=== PATIENT | female | born 1980 | race African-American/Black ===

== ENCOUNTER 2023-07-23 08:35 | Emergency (ER) | payer OTHER, SELFPAY ==
[2023-07-23] VITALS (7 sets, daily range): BP systolic 104–127; BP diastolic 72–100; PULSE 94–109; RESP 14–28; TEMP 37; O2SAT 94–97
--- NOTE | 2023-07-23 08:47 | ED.ABDPAIN ---
HPI - Abdominal Pain General Chief Complaint: Abdominal Pain Stated Complaint: N/V Time Seen by Provider: 07/23/23 08:40 History of Present Illness HPI narrative: 43-year-old female presenting to the emergency department for evaluation nausea vomiting diarrhea and body aches. Patient reports her symptoms started last night. Patient reports that multiple people at her place of employment are out with illness but she is unsure what the diagnosis was. Patient denies any chest pain or shortness of breath. Patient does have associated cough. Related Data Allergies Allergy/AdvReac Type Severity Reaction Status Date / Time No Known Allergies Allergy Verified 07/23/23 08:56 Review of Systems Review of Systems: All systems reviewed & are unremarkable except as noted in HPI and below Exam Narrative: APPEARANCE: Well appearing, no pain, no distress, well-nourished. HEAD: normocephalic, atraumatic. EYES: PERRLA/EOMI, conjunctivae clear. NOSE: Normal no drainage EARS:TMS clear with good light reflex. THROAT: Pharynx clear, no exudate. NECK: Supple. No adenopathy, no masses. RESPIRATORY: Airway patent, respirations nonlabored. Clear to auscultation bilaterally, no rales, rhonchi, wheezing. CARDIOVASCULAR: Regular rate and rhythm without murmurs rubs or gallops. ABDOMINAL: Soft, nontender, nondistended, normal bowel sounds MUSCULOSKELETAL: Moves all extremities. Strength/ROM intact, No edema, No calf tenderness. NEURO: Alert. Cranial nerves II through XII intact. Grossly intact SKIN: Warm, dry. Normal Color Course Course Emergency Course: 43-year-old female presents to the emergency department for evaluation of nausea vomiting and body aches. Patient was afebrile with no leukocytosis and a stable hemoglobin. No acute abnormalities on her CMP and UA shows no evidence of infection. Patient did test positive for influenza A. Patient was updated on results of the workup and plan for treatment for home and on reasons to return to the emergency department. All questions concerns were addressed. Vital Signs Vital signs: Vital Signs Temperature 98.6 F 07/23/23 08:27 Pulse Rate 96 07/23/23 08:27 Respiratory Rate 14 07/23/23 08:27 Blood Pressure 114/100 H 07/23/23 08:27 Pulse Oximetry 96 07/23/23 08:27 Oxygen Delivery Room Air 07/23/23 08:27 Temperature 98.6 F 07/23/23 08:27 Pulse Rate 95 07/23/23 11:04 Respiratory Rate 21 H 07/23/23 11:04 Blood Pressure 122/97 H 07/23/23 11:04 Pulse Oximetry 96 07/23/23 11:04 Oxygen Delivery Room Air 07/23/23 08:40 MDM - Abdominal Pain Lab Data 07/23/23 08:50 07/23/23 08:50 Labs: Lab Results 07/23/23 07/23/23 07/23/23 Range/Units 08:50 08:51 09:00 WBC 7.2 (4.5-10.0) K/mm3 RBC 4.12 L (4.2-5.4) M/mm3 Hgb 11.7 L (12.0-15.0) g/dL Hct 36.6 L (37.0-47.0) % MCV 88.8 (80-100) fl MCH 28.4 (26-34) pg MCHC 32.0 (32-36) g/dl RDW 13.6 (11.5-14.5) % Plt Count 180 (150-375) k/mm3 MPV 10.2 (7.4-10.4) fl Immature Gran % (Auto) 0.4 (0-0.5) % Neut % (Auto) 85.2 H (45.5-73.1) % Lymph % (Auto) 5.4 L (18.3-44.2) % Bracken % (Auto) 8.7 H (2.6-8.5) % Eos % (Auto) 0.0 (0-4.4) % Baso % (Auto) 0.3 (0.2-1.2) % Lymph # (Auto) 0.39 L (0.9-3.2) K/mm3 Bracken # (Auto) 0.6 (0.1-0.6) K/mm3 Eos # (Auto) 0.0 (0-0.3) K/mm3 Baso # (Auto) 0.0 (0.0-0.1) K/mm3 Abs Immat Gran (auto) 0.03 (0.00-0.031) K/mm3 Absolute Neuts (auto) 6.2 (1.3-6.7) K/mm3 Absolute Nucleated RBC 0.0 (0.0-0.012) K/mm3 Nucleated RBC % 0.0 (0.0-0.2) % Sodium 133 L (137-145) mmol/L Potassium 3.4 (3.4-5.0) mmol/L Chloride 100 (98-107) mmol/L Carbon Dioxide 26 (22-30) mmol/L Anion Gap 7 L (8-16) mmol/L BUN 6 L (7-17) mg/dL Creatinine 0.70 (0.7-1.0) mg/dL Estim Creat Clear Calc 81 ml/min Estimated GFR > 60 (59 - ) Glucose
[2023-07-23 08:57] LABS: Basophils Percent Auto 0.3 % (0.2-1.2); Hematocrit 36.6 % (37.0-47.0); Hemoglobin 11.7 g/dL (12.0-15.0); Immature Granulocyte Absolute 0.03 K/mm3 (0.00-0.031); Immature Granulocyte Percent A 0.4 % (0-0.5); Lymphocytes Absolute Auto 0.39 K/mm3 (0.9-3.2); Lymphocytes Percent Auto 5.4 % (18.3-44.2); Mean Corpuscular Hemoglobin 28.4 pg (26-34); Mean Corpuscular Volume 88.8 fl (80-100); Mean Platelet Volume 10.2 fl (7.4-10.4); Monocytes Absolute Auto 0.6 K/mm3 (0.1-0.6); Monocytes Percent Auto 8.7 % (2.6-8.5); Neutrophils Absolute Auto 6.2 K/mm3 (1.3-6.7); Neutrophils Percent Auto 85.2 % (45.5-73.1); Platelet Count Result 180 k/mm3 (150-375); Red Blood Count 4.12 M/mm3 (4.2-5.4); Red Cell Distribution Width 13.6 % (11.5-14.5); White Blood Count 7.2 K/mm3 (4.5-10.0)
[2023-07-23] MEDS: ONDANSETRON INJ 4 MG/2 ML VIAL IV PUSH (08:57)
[2023-07-23] MEDS: SODIUM CHLORIDE 0.9% IV 1,000 ML 999 ML IV CONT (08:57)
[2023-07-23 09:08] LABS: Alanine Aminotransferase 20 U/L (6-35); Albumin Level 4.2 g/dL (3.5-5.1); Alkaline Phosphatase 67 U/L (38-126); Anion Gap 7 mmol/L (8-16); Aspartate Amino Transferase 27 U/L (14-36); Bilirubin,Total 0.3 mg/dL (0.2-1.3); Blood Urea Nitrogen 6 mg/dL (7-17); Calcium 8.8 mg/dL (8.4-10.2); Carbon Dioxide 26 mmol/L (22-30); Chloride 100 mmol/L (98-107); Estimated CRCL calculation 81 ml/min; Estimated Glomerular Filt Rate > 60; Glucose 103 mg/dL (65-110); Lipase 153 U/L (23-300); Potassium 3.4 mmol/L (3.4-5.0); Sodium 133 mmol/L (137-145)
[2023-07-23 09:12] LABS: Appearance Urine Cloudy (Clear); Bacteria Urine 2+ /hpf; Bilirubin Urine Negative (Negative); Blood Urine 3+ (Negative); Color Urine Yellow (Yellow); Glucose Urine UA Negative (Negative); Ketones Urine 1+ mg/dL (Negative); Leukocyte Esterase Ur Negative LEU/UL (Negative); Nitrate Urine Negative (Negative); Non Pathogenic Casts 0-2; Protein Urine 1+ mg/dL (Negative); Specific Grav Ur 1.028 (1.001-1.035); Squamous Epithelial Cell Urine Moderate /hpf (Few); pH Urine 5.5 (5.0-9.0)
[2023-07-23 09:16] LABS: Add Urine Microscopic? YES
[2023-07-23 09:34] LABS: Influenza A QL RT-PCR Positive (Negative); Influenza B QL RT-PCR Negative (Negative); RSV RNA, RT-PCR Negative (Negative); SARS-CoV-2 RNA PCR Negative (Negative)
[2023-07-23] MEDS: KETOROLAC 15 MG/ML VIAL (*BKC) IV PUSH (09:36)
== END 2023-07-23 11:17 | disposition home or self-care (01) ==
PROVIDERS: Emergency Provider Emergency Medicine
DX: J10.1 Influenza due to other identified influenza virus with other respiratory manifestations (principal); R11.2 Nausea with vomiting, unspecified; Z20.822 Contact with and (suspected) exposure to COVID-19
CPT/HCPCS: 36415; 80053; 81001; 81025; 83690; 85025; 87086; 87088; 87637; 96361; 96374; 96375; 99284; J1885; J2405; J7030

== ENCOUNTER 2023-12-16 08:07 | Outpatient (CLI) | payer OTHER, SELFPAY ==
[2023-12-16 08:45] LABS: Hemoglobin 12.9 g/dL (12.0-15.0); Mean Corpuscular HGB Conc 32.3 g/dl (32-36); Mean Platelet Volume 9.8 fl (7.4-10.4); Platelet Count Result 399 k/mm3 (150-375); Red Cell Distribution Width 13.1 % (11.5-14.5)
[2023-12-16 08:48] LABS: Appearance Urine Clear (Clear); Bilirubin Urine Negative (Negative); Blood Urine Negative (Negative); Color Urine Yellow (Yellow); Glucose Urine UA Negative (Negative); Ketones Urine Negative (Negative); Leukocyte Esterase Ur Negative LEU/UL (Negative); Nitrate Urine Negative (Negative); Protein Urine Negative (Negative); Specific Grav Ur 1.015 (1.001-1.035); Urobilinogen Urine 0.2 mg/dL (<2.0)
[2023-12-16 08:52] LABS: Add Urine Microscopic? NO
[2023-12-16 10:15] LABS: Erythrocyte Sedimentation Rate 19 mm/hr (0-20)
[2023-12-16 10:57] LABS: HIV 1/2 Ab P24 Ag Result Negative (Negative)
[2023-12-16 10:59] LABS: Thyroid Stimulating Hormone 0.479 uIU/mL (0.465-4.680)
[2023-12-16 11:19] LABS: Iron 59 ug/dL (37-170)
[2023-12-16 11:38] LABS: Percent Iron Saturation 14 % (20-50)
[2023-12-16 11:47] LABS: Alanine Aminotransferase 16 U/L (6-35); Albumin Level 4.3 g/dL (3.5-5.1); Alkaline Phosphatase 56 U/L (38-126); Anion Gap 4 mmol/L (4-12); Aspartate Amino Transferase 24 U/L (14-36); Bilirubin,Total 0.5 mg/dL (0.2-1.3); Blood Urea Nitrogen 10 mg/dL (7-17); Calcium 9.1 mg/dL (8.4-10.2); Carbon Dioxide 30 mmol/L (22-30); Chloride 105 mmol/L (98-107); Cholesterol 111 mg/dL (0-200); Estimated Glomerular Filt Rate > 60; Glucose 88 mg/dL (65-110); HDL Direct 51 mg/dL; LDL Cholesterol Direct 50 mg/dL; Rheumatoid Factor < 12.0 IU/ML (<12); Sodium 139 mmol/L (137-145); Triglycerides 52 mg/dL (<150)
[2023-12-16 12:04] LABS: Vitamin D 25 Hydroxy 39.2 ng/mL
[2023-12-16 12:13] LABS: Hepatitis B Surface Antigen Negative (Negative)
[2023-12-16 12:18] LABS: HAV RESULT Negative (Negative); Hepatitis B Core IgM Result Negative (Negative)
[2023-12-16 12:30] LABS: Hepatitis C Virus Antibody Negative (Negative)
[2023-12-19 14:03] LABS: Thyroid Peroxidase Antibodies 1 IU/mL (<9)
[2023-12-20 12:24] LABS: Anti Nuclear Antibody Pattern Nuclear, Speckled; Anti Nuclear Antibody Titer 1:40 titer
== END 2023-12-16 08:08 | disposition home or self-care (01) ==
LOC: ANHLAB 08:10
PROVIDERS: Visit Provider Emergency Medicine
DX: Z00.00 Encounter for general adult medical examination without abnormal findings (principal); D64.9 Anemia, unspecified; F41.9 Anxiety disorder, unspecified; F32.9 Major depressive disorder, single episode, unspecified
CPT/HCPCS: 36415; 80053; 80061; 80074; 81003; 82306; 83540; 83550; 84439; 84443; 85027; 85652; 86038; 86039; 86376; 86430; 86703; G0432

== ENCOUNTER 2023-12-30 10:44 | Outpatient (CLI) | payer OTHER, SELFPAY ==
--- NOTE | ~2023-12-30 | XR_ITS ---
2 VIEWS SOFT TISSUES NECK Ordering provider: Kwan Macias MD History: . NECK PUFFINESS, ABNORMAL THYROID PANELS . Comparison: None. FINDINGS: SOFT TISSUES: No prevertebral soft tissue swelling. The epiglottis is normal. The pharynx and trach ea appear patent. VERTEBRAL BODIES: Normal height and alignment. No acute osseous findings. DISK SPACES: Multilevel degenerative disc disease. Multilevel facet joint disease and uncovertebral j oint osteoarthritic changes. IMPRESSION: No definite soft tissue abnormalities. Multilevel degenerative disc disease. Reviewed, dictated and finalized at location A.
--- NOTE | ~2023-12-30 | US_ITS ---
EXAMINATION: US thyroid DATE: 12/30/2023 11:21 INDICATION: Neck puffiness. TECHNIQUE: Multiple ultrasound images of the thyroid were obtained. COMPARISON: None. FINDINGS: The right thyroid lobe measures 5.8 x 2.0 x 2.1 cm. The left thyroid lobe measures 5.6 x 1.6 x 1.2 c m. In the right thyroid lobe, there is a 2.3 cm solid, isoechoic, wider than tall nodule with lobula toby margin without echogenic foci (TI-RADS TR4). In the left thyroid lobe, there is an 8 mm mixed cys tic and solid, isoechoic, wider than tall nodule with smooth margin without echogenic foci (TR2). In the left thyroid lobe, there is a 7 mm, isoechoic, wider than tall nodule with smooth margin without echogenic foci (TR3). IMPRESSION: 1. Multinodular goiter. Ultrasound-guided fine-needle aspiration of the 2.3 cm right thyroid nodule i s recommended. Reviewed, dictated and finalized at location E. IMPRESSION: 1. Multinodular goiter. Ultrasound-guided fine-needle aspiration of the 2.3 cm right thyroid nodule is recommended.
== END 2023-12-30 10:45 | disposition home or self-care (01) ==
LOC: ANHIMG 10:49
PROVIDERS: PCP Emergency Medicine; Visit Provider Emergency Medicine
DX: E04.2 Nontoxic multinodular goiter (principal); M50.30 Other cervical disc degeneration, unspecified cervical region
CPT/HCPCS: 70360; 76536

== ENCOUNTER 2024-01-23 11:11 | Outpatient (CLI) | payer OTHER, SELFPAY ==
[2024-01-23 11:46] LABS: Basophils Percent Auto 0.7 % (0.2-1.2); Eosinophils Absolute Auto 0.2 K/mm3 (0-0.3); Eosinophils Percent Auto 4.5 % (0-4.4); Hematocrit 41.6 % (37.0-47.0); Hemoglobin 13.3 g/dL (12.0-15.0); Immature Granulocyte Absolute 0.01 K/mm3 (0.00-0.031); Immature Granulocyte Percent A 0.2 % (0-0.5); Lymphocytes Percent Auto 40.3 % (18.3-44.2); Mean Corpuscular Hemoglobin 28.7 pg (26-34); Mean Corpuscular Volume 89.7 fl (80-100); Monocytes Absolute Auto 0.3 K/mm3 (0.1-0.6); Monocytes Percent Auto 7.1 % (2.6-8.5); Neutrophils Percent Auto 47.2 % (45.5-73.1); Platelet Count Result 241 k/mm3 (150-375); Red Blood Count 4.64 M/mm3 (4.2-5.4); Red Cell Distribution Width 14.4 % (11.5-14.5); White Blood Count 4.2 K/mm3 (4.5-10.0)
[2024-01-23 14:07] LABS: Hepatitis B Surface Antigen Negative (Negative)
[2024-01-23 14:13] LABS: HAV RESULT Negative (Negative); Hepatitis B Core IgM Result Negative (Negative)
[2024-01-23 14:24] LABS: Hepatitis C Virus Antibody Negative (Negative)
[2024-01-23 16:52] LABS: Iron 52 ug/dL (37-170)
[2024-01-23 17:01] LABS: Percent Iron Saturation 13 % (20-50)
[2024-01-23 17:04] LABS: Alanine Aminotransferase 43 U/L (6-35); Albumin Level 4.7 g/dL (3.5-5.1); Alkaline Phosphatase 62 U/L (38-126); Anion Gap 10 mmol/L (4-12); Aspartate Amino Transferase 29 U/L (14-36); Bilirubin,Total 0.2 mg/dL (0.2-1.3); Blood Urea Nitrogen 15 mg/dL (7-17); Calcium 9.1 mg/dL (8.4-10.2); Carbon Dioxide 25 mmol/L (22-30); Chloride 101 mmol/L (98-107); Estimated Glomerular Filt Rate > 60; Glucose 82 mg/dL (65-110); Lactate Dehydrogenase 156 U/L (120-246); Potassium 4.2 mmol/L (3.4-5.0); Sodium 136 mmol/L (137-145)
[2024-01-24 01:16] LABS: Folic Acid > 20.0 ng/mL (2.76->20)
[2024-01-24 01:30] LABS: Carcinoembryonic Antigen 2.4 ng/mL (0.0-3.0)
[2024-01-24 11:43] LABS: EBV Virus Capsid Ag IgM Ab <36.00 U/mL
[2024-01-25 14:58] LABS: CA 19-9 28 U/mL (<34)
[2024-01-27 11:49] LABS: Methylmalonic Acid 112 nmol/L (55-335)
[2024-01-30 12:44] LABS: Soluble Transferrin Receptor 1.24 mg/L (0.76-1.76)
== END 2024-01-23 11:12 | disposition home or self-care (01) ==
LOC: ANHLAB 11:12
PROVIDERS: Internal Medicine Gastroenterology; PCP Emergency Medicine; Visit Provider Nurse Practitioner Family
DX: R63.0 Anorexia (principal); Z80.0 Family history of malignant neoplasm of digestive organs
CPT/HCPCS: 36415; 80053; 80074; 82378; 82607; 82728; 82746; 83540; 83550; 83615; 83921; 84238; 85025; 86301; 86664; 86665

== ENCOUNTER 2024-03-08 12:25 | Outpatient (CLI) | payer OTHER, SELFPAY ==
--- NOTE | ~2024-03-08 | US_ITS ---
EXAMINATION: US FNA w image guidance DATE: 03/08/2024 13:24 INDICATION: Right thyroid nodule TECHNIQUE: A time-out was performed to verify the patient's name, date of , and procedure to be performed . The procedure and its benefits and risks were discussed with the patient. Risks specifically discus sed included bleeding and infection. The patient understood the risks and agreed to proceed. The neck was prepped and draped in the usual sterile manner. 3 mL 1% lidocaine was used for local anesthesia . 6 passes were made with a 25G needle into the lesion. Appropriate needle location was documented with continuous sonographic guidance. A sterile bandage was applied. There were no immediate compli cations. FINDINGS: Grayscale ultrasound images demonstrate biopsy needles advanced into a 2.4 cm TI-RADS 4 nodule at the mid to inferior right thyroid lobe. IMPRESSION: 1. Successful ultrasound-guided fine needle aspiration of a 2.4 cm TI RADS 4 right thyroid nodule. Reviewed, dictated and finalized at location A. IMPRESSION: 1. Successful ultrasound-guided fine needle aspiration of a 2.4 cm TI RADS 4 r ight thyroid nodule.
== END 2024-03-08 12:26 | disposition home or self-care (01) ==
LOC: ANHIMG 12:27
PROVIDERS: PCP Emergency Medicine; Referring Provider Internal Medicine Hematology & Oncology; Visit Provider Internal Medicine Hematology & Oncology
DX: E04.1 Nontoxic single thyroid nodule (principal)
CPT/HCPCS: 10005; 88172; 88173; 88305

== ENCOUNTER 2024-03-11 11:12 | Emergency (ER) | payer OTHER, SELFPAY ==
[2024-03-11] VITALS (10 sets, daily range): BP systolic 116–131; BP diastolic 63–96; PULSE 64–80; RESP 14–20; TEMP 36.2–36.8; O2SAT 99–100
--- NOTE | ~2024-03-11 | US_ITS ---
US breast RT limited 03/11/2024 14:52 Indication: Palpable lump. Breast pain. Procedure: High-resolution Limited ultrasound of the right breast Comparison: No prior studies for comparison. Findings: At 9:00 in the subareolar location there is an oval bilobed parallel oriented heterogeneous mass measuring 3.9 x 2.8 x 1.4 cm. There is adjacent fluid, nonspecific. Impression: 1: Oval bilobed circumscribed heterogeneous 3.9 cm right breast mass at 9:00 in the subareolar locati on corresponding to the palpable abnormality. RECOMMENDATION: Correlation with diagnostic bilateral mammogram recommended. BI-RADS CATEGORY 0 - INCOMPLETE STUDY, NEED ADDITIONAL IMAGING EVALUATION. Reviewed, dictated and finalized at location B. Impression: 1: Oval bilobed circumscribed heterogeneous 3.9 cm right breast mass at 9:00 in the subareolar location corresponding to the palpable abnormality. RECOMMENDATION: Correlation with diagnostic bilateral mammogram recommended. BI-RADS CATEGORY 0 - INCOMPLETE STUDY, NEED ADDITIONAL IMAGING EVALUATION.
--- NOTE | 2024-03-11 14:40 | ED.GENADULT ---
HPI - General Adult General Chief complaint: Unspecified Stated complaint: node on the right breast and is getting bigger Time Seen by Provider: 03/11/24 13:58 Source: patient Mode of arrival: ambulatory Limitations: no limitations History of Present Illness HPI narrative: Patient is a 43-year-old female who presents the ED with report of right breast pain. Patient reports she noticed an area of swelling in her right breast beneath her nipple 3 days ago. States it has increased in size and become increasingly tender. She has been taking ibuprofen for the pain with some improvement. Denies nipple discharge, nipple inversion, overlying skin redness/warmth. Denies fevers. She has not had similar symptoms before. Reports history of mammogram earlier this year which was normal. Related Data Allergies Allergy/AdvReac Type Severity Reaction Status Date / Time No Known Allergies Allergy Verified 03/11/24 11:13 Review of Systems Review of Systems: All systems reviewed & are unremarkable except as noted in HPI. All systems reviewed & are unremarkable except as noted in HPI and below Exam Narrative: GENERAL: Well appearing, well-nourished, non-toxic, in no acute distress. HEAD: Normocephalic, atraumatic. RESPIRATORY: Airway patent, respirations nonlabored. CARDIOVASCULAR: Regular rate and rhythm MUSCULOSKELETAL: Moves all extremities. No gross deformities. BREAST: Some fibrocystic breast changes bilaterally. Area of induration noted beneath right-sided nipple region (9oclock region) in R breast. No overlying skin changes. No erythema, fluctuance, warmth. Nipple appears normal, no drainage. No inversion of the nipple. SKIN: Warm, dry, normal color. NEURO: A&O X3. Speech clear. PSYCHIATRIC: Appropriate mood and affect. Normal interaction. Course Vital Signs Vital signs: Vital Signs Temperature 98.3 F 03/11/24 11:38 Pulse Rate 64 03/11/24 11:38 Respiratory Rate 20 03/11/24 11:38 Blood Pressure 124/89 03/11/24 11:38 Pulse Oximetry 100 03/11/24 11:38 Oxygen Delivery Room Air 03/11/24 11:38 Temperature 97.1 F L 03/11/24 17:16 Pulse Rate 80 03/11/24 17:16 Respiratory Rate 14 03/11/24 17:16 Blood Pressure 124/63 03/11/24 17:16 Pulse Oximetry 100 03/11/24 17:16 Oxygen Delivery Room Air 03/11/24 11:38 Medical Decision Making MDM Narrative Medical decision making narrative: Patient presented to ED with several day history of right breast pain. Will obtain imaging to further evaluate. Vital signs are stable. Afebrile. No overlying skin changes, evidence of cellulitis or superficial skin infection on exam. Discussed case with radiologist, Dr. Lucio, regarding breast US. Advised complex cystic structure, likely galactocele, cannot r/o superimposed infection. Does not appear as maria c abscess. No vascularity within to suggest neoplasm. Patient was updated on imaging results. Will plan to treat for potential infectious process with doxycycline, will refer to breast surgery/general surgery for further evaluation/biopsy. Advised patient have very close follow-up. Recommended frequent warm compresses, anti-inflammatories. Patient was given return precautions. She is in agreement with plan. Discharged in stable condition. Medical Records Medical records reviewed: Yes I reviewed the external patient's medical records. Vital Signs Vital Signs: Vital Signs Temperature 98.3 F 03/11/24 11:38 Pulse Rate 64 03/11/24 11:38 Respiratory Rate 20 03/11/24 11:38 Blood Pressure 124/89 03/11/24 11:38 Pulse Oximetry 100 03/11/24 11:38 Oxygen Delivery Room Air 03/11/24 11:38 Temperature 97.1 F L 03/11/24 17:16 Pulse Rate 80 03/11/24 17:16 Respiratory Rate 14 03/11/24 17:16 Blood Pressure 124/63 03/11/24 17:16 Pulse Oximetry 100 03/11/24 17:16 Oxygen Delivery Room Air 03/11/24 11:38 Imaging Data Attestation: I personally reviewed an
== END 2024-03-11 17:17 | disposition home or self-care (01) ==
PROVIDERS: Emergency Provider Physician Assistant; PCP Emergency Medicine
DX: N60.01 Solitary cyst of right breast (principal)
CPT/HCPCS: 76642; 99284

== ENCOUNTER 2024-04-16 11:05 | Outpatient (CLI) | payer OTHER, SELFPAY ==
[2024-04-16 11:30] LABS: Hemoglobin 14.2 g/dL (12.0-15.0)
== END 2024-04-16 11:06 | disposition home or self-care (01) ==
LOC: ANHLAB 11:06
PROVIDERS: PCP Emergency Medicine; Visit Provider Anesthesiology
DX: D64.9 Anemia, unspecified (principal)
CPT/HCPCS: 36415; 85014; 85018

== ENCOUNTER 2024-04-25 01:38 | Day surgery (SDC) | payer OTHER, SELFPAY ==
[2024-04-13 15:39] VITALS: BMI 29.8
--- NOTE | 2024-04-13 15:40 | PC.NURSE ---
Report to the Outpatient Waiting Room, entrance under the green pavilion located off [facility], at time _0600_ on date _[id number]_. Planned Procedure Time: _0730_.? Time changes happen often and if your time is changed the preop area will call you the afternoon before. - You and your visitor will be asked to self-screen and do not enter if you have any COVID symptoms. Please call surgeon if you need to reschedule. - A mask is optional within the hospital at this time. Patients may have clear liquids (water, carbonated beverages, clear teas, apple juice) until 3 hours prior to surgery with a maximum of 20 ounces. - No food from midnight until time of surgery and no smoking Take only the following medications with a SIP of water on the morning of surgery: ___Gabapentin DO NOT STOP ANY OF YOUR OTHER PRESCRIPTION MEDICATIONS PRIOR TO SURGERY EXCEPT THE FOLLOWING Medications to discontinue per physician Iron and Probiotic Date to take last heto____[id number] Henderson's office if ok to continue taking Ibuprofen. Please no make-up, nail french, hairspray, perfume, deodorant, or body powder the day of surgery.? No jewelry (including any body piercings) or valuables the day of surgery, leave them at home.? Please take a shower or bath the night before, or the morning of, surgery with an antibacterial soap.? Wear comfortable, loose fitting clothing.? - Jewelry must be removed prior to entering the operating room.? Rings and piercings that are not removed may be cut off. - The hospital will not accept responsibility for valuables.? - Please leave all valuables, including medications, at home the day of surgery. If you are going home after surgery, a licensed driver lifter of sanitation truck must drive you home.? - NO public transportation without another adult if you receive anesthesia. - We recommend that an adult stay with you for 24 hours following discharge. - We also recommend that you do not drive, make important decision, drink alcoholic beverages, or take any drugs that were not prescribed by your health care provider for at least 24 hours after your discharge time. Follow any additional instructions given to you from your surgeon. Telephone instructions given to __Lillian___and asked if any additional questions and then verbalized understanding. Patient advised to call surgeon office or pre surgery nurse liaison [phone] if any additional questions.
--- NOTE | 2024-04-24 17:47 | WPDANESEPPF ---
Anes - Initial Pre Proc Eval Procedure: Operation Date: 04/25/24 07:30 Proposed Procedures p Excisional Biopsy of Right Subareolar Mass, Excisional Biopsy of Left Subareolar Abscess, Possible Bilateral Total Duct Excision, Possible Bilateral Adjacent Tissue Transfer - Yumiko Henderson MD Date/Time: 04/24/24 17:47 Surgeon: Yumiko Henderson MD Pre Op Diagnosis: right subareolar mass, left subareolar abscess Patient Data Age: 43 Gender: F Height: 1.57 m Weight: 74 kg Allergies Allergy/AdvReac Type Severity Reaction Status Date / Time No Known Allergies Allergy Verified 04/13/24 15:30 Home Medications Medication Instructions Recorded Confirmed Type ferrous sulfate 325 mg (65 mg 325 mg PO DAILY 03/21/24 04/13/24 History iron) tablet,delayed release gabapentin 100 mg capsule 100 mg PO TID 03/21/24 04/13/24 History ibuprofen 800 mg tablet 800 mg PO TID 03/21/24 04/13/24 History Lactobacillus 40-Bifidobact 1 cap PO DAILY 04/13/24 04/13/24 History 3-S.thermophilus 100 billion cell capsule (Probiotic) Patient hx anesthesia problems: none Family hx anesthesia problems: none Results Review: All pre-operative results and documents have been reviewed as part of the pre-operative evaluation. [facility] Past Medical History Medical History (Updated 04/24/24 @ 17:48 by Azar Stevens Jr., CRNA) Anemia Anxiety and depression Asthma Eczema Fibromyalgia Overweight (BMI 25.0-29.9) Subareolar lump of left breast Subareolar lump of right breast Social History Social History Smoking status: Never smoker Alcohol intake: current Substance use: never Substance use type: does not use Do You Feel Safe in your Home?: Yes Lack of Transportation: No Lack of Food: Never True Current Housing: I Have Housing Concerned About Future Housing: No Difficulty Paying Gas/Electric Bills: No Difficulty Paying for Meds: No Currently Unemployed: No Education: High School Diploma/GED Difficulty w/ Childcare or Family Care: No Living arrangements: with family Spiritual care concerns: No Anes - Eval Final PreProcedure Day of Procedure 04/24/24 17:47 Patient weight: overweight Results Review: All pre-operative results and documents have been reviewed as part of the pre-operative evaluation. Informed Consent: The patient's anesthetic plan and its attendant risks and benefits were discussed with the patient/family/POA. Questions were solicited and answers provided to the satisfaction of the patient/family/POA.
[2024-04-25] VITALS (9 sets, daily range): BP systolic 114–144; BP diastolic 69–95; PULSE 55–66; RESP 12–16; TEMP 36.3–36.4; O2SAT 100
[2024-04-25] MEDS: LACTATED RINGERS 1,000 ML 30 ML IV CONT (06:30)
[2024-04-25] MEDS: ACETAMINOPHEN 500 MG TABLET 1000 MG PO (07:00)
--- NOTE | 2024-04-25 07:01 | WPDHPUPDATE1 ---
History and Physical Update Update Date/Time: 04/25/24 07:01 - Excisional biopsy of bilateral subareolar lesions, possible bilateral total duct excision, possible bilateral adjacent tissue transfer hopefully in the near future. History and Physical has been reviewed, including an updated exam of the patient. There are NO changes in the patient's condition. Risks, benefits, and alternatives have been discussed and questions answered. Patient agrees to proceed with procedure.
--- NOTE | 2024-04-25 07:18 | P.PNAN_ITS ---
Anes - Initial Pre Proc Eval Procedure: Operation Date: 04/25/24 07:30 Proposed Procedures p Excisional Biopsy of Right Subareolar Mass, Excisional Biopsy of Left Subareolar Abscess, Possible Bilateral Total Duct Excision, Possible Bilateral Adjacent Tissue Transfer - Yumiko Henderson MD Date/Time: 04/25/24 07:18 Surgeon: Yumiko Henderson MD Pre Op Diagnosis: right subareolar mass, left subareolar abscess Patient Data Age: 43 Gender: F Height: 1.57 m Weight: 74 kg Allergies Allergy/AdvReac Type Severity Reaction Status Date / Time No Known Allergies Allergy Verified 04/13/24 15:30 Home Medications Medication Instructions Recorded Confirmed Type ferrous sulfate 325 mg (65 mg 325 mg PO DAILY 03/21/24 04/13/24 History iron) tablet,delayed release gabapentin 100 mg capsule 100 mg PO TID 03/21/24 04/13/24 History ibuprofen 800 mg tablet 800 mg PO TID 03/21/24 04/13/24 History Lactobacillus 40-Bifidobact 1 cap PO DAILY 04/13/24 04/13/24 History 3-S.thermophilus 100 billion cell capsule (Probiotic) Patient hx anesthesia problems: none Family hx anesthesia problems: none Results Review: All pre-operative results and documents have been reviewed as part of the pre- operative evaluation. [facility] Past Medical History Medical History (Updated 04/24/24 @ 17:48 by Azar Stevens Jr., CRNA) Anemia Anxiety and depression Asthma Eczema Fibromyalgia Overweight (BMI 25.0-29.9) Subareolar lump of left breast Subareolar lump of right breast Social History Social History Smoking status: Never smoker Alcohol intake: current Substance use: never Substance use type: does not use Do You Feel Safe in your Home?: Yes Lack of Transportation: No Lack of Food: Never True Current Housing: I Have Housing Concerned About Future Housing: No Difficulty Paying Gas/Electric Bills: No Difficulty Paying for Meds: No Currently Unemployed: No Education: High School Diploma/GED Difficulty w/ Childcare or Family Care: No Living arrangements: with family Spiritual care concerns: No Anes - Eval Final PreProcedure Day of Procedure 04/25/24 07:18 Patient weight: normal Heart: regular rate and rhythm Lungs: clear to auscultation Airway: Mallampati scale class II Neurological: alert and oriented Last oral intake: >/= 8 hours ASA classification: II Emergent: no Anesthetic plan: proceed Anesthesia type and monitoring: general LMA and standard monitoring Results Review: All pre-operative results and documents have been reviewed as part of the pre- operative evaluation. Informed Consent: The patient's anesthetic plan and its attendant risks and benefits were discussed with the patient/family/POA. Questions were solicited and answers provided to the satisfaction of the patient/family/POA.
[2024-04-25] MEDS: ceFAZolin 2 GM/D5W 50 ML 2 GM/50 ML BAG IVPB (07:24)
--- NOTE | 2024-04-25 08:15 | SUR.OPER ---
EXCISED RIGHT BREAST SPECIMEN AT 0811. HANDED OFF TO PCT NOY @ 0816 TO TAKE DOWN TO PATHOLOGY FRESH FOR PERMANENT. NOY DELIVERED TO RIYA IN PATHOLOGY @0853
--- NOTE | 2024-04-25 08:37 | SUR.OPER ---
LEFT BREAST MASS EXCISED @0845. HANDED TO PCT NOY @7104 TO TAKE DOWN TO PATHOLOGY FRESH FOR PERMANENT. SPECIMEN HANDED TO RIYA IN PATHOLOGY @0316
[2024-04-25 08:47] LABS: BEDSIDEPREGUCG Negative (Negative)
--- NOTE | 2024-04-25 09:02 | P.OP_ITS ---
Procedure Note - Detailed Date of Procedure 04/25/24 Pre-op Diagnosis right subareolar mass, left subareolar mass Post-op Diagnosis Same Procedure Performed 1. Excisional biopsy of right subareolar mass 2. Excisional biopsy of left subareolar mass 3. Right total duct excision 4. Left total duct excision 5. Right adjacent tissue transfer 1 cm x 5 cm 6. Left adjacent tissue transfer 1 cm x 5 cm Surgeon Yumiko Henderson MD Arts Administrator Rosalba Ram PA-C Anesthesia General Description of Procedure Patient was identified in the preoperative holding area brought to the OR operating room suite. She was laid supine in the OR table sequential compression devices were applied. Anesthesia was induced without difficulty. The bilateral chest areas were prepped and draped in a sterile fashion. An ultrasound was used to confirm the position of both subareolar cystic lesions and decision was made to start with bilateral superior periareolar incisions for access to these lesions. We started on the right by making a small superior periareolar incision dissecting towards central subareolar area. We immediately encounter a very dilated mammary duct that was filled with what appeared to be old milk and this was completely excised and tracked it down to the cystic lesion in the inferior subareolar area. There were both excised and bloc and sent to pathology as a permanent specimen. The cavity was irrigated hemostasis was assured. Several 2-0 Vicryl intradermal sutures were placed to close the central cavity to prevent the nipple from retracting. Attention was then turned to the left side. A superior periareolar incision was again made and dissected down towards the central subareolar region we again encountered several dilated mammary ducts that were excised and blocked and we were able to track 1 of the ducts to the cystic lesion in the inferior subareolar area. A dilated ducts and the cystic lesion were excised EN bloc and again sent to pathology as a permanent specimen. The cavity was irrigated with saline hemostasis was assured. This cavity again was closed with several to 2-0 intraparenchymal sutures to prevent the nipple from retracting. To achieve a better aesthetic look for the nipple areola complex decision was made to excise a superior crescenteric edge of skin to move and pulled the nipple upwards and prevent downward retraction with healing. This area of skin measured approximately 5 cm x 1cm and was excised to the dermis. We then advanced the nipple upwards over the dermis and secured the nipple-areolar complex to the skin with interrupted 3-0 Vicryl followed by 4-0 Monocryl in a subcuticular fashion. Dermabond was applied followed by sterile dressing and a surgical bra. Patient was awoken from anesthesia and taken to the recovery area in a stable condition. All needles, instruments, sponge counts were correct as reported by the operating room staff. Patient tolerated the procedure well with no immediate complications. Rosalba Ram PA-C was present and assisted with retraction and patient positioning throughout the case. Estimated Blood Loss 10 Pathology Yes Complications No immediate complications Condition Stable Disposition PACU [facility] Billing Surgery - Charge Forward: Surgery Billing ( CPT 33917 - R, 68068 - 59 L, [id number] - 59 R, 62467 - 59 L)
[2024-04-25] MEDS: fentaNYL CITRATE INJ (*CRX) 100 MCG/2 ML VIAL 25 MCG IV PUSH (09:51)
[2024-04-25] MEDS: oxyCODONE HCL (*CRX) 5 MG TAB IR PO (10:29)
== END 2024-04-25 11:24 | disposition home or self-care (01) ==
PROVIDERS: Physician Assistant Surgical; PCP Emergency Medicine; Visit Provider Surgery
PROC: (CPT 19120; principal; 2024-04-25 07:30)
DX: N64.89 Other specified disorders of breast (principal); D64.9 Anemia, unspecified; F41.8 Other specified anxiety disorders; Z79.1 Long term (current) use of non-steroidal anti-inflammatories (NSAID)
CPT/HCPCS: 19120; 14301; 88307; A9270; J0690; J1100; J2003; J2250; J2704; J3010; J7120; Q9968

== ENCOUNTER 2024-05-28 09:56 | Emergency (ER) | payer OTHER, SELFPAY ==
[2024-05-28 10:14] VITALS: BP 136/90; PULSE 78; RESP 16; TEMP 36.4; O2SAT 98
--- NOTE | 2024-05-28 11:22 | PC.NURSE ---
Pt called at 1100 no response Pt called at 1122 no response
== END 2024-05-28 11:53 | disposition left against medical advice (07) ==
LOC: ANHED 11:41
PROVIDERS: PCP Emergency Medicine
DX: H92.02 Otalgia, left ear (principal)
CPT/HCPCS: 99199

== ENCOUNTER 2024-06-14 15:41 | Emergency (ER) | payer OTHER, SELFPAY ==
--- NOTE | ~2024-06-14 | US_ITS ---
Limited ABDOMINAL ULTRASOUND Ordering provider: Juliano Main MD History: . cyst on liver radiologist recommended ultrasound . Comparison: None. FINDINGS: LIVER: Lesions seen in the CT are not demonstrated. Follow-up is advised. Normal size and echotexture . No perihepatic fluid collections are identified. Portal vein flow is normal. GALLBLADDER: Unremarkable. No evidence for stones, sludge, gallbladder wall thickening or pericholecy stic fluid collections. Wall thickness is 2.5 mm. A negative sonographic Stanton's sign was noted. BILIARY DUCTS: No evidence for intra or extrahepatic biliary dilation. Common bile duct measures 2.2 mm in diameter which is within normal limits. PANCREAS: Normal echotexture and size. UPPER ABDOMINAL AORTA: Normal in caliber. IVC: Patent. FREE FLUID: None. IMPRESSION: The lesion seen in the liver by CT are not demonstrated. Otherwise, Unremarkable limited ultrasound o f the abdomen. Reviewed, dictated and finalized at location A. ET COATER IMPRESSION: The lesion seen in the liver by CT are not demonstrated. Otherwise, Unremarkabl e limited ultrasound of the abdomen.
--- NOTE | ~2024-06-14 | CT_ITS ---
CT abdomen pelvis wo con Ordering provider: Shirin Ramachandran PA-C History: 43 years Female with . pain/lump in upper abdomen . Comparison: None. Technique: CT abdomen and pelvis without IV and without oral contrast. Automated exposure control and iterative reconstruction technique were employed. The dose-length product was 646.27 mGy-cm. Findings: VISUALIZED LOWER CHEST: tree-in-bud appearance seen in the left lower lobe posteriorly which may be d ue to infection. Trace of pericardial effusion seen anteriorly UPPER ABDOMINAL ORGANS: Liver: Multiple hypodensities in both lobes of the liver with the largest in the left lobe measuring 2.4 x 1.9 cm. This may represent metastatic lesions or cysts. Ultrasound evaluation advised. Gallbladder: Slightly contracted. Spleen: Normal. Stomach/duodenum: Normal. Pancreas: Normal. Adrenals: Normal. Kidneys: Hyperdense area seen in the right kidney midpole which is most likely hemorrhagic cyst. Ultr asound evaluation advised. PELVIC ORGANS: The bladder shows slightly thickened wall. Evaluation for cystitis is advised. BOWEL AND MESENTERY: Colon: No evidence of diverticulitis. fecal material in the right side of the colon. Normal appendix. Small Bowel: Normal. No obstruction. Peritoneum/mesentery: No free air or free fluid. No mesenteric lymphadenopathy. RETROPERITONEUM: Normal aorta. No retroperitoneal lymphadenopathy. MUSCULOSKELETAL: Superficial soft tissues: Anterior abdominal wall hernia is seen with bowel content with widening of the distance between the rectus muscles. Otherwise, The superficial soft tissues are normal. Bones: Age appropriate degenerative changes of the spine. Bilateral sacroiliitis. IMPRESSION: 1. No evidence of appendicitis, diverticulitis or intestinal obstruction. 2. Multiple hypodensities in the liver which may be cysts or metastatic lesions. Ultrasound evaluati on advised. 3. Hyperdense area most likely Hemorrhagic cyst in the right kidney. 4. Abdominal wall hernia with widening of the distance between the rectus muscles. 5. Constipation. Reviewed, dictated and finalized at location A. FOLLOWER IMPRESSION: 1. No evidence of appendicitis, diverticulitis or intestinal obstruction. 2. Multiple hypodensities in the liver which may be cysts or metastatic lesion s. Ultrasound evaluation advised. 3. Hyperdense area most likely Hemorrhagic cyst in the right kidney. 4. Abdominal wall hernia with widening of the distance between the rectus musc les. 5. Constipation.
[2024-06-14 16:33] VITALS: BP 131/96; PULSE 70; RESP 18; TEMP 36.6; O2SAT 100
--- NOTE | 2024-06-14 16:59 | ED_ITS ---
HPI - Abdominal Pain General Chief Complaint: Abdominal Pain <HOWARD Block Last Filed: 06/14/24 17:09> Stated Complaint: abdominal pain <HOWARD Block Last Filed: 06/14/24 17:09> Time Seen by Provider: 06/14/24 16:59 <HOWARD Block Last Filed: 06/14/24 17:09> Focused HPI: Patient is a 43 y/o female who presents to the ED with c/o Pain and abnormal tissue in upper abdomen. Patient reports having lumpy tissue in her upper abdomen over the last 3 days. States it feels like a enlarged vein in her upper abdomen. It is painful. Pain has been constant. Worse with laying on her side or stretching outward. Denies alleviating factors. Has not taken anything for pain. Denies CP/SOB. Denies N/V/D, constipation, fevers. Patient mentions she had cysts drained in jin breasts in April, but was told by her surgeon this would not be related to the surgery. GENERAL: Well-appearing, obese with BMI of 32.3, and in no acute distress. HEAD: Normocephalic, atraumatic. CHEST: Clear to auscultation. ?No respiratory distress. HEART: Regular rate and rhythm.? ABD: TTP in supraumbilical region up to epigastric region. Some palpable ridges in subcutaneous tissue felt, possible hernia defect?, still soft. NEURO: ?Alert and oriented x3. Patient screened in triage and initial orders placed.? ?Additional care and disposition to be based upon?diagnostic testing and treatment. <HOWARD Block Last Filed: 06/14/24 17:09> Source: patient <HOWARD Block Last Filed: 06/14/24 17:09> Mode of arrival: ambulatory <HOWARD Block Last Filed: 06/14/24 17:09> Limitations: no limitations <HOWARD Block Last Filed: 06/14/24 17:09> History of Present Illness HPI narrative: patient is a 44-year-old female who presents emergency department with chief complaint of abdominal pain and a lumpy area in her upper abdomen patient states it has been on going for the last 3 days the patient reports that she feels as though there is a vein enlarged her upper abdomen. Patient reports worse with laying on her side or stretching hour patient reports that she had cyst drained in her breast in April <Juliano Main MD - Last Filed: 06/15/24 01:05> Related Data Home Medications: Home Medications Medication Instructions Recorded Confirmed ferrous sulfate 325 mg (65 mg 325 mg PO DAILY 03/21/24 04/25/24 iron) tablet,delayed release gabapentin 100 mg capsule 100 mg PO TID 03/21/24 04/25/24 ibuprofen 800 mg tablet 800 mg PO TID 03/21/24 04/25/24 Lactobacillus 40-Bifidobact 1 cap PO DAILY 04/13/24 04/25/24 3-S.thermophilus 100 billion cell capsule (Probiotic) <Shirin Ramachandran PA-C - Last Filed: 06/14/24 17:09> Allergies/Adverse Reactions: Allergies Allergy/AdvReac Type Severity Reaction Status Date / Time No Known Allergies Allergy Verified 06/11/24 15:36 <Shirin Ramachandran PA-C - Last Filed: 06/14/24 17:09> Review of Systems Review of Systems: A 10 system review of systems was completed on the patient and is negative except for what is stated in the HPI. Nursing and ancillary documentation was reviewed. <Juliano Main MD - Last Filed: 06/15/24 01:05> [facility] Past Medical History Medical History: Medical History Anemia Anxiety and depression Asthma Eczema Fibromyalgia Overweight (BMI 25.0-29.9) Subareolar lump of left breast Subareolar lump of right breast <Shirin Ramachandran PA-C - Last Filed: 06/14/24 17:09> Social History Social History: Social History Smoking status: Never smoker Alcohol intake: current Substance use: never Substance use type: does not use Do You Feel Safe in your Home?: Yes Lack of Transportation: No Lack of Food: Never True Current Housing: I Have Housing Concerned About Future Housing: No Difficulty Paying Gas/Electric Bills: No Difficulty Paying for Meds: No Currently Unemployed: No Education: High School Diploma/GED Difficulty w/ Childcare or Family Care: No Living arrangements: with family Spiritual care concerns: No <Shirin Ramachandran PA-C - Last Filed: 06/14/24 17:09> Exam Narrative: GENERAL: Well-appearing, well-nourished, and in no acute distress. HEAD: Normocephalic, atraumatic. EYES: PERRLA and EOMI. ENT: Nares clear, no rhinorrhea or epistaxis. Mucous membranes moist. NECK: Supple. CHEST: Clear to auscultation. No respiratory distress. HEART: Regular rate and rhythm. No murmur heard. Normal peripheral pulses. ABDOMEN: Soft, mild tenderness to palpation in the epigastric region nondistended, normal active bowel sounds. EXTREMITIES: Normal range of motion. No edema. SKIN: Warm, dry, no rash. NEURO: No focal deficits. Alert and oriented x3. PSYCH: Normal mood and affect. <Juliano Main MD - Last Filed: 06/15/24 01:05> Course Vital Signs Vital signs: Vital Signs Temperature 36.6 C 06/14/24 16:33 Pulse Rate 70 06/14/24 16:33 Respiratory Rate 18 06/14/24 16:33 Blood Pressure 131/96 H 06/14/24 16:33 Pulse Oximetry 100 06/14/24 16:33 Oxygen Delivery Room Air 06/14/24 16:33 Temperature 36.4 C 06/14/24 22:14 Pulse Rate 66 06/15/24 00:57 Respiratory Rate 15 06/15/24 00:57 Blood Pressure 115/68 06/15/24 00:57 Pulse Oximetry 100 06/15/24 00:57 Oxygen Delivery Room Air 06/14/24 22:14 <Shirin Ramachandran PA-C - Last Filed: 06/14/24 17:09> Vital Signs Temperature 36.6 C 06/14/24 16:33 Pulse Rate 70 06/14/24 16:33 Respiratory Rate 18 06/14/24 16:33 Blood Pressure 131/96 H 06/14/24 16:33 Pulse Oximetry 100 06/14/24 16:33 Oxygen Delivery Room Air 06/14/24 16:33 Temperature 36.4 C 06/14/24 22:14 Pulse Rate 66 06/15/24 00:57 Respiratory Rate 15 06/15/24 00:57 Blood Pressure 115/68 06/15/24 00:57 Pulse Oximetry 100 06/15/24 00:57 Oxygen Delivery Room Air 06/14/24 22:14 <Juliano Main MD - Last Filed: 06/15/24 01:05> MDM - Abdominal Pain MDM Narrative Medical decision making narrative: MSE by KEREN in triage. <Shirin Ramachandran PA-C - Last Filed: 06/14/24 17:09> MSE by KEREN in triage. differential diagnosis includes hernia, intra-abdominal infection, pancreatitis, diverticulitis, cholecystitis choledocholithiasis laboratory studies were obtained on the patient showed normal CBC CMP was within normal limits liver enzymes were normal lipase was normal CT scan of the abdomen pelvis showed 1. No evidence of appendicitis, diverticulitis or intestinal obstruction. 2. Multiple hypodensities in the liver which may be cysts or metastatic lesions. Ultrasound evaluation advised. 3. Hyperdense area most likely Hemorrhagic cyst in the right kidney. 4. Abdominal wall hernia with widening of the distance between the rectus muscles. 5. Constipation. ultrasound was obtained at request of the radiologist The lesion seen in the liver by CT are not demonstrated. Otherwise, Unremarkable limited ultrasound of the abdomen. patient be discharged home to follow-up with surgery <Juliano Main MD - Last Filed: 06/15/24 01:05> Lab Data Result diagrams: 06/14/24 18:30 06/14/24 18:30 <Shirin Ramachandran PA-C - Last Filed: 06/14/24 17:09> Labs: Lab Results 06/14/24 06/14/24 Range/Units 18:30 22:14 WBC 8.3 (4.5-10.0) K/mm3 RBC 4.41 (4.2-5.4) M/mm3 Hgb 13.3 (12.0-15.0) g/dL Hct 40.0 (37.0-47.0) % MCV 90.7 (80-100) fl MCH 30.2 (26-34) pg MCHC 33.3 (32-36) g/dl RDW 12.6 (11.5-14.5) % Plt Count 315 (150-375) k/mm3 MPV 9.7 (7.4-10.4) fl Immature Gran % (Auto) 0.5 (0-0.5) % Neut % (Auto) 64.4 (45.5-73.1) % Lymph % (Auto) 24.2 (18.3-44.2) % [place] % (Auto) 6.4 (2.6-8.5) % Eos % (Auto) 4.0 (0-4.4) % Baso % (Auto) 0.5 (0.2-1.2) % Lymph # (Auto) 2.00 (0.9-3.2) K/mm3 [place] # (Auto) 0.5 (0.1-0.6) K/mm3 Eos # (Auto) 0.3 (0-0.3) K/mm3 Baso # (Auto) 0.0 (0.0-0.1) K/mm3 Abs Immat Gran (auto) 0.04 H (0.00-0.031) K/mm3 Absolute Neuts (auto) 5.3 (1.3-6.7) K/mm3 Absolute Nucleated RBC 0.000 (0.0-0.012) K/mm3 Nucleated RBC % 0.0 (0.0-0.2) % Sodium 136 L (137-145) mmol/L Potassium 4.4 (3.4-5.0) mmol/L Chloride 104 (98-107) mmol/L Carbon Dioxide 29 (22-30) mmol/L Anion Gap 3 L (4-12) mmol/L BUN 18 H (7-17) mg/dL Creatinine 1.10 H (0.7-1.0) mg/dL Estim Creat Clear Calc 56 ml/min Estimated GFR > 60 (59 - ) Glucose 87 (65-110) mg/dL Calcium 8.9 (8.4-10.2) mg/dL Total Bilirubin 0.4 (0.2-1.3) mg/dL AST 25 (14-36) U/L ALT 16 (6-35) U/L Alkaline Phosphatase 80 (38-126) U/L Troponin I < 0.012 (0.000-0.034) ng/mL Total Protein 7.0 (6.3-8.2) g/dL Albumin 4.1 (3.5-5.1) g/dL Lipase 271 (23-300) U/L POC Urine HCG, Qual Negative (Negative) <Shirin Ramachandran PA-C - Last Filed: 06/14/24 17:09> Lab Results 06/14/24 06/14/24 Range/Units 18:30 22:14 WBC 8.3 (4.5-10.0) K/mm3 RBC 4.41 (4.2-5.4) M/mm3 Hgb 13.3 (12.0-15.0) g/dL Hct 40.0 (37.0-47.0) % MCV 90.7 (80-100) fl MCH 30.2 (26-34) pg MCHC 33.3 (32-36) g/dl RDW 12.6 (11.5-14.5) % Plt Count 315 (150-375) k/mm3 MPV 9.7 (7.4-10.4) fl Immature Gran % (Auto) 0.5 (0-0.5) % Neut % (Auto) 64.4 (45.5-73.1) % Lymph % (Auto) 24.2 (18.3-44.2) % [place] % (Auto) 6.4 (2.6-8.5) % Eos % (Auto) 4.0 (0-4.4) % Baso % (Auto) 0.5 (0.2-1.2) % Lymph # (Auto) 2.00 (0.9-3.2) K/mm3 [place] # (Auto) 0.5 (0.1-0.6) K/mm3 Eos # (Auto) 0.3 (0-0.3) K/mm3 Baso # (Auto) 0.0 (0.0-0.1) K/mm3 Abs Immat Gran (auto) 0.04 H (0.00-0.031) K/mm3 Absolute Neuts (auto) 5.3 (1.3-6.7) K/mm3 Absolute Nucleated RBC 0.000 (0.0-0.012) K/mm3 Nucleated RBC % 0.0 (0.0-0.2) % Sodium 136 L (137-145) mmol/L Potassium 4.4 (3.4-5.0) mmol/L Chloride 104 (98-107) mmol/L Carbon Dioxide 29 (22-30) mmol/L Anion Gap 3 L (4-12) mmol/L BUN 18 H (7-17) mg/dL Creatinine 1.10 H (0.7-1.0) mg/dL Estim Creat Clear Calc 56 ml/min Estimated GFR > 60 (59 - ) Glucose 87 (65-110) mg/dL Calcium 8.9 (8.4-10.2) mg/dL Total Bilirubin 0.4 (0.2-1.3) mg/dL AST 25 (14-36) U/L ALT 16 (6-35) U/L Alkaline Phosphatase 80 (38-126) U/L Troponin I < 0.012 (0.000-0.034) ng/mL Total Protein 7.0 (6.3-8.2) g/dL Albumin 4.1 (3.5-5.1) g/dL Lipase 271 (23-300) U/L POC Urine HCG, Qual Negative (Negative) <Juliano Main MD - Last Filed: 06/15/24 01:05> Imaging Data Radiologist's impression: ITS Impressions Abdomen/Pelvis CT 06/14/24 22:45 IMPRESSION: 1. No evidence of appendicitis, diverticulitis or intestinal obstruction. 2. Multiple hypodensities in the liver which may be cysts or metastatic lesions. Ultrasound evaluation advised. 3. Hyperdense area most likely Hemorrhagic cyst in the right kidney. 4. Abdominal wall hernia with widening of the distance between the rectus muscles. 5. Constipation. Abdomen Ultrasound 06/15/24 00:19 IMPRESSION: The lesion seen in the liver by CT are not demonstrated. Otherwise, Unremarkable limited ultrasound of the abdomen. <Shirin Ramachandran PA-C - Last Filed: 06/14/24 17:09> ITS Impressions Abdomen/Pelvis CT 06/14/24 22:45 IMPRESSION: 1. No evidence of appendicitis, diverticulitis or intestinal obstruction. 2. Multiple hypodensities in the liver which may be cysts or metastatic lesions. Ultrasound evaluation advised. 3. Hyperdense area most likely Hemorrhagic cyst in the right kidney. 4. Abdominal wall hernia with widening of the distance between the rectus muscles. 5. Constipation. Abdomen Ultrasound 06/15/24 00:19 IMPRESSION: The lesion seen in the liver by CT are not demonstrated. Otherwise, Unremarkable limited ultrasound of the abdomen. <Juliano Main MD - Last Filed: 06/15/24 01:05> Discharge Plan Discharge Clinical Impression: Abdominal pain, Ventral hernia <Shirin Ramachandran PA-C - Last Filed: 06/14/24 17:09> Patient Disposition: Home, Self-Care <Shirin Ramachandran PA-C - Last Filed: 06/14/24 17:09> Condition: Stable <HOWARD Block Last Filed: 06/14/24 17:09> Instructions: Antibiotic Form, Abdominal Pain (ED), Ventral Hernia (ED) <Shirin Ramachandran PA-C - Last Filed: 06/14/24 17:09> Prescriptions: No Action gabapentin 100 mg capsule 100 mg PO TID ibuprofen 800 mg tablet 800 mg PO TID Rx Instructions: Says takes one every day then as needed for pain. ferrous sulfate 325 mg (65 mg iron) tablet,delayed release (DR/EC) 325 mg PO DAILY Probiotic 100 billion cell Capsule 1 cap PO DAILY <Shirin Ramachandran PA-C - Last Filed: 06/14/24 17:09> Follow-up/Referrals: Kwan Macias MD [Primary Care Provider] - <Shirin Ramachandran PA-C - Last Filed: 06/14/24 17:09> Time of Disposition: 01:04 <Shirin Ramachandran PA-C - Last Filed: 06/14/24 17:09> 01:04 <Juliano Main MD - Last Filed: 06/15/24 01:05>
--- NOTE | 2024-06-14 17:06 | ECG_ITS ---
Test Date: 2024-06-14 18:36:23 Measurements Intervals [place] Rate: 77 P: 61 [place]: 152 QRS: 2 QRSD: 78 T: 40 QT: 351 QTc: 397 Interpretive Statements SINUS RHYTHM No previous ECG available for comparison Electronically Signed On 06-15-2024 12:28:33 S[employer]IOR STAFF CONSULTANT by Carin Bañuelos M.D.
[2024-06-14 18:32] VITALS: BP 137/90; PULSE 82; RESP 16; O2SAT 97
[2024-06-14 18:47] LABS: Basophils Percent Auto 0.5 % (0.2-1.2); Eosinophils Absolute Auto 0.3 K/mm3 (0-0.3); Hemoglobin 13.3 g/dL (12.0-15.0); Immature Granulocyte Absolute 0.04 K/mm3 (0.00-0.031); Immature Granulocyte Percent A 0.5 % (0-0.5); Lymphocytes Percent Auto 24.2 % (18.3-44.2); Mean Corpuscular HGB Conc 33.3 g/dl (32-36); Mean Corpuscular Hemoglobin 30.2 pg (26-34); Mean Corpuscular Volume 90.7 fl (80-100); Mean Platelet Volume 9.7 fl (7.4-10.4); Monocytes Absolute Auto 0.5 K/mm3 (0.1-0.6); Monocytes Percent Auto 6.4 % (2.6-8.5); Neutrophils Absolute Auto 5.3 K/mm3 (1.3-6.7); Neutrophils Percent Auto 64.4 % (45.5-73.1); Platelet Count Result 315 k/mm3 (150-375); Red Blood Count 4.41 M/mm3 (4.2-5.4); Red Cell Distribution Width 12.6 % (11.5-14.5); White Blood Count 8.3 K/mm3 (4.5-10.0)
[2024-06-14 19:08] LABS: Troponin I < 0.012 ng/mL (0.000-0.034)
[2024-06-14 19:09] LABS: Alanine Aminotransferase 16 U/L (6-35); Albumin Level 4.1 g/dL (3.5-5.1); Alkaline Phosphatase 80 U/L (38-126); Anion Gap 3 mmol/L (4-12); Aspartate Amino Transferase 25 U/L (14-36); Bilirubin,Total 0.4 mg/dL (0.2-1.3); Blood Urea Nitrogen 18 mg/dL (7-17); Calcium 8.9 mg/dL (8.4-10.2); Carbon Dioxide 29 mmol/L (22-30); Chloride 104 mmol/L (98-107); Estimated CRCL calculation 56 ml/min; Estimated Glomerular Filt Rate > 60; Glucose 87 mg/dL (65-110); Lipase 271 U/L (23-300); Potassium 4.4 mmol/L (3.4-5.0); Sodium 136 mmol/L (137-145)
[2024-06-14 20:30] VITALS: BP 134/82; PULSE 71; RESP 14; TEMP 36.5; O2SAT 100
[2024-06-14 22:14] VITALS: BP 123/74; PULSE 66; RESP 16; TEMP 36.4; O2SAT 100
[2024-06-14 22:16] LABS: BEDSIDEPREGUCG Negative (Negative)
[2024-06-15 00:57] VITALS: BP 115/68; PULSE 66; RESP 15; O2SAT 100
[2024-06-15 01:22] VITALS: BP 115/68; PULSE 66; RESP 15; O2SAT 100
== END 2024-06-15 01:24 | disposition home or self-care (01) ==
PROVIDERS: Physician Assistant; Emergency Provider Emergency Medicine; PCP Emergency Medicine
DX: K43.9 Ventral hernia without obstruction or gangrene (principal); M79.7 Fibromyalgia; E66.3 Overweight; Z68.32 Body mass index [BMI] 32.0-32.9, adult; Z86.2 Personal history of diseases of the blood and blood-forming organs and certain disorders involving the immune mechanism; R93.421 Abnormal radiologic findings on diagnostic imaging of right kidney
CPT/HCPCS: 36415; 74176; 76705; 80053; 81025; 83690; 84484; 85025; 93005; 99284

== ENCOUNTER 2024-06-17 10:18 | Emergency (ER) | payer OTHER, SELFPAY ==
--- NOTE | ~2024-06-17 | CT_ITS ---
EXAMINATION: CTA chest PE protocol DATE: 06/17/2024 16:09 INDICATION: Chest pain. Recent surgery. TECHNIQUE: Computed tomography angiography (CTA) of the chest was performed with 100 mL Omnipaque-350 intravenous contrast timed to evaluate the pulmonary arteries. Coronal maximum intensity projection 3D-reconstructions were created by the technologist. Automated exposure control and iterative reconst ruction technique were employed. Exam dose: 236.93 mGy-cm total exam DLP. COMPARISON: None. FINDINGS: There is moderate opacification of pulmonary arteries and no evidence of occasional bilater al lower lobe pulmonary emboli. No thoracic aortic aneurysm or dissection. Normal heart size. No pericardial or pleural effusion. No hilar or mediastinal mass lesion or lymphadenopathy. Normal morphology of the adrenal glands. Millimeter probable anterior medial segment left hepatic cysts, probable 17 mm left lateral segment h epatic cyst probable 7 mm posterolateral right hepatic dome. Severe degenerative disc disease at included C6-7. Degenerative spurring of the thoracic spine. No suspicious osteolytic or osteoblastic lesions. IMPRESSION: Occasional bilateral lower lobe pulmonary emboli Reviewed, dictated and finalized at [facility]. Reviewed, dictated and finalized at location [facility]. PATIONAL HEALTH PROFESSIONAL
--- NOTE | ~2024-06-17 | XR_ITS ---
EXAMINATION: XR chest 2V DATE: 06/17/2024 10:39 INDICATION: Chest pain. Cough. TECHNIQUE: Frontal and lateral views of the chest were obtained. COMPARISON: CT abdomen and pelvis 06/14/2024 FINDINGS: There is no pneumonia, pleural effusion, or pneumothorax. The heart size is normal. IMPRESSION: 1. No acute cardiopulmonary disease. Reviewed, dictated and finalized at location [facility]. STAPLER WELT
--- NOTE | ~2024-06-17 | US_ITS ---
US abdomen limited DATE: 06/17/2024 16:53 INDICATION: Multiple hepatic hypodensities identified on 06/14/2024 CT abdomen pelvis examination TECHNIQUE: Real-time imaging of, pancreas, gallbladder COMPARISON: None FINDINGS: 2.1 x 1.6 x 1.9 cm lateral segment left hepatic cyst. The liver otherwise appears unremarkable sonographically. Hepatopedal portal venous flow direction. The pancreas appears unremarkable. The common bile duct measures 3.7 mm, normal. No gallstones or gallbladder wall thickening are noted. IMPRESSION: 2.1 cm lateral segment left hepatic cyst Reviewed, dictated and finalized at [facility]. Reviewed, dictated and finalized at location [facility]. ING MANAGER
--- NOTE | 2024-06-17 10:19 | ECG_ITS ---
Test Date: 2024-06-17 10:44:11 Measurements Intervals [place] Rate: 73 P: 56 [place]: 155 QRS: 0 QRSD: 78 T: 30 QT: 364 QTc: 402 Interpretive Statements SINUS RHYTHM Compared to ECG 06/14/2024 18:36:23 No significant changes Electronically Signed On 06-17-2024 15:04:37 [employer]ENER by Pavel Ibanez M.D.
[2024-06-17 10:43] VITALS: BP 121/94; PULSE 74; RESP 18; TEMP 36.7; O2SAT 100
[2024-06-17 10:55] LABS: Basophils Percent Auto 0.4 % (0.2-1.2); Eosinophils Absolute Auto 0.3 K/mm3 (0-0.3); Eosinophils Percent Auto 6.8 % (0-4.4); Hematocrit 42.5 % (37.0-47.0); Immature Granulocyte Absolute 0.01 K/mm3 (0.00-0.031); Immature Granulocyte Percent A 0.2 % (0-0.5); Lymphocytes Absolute Auto 1.79 K/mm3 (0.9-3.2); Lymphocytes Percent Auto 36.8 % (18.3-44.2); Mean Corpuscular HGB Conc 32.9 g/dl (32-36); Mean Corpuscular Hemoglobin 29.9 pg (26-34); Mean Corpuscular Volume 90.6 fl (80-100); Mean Platelet Volume 9.6 fl (7.4-10.4); Monocytes Absolute Auto 0.4 K/mm3 (0.1-0.6); Monocytes Percent Auto 9.1 % (2.6-8.5); Neutrophils Absolute Auto 2.3 K/mm3 (1.3-6.7); Neutrophils Percent Auto 46.7 % (45.5-73.1); Platelet Count Result 343 k/mm3 (150-375); Red Blood Count 4.69 M/mm3 (4.2-5.4); Red Cell Distribution Width 12.8 % (11.5-14.5); White Blood Count 4.9 K/mm3 (4.5-10.0)
[2024-06-17 11:02] LABS: Alanine Aminotransferase 13 U/L (6-35); Albumin Level 4.4 g/dL (3.5-5.1); Alkaline Phosphatase 72 U/L (38-126); Anion Gap 5 mmol/L (4-12); Aspartate Amino Transferase 20 U/L (14-36); Bilirubin,Total 0.6 mg/dL (0.2-1.3); Blood Urea Nitrogen 11 mg/dL (7-17); Calcium 9.3 mg/dL (8.4-10.2); Carbon Dioxide 31 mmol/L (22-30); Chloride 102 mmol/L (98-107); Estimated CRCL calculation 83 ml/min; Estimated Glomerular Filt Rate > 60; Glucose 81 mg/dL (65-110); Lipase 325 U/L (23-300); Potassium 4.4 mmol/L (3.4-5.0); Sodium 138 mmol/L (137-145)
[2024-06-17 11:06] LABS: Prothrombin Time 13.8 Seconds (11.1-14.7)
[2024-06-17 11:07] LABS: Partial Thromboplastin Time 29.4 Seconds (22.3-36.8)
[2024-06-17 11:14] LABS: Troponin I < 0.012 ng/mL (0.000-0.034)
[2024-06-17 12:57] VITALS: BP 117/86; PULSE 82; PULSE 92; RESP 14; O2SAT 100; O2SAT 98
[2024-06-17 15:30] VITALS: BP 126/85; PULSE 82; PULSE 97; RESP 14; O2SAT 97
--- NOTE | 2024-06-17 16:15 | ED_ITS ---
HPI - Chest Pain General Chief Complaint: Chest Pain Stated Complaint: Chest pain Time Seen by Provider: 06/17/24 13:13 History of Present Illness HPI narrative: 44-year-old female presenting to the emergency department at the request of her primary care provider for repeat CT scans and ultrasound. patient was recently seen here several days prior for concerns of epigastric pain and chest pain. She had a very large workup that was done including CT scans of the abdomen pelvis which do show some ventral hernia as well as potential nodularity of the liver. She was discharged home given her symptoms per minute and lack of serious concerning findings on her workup at that time. She returns today after she had a follow-up visit with her PCP and was sent to the ER to obtain a CT scan of her thorax and to repeat her right upper quadrant ultrasound due to discrepancy results. I did review the EMR note that the CT result claim that there are potential masses or lesions in the liver but the ultrasound did not find them. Patient states she still having some chest discomfort and mild epigastric pain. Denies any nauseousness, vomiting, back pain, fever, chills, urinary complaints. She states she recently had breast surgery in April of this month but has no history of DVT or PE. Not any blood thinner medications. Denies any leg swelling or calf cramping. Related Data Home Medications Medication Instructions Recorded Confirmed ferrous sulfate 325 mg (65 mg 325 mg PO DAILY 03/21/24 04/25/24 iron) tablet,delayed release gabapentin 100 mg capsule 100 mg PO TID 03/21/24 04/25/24 ibuprofen 800 mg tablet 800 mg PO TID 03/21/24 04/25/24 Lactobacillus 40-Bifidobact 1 cap PO DAILY 04/13/24 04/25/24 3-S.thermophilus 100 billion cell capsule (Probiotic) Allergies Allergy/AdvReac Type Severity Reaction Status Date / Time No Known Allergies Allergy Verified 06/17/24 12:50 Review of Systems Review of Systems: as reviewed above in HPI [facility] Past Medical History Medical History Anemia Anxiety and depression Asthma Eczema Fibromyalgia Overweight (BMI 25.0-29.9) Subareolar lump of left breast Subareolar lump of right breast Social History Social History Smoking status: Never smoker Alcohol intake: current Substance use: never Substance use type: does not use Do You Feel Safe in your Home?: Yes Lack of Transportation: No Lack of Food: Never True Current Housing: I Have Housing Concerned About Future Housing: No Difficulty Paying Gas/Electric Bills: No Difficulty Paying for Meds: No Currently Unemployed: No Education: High School Diploma/GED Difficulty w/ Childcare or Family Care: No Living arrangements: with family Spiritual care concerns: No Exam Narrative: GENERAL: [Well-appearing, well-nourished, and in no acute distress.] HEAD: [Normocephalic, atraumatic.] EYES: [PERRLA and EOMI.] ENT: Nares clear, no rhinorrhea or epistaxis. Mucous membranes moist. NECK: Supple. CHEST: [Clear to auscultation. No respiratory distress.] HEART: [Regular rate and rhythm]. No murmur heard. [Normal peripheral pulses.] ABDOMEN: [Soft, nondistended], [nontender], [No rigidity or guarding] EXTREMITIES: Normal range of motion. [No edema.] SKIN: Warm, dry, no rash. NEURO: [No focal deficits]. Alert and oriented [x3.] PSYCH: [Normal mood and affect.] Course Vital Signs Vital signs: Vital Signs Temperature 36.7 C 06/17/24 10:43 Pulse Rate 74 06/17/24 10:43 Respiratory Rate 18 06/17/24 10:43 Blood Pressure 121/94 H 06/17/24 10:43 Pulse Oximetry 100 06/17/24 10:43 Oxygen Delivery Room Air 06/17/24 10:43 Temperature 36.7 C 06/17/24 10:43 Pulse Rate 97 06/17/24 15:30 Respiratory Rate 14 06/17/24 15:30 Blood Pressure 126/85 06/17/24 15:30 Pulse Oximetry 97 06/17/24 15:30 Oxygen Delivery Room Air 06/17/24 12:57 MDM - Chest Pain MDM Narrative Medical decision making narrative: 44-year-old female presenting at the request of her primary care provider for repeat evaluation, CT scan and repeat ultrasound. She was seen here several days ago for epigastric pain abdominal discomfort. Was discharged home with PCP follow-up. Imaging results from that visit show a ventral hernia, a kidney cyst, multiple hypodensities in the liver which were not seen on the same day ultrasound. According to the patient her PCP was concerned about the findings and wanted them repeated here in the ED in addition to a CT of the thorax. Patient does have risk factors for a pulmonary embolism given her recent procedure does make her high risk with a elevated Wells criteria. Denies any significant chest discomfort but states that is 5/10 and tolerable. Denies any analgesia at this time. Denies any fever, chills, back pain, abdominal pain in the lower areas of the pelvis, dysuria, constipation or diarrhea. Overall she appears well has normal reassuring vital signs with any significant blood pressure concerns, tachycardia, respiratory elevations, fever or hypoxia. At this time given her risk factors a repeat workup was ordered including CBC, CMP, troponin, CT angiography of the chest and a repeat right upper quadrant ultrasound. Workup revealed no leukocytosis, anemia or platelet concerns. Negative troponin. Normal electrolytes, no renal or hepatic dysfunction. Mildly elevated lipase. Normal coagulation studies. chest x-ray shows no acute cardiopulmonary process. Right upper quadrant ultrasound showed a 2.1 cm lateral segment left hepatic cyst but overall unremarkable sonography findings. Normal common bile duct size, no gallstones or gallbladder wall thickening. CT angiography was independently reviewed by myself and also interpreted by Radiology which do show bilateral lower lobe pulmonary embolism in the periphery. initially did order Lovenox for empiric treatment of this and with evaluate the patient once again. Her symptoms had improved and her vitals remained stable here in the emergency department. No tachycardia, hypoxia. No right heart strain seen on the CT and she has negative troponin with otherwise unremarkable findings. I discussed options going forward at this time including anticoagulation and admission to the hospital for monitoring verses anticoagulation and close outpatient follow-up with her PCP given that her PEs are peripheral, not causing any cardiac dysfunction and she has normal vital signs with resolution of symptoms otherwise. Patient felt more comfortable with discharge at this time. I did relay the case to the hospitalist currently being covered by the midlevel provider and they were agreeable that patient can safely be discharged and does not need a hospital admission at this time. Patient's anticoagulation was switched to a 10 mg dose of Eliquis and she was started on Eliquis dose blister pack which was sent to her local preferred pharmacy. Patient was given strict return precautions and verbalized understanding. She will follow-up with her PCP and call 1st thing tomorrow morning for an appointment. Patient is stable for discharge home and agreeable to the close outpatient follow-up and the return precautions I described. Medical Records Data Attestation: I reviewed the patient's medical records. Lab Data Attestation: I reviewed the patient's lab results. 06/17/24 10:43 06/17/24 10:43 Labs: Lab Results 06/17/24 Range/Units 10:43 WBC 4.9 (4.5-10.0) K/mm3 RBC 4.69 (4.2-5.4) M/mm3 Hgb 14.0 (12.0-15.0) g/dL Hct 42.5 (37.0-47.0) % MCV 90.6 (80-100) fl MCH 29.9 (26-34) pg MCHC 32.9 (32-36) g/dl RDW 12.8 (11.5-14.5) % Plt Count 343 (150-375) k/mm3 MPV 9.6 (7.4-10.4) fl Immature Gran % (Auto) 0.2 (0-0.5) % Neut % (Auto) 46.7 (45.5-73.1) % Lymph % (Auto) 36.8 (18.3-44.2) % [place] % (Auto) 9.1 H (2.6-8.5) % Eos % (Auto) 6.8 H (0-4.4) % Baso % (Auto) 0.4 (0.2-1.2) % Lymph # (Auto) 1.79 (0.9-3.2) K/mm3 [place] # (Auto) 0.4 (0.1-0.6) K/mm3 Eos # (Auto) 0.3 (0-0.3) K/mm3 Baso # (Auto) 0.0 (0.0-0.1) K/mm3 Abs Immat Gran (auto) 0.01 (0.00-0.031) K/mm3 Absolute Neuts (auto) 2.3 (1.3-6.7) K/mm3 Absolute Nucleated RBC 0.000 (0.0-0.012) K/mm3 Nucleated RBC % 0.0 (0.0-0.2) % PT 13.8 (11.1-14.7) Seconds INR 1.0 APTT 29.4 (22.3-36.8) Seconds Sodium 138 (137-145) mmol/L Potassium 4.4 (3.4-5.0) mmol/L Chloride 102 (98-107) mmol/L Carbon Dioxide 31 H (22-30) mmol/L Anion Gap 5 (4-12) mmol/L BUN 11 D (7-17) mg/dL Creatinine 0.70 (0.7-1.0) mg/dL Estim Creat Clear Calc 83 ml/min Estimated GFR > 60 (59 - ) Glucose 81 (65-110) mg/dL Calcium 9.3 (8.4-10.2) mg/dL Total Bilirubin 0.6 (0.2-1.3) mg/dL AST 20 (14-36) U/L ALT 13 (6-35) U/L Alkaline Phosphatase 72 (38-126) U/L Troponin I < 0.012 (0.000-0.034) ng/mL Total Protein 8.0 (6.3-8.2) g/dL Albumin 4.4 (3.5-5.1) g/dL Lipase 325 H (23-300) U/L Imaging Data Attestation: I personally reviewed and interpreted this imaging study as fol lows: My impression: Impressions Chest X-Ray 06/17/24 10:49 IMPRESSION: 1. No acute cardiopulmonary disease. Chest CTA 06/17/24 16:13 IMPRESSION: Occasional bilateral lower lobe pulmonary emboli ADDENDUM: 06/17/24 1721 Correction: FINDINGS: There is moderate opacification of the pulmonary arteries and evidence of occasional bilateral lower lobe pulmonary emboli. Abdomen Ultrasound 06/17/24 16:56 IMPRESSION: 2.1 cm lateral segment left hepatic cyst ECG Data EKG #1: Attestation: I personally reviewed and interpreted this ECG as follows: ECG completion date: 06/17/24 ECG completion time: 10:44 Prior ECG tracings: available for review Interpretation: Regular rate rhythm an axis, no ST segment elevations, depressions or inversions. No ectopy, no signs of heart strain. Normal R-wave progression. Overall normal sinus rhythm. Similar to prior EKG without any acute changes. Discharge Plan Discharge Clinical Impression: Pulmonary emboli Patient Disposition: Home, Self-Care Condition: Stable Instructions: Antibiotic Form, Apixaban (By mouth), Pulmonary Embolism (ED) Additional Instructions: Identified very small blood clots in both sides of the lungs likely secondary to recent surgery. We have started you on a blood thinner medication you need to take twice daily. we have sent your prescription to your preferred pharmacy. Please follow-up on a short-term basis with your primary care provider. If you experience any bleeding complications, worsening chest pain, worsening difficulty breathing or any other concerns please return to the ED. Prescriptions: New Eliquis DVT-PE Treat 30D Start 5 mg (74 tabs) tablets,dose pack See Rx Instructions .ROUTE .COMPLEX Qty: 74 0RF Rx Instructions: orally per package directions No Action gabapentin 100 mg capsule 100 mg PO TID ibuprofen 800 mg tablet 800 mg PO TID Rx Instructions: Says takes one every day then as needed for pain. ferrous sulfate 325 mg (65 mg iron) tablet,delayed release (DR/EC) 325 mg PO DAILY Probiotic 100 billion cell Capsule 1 cap PO DAILY Follow-up/Referrals: Kwan Macias MD [Primary Care Provider] - 3 Days (re-eval, recent PE) Time of Disposition: 18:28
== END 2024-06-17 19:46 | disposition home or self-care (01) ==
PROVIDERS: Emergency Provider Student in an Organized Health Care Education/Training Program; PCP Emergency Medicine
DX: I26.99 Other pulmonary embolism without acute cor pulmonale (principal); K76.89 Other specified diseases of liver; D64.9 Anemia, unspecified; F41.9 Anxiety disorder, unspecified; F32.A Depression, unspecified; J45.909 Unspecified asthma, uncomplicated; M79.7 Fibromyalgia
CPT/HCPCS: 36415; 71046; 71275; 76705; 80053; 83690; 84484; 85025; 85610; 85730; 93005; 99284; Q9967

== ENCOUNTER 2024-06-18 20:20 | Emergency (ER) | payer OTHER, SELFPAY ==
--- NOTE | 2024-06-18 20:34 | ECG_ITS ---
Test Date: 2024-06-18 20:40:06 Measurements Intervals [place] Rate: 73 P: 54 GA: 157 QRS: 20 QRSD: 78 T: 46 QT: 358 QTc: 396 Interpretive Statements SINUS RHYTHM Compared to ECG 06/17/2024 10:44:11 No significant changes Electronically Signed On 06-19-2024 14:52:06 [employer]TER by Carin Bañuelos M.D.
--- NOTE | 2024-06-18 20:40 | PC.NURSE ---
pt does not want blood work at this time as she was here the past 3 days.
[2024-06-18 21:11] VITALS: BP 127/79; PULSE 64; RESP 16; TEMP 36.5; O2SAT 99
[2024-06-19] VITALS (28 sets, daily range): BP systolic 102–132; BP diastolic 72–93; PULSE 62–88; RESP 12–20; O2SAT 92–100
[2024-06-19] MEDS: APIXABAN 5 MG TABLET 10 MG PO (05:45)
--- NOTE | 2024-06-19 06:58 | ED_ITS ---
HPI - Chest Pain General Chief Complaint: Chest Pain Stated Complaint: dx bilateral PEs, PCP sent in Time Seen by Provider: 06/19/24 06:55 Source: patient and other (fiance) Mode of arrival: ambulatory Limitations: no limitations History of Present Illness HPI narrative: Patient presents with chest pain and shortness of breath. This is the 3rd time she has been her in the past 3 days. She is declining blood work as a result. She was recently diagnosed with bilateral pulmonary emboli and discharged with Rx for Elliquis. She received a text from [email or web address] yesterday that this Rx was pending insurance approval. She called her pcp Dr Macias and she states she was told to come to the ED and be admitted to receive the treatment. Related Data Home Medications ?Medication ?Instructions ?Recorded ?Confirmed ?Last Taken ?Type ferrous sulfate 325 mg (65 mg 325 mg PO DAILY 03/21/24 04/25/24 04/22/24 History iron) tablet,delayed release gabapentin 100 mg capsule 100 mg PO TID 03/21/24 04/25/24 04/24/24 21:00 History ibuprofen 800 mg tablet 800 mg PO TID 03/21/24 04/25/24 04/18/24 History Lactobacillus 40-Bifidobact 1 cap PO DAILY 04/13/24 04/25/24 04/22/24 History 3-S.thermophilus 100 billion cell capsule (Probiotic) Allergies Allergy/AdvReac Type Severity Reaction Status Date / Time No Known Allergies Allergy Verified 06/17/24 12:50 COUNT INCLUDES THE [facility] Past Medical History Medical History (Updated 06/20/24 @ 21:13 by Deborah Luke MD) Hepatic cyst Anxiety and depression Anemia Asthma Overweight (BMI 25.0-29.9) Eczema Fibromyalgia Subareolar lump of right breast Subareolar lump of left breast Social History Social History Smoking status: Never smoker Alcohol intake: current Substance use: never Substance use type: does not use Do You Feel Safe in your Home?: Yes Lack of Transportation: No Lack of Food: Never True Current Housing: I Have Housing Concerned About Future Housing: No Difficulty Paying Gas/Electric Bills: No Difficulty Paying for Meds: No Currently Unemployed: No Education: High School Diploma/GED Difficulty w/ Childcare or Family Care: No Living arrangements: with family Spiritual care concerns: No Exam Narrative: GENERAL: Well-appearing, well-nourished, and in no acute distress. HEAD: Normocephalic, atraumatic. EYES: Non injected, non icteric ENT: Nares clear, no rhinorrhea or epistaxis. NECK: Supple. CHEST: Speaking in full sentences. No respiratory distress. HEART: Regular rate and rhythm. . ABDOMEN: Soft, nondistended. EXTREMITIES: Normal range of motion. No lower extremity edema. SKIN: Warm, dry, no rash. NEURO: No focal deficits. Alert and oriented x3. PSYCH: Normal mood and affect. Course Vital Signs Vital signs: Vital Signs Temperature 97.7 F 06/18/24 21:11 Pulse Rate 64 06/18/24 21:11 Respiratory Rate 16 06/18/24 21:11 Blood Pressure 127/79 06/18/24 21:11 Pulse Oximetry 99 06/18/24 21:11 Temperature 97.7 F 06/18/24 21:11 Pulse Rate 70 06/19/24 09:51 Respiratory Rate 16 06/19/24 09:51 Blood Pressure 102/73 06/19/24 09:51 Pulse Oximetry 98 06/19/24 09:51 MDM - Chest Pain MDM Narrative Medical decision making narrative: Patient presents with persistent chest pain and shortness of breath. She was recently diagnosed with bilateral peripheral pulmonary emboli but received a text from her pharmacy [facility] that it was pending insurance approval. States her PC P Dr Macias instructed her to present to the ED to be admitted for the treatment. In the emergency department they are afebrile with vital signs within normal limits. Patient given a dose of Elliquis in the ED and, once Care Coordination arrives, they worked to complete the pre-authorization process. Insurance confirmed that this would be approved effective tomorrow. Patient remains with vital signs WNL. She will be prescribed tonight's dose (two 5mg tablets) and was provided a GoodRx coupon to slightly reduce the cost of this dose for tonight if she prefers to bypass her insurance. Stable for discharged and advised to follow up with her PCP. ECG Data EKG #1: Attestation: I personally reviewed and interpreted this ECG as follows: ECG completion date: 06/18/24 ECG completion time: 20:40 Interpretation: Normal sinus rhythm at a rate of 73 beats per minute. OH interval 157. QRS 78. QT/QTC 358/384. Good R-wave progression across the precordial leads. No T- wave inversions. Normal ECG. Discharge Plan Discharge Clinical Impression: Insurance coverage problems Patient Disposition: Home, Self-Care Condition: Stable Additional Instructions: Your prior authorization has been completed and the prescription will take affect and be able to be filled tomorrow morning. In the interim, you will only be missing tonight's dose (10mg). Two 5mg tablets have been electronically sent to your preferred pharmacy. If desired, you can bypass insurance for this dose and use the [employer] coupon provided for a discount in savings. Follow up with your primary care physician. Return to the ED with new/worsening symptoms. Patient Language: Lebanese Prescriptions: New Eliquis 5 mg tablet 10 mg PO ONCE 1 Days Qty: 2 0RF Rx Instructions: take 06/19/24 PM (already received AM dose and full Rx to take effect 06/20/24) No Action gabapentin 100 mg capsule 100 mg PO TID ibuprofen 800 mg tablet 800 mg PO TID Rx Instructions: Says takes one every day then as needed for pain. ferrous sulfate 325 mg (65 mg iron) tablet,delayed release (DR/EC) 325 mg PO DAILY Probiotic 100 billion cell Capsule 1 cap PO DAILY Eliquis DVT-PE Treat 30D Start 5 mg (74 tabs) tablets,dose pack See Rx Instructions .ROUTE .COMPLEX Qty: 74 0RF Rx Instructions: orally per package directions Follow-up/Referrals: Kwan Macias MD [Primary Care Provider] - Stand Alone Forms: Work/School Release IP Time of Disposition: 09:38
--- NOTE | 2024-06-19 07:46 | PCCCNOTE ---
0700-Care coordination consulted while down in the ED the PCP has not completed the Pt's PA for the Eliquis rx on 06/17/24 for the treatement of the PE diagnosed in the ED on 06/17/24. 0708 Called [facility] at [phone] and spoke to Celeste. A PA form was faxed, completed and returned to the plan for the medication rx. Pt stated she uses [facility] pharmacy in [place] for medication refills at [phone].-edwardk. Charge Nurse updated with the status.-edwardk.
--- NOTE | 2024-06-19 09:03 | PC.NURSE ---
per boat driver RN, pt is not wanting a workup and just wants a blood thinner that is covered by her insurance. care coordination to meet with pt. pt resting in stretcher comfortably. no request at this time.
--- NOTE | 2024-06-19 09:51 | PCCCNOTE ---
905-Called [facility] at [phone] and found the Eliquis 5mg is not quite approved. Called [facility] at [phone] and spoke with Renita. Stated the Eliquis 5mg is approved however it will take 24hrs before the pharmacy will get a paid claim so the script will not run through as paid today. Updated the ED provider. 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
== END 2024-06-19 09:56 | disposition home or self-care (01) ==
PROVIDERS: Emergency Provider Student in an Organized Health Care Education/Training Program; PCP Emergency Medicine
DX: I26.99 Other pulmonary embolism without acute cor pulmonale (principal); J45.909 Unspecified asthma, uncomplicated; M79.7 Fibromyalgia; Z79.01 Long term (current) use of anticoagulants
CPT/HCPCS: 93005; 99284; A9270

== ENCOUNTER 2024-08-14 12:20 | Emergency (ER) | payer OTHER, SELFPAY ==
[2024-08-14] VITALS (20 sets, daily range): BP systolic 105–128; BP diastolic 65–87; PULSE 77–88; RESP 14–20; TEMP 36.4; O2SAT 98–100
--- NOTE | ~2024-08-14 | XR_ITS ---
EXAMINATION: XR chest 2V DATE: 08/14/2024 13:44 INDICATION: Chest pain. Shortness of breath. TECHNIQUE: Frontal and lateral views of the chest were obtained. COMPARISON: Chest 2 views 06/17/2024, chest CT 06/17/2024 FINDINGS: There is no pneumonia, pleural effusion, or pneumothorax. The heart size is normal. IMPRESSION: 1. No acute cardiopulmonary disease. Reviewed, dictated and finalized at location A. REDUCTION ROLLER
--- NOTE | ~2024-08-14 | CT_ITS ---
CLINICAL INDICATION: Abdominal pain and headache COMPARISON: 06/14/2024. TECHNIQUE: Multiple contiguous axial images of the abdomen and pelvis were performed following the ad ministration of with 100 mL Omnipaque-350 intravenous contrast The dose-length product (DLP) was 654.48 mGy-cm. Automated exposure control and iterative reconstruction technique were employed. FINDINGS/OBSERVATIONS: Visualized lower thorax: The bilateral lung bases are clear. The heart is of normal size, without pericardial effusion. Liver: Multiple well-circumscribed foci of decreased attenuation are identified within the liver, unchanged from prior, statistically cysts. 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 Gallbladder and biliary system: The gallbladder is only minimally distended, and otherwise unremarkable. Pancreas: The pancreas enhances homogeneously. Ductal dilatation is present without a discrete mass identified. Spleen: The spleen enhances homogeneously and is not enlarged measuring 8 cm in longitudinal dimension. Kidneys: Stable 11 mm focus of decreased attenuation within the anterior margin of the interpolar reg ion of the right kidney, unchanged from prior. The remainder of the bilateral kidneys otherwise enhance symmetrically without hydronephrosis or syeda l calculi. Adrenal glands: Unremarkable. Gastrointestinal tract: Colonic diverticulosis without surrounding inflammatory change. Appendix: The air-filled appendix is of normal caliber (axial series, images 116 - 138). Vasculature: Unremarkable. Lymph nodes: No pathologically enlarged or morphologically suspicious lymph nodes within the retroperitoneum or at the root of the mesentery. Pelvic structures: The bladder is decompressed with thickened hancock and otherwise unremarkable. The uterus is anteverted and anteflexed, and markedly enlarged. Body wall and musculoskeletal: No significant degenerative disease within the lower thoracic or lumbosacral spine. IMPRESSION: No acute intra-abdominal pathology. Dilatation of the main pancreatic duct without a discrete mass identified for which nonemergent follo w-up with contrast-enhanced CT or MRI is recommended, with pancreatic mass protocol Reviewed, dictated and finalized at location A. SHEAR OPERATOR IMPRESSION: No acute intra-abdominal pathology. Dilatation of the main pancreatic duct without a discrete mass identified for w hich nonemergent follow-up with contrast-enhanced CT or MRI is recommended, wit h pancreatic mass protocol
--- NOTE | ~2024-08-14 | CT_ITS ---
History: Abdominal pain and headache PROCEDURE: CT head without contrast. COMPARISON: None TECHNIQUE: Axial imaging of the head performed from the skull base to the vertex without IV contrast. Sagittal a nd coronal reformations obtained. DLP: 605 mGy-cm FINDINGS: The ventricles are normal in size, shape and position. There is no mass, mass effect or midline shift. There is no abnormal extra-axial fluid collection or intracranial hemorrhage. Visualized paranasal sinuses are clear. The mastoid air cells are well aerated. No acute displaced fractures within the overlying cranium. Impression: No acute intracranial hemorrhage or suspicious mass effect. Reviewed, dictated and finalized at location A. WINDER Impression: No acute intracranial hemorrhage or suspicious mass effect.
--- NOTE | 2024-08-14 11:39 | ECG_ITS ---
Test Date: 2024-08-14 12:13:53 Measurements Intervals [place] Rate: 89 P: 57 CT: 143 QRS: -6 QRSD: 79 T: 26 QT: 341 QTc: 416 Interpretive Statements SINUS RHYTHM BORDERLINE T WAVE ABNORMALITY- INFERIOR LEADS BORDERLINE ECG Compared to ECG 06/18/2024 20:40:06 No significant changes Electronically Signed On 08-14-2024 12:41:02 MIXER WHIPPED TOPPING by Joel Aponte D.O.
--- OUTSIDE RECORDS SUMMARY | 2024-08-14 12:09 | XMS_ITS | CONTINUITY OF CARE DOCUMENT ---
Author Name haley de leon Address Unknown Organization [facility] Address [address] [place] [address] Phone [phone] Care Team Providers Care Member Of Technical Staff Name Role Phone Angel Newby MD Unavailable [phone] CARLY TAMEZ MD Unavailable [phone] CARLY TAMEZ MD Unavailable [phone] PROBLEMS Condition Status Date Provider Notes Cardiology examination active Nolan Ahmedzai Chest pain active Nolan Ahmedzai Shortness of breath active Nolan Ahmedzai Palpitations active Nolan Ahmedzai Elevated blood pressure active Nolan Ahmedza i Lupus active Nolan Ahmedzai ENCOUNTERS Date Type Provider Location Encounter Diag nosis - In-person encounter Office Visit Angel Newby MD [facility] Cardiology examinationChest painShortness of breathLupusElevated blood pressurePalpitations VITAL SIGNS Date Observation Value Provider Body Mass Index (Ratio) 26.52 kg/m2 Noel Newby MD blood pressure, cuff size regular Ke rri Gilmar blood pressure, diastolic 90 mm[Hg] Ke rri Gilmar blood pressure, systolic 146 mm[Hg] Ker ri Gilmar oxygen saturation, oximetry 99 % Shandra Gilmar respiratory rate E&M 12 /min Shandra stanton pulse rate 70 /min Shandra Tracycarmen lder weight E&M 145 [lb_av] Shandra Tracymarkyobany lder height E&M 62 [in_i] Shandra Tracycarmen lder HISTORY OF MEDICATION USE Medication Status Instructions Dates Provider Indications Com ments ferrous sulfate 325 mg (65 mg iron) tablet active Shandra Schafer albuterol sulfate 90 mcg/actuation HFA aerosol inhaler active Shandra Schafer ibuprofen 800 mg tablet active Shandra Schafer ondansetron 4 mg tablet,disintegratin g active Shandra Schafer ergocalciferol (vitamin D2) 1,250 mcg (50,000 unit) capsule active Shandra Schafer INSURANCE PROVIDERS Payer name Policy type / Coverage type [place] [employer] democr[employer] [place] MEDICAID (2) Medicaid [id number] ADVANCE DIRECTIVES Name Date DISCUSSED - NO DECISION MADE TREATMENT PLAN Date Name Performer Electrophysiology: O rders: 9 9204 MOD 45-59 min ([id number]) Nolan Faustinzaquirino Electrophysiology:Mo nitor your BP at home, goal BP is <135/85 O rders: 9 9204 MOD 45-59 min ([id number]) Nolan Ahmedzai Electrophysiology: O rders: C omplete Echo ([id number]) 9 9204 MOD 45-59 min ([id number]) Nolan Ahmedzai Electrophysiology: O rders: C omplete Echo ([id number]) 9 9204 MOD 45-59 min ([id number]) Nolan Faustinzai Date Name Monitor - Telemetry (Mobile Cardiac) Complete Echo HISTORY OF PROCEDURES Procedure Date Procedure Name Provider Procedure Notes S tatus EKG Angel Newby MD comp leted
--- OUTSIDE RECORDS SUMMARY | 2024-08-14 12:09 | XMS_ITS | Patient Health Summary ---
Author Organization [facility] Address [address] [place] [address] Care Team Providers Care Go Go Dancer Name Role Phone Kwan Macias MD Primary Care Provider [phone] Jg Hummel DO Unavailable Note from [facility],non-owned Affiliates and Associated Physician Practices is amultiple site organization consisting of ambulatory clinics and hospital sitesin [place], [place], [place] and [place]. This disclosure is being madepursuant to the Care Everywhere program and may not contain all information available regarding this patient. Last updated 18.[facility] Allergies * Duloxetine(Other) Medications * Be aware that medications may not be up to date on this document. Alwaysverify current medications with the patient. * albuterol HFA (Proventil; Ventolin; Proair) 108 (90 Base) MCG/ACT inhaler (Started 12/30/2023) albuterol sulfate 90 mcg/actuation HFA aerosol inhaler * vitamin D, ergocalciferol, (Drisdol) 1.25 MG (18463 UT) capsule(Started 12/23/2023) TAKE 1 CAPSULE BY MOUTH ONE TIME PER WEEK * ferrous sulfate 325 (65 FE) MG tablet(Started 12/26/2023) Take 1 (one) tablet by mouth once daily * gabapentin (Neurontin) 100 MG capsule(Started 04/05/2024) Take 2 (two) capsules by mouth every morning AND 2 (two) capsules every afternoon AND 3 (three) capsules at bedtime. Reasons: Fibromyalgia Syndrome, Restless Leg Syndrome. 11 refills by 04/05/2025 * ibuprofen (Motrin) 800 MG tablet(Started 07/02/2024) Take 1 (one) tablet by mouth 3 times daily as needed with food for Pain 1 refill by 07/02/2025 Active Problems Problem Noted Date Diagnosed Date Restless legs syndrome 02/13/2024 Positive HORACE (antinuclear antibody) 1-40 speckle d 01/09/2024 Unexplained weight loss 01/09/2024 Primary fibromyalgia syndrome 01/09/2024 Social History Tobacco Use Types Packs/Day Years Used Date Smoking Tobacco: Never Assessed Sex and Gender Information Value Date Recorded Sex Assigned at Not on file Gender Identity Not on file Sexual Orientation Not on file Last Filed Vital Signs Vital Sign Reading Time Taken Comments Blood Pressure 110/70 04/05/2024 10:18 AM CDT Pulse 63 04/05/2024 10:18 AM CDT Temperature 36.7 ??C (98 ??F) 04/05/2024 10:18 AM CDT Respiratory Rate 16 04/05/2024 10:18 AM CDT Oxygen Saturation 98% 04/05/2024 10:18 AM CDT Inhaled Oxygen Concentration - - Weight 73.9 kg (163 lb) 04/05/2024 10:18 AM CDT Height 157.5 cm (5' 2 ) 04/05/2024 10:18 AM CDT Body Mass Index 29.81 04/05/2024 10:18 AM CDT Procedures * US BREAST LEFT COMPLETE(Performed 03/28/2024) Performed for Mass of right breast, unspecified quadrant, Unspecified lump in the right breast, overlapping quadrants * US BREAST RIGHT COMPLETE(Performed 03/28/2024) Performed for Mass of right breast, unspecified quadrant, Unspecified lump in the right breast, overlapping quadrants * MAMMO BILAT DIAGNOSTIC W BAUTISTA(Performed 03/28/2024) Performed for Mass of right breast, unspecified quadrant, Unspecified lump in the left breast, overlapping quadrants * LAB RESULTS ORDER(Performed 01/13/2024) * COMPLEMENT C4(Performed 01/13/2024) Performed for Positive HORACE (antinuclear antibody) 1-40 speckled * COMPLEMENT C3(Performed 01/13/2024) Performed for Positive HORACE (antinuclear antibody) 1-40 speckled * XR CHEST 2VW(Performed 01/13/2024) Performed for Unexplained weight loss Results * US BREAST LEFT COMPLETE (SCREENING ONLY) (03/28/2024 9:16 AM CDT) Anatomical Region Laterality Modality Breast Left Mammography 03/28/2024 7:18 AM CDT Addenda Addendum by Monet Connors MD on 05/25/2024 3:01 PM REFRIGERATOR REPAIRMAN Addendum by Monet Connors M.D. This addendum is to correct the size of the right subareolar cystic mass versus dilated duct. In the right subareolar breast in the area of palpable concern there is a 3.4 x 2.4 x 1.0 cm cystic mass versus dilated duct with peripheral vascularity and internal debris. The corrected report is below. This was discussed with Dr. Jeffrey via Buxfer message. EXAMINATIONS: 1. ??RIGHT DIGITAL DIAGNOSTIC MAMMOGRAM AND TOMOSYNTHESIS AND 2. ??COMPLETE BILATERAL BREAST ULTRASOUND (COMBINED REPORT) LOCATION: [facility] EXAM DATE: ??03/28/2024 HISTORY: This is a 43-year-old female patient with painful right breast mass/lump for which she went to the ER at [facility] at the beginning of March. An ultrasound was done. A mammogram was recommended at that time. Today, the patient also reports multiple palpable abnormalities in the left breast of which there are too many patricia. Family history of breast cancer in her mother at age 52. RISK ASSESSMENT CALCULATION: Patient completed a breast cancer risk assessment during her appointment ??03/28/2024 ??. ??Based upon the information she provided and her mammographic breast density, her lifetime risk of developing breast cancer is 20.3 % ??(Average Risk <15%; Intermediate / Moderate Risk 15-19%; High Risk > 20%). Given the elevated lifetime risk of breast cancer greater than 20%, consultation in the [facility] is recommended. Should she wish to schedule an appointment, the phone number [phone]. The [place] recommends annual screening breast MRI in addition to mammograms for women who have a 20% or greater lifetime risk of developing breast cancer. This can be managed through the high risk breast clinic. Risk assessment based upon the Tyrer-Cuzick v8 model. By the NCCN guidelines and family history of breast cancer, consideration of genetic testing is recommended. COMPARISON: Limited right breast ultrasound 03/11/2024 [facility]. Screening mammography 08/16/2023 from [facility] MAMMOGRAM: TECHNIQUE: Diagnostic bilateral mammography was performed. Tomosynthesis (3-D) and reconstructed synthetic 2-D images acquired. A total of 10 images were obtained. ??Transpara AI was utilized in the interpretation of this exam. BREAST COMPOSITION: Category C: The breasts are heterogeneously dense which may obscure small masses. FINDINGS: ??In the right subareolar breast immediately posterior to the nipple there is a lobulated equal density mass measuring 2.5 x 2.7 cm x 2.3 cm previously measuring 2.8 x 2.9 x 3.2 cm. There is no other suspicious finding in the right breast. Ultrasound will be performed for further evaluation. In the left subareolar breast there is a 1.9 cm equal density mass containing fat, previously measuring 2.6 cm. There is no other suspicious finding on mammography. Ultrasound be performed for further evaluation LIMITED BILATERAL BREAST ULTRASOUND: ? Scanning of the complete bilateral breast. The axillae were also scanned. Dr. Connors also scanned the patient. FINDINGS: . In the right subareolar breast in the area of palpable concern there is a 3.4 x 2.4 x 1.0 cm cystic mass versus dilated duct with peripheral vascularity and internal debris. The debris is visualized to move on real-time scanning. Sonographically this is similar in size compared to prior exam from [facility]. No suspicious finding was found in the right breast. Morphologically normal lymph nodes are visualized in the right breast. In the left subareolar breast there is a 2.4 x 0.9 x 2.3 cm similar appearing mass most consistent with a dilated duct containing debris. No suspicious finding is identified in the left breast. Morphologically normal lymph nodes are visualized. IMPRESSION: 1. Right subareolar mass corresponding with the palpable abnormality likely with internal moving debris favored to represent a dilated duct with debris and less likely chronic abscess. The patient denies any nipple discharge, redness, or heat in this area at this time. Given the bilaterality of the findings, this is most consistent with dilated duct with internal debris. 2. Left dilated duct with internal debris. Management will be dictated by the ordering physician. RECOMMENDATION: ?? 1. Right subareolar mass corresponding with the palpable abnormality favored to represent dilated duct with debris and less likely chronic abscess. For symptomatic relief, percutaneous aspiration in the breast department could be obtained versus excision by the breast surgeon. The patient reports she related to excise it cannot come back. Further management will be dictated by the patient's surgical team. Further imaging will be dictated by the patient's clinical course. If resolution is not established with percutaneous draining or excision, follow-up is recommended with right breast ultrasound and mammogram. The patient will be due for her annual screening mammogram in August 2024, pending no concerns 2. Given the elevated lifetime risk of developing breast cancer of greater than 20%, consultation in the [facility] is recommended. 3. Annual screening breast MRI is recommended, given the elevated lifetime risk of developing breast cancer greater than 20%, according to the [place] guidelines. This can ??be alternated at 6 month intervals with mammography performed at the time of screening mammography and can be managed by the high risk breast clinic. 4. By the NCCN guidelines and family history of breast cancer, consideration of genetic testing is recommended. Dr. Connors discussed the examination findings and recommendations with the patient at the time of the examination. Patient will also receive the exam results by lay letter. OVERALL ASSESSMENT: ??BI-RADS CATEGORY 2: BENIGN. > Interpreting Provider: Monet Connors MD on 05/25/2024 2:59 PM Impressions 03/28/2024 10:21 AM CDT : 1. Right subareolar mass corresponding with the palpable abnormality likely with internal moving debris favored to represent a dilated duct with debris and less likely chronic abscess. The patient denies any nipple discharge, redness, or heat in this area at this time. Given the bilaterality of the findings, this is most consistent with dilated duct with internal debris. 2. Left dilated duct with internal debris. Management will be dictated by the ordering physician. RECOMMENDATION: ?? 1. Right subareolar mass corresponding with the palpable abnormality favored to represent dilated duct with debris and less likely chronic abscess. For symptomatic relief, percutaneous aspiration in the breast department could be obtained versus excision by the breast surgeon. The patient reports she related to excise it cannot come back. Further management will be dictated by the patient's surgical team. Further imaging will be dictated by the patient's clinical course. If resolution is not established with percutaneous draining or excision, follow-up is recommended with right breast ultrasound and mammogram. The patient will be due for her annual screening mammogram in August 2024, pending no concerns 2. Given the elevated lifetime risk of developing breast cancer of greater than 20%, consultation in the [facility] is recommended. 3. Annual screening breast MRI is recommended, given the elevated lifetime risk of developing breast cancer greater than 20%, according to the [employer] guidelines. This can ??be alternated at 6 month intervals with mammography performed at the time of screening mammography and can be managed by the high risk breast clinic. 4. By the NCCN guidelines and family history of breast cancer, consideration of genetic testing is recommended. Dr. Connors discussed the examination findings and recommendations with the patient at the time of the examination. Patient will also receive the exam results by lay letter. OVERALL ASSESSMENT: ??BI-RADS CATEGORY 2: BENIGN. Report dictated by Roxie Brumfield [facility] (breast imaging fellow). I, Monet Connors MD have personally reviewed and interpreted this examination/study. > Interpreting Provider: Monet Connors MD on 03/28/2024 10:21 AM Narrative 03/28/2024 10:21 AM CDT EXAMINATIONS: 1. ??RIGHT DIGITAL DIAGNOSTIC MAMMOGRAM AND TOMOSYNTHESIS AND 2. ??COMPLETE BILATERAL BREAST ULTRASOUND (COMBINED REPORT) LOCATION: [facility] EXAM DATE: ??03/28/2024 HISTORY: This is a 43-year-old female patient with painful right breast mass/lump for which she went to the ER at [facility] at the beginning of March. An ultrasound was done. A mammogram was recommended at that time. Today, the patient also reports multiple palpable abnormalities in the left breast of which there are too many patricia. Family history of breast cancer in her mother at age 52. RISK ASSESSMENT CALCULATION: Patient completed a breast cancer risk assessment during her appointment ??03/28/2024 ??. ??Based upon the information she provided and her mammographic breast density, her lifetime risk of developing breast cancer is 20.3 % ??(Average Risk <15%; Intermediate / Moderate Risk 15-19%; High Risk > 20%). Given the elevated lifetime risk of breast cancer greater than 20%, consultation in the [facility] Risk [facility] is recommended. Should she wish to schedule an appointment, the phone number [phone]. The [place] [employer] recommends annual screening breast MRI in addition to mammograms for women who have a 20% or greater lifetime risk of developing breast cancer. This can be managed through the high risk breast clinic. Risk assessment based upon the Tyrer-Cuzick v8 model. By the NCCN guidelines and family history of breast cancer, consideration of genetic testing is recommended. COMPARISON: Limited right breast ultrasound 03/11/2024 [facility]. Screening mammography 08/16/2023 from [facility] MAMMOGRAM: TECHNIQUE: Diagnostic bilateral mammography was performed. Tomosynthesis (3-D) and reconstructed synthetic 2-D images acquired. A total of 10 images were obtained. ??Transpara AI was utilized in the interpretation of this exam. BREAST COMPOSITION: Category C: The breasts are heterogeneously dense which may obscure small masses. FINDINGS: ??In the right subareolar breast immediately posterior to the nipple there is a lobulated equal density mass measuring 2.5 x 2.7 cm x 2.3 cm previously measuring 2.8 x 2.9 x 3.2 cm. There is no other suspicious finding in the right breast. Ultrasound will be performed for further evaluation. In the left subareolar breast there is a 1.9 cm equal density mass containing fat, previously measuring 2.6 cm. There is no other suspicious finding on mammography. Ultrasound be performed for further evaluation LIMITED BILATERAL BREAST ULTRASOUND: ? Scanning of the complete bilateral breast. The axillae were also scanned. Dr. Connors also scanned the patient. FINDINGS: . In the right subareolar breast in the area of palpable concern there is a 3.4 x 2.3 x 9.9 cm cystic mass versus dilated duct with peripheral vascularity and internal debris. The debris is visualized to move on real-time scanning. Sonographically this is similar in size compared to prior exam from [facility]. No suspicious finding was found in the right breast. Morphologically normal lymph nodes are visualized in the right breast. In the left subareolar breast there is a 2.4 x 0.9 x 2.3 cm similar appearing mass most consistent with a dilated duct containing debris. No suspicious finding is identified in the left breast. Morphologically normal lymph nodes are visualized. Procedure Note Monet Connors MD - 09/18/2024 EXAMINATIONS: 1. RIGHT DIGITAL DIAGNOSTIC MAMMOGRAM AND TOMOSYNTHESIS AND 2. COMPLETE BILATERAL BREAST ULTRASOUND (COMBINED REPORT) LOCATION: [facility] EXAM DATE: 03/28/2024 HISTORY: This is a 43-year-old female patient with painful right breast mass/lump for which she went to the ER at [facility] at the beginning of March. An ultrasound was done. A mammogram wasrecommended at that time. Today, the patient also reports multiple palpable abnormalities in the left breast of which there are too many patricia.Family history of breast cancer in her mother at age 52. RISK ASSESSMENT CALCULATION: Patient completed a breast cancer risk assessment during her appointment 03/28/2024 . Based upon theinformation she provided and her mammographic breast density, her lifetime risk of developing breast cancer is 20.3 % (Average Risk <15%; Intermediate / Moderate Risk 15-19%; High Risk > 20%). Given the elevated lifetime risk of breast cancer greater than 20%, consultation in the [facility] Risk [facility] is recommended. Should she wish to schedule an appointment, the phone [phone]. The [place] [employer] recommends annual screening breast MRI in addition to mammograms for women who have a 20% or greater lifetime riskof developing breast cancer. This can be managed through the high riskbreast clinic. Risk assessment based upon the Tyrer-Cuzick v8 model. By the NCCN guidelines and family history of breast cancer, consideration of genetic testing is recommended. COMPARISON: Limited right breast ultrasound 03/11/2024 [facility]. Screening mammography 08/16/2023 from [facility] MAMMOGRAM: TECHNIQUE: Diagnostic bilateral mammography was performed. Tomosynthesis (3-D) and reconstructed synthetic 2-D images acquired. A total of 10 images were obtained. Transpara AI was utilized in the interpretation of this exam. BREAST COMPOSITION: Category C: The breasts are heterogeneously densewhich may obscure small masses. FINDINGS: In the right subareolar breast immediately posterior to the nipple there is a lobulated equal density mass measuring 2.5 x 2.7 cm x2.3 cm previously measuring 2.8 x 2.9 x 3.2 cm. There is no other suspicious finding in the right breast. Ultrasound will be performed for further evaluation. In the left subareolar breast there is a 1.9 cm equal density mass containing fat, previously measuring 2.6 cm. There is no othersuspicious finding on mammography. Ultrasound be performed for further evaluation LIMITED BILATERAL BREAST ULTRASOUND: Scanning of the complete bilateral breast. The axillae were also scanned. Dr. Connors also scanned the patient. FINDINGS: . In the right subareolar breast in the area of palpable concern there arline 3.4 x 2.3 x 9.9 cm cystic mass versus dilated duct with peripheral vascularity and internal debris. The debris is visualized to move on real-time scanning. Sonographically this is similar in size compared to prior exam from [facility]. No suspicious finding was found inthe right breast. Morphologically normal lymph nodes are visualized in the right breast. In the left subareolar breast there is a 2.4 x 0.9 x 2.3 cm similar appearing mass most consistent with a dilated duct containing debris. No suspicious finding is identified in the left breast. Morphologicallynormal lymph nodes are visualized. IMPRESSION: 1. Right subareolar mass corresponding with the palpable abnormalitylikely with internal moving debris favored to represent a dilated duct withdebris and less likely chronic abscess. The patient denies any nippledischarge, redness, or heat in this area at this time. Given the bilaterality ofthe findings, this is most consistent with dilated duct with internaldebris. 2. Left dilated duct with internal debris. Management will be dictatedby the ordering physician. RECOMMENDATION: 1. Right subareolar mass corresponding with the palpable abnormality favored to represent dilated duct with debris and less likely chronic abscess. For symptomatic relief, percutaneous aspiration in the breast department could be obtained versus excision by the breast surgeon. The patient reports she related to excise it cannot come back. Further management will be dictated by the patient's surgical team. Furtherimaging will be dictated by the patient's clinical course. If resolution is not established with percutaneous draining or excision, follow-up is recommended with right breast ultrasound and mammogram. The patient willbe due for her annual screening mammogram in August 2024, pending no concerns 2. Given the elevated lifetime risk of developing breast cancer ofgreater than 20%, consultation in the [facility] is recommended. 3. Annual screening breast MRI is recommended, given the elevatedlifetime risk of developing breast cancer greater than 20%, according to the [employer] [employer] guidelines. This can be alternated at 6 month intervals with mammography performed at the time of screeningmammography and can be managed by the high risk breast clinic. 4. By the NCCN guidelines and family history of breast cancer, consideration of genetic testing is recommended. Dr. Connors discussed the examination findings and recommendationswith the patient at the time of the examination. Patient will also receive the exam results by lay letter. OVERALL ASSESSMENT: BI-RADS CATEGORY 2: BENIGN. Report dictated by Roxie WASHBURN, [facility] (breast imaging fellow). I, Monet Connors MD have personally reviewed and interpreted this examination/study. > Interpreting Provider: Monet Connors MD on 03/28/2024 10:21 AM Yumiko Henderson MD US ORDERABLES * US BREAST RIGHT COMPLETE (SCREENING ONLY) (03/28/2024 8:18 AM CDT) Anatomical Region Laterality Modality Breast Right Mammography 03/28/2024 7:18 AM CDT Addenda Addendum by Monet Connors MD on 05/25/2024 3:01 PM REFRIGERATOR REPAIRMAN Addendum by Monet Connors M.D. This addendum is to correct the size of the right subareolar cystic mass versus dilated duct. In the right subareolar breast in the area of palpable concern there is a 3.4 x 2.4 x 1.0 cm cystic mass versus dilated duct with peripheral vascularity and internal debris. The corrected report is below. This was discussed with Dr. Jeffrey via Buxfer message. EXAMINATIONS: 1. ??RIGHT DIGITAL DIAGNOSTIC MAMMOGRAM AND TOMOSYNTHESIS AND 2. ??COMPLETE BILATERAL BREAST ULTRASOUND (COMBINED REPORT) LOCATION: [facility] EXAM DATE: ??03/28/2024 HISTORY: This is a 43-year-old female patient with painful right breast mass/lump for which she went to the ER at [facility] at the beginning of March. An ultrasound was done. A mammogram was recommended at that time. Today, the patient also reports multiple palpable abnormalities in the left breast of which there are too many patricia. Family history of breast cancer in her mother at age 52. RISK ASSESSMENT CALCULATION: Patient completed a breast cancer risk assessment during her appointment ??03/28/2024 ??. ??Based upon the information she provided and her mammographic breast density, her lifetime risk of developing breast cancer is 20.3 % ??(Average Risk <15%; Intermediate / Moderate Risk 15-19%; High Risk > 20%). Given the elevated lifetime risk of breast cancer greater than 20%, consultation in the [facility] Risk [facility] is recommended. Should she wish to schedule an appointment, the phone number [phone]. The [place] [employer] recommends annual screening breast MRI in addition to mammograms for women who have a 20% or greater lifetime risk of developing breast cancer. This can be managed through the high risk breast clinic. Risk assessment based upon the Tyrer-Cuzick v8 model. By the NCCN guidelines and family history of breast cancer, consideration of genetic testing is recommended. COMPARISON: Limited right breast ultrasound 03/11/2024 [facility]. Screening mammography 08/16/2023 from [facility] MAMMOGRAM: TECHNIQUE: Diagnostic bilateral mammography was performed. Tomosynthesis (3-D) and reconstructed synthetic 2-D images acquired. A total of 10 images were obtained. ??Transpara AI was utilized in the interpretation of this exam. BREAST COMPOSITION: Category C: The breasts are heterogeneously dense which may obscure small masses. FINDINGS: ??In the right subareolar breast immediately posterior to the nipple there is a lobulated equal density mass measuring 2.5 x 2.7 cm x 2.3 cm previously measuring 2.8 x 2.9 x 3.2 cm. There is no other suspicious finding in the right breast. Ultrasound will be performed for further evaluation. In the left subareolar breast there is a 1.9 cm equal density mass containing fat, previously measuring 2.6 cm. There is no other suspicious finding on mammography. Ultrasound be performed for further evaluation LIMITED BILATERAL BREAST ULTRASOUND: ? Scanning of the complete bilateral breast. The axillae were also scanned. Dr. Connors also scanned the patient. FINDINGS: . In the right subareolar breast in the area of palpable concern there is a 3.4 x 2.4 x 1.0 cm cystic mass versus dilated duct with peripheral vascularity and internal debris. The debris is visualized to move on real-time scanning. Sonographically this is similar in size compared to prior exam from [facility]. No suspicious finding was found in the right breast. Morphologically normal lymph nodes are visualized in the right breast. In the left subareolar breast there is a 2.4 x 0.9 x 2.3 cm similar appearing mass most consistent with a dilated duct containing debris. No suspicious finding is identified in the left breast. Morphologically normal lymph nodes are visualized. IMPRESSION: 1. Right subareolar mass corresponding with the palpable abnormality likely with internal moving debris favored to represent a dilated duct with debris and less likely chronic abscess. The patient denies any nipple discharge, redness, or heat in this area at this time. Given the bilaterality of the findings, this is most consistent with dilated duct with internal debris. 2. Left dilated duct with internal debris. Management will be dictated by the ordering physician. RECOMMENDATION: ?? 1. Right subareolar mass corresponding with the palpable abnormality favored to represent dilated duct with debris and less likely chronic abscess. For symptomatic relief, percutaneous aspiration in the breast department could be obtained versus excision by the breast surgeon. The patient reports she related to excise it cannot come back. Further management will be dictated by the patient's surgical team. Further imaging will be dictated by the patient's clinical course. If resolution is not established with percutaneous draining or excision, follow-up is recommended with right breast ultrasound and mammogram. The patient will be due for her annual screening mammogram in August 2024, pending no concerns 2. Given the elevated lifetime risk of developing breast cancer of greater than 20%, consultation in the [facility] is recommended. 3. Annual screening breast MRI is recommended, given the elevated lifetime risk of developing breast cancer greater than 20%, according to the [place] [employer] guidelines. This can ??be alternated at 6 month intervals with mammography performed at the time of screening mammography and can be managed by the high risk breast clinic. 4. By the NCCN guidelines and family history of breast cancer, consideration of genetic testing is recommended. Dr. Connors discussed the examination findings and recommendations with the patient at the time of the examination. Patient will also receive the exam results by lay letter. OVERALL ASSESSMENT: ??BI-RADS CATEGORY 2: BENIGN. > Interpreting Provider: Monet Connors MD on 05/25/2024 2:59 PM Impressions 03/28/2024 10:21 AM CDT : 1. Right subareolar mass corresponding with the palpable abnormality likely with internal moving debris favored to represent a dilated duct with debris and less likely chronic abscess. The patient denies any nipple discharge, redness, or heat in this area at this time. Given the bilaterality of the findings, this is most consistent with dilated duct with internal debris. 2. Left dilated duct with internal debris. Management will be dictated by the ordering physician. RECOMMENDATION: ?? 1. Right subareolar mass corresponding with the palpable abnormality favored to represent dilated duct with debris and less likely chronic abscess. For symptomatic relief, percutaneous aspiration in the breast department could be obtained versus excision by the breast surgeon. The patient reports she related to excise it cannot come back. Further management will be dictated by the patient's surgical team. Further imaging will be dictated by the patient's clinical course. If resolution is not established with percutaneous draining or excision, follow-up is recommended with right breast ultrasound and mammogram. The patient will be due for her annual screening mammogram in August 2024, pending no concerns 2. Given the elevated lifetime risk of developing breast cancer of greater than 20%, consultation in the [facility] is recommended. 3. Annual screening breast MRI is recommended, given the elevated lifetime risk of developing breast cancer greater than 20%, according to the [place] [employer] guidelines. This can ??be alternated at 6 month intervals with mammography performed at the time of screening mammography and can be managed by the high risk breast clinic. 4. By the NCCN guidelines and family history of breast cancer, consideration of genetic testing is recommended. Dr. Connors discussed the examination findings and recommendations with the patient at the time of the examination. Patient will also receive the exam results by lay letter. OVERALL ASSESSMENT: ??BI-RADS CATEGORY 2: BENIGN. Report dictated by Roxie WASHBURN, [facility] (breast imaging fellow). I, Monet Connors MD have personally reviewed and interpreted this examination/study. > Interpreting Provider: Monet Connors MD on 03/28/2024 10:21 AM Narrative 03/28/2024 10:21 AM CDT EXAMINATIONS: 1. ??RIGHT DIGITAL DIAGNOSTIC MAMMOGRAM AND TOMOSYNTHESIS AND 2. ??COMPLETE BILATERAL BREAST ULTRASOUND (COMBINED REPORT) LOCATION: [facility] EXAM DATE: ??03/28/2024 HISTORY: This is a 43-year-old female patient with painful right breast mass/lump for which she went to the ER at [facility] at the beginning of March. An ultrasound was done. A mammogram was recommended at that time. Today, the patient also reports multiple palpable abnormalities in the left breast of which there are too many patricia. Family history of breast cancer in her mother at age 52. RISK ASSESSMENT CALCULATION: Patient completed a breast cancer risk assessment during her appointment ??03/28/2024 ??. ??Based upon the information she provided and her mammographic breast density, her lifetime risk of developing breast cancer is 20.3 % ??(Average Risk <15%; Intermediate / Moderate Risk 15-19%; High Risk > 20%). Given the elevated lifetime risk of breast cancer greater than 20%, consultation in the [facility] is recommended. Should she wish to schedule an appointment, the phone number [phone]. The [place] [employer] recommends annual screening breast MRI in addition to mammograms for women who have a 20% or greater lifetime risk of developing breast cancer. This can be managed through the high risk breast clinic. Risk assessment based upon the Tyrer-Cuzick v8 model. By the NCCN guidelines and family history of breast cancer, consideration of genetic testing is recommended. COMPARISON: Limited right breast ultrasound 03/11/2024 [facility]. Screening mammography 08/16/2023 from [facility] MAMMOGRAM: TECHNIQUE: Diagnostic bilateral mammography was performed. Tomosynthesis (3-D) and reconstructed synthetic 2-D images acquired. A total of 10 images were obtained. ??Transpara AI was utilized in the interpretation of this exam. BREAST COMPOSITION: Category C: The breasts are heterogeneously dense which may obscure small masses. FINDINGS: ??In the right subareolar breast immediately posterior to the nipple there is a lobulated equal density mass measuring 2.5 x 2.7 cm x 2.3 cm previously measuring 2.8 x 2.9 x 3.2 cm. There is no other suspicious finding in the right breast. Ultrasound will be performed for further evaluation. In the left subareolar breast there is a 1.9 cm equal density mass containing fat, previously measuring 2.6 cm. There is no other suspicious finding on mammography. Ultrasound be performed for further evaluation LIMITED BILATERAL BREAST ULTRASOUND: ? Scanning of the complete bilateral breast. The axillae were also scanned. Dr. Connors also scanned the patient. FINDINGS: . In the right subareolar breast in the area of palpable concern there is a 3.4 x 2.3 x 9.9 cm cystic mass versus dilated duct with peripheral vascularity and internal debris. The debris is visualized to move on real-time scanning. Sonographically this is similar in size compared to prior exam from [facility]. No suspicious finding was found in the right breast. Morphologically normal lymph nodes are visualized in the right breast. In the left subareolar breast there is a 2.4 x 0.9 x 2.3 cm similar appearing mass most consistent with a dilated duct containing debris. No suspicious finding is identified in the left breast. Morphologically normal lymph nodes are visualized. Procedure Note Monet Connors MD - 03/28/2024 EXAMINATIONS: 1. RIGHT DIGITAL DIAGNOSTIC MAMMOGRAM AND TOMOSYNTHESIS AND 2. COMPLETE BILATERAL BREAST ULTRASOUND (COMBINED REPORT) LOCATION: [facility] EXAM DATE: 03/28/2024 HISTORY: This is a 43-year-old female patient with painful right breast mass/lump for which she went to the ER at [facility] at the beginning of March. An ultrasound was done. A mammogram wasrecommended at that time. Today, the patient also reports multiple palpable abnormalities in the left breast of which there are too many patricia.Family history of breast cancer in her mother at age 52. RISK ASSESSMENT CALCULATION: Patient completed a breast cancer risk assessment during her appointment 03/28/2024 . Based upon theinformation she provided and her mammographic breast density, her lifetime risk of developing breast cancer is 20.3 % (Average Risk <15%; Intermediate / Moderate Risk 15-19%; High Risk > 20%). Given the elevated lifetime risk of breast cancer greater than 20%, consultation in the [facility] is recommended. Should she wish to schedule an appointment, the phone -[phone]. The [place] [employer] recommends annual screening breast MRI in addition to mammograms for women who have a 20% or greater lifetime riskof developing breast cancer. This can be managed through the high riskbreast clinic. Risk assessment based upon the Tyrer-Cuzick v8 model. By the NCCN guidelines and family history of breast cancer, consideration of genetic testing is recommended. COMPARISON: Limited right breast ultrasound 03/11/2024 [facility]. Screening mammography 08/16/2023 from [facility] MAMMOGRAM: TECHNIQUE: Diagnostic bilateral mammography was performed. Tomosynthesis (3-D) and reconstructed synthetic 2-D images acquired. A total of 10 images were obtained. Transpara AI was utilized in the interpretation of this exam. BREAST COMPOSITION: Category C: The breasts are heterogeneously densewhich may obscure small masses. FINDINGS: In the right subareolar breast immediately posterior to the nipple there is a lobulated equal density mass measuring 2.5 x 2.7 cm x2.3 cm previously measuring 2.8 x 2.9 x 3.2 cm. There is no other suspicious finding in the right breast. Ultrasound will be performed for further evaluation. In the left subareolar breast there is a 1.9 cm equal density mass containing fat, previously measuring 2.6 cm. There is no othersuspicious finding on mammography. Ultrasound be performed for further evaluation LIMITED BILATERAL BREAST ULTRASOUND: Scanning of the complete bilateral breast. The axillae were also scanned. Dr. Connors also scanned the patient. FINDINGS: . In the right subareolar breast in the area of palpable concern there arline 3.4 x 2.3 x 9.9 cm cystic mass versus dilated duct with peripheral vascularity and internal debris. The debris is visualized to move on real-time scanning. Sonographically this is similar in size compared to prior exam from [facility]. No suspicious finding was found inthe right breast. Morphologically normal lymph nodes are visualized in the right breast. In the left subareolar breast there is a 2.4 x 0.9 x 2.3 cm similar appearing mass most consistent with a dilated duct containing debris. No suspicious finding is identified in the left breast. Morphologicallynormal lymph nodes are visualized. IMPRESSION: 1. Right subareolar mass corresponding with the palpable abnormalitylikely with internal moving debris favored to represent a dilated duct withdebris and less likely chronic abscess. The patient denies any nippledischarge, redness, or heat in this area at this time. Given the bilaterality ofthe findings, this is most consistent with dilated duct with internaldebris. 2. Left dilated duct with internal debris. Management will be dictatedby the ordering physician. RECOMMENDATION: 1. Right subareolar mass corresponding with the palpable abnormality favored to represent dilated duct with debris and less likely chronic abscess. For symptomatic relief, percutaneous aspiration in the breast department could be obtained versus excision by the breast surgeon. The patient reports she related to excise it cannot come back. Further management will be dictated by the patient's surgical team. Furtherimaging will be dictated by the patient's clinical course. If resolution is not established with percutaneous draining or excision, follow-up is recommended with right breast ultrasound and mammogram. The patient willbe due for her annual screening mammogram in August 2024, pending no concerns 2. Given the elevated lifetime risk of developing breast cancer ofgreater than 20%, consultation in the [facility] is recommended. 3. Annual screening breast MRI is recommended, given the elevatedlifetime risk of developing breast cancer greater than 20%, according to the [place] [employer] guidelines. This can be alternated at 6 month intervals with mammography performed at the time of screeningmammography and can be managed by the high risk breast clinic. 4. By the NCCN guidelines and family history of breast cancer, consideration of genetic testing is recommended. Dr. Connors discussed the examination findings and recommendationswith the patient at the time of the examination. Patient will also receive the exam results by lay letter. OVERALL ASSESSMENT: BI-RADS CATEGORY 2: BENIGN. Report dictated by Roxie WASHBURN, [facility] (breast imaging fellow). IMonet MD have personally reviewed and interpreted this examination/study. > Interpreting Provider: Monet Connors MD on 03/28/2024 10:21 AM Yumiko Henderson MD US ORDERABLES * Mammo Bilat Diagnostic W Bautista (03/28/2024 7:23 AM CDT) Anatomical Region Laterality Modality Breast Bilateral Mammography 03/28/2024 7:18 AM CDT Addenda Addendum by Monet Connors MD on 05/25/2024 3:01 PM [employer]PA[employer] Addendum by Monet Connors M.D. This addendum is to correct the size of the right subareolar cystic mass versus dilated duct. In the right subareolar breast in the area of palpable concern there is a 3.4 x 2.4 x 1.0 cm cystic mass versus dilated duct with peripheral vascularity and internal debris. The corrected report is below. This was discussed with Dr. Jeffrey via [employer] message. EXAMINATIONS: 1. ??RIGHT DIGITAL DIAGNOSTIC MAMMOGRAM AND TOMOSYNTHESIS AND 2. ??COMPLETE BILATERAL BREAST ULTRASOUND (COMBINED REPORT) LOCATION: [facility] EXAM DATE: ??03/28/2024 HISTORY: This is a 43-year-old female patient with painful right breast mass/lump for which she went to the ER at [facility] at the beginning of March. An ultrasound was done. A mammogram was recommended at that time. Today, the patient also reports multiple palpable abnormalities in the left breast of which there are too many patricia. Family history of breast cancer in her mother at age 52. RISK ASSESSMENT CALCULATION: Patient completed a breast cancer risk assessment during her appointment ??03/28/2024 ??. ??Based upon the information she provided and her mammographic breast density, her lifetime risk of developing breast cancer is 20.3 % ??(Average Risk <15%; Intermediate / Moderate Risk 15-19%; High Risk > 20%). Given the elevated lifetime risk of breast cancer greater than 20%, consultation in the [facility] is recommended. Should she wish to schedule an appointment, the phone number [phone]. The [place] [employer] recommends annual screening breast MRI in addition to mammograms for women who have a 20% or greater lifetime risk of developing breast cancer. This can be managed through the high risk breast clinic. Risk assessment based upon the Tyrer-Cuzick v8 model. By the NCCN guidelines and family history of breast cancer, consideration of genetic testing is recommended. COMPARISON: Limited right breast ultrasound 03/11/2024 [facility]. Screening mammography 08/16/2023 from [facility] MAMMOGRAM: TECHNIQUE: Diagnostic bilateral mammography was performed. Tomosynthesis (3-D) and reconstructed synthetic 2-D images acquired. A total of 10 images were obtained. ??Transpara AI was utilized in the interpretation of this exam. BREAST COMPOSITION: Category C: The breasts are heterogeneously dense which may obscure small masses. FINDINGS: ??In the right subareolar breast immediately posterior to the nipple there is a lobulated equal density mass measuring 2.5 x 2.7 cm x 2.3 cm previously measuring 2.8 x 2.9 x 3.2 cm. There is no other suspicious finding in the right breast. Ultrasound will be performed for further evaluation. In the left subareolar breast there is a 1.9 cm equal density mass containing fat, previously measuring 2.6 cm. There is no other suspicious finding on mammography. Ultrasound be performed for further evaluation LIMITED BILATERAL BREAST ULTRASOUND: ? Scanning of the complete bilateral breast. The axillae were also scanned. Dr. Connors also scanned the patient. FINDINGS: . In the right subareolar breast in the area of palpable concern there is a 3.4 x 2.4 x 1.0 cm cystic mass versus dilated duct with peripheral vascularity and internal debris. The debris is visualized to move on real-time scanning. Sonographically this is similar in size compared to prior exam from [facility]. No suspicious finding was found in the right breast. Morphologically normal lymph nodes are visualized in the right breast. In the left subareolar breast there is a 2.4 x 0.9 x 2.3 cm similar appearing mass most consistent with a dilated duct containing debris. No suspicious finding is identified in the left breast. Morphologically normal lymph nodes are visualized. IMPRESSION: 1. Right subareolar mass corresponding with the palpable abnormality likely with internal moving debris favored to represent a dilated duct with debris and less likely chronic abscess. The patient denies any nipple discharge, redness, or heat in this area at this time. Given the bilaterality of the findings, this is most consistent with dilated duct with internal debris. 2. Left dilated duct with internal debris. Management will be dictated by the ordering physician. RECOMMENDATION: ?? 1. Right subareolar mass corresponding with the palpable abnormality favored to represent dilated duct with debris and less likely chronic abscess. For symptomatic relief, percutaneous aspiration in the breast department could be obtained versus excision by the breast surgeon. The patient reports she related to excise it cannot come back. Further management will be dictated by the patient's surgical team. Further imaging will be dictated by the patient's clinical course. If resolution is not established with percutaneous draining or excision, follow-up is recommended with right breast ultrasound and mammogram. The patient will be due for her annual screening mammogram in August 2024, pending no concerns 2. Given the elevated lifetime risk of developing breast cancer of greater than 20%, consultation in the [facility] is recommended. 3. Annual screening breast MRI is recommended, given the elevated lifetime risk of developing breast cancer greater than 20%, according to the [place] [employer] guidelines. This can ??be alternated at 6 month intervals with mammography performed at the time of screening mammography and can be managed by the [facility] breast clinic. 4. By the NCCN guidelines and family history of breast cancer, consideration of genetic testing is recommended. Dr. Connors discussed the examination findings and recommendations with the patient at the time of the examination. Patient will also receive the exam results by lay letter. OVERALL ASSESSMENT: ??BI-RADS CATEGORY 2: BENIGN. > Interpreting Provider: Monet Connors MD on 05/25/2024 2:59 PM Impressions 03/28/2024 10:21 AM CDT : 1. Right subareolar mass corresponding with the palpable abnormality likely with internal moving debris favored to represent a dilated duct with debris and less likely chronic abscess. The patient denies any nipple discharge, redness, or heat in this area at this time. Given the bilaterality of the findings, this is most consistent with dilated duct with internal debris. 2. Left dilated duct with internal debris. Management will be dictated by the ordering physician. RECOMMENDATION: ?? 1. Right subareolar mass corresponding with the palpable abnormality favored to represent dilated duct with debris and less likely chronic abscess. For symptomatic relief, percutaneous aspiration in the breast department could be obtained versus excision by the breast surgeon. The patient reports she related to excise it cannot come back. Further management will be dictated by the patient's surgical team. Further imaging will be dictated by the patient's clinical course. If resolution is not established with percutaneous draining or excision, follow-up is recommended with right breast ultrasound and mammogram. The patient will be due for her annual screening mammogram in August 2024, pending no concerns 2. Given the elevated lifetime risk of developing breast cancer of greater than 20%, consultation in the [facility] is recommended. 3. Annual screening breast MRI is recommended, given the elevated lifetime risk of developing breast cancer greater than 20%, according to the [place] [employer] guidelines. This can ??be alternated at 6 month intervals with mammography performed at the time of screening mammography and can be managed by the high risk breast clinic. 4. By the NCCN guidelines and family history of breast cancer, consideration of genetic testing is recommended. Dr. Connors discussed the examination findings and recommendations with the patient at the time of the examination. Patient will also receive the exam results by lay letter. OVERALL ASSESSMENT: ??BI-RADS CATEGORY 2: BENIGN. Report dictated by Roxie WASHBURN, [facility] (breast imaging fellow). I, Monet Connors MD have personally reviewed and interpreted this examination/study. > Interpreting Provider: Monet Connors MD on 03/28/2024 10:21 AM Narrative 03/28/2024 10:21 AM CDT EXAMINATIONS: 1. ??RIGHT DIGITAL DIAGNOSTIC MAMMOGRAM AND TOMOSYNTHESIS AND 2. ??COMPLETE BILATERAL BREAST ULTRASOUND (COMBINED REPORT) LOCATION: [facility] EXAM DATE: ??03/28/2024 HISTORY: This is a 43-year-old female patient with painful right breast mass/lump for which she went to the ER at [facility] at the beginning of March. An ultrasound was done. A mammogram was recommended at that time. Today, the patient also reports multiple palpable abnormalities in the left breast of which there are too many patricia. Family history of breast cancer in her mother at age 52. RISK ASSESSMENT CALCULATION: Patient completed a breast cancer risk assessment during her appointment ??03/28/2024 ??. ??Based upon the information she provided and her mammographic breast density, her lifetime risk of developing breast cancer is 20.3 % ??(Average Risk <15%; Intermediate / Moderate Risk 15-19%; High Risk > 20%). Given the elevated lifetime risk of breast cancer greater than 20%, consultation in the [facility] Breast [facility] High Risk [facility] is recommended. Should she wish to schedule an appointment, the phone number [phone]. The [place] [employer] recommends annual screening breast MRI in addition to mammograms for women who have a 20% or greater lifetime risk of developing breast cancer. This can be managed through the high risk breast clinic. Risk assessment based upon the Tyrer-Cuzick v8 model. By the NCCN guidelines and family history of breast cancer, consideration of genetic testing is recommended. COMPARISON: Limited right breast ultrasound 03/11/2024 [facility]. Screening mammography 08/16/2023 from [facility] MAMMOGRAM: TECHNIQUE: Diagnostic bilateral mammography was performed. Tomosynthesis (3-D) and reconstructed synthetic 2-D images acquired. A total of 10 images were obtained. ??Transpara AI was utilized in the interpretation of this exam. BREAST COMPOSITION: Category C: The breasts are heterogeneously dense which may obscure small masses. FINDINGS: ??In the right subareolar breast immediately posterior to the nipple there is a lobulated equal density mass measuring 2.5 x 2.7 cm x 2.3 cm previously measuring 2.8 x 2.9 x 3.2 cm. There is no other suspicious finding in the right breast. Ultrasound will be performed for further evaluation. In the left subareolar breast there is a 1.9 cm equal density mass containing fat, previously measuring 2.6 cm. There is no other suspicious finding on mammography. Ultrasound be performed for further evaluation LIMITED BILATERAL BREAST ULTRASOUND: ? Scanning of the complete bilateral breast. The axillae were also scanned. Dr. Connors also scanned the patient. FINDINGS: . In the right subareolar breast in the area of palpable concern there is a 3.4 x 2.3 x 9.9 cm cystic mass versus dilated duct with peripheral vascularity and internal debris. The debris is visualized to move on real-time scanning. Sonographically this is similar in size compared to prior exam from [facility]. No suspicious finding was found in the right breast. Morphologically normal lymph nodes are visualized in the right breast. In the left subareolar breast there is a 2.4 x 0.9 x 2.3 cm similar appearing mass most consistent with a dilated duct containing debris. No suspicious finding is identified in the left breast. Morphologically normal lymph nodes are visualized. Procedure Note Monet Connors MD - 03/28/2024 EXAMINATIONS: 1. RIGHT DIGITAL DIAGNOSTIC MAMMOGRAM AND TOMOSYNTHESIS AND 2. COMPLETE BILATERAL BREAST ULTRASOUND (COMBINED REPORT) LOCATION: [facility] EXAM DATE: 03/28/2024 HISTORY: This is a 43-year-old female patient with painful right breast mass/lump for which she went to the ER at [facility] at the beginning of March. An ultrasound was done. A mammogram wasrecommended at that time. Today, the patient also reports multiple palpable abnormalities in the left breast of which there are too many patricia.Family history of breast cancer in her mother at age 52. RISK ASSESSMENT CALCULATION: Patient completed a breast cancer risk assessment during her appointment 03/28/2024 . Based upon theinformation she provided and her mammographic breast density, her lifetime risk of developing breast cancer is 20.3 % (Average Risk <15%; Intermediate / Moderate Risk 15-19%; High Risk > 20%). Given the elevated lifetime risk of breast cancer greater than 20%, consultation in the [facility] Breast [facility] High Risk [facility] is recommended. Should she wish to schedule an appointment, the phone [phone]. The [place] [employer] recommends annual screening breast MRI in addition to mammograms for women who have a 20% or greater lifetime riskof developing breast cancer. This can be managed through the high riskbreast clinic. Risk assessment based upon the Tyrer-Cuzick v8 model. By the NCCN guidelines and family history of breast cancer, consideration of genetic testing is recommended. COMPARISON: Limited right breast ultrasound 03/11/2024 [facility]. Screening mammography 08/16/2023 from [facility] MAMMOGRAM: TECHNIQUE: Diagnostic bilateral mammography was performed. Tomosynthesis (3-D) and reconstructed synthetic 2-D images acquired. A total of 10 images were obtained. Transpara AI was utilized in the interpretation of this exam. BREAST COMPOSITION: Category C: The breasts are heterogeneously densewhich may obscure small masses. FINDINGS: In the right subareolar breast immediately posterior to the nipple there is a lobulated equal density mass measuring 2.5 x 2.7 cm x2.3 cm previously measuring 2.8 x 2.9 x 3.2 cm. There is no other suspicious finding in the right breast. Ultrasound will be performed for further evaluation. In the left subareolar breast there is a 1.9 cm equal density mass containing fat, previously measuring 2.6 cm. There is no othersuspicious finding on mammography. Ultrasound be performed for further evaluation LIMITED BILATERAL BREAST ULTRASOUND: Scanning of the complete bilateral breast. The axillae were also scanned. Dr. Connors also scanned the patient. FINDINGS: . In the right subareolar breast in the area of palpable concern there arline 3.4 x 2.3 x 9.9 cm cystic mass versus dilated duct with peripheral vascularity and internal debris. The debris is visualized to move on real-time scanning. Sonographically this is similar in size compared to prior exam from [facility]. No suspicious finding was found inthe right breast. Morphologically normal lymph nodes are visualized in the right breast. In the left subareolar breast there is a 2.4 x 0.9 x 2.3 cm similar appearing mass most consistent with a dilated duct containing debris. No suspicious finding is identified in the left breast. Morphologicallynormal lymph nodes are visualized. IMPRESSION: 1. Right subareolar mass corresponding with the palpable abnormalitylikely with internal moving debris favored to represent a dilated duct withdebris and less likely chronic abscess. The patient denies any nippledischarge, redness, or heat in this area at this time. Given the bilaterality ofthe findings, this is most consistent with dilated duct with internaldebris. 2. Left dilated duct with internal debris. Management will be dictatedby the ordering physician. RECOMMENDATION: 1. Right subareolar mass corresponding with the palpable abnormality favored to represent dilated duct with debris and less likely chronic abscess. For symptomatic relief, percutaneous aspiration in the breast department could be obtained versus excision by the breast surgeon. The patient reports she related to excise it cannot come back. Further management will be dictated by the patient's surgical team. Furtherimaging will be dictated by the patient's clinical course. If resolution is not established with percutaneous draining or excision, follow-up is recommended with right breast ultrasound and mammogram. The patient willbe due for her annual screening mammogram in August 2024, pending no concerns 2. Given the elevated lifetime risk of developing breast cancer ofgreater than 20%, consultation in the [facility] is recommended. 3. Annual screening breast MRI is recommended, given the elevatedlifetime risk of developing breast cancer greater than 20%, according to the [place] [employer] guidelines. This can be alternated at 6 month intervals with mammography performed at the time of screeningmammography and can be managed by the high risk breast clinic. 4. By the NCCN guidelines and family history of breast cancer, consideration of genetic testing is recommended. Dr. Connors discussed the examination findings and recommendationswith the patient at the time of the examination. Patient will also receive the exam results by lay letter. OVERALL ASSESSMENT: BI-RADS CATEGORY 2: BENIGN. Report dictated by Roxie WASHBURN, [facility] (breast imaging fellow). I, Monet Connors MD have personally reviewed and interpreted this examination/study. > Interpreting Provider: Monet Connors MD on 03/28/2024 10:21 AM Yumiko Henderson MD MAMMO ORDERABLES * LAB RESULTS ORDER (01/13/2024 1:09 PM CDT) Jg Hummel DO LAB - THERAPEUTIC DR UG MONITORING ORDERABLES * COMPLEMENT C4 (01/13/2024) Blood BLOOD SPECIMEN / Unknown Jg Hummel DO LAB - SEROLOGY ORDER ADARSH OTHER LAB * COMPLEMENT C3 (01/13/2024) Blood BLOOD SPECIMEN / Unknown Jg Hummel DO LAB - CHEMISTRY ORDE RABLES OTHER LAB * XR CHEST 2VW (01/13/2024) Anatomical Region Laterality Modality Chest Other Jg Hummel DO DIAGNOSTIC IMAGING O RDERABLES Care Teams Go Go Dancer Relationship Specialty Start Date End Date Kwan Macias MD [address] [facility] [address] [place] [address] PCP - General Family Medicine 01/09/24 Jg Hummel DO [address] [facility] [address] [place] [id number] Welding Foreman Rheumatology 02/27/24
--- OUTSIDE RECORDS SUMMARY | 2024-08-14 12:09 | XMS_ITS | Clinical Summary ---
Author Organization [facility] Address [address] [place] [address]. [place] [address] [place] [address] Care Team Providers Care Refrigerator Repairman Name Role Phone Sunny Garza MD Primary Care Provider [phone] Allergies No known active allergies Medications vitamin, low iron, 27-0.8 MG tablet Take 1 tablet by mouth daily. Active Social History Tobacco Use Types Packs/Day Years Used Date Smoking Tobacco: Never Smokeless Tobacco: Never Alcohol Use Standard Drinks/Week Comments Not Currently 0 (1 standard drink = 0.6 oz pur e alcohol) Comments Yes Sex and Gender Information Value Date Recorded Sex Assigned at Not on file Legal Sex Female 7:31 PM CDT Gender Identity Not on file Sexual Orientation Not on file Last Filed Vital Signs Vital Sign Reading Time Taken Comments Blood Pressure 113/68 09/25/2020 3:54 PM CDT Pulse 82 09/25/2020 3:54 PM CDT Temperature 36.1 ??C (97 ??F) 09/25/2020 11:15 AM CDT Respiratory Rate 16 09/25/2020 3:54 PM CDT Oxygen Saturation 100% 09/25/2020 3:54 PM CDT Inhaled Oxygen Concentration - - Weight 83.9 kg (185 lb) 09/25/2020 11:15 AM CDT Height 157.5 cm (5' 2 ) 09/25/2020 11:15 AM CDT Body Mass Index 33.84 09/25/2020 11:15 AM CDT Plan of Treatment Health Maintenance Due Date Last Done Comments Cervical Cancer Screening Pa p Smear (Age 30 to 64) Every 3 Years 1978 Colorectal Cancer Screening Colonoscopy (10 Years) 1978 Annual Physical 1981 DTaP, Tdap and Td Vaccines ( 2 - Tdap) 05/08/1994 05/07/1994 Hepatitis C 1996 Hepatitis B Vaccines (1 of 3 - 19+ 3-dose series) 1997 Cervical Cancer Screening Pa p with HPV Testing (Age 30 to 64) Every 5 Years 2008 Cervical Cancer Screening with HPV 2008 Mammogram Screening 2018 COVID-19 Vaccine ( - 2023-2 5 season) 2024 Influenza Adult (#1) 2024 RSV Immunization or 60+ Years (1 - 1-dose 75+ series) 2053 Meningococcal B Vaccine Aged Out No l onger eligible based on patient's age to complete this topic Meningococcal Vaccine Aged Out No quincy ange eligible based on patient's age to complete this topic Pneumococcal Vaccine: Pediat rics (0 to 5 Years) and At-Risk Patients (6 to 64 Years) Aged Out No longer eligi ble based on patient's age to complete this topic RSV Immunizations Under 20 Months Aged Out No longer eligible based on patient's age to complete this topic Insurance [employer] Care Teams Refrigerator Repairman Relationship Specialty Start Date End Date Sunny Garza MD [address] [place] [id number] PCP - General 03/27/16
--- OUTSIDE RECORDS SUMMARY | 2024-08-14 12:09 | XMS_ITS | Clinical Summary ---
Author Organization [facility] Address [address] [place] [address] Care Team Providers Care Assistant Director Of Financial Aid Name Role Phone Kwan Macias MD Primary Care Provider [phone] Jg Hummel DO Unavailable Source Comments [facility],non-owned Affiliates and Associated Physician Practices is amultiple site organization consisting of ambulatory clinics and hospital sitesin [place], [place], [place] and [place]. This disclosure is being madepursuant to the Care Everywhere program and may not contain all information available regarding this patient. Last updated 18.[facility] Allergies Active Allergy Reactions Criticality Noted Date Comments Duloxetine Other 02/13/2024 Excessive sedation on 30 mg bedtime dose Medications * Be aware that medications may not be up to date on this document. Alwaysverify current medications with the patient. Medication Sig Dispensed Refills Start Date End Date Status albuterol HFA (Proventil; Ventolin; Proair) 108 (90 Base) MCG/ACT inhaler albuterol sulfate 90 mcg/actuation HFA aerosol inhaler 12/30/2023 Active vitamin D, ergocalciferol, (Drisdol) 1.25 MG (25579 UT) capsule TAKE 1 CAPSULE BY MOUTH ONE TIME PER WEEK 12/23/2023 Active ferrous sulfate 325 (65 FE) MG tablet Take 1 (one) tablet by mouth once daily 12/26/2023 Active gabapentin (Neurontin) 100 MG capsuleIndications :Fibromyalgia Syndrome,Restless Leg Syndrome Take 2 (two) capsules by mouth every morning AND 2 (two) capsules every afternoon AND 3 (three) capsules at bedtime. Reasons: Fibromyalgia Syndrome, Restless Leg Syndrome. 210 capsule 11 04/05/2024 Active ibuprofen (Motrin) 800 MG tabletIndications: Primary fibromyalgia syndrome Take 1 (one) tablet by mouth 3 times daily as needed with food for Pain 90 tablet 1 07/02/2024 Active Active Problems Problem Noted Date Diagnosed Date Restless legs syndrome 02/13/2024 Overview (02/13/2024): Describes RLS symptoms with previous findings of iron deficiency that hopefully will improve with iron repletion. Try gabapentin for both RLS and fibromyalgia. Positive HORACE (antinuclear antibody) 1-40 speckle d 01/09/2024 Assessment & Plan (01/09/2024 4:54 PM CDT): Uncertain clinical significance of borderline low positive antinuclear antibody. She reports a ? goiter? although on examination I can not identify significant thyromegaly. Available chart records indicated a negative anti thyroid peroxidase antibody and will follow-up with anti thyroglobulin antibody due to consideration for autoimmune thyroiditis although with recent normal TSH findings. Nature of her symptoms seem more suggestive of a fibromyalgia type pain syndrome rather than systemic lupus erythematosus although does have mild leukopenia with a white blood cell count of 3000 identified of uncertain clinical significance (can be seen in SLE). Have recommended further serologic evaluation to exclude a systemic connective tissue disease. Unexplained weight loss 01/09/2024 Assessment & Plan (01/09/2024 4:53 PM CDT): Uncertain nature of approximate 90 lb weight loss with reported reduced appetite. Low suspicion for underlying systemic connective tissue disease including SLE which can cause weight loss but generally not as profound and I certainly would have concerns regarding other considerations including occult malignancy such as lymphoma (also can be HORACE positive). Does require additional evaluation and will refer for PA and lateral chest x-ray both for consideration of lymphoma but also to exclude intrathoracic sarcoidosis. Pending GI consultation as well which certainly would be appropriate given the significant weight loss described. Primary fibromyalgia syndrome 01/09/2024 Assessment & Plan (01/09/2024 4:57 PM CDT): Diffuse musculoskeletal pain symptoms consistent with both myalgia and arthralgia but without findings to confirm an active joint synovitis and with examination findings identifying exquisite allodynia certainly would raise consideration of an underlying primary fibromyalgia syndrome/amplified pain syndrome as a cause for symptomatology which also might be the underlying reason to explain some of her fatigue as well as non restorative sleep quality. However, I did explain to her that diagnosis of fibromyalgia would not be the cause for her profound weight loss or reported fevers or chills/feeling cold in further evaluation with her primary care physician would be strongly encouraged. I have suggested to begin symptomatic treatment with low- dose duloxetine starting 30 mg bedtime dose to hopefully improve sleep quality and also reduce fibromyalgia related musculoskeletal pain symptoms with further dose titration based upon tolerability and requirement. Encounters Date Type Department Care Team Description 07/02/2024 Refill [facility] - Rheumatology [address] [place] [address], [address] [place] [address] Jg Hummel, DO MEDICATION REFILL 05/28/2024 Refill [facility] - Rheumatology [address] [place] [address], [address] [place] [address] Jg Hummel, DO MEDICATION REFILL from Last 3 Months Family History Medical History Relation Name Comments Cancer - Breast Maternal Grandmother Cancer - Breast Mother Relation Name Status Comments Maternal Grandmother Mother Social History Tobacco Use Types Packs/Day Years [...] Mass Index 29.81 04/05/2024 10:18 AM CDT Plan of Treatment Upcoming Encounters Date Type Department Care Team (Late st Contact Info) Description 10/03/2024 10:00 AM CDT Office Visit [facility] - Rheumatology [address] [place] [address], [address] [place] [address] Jg Hummel DO [address] [place] [address] Health Maintenance Due Date Last Done Comments COLOGUARD (AGES 45-75) - COL ON CA SCREENING 1978 COLON MONITORING 1978 COLONOSCOPY - COLON CA SCREENING 1978 CT COLONOGRAPHY - COLON CA SCREENING 1978 Colorectal Cancer Screening 1978 FIT - COLON CA SCREENING 1978 FLEX SIG - COLON CA SCREENING 1978 LIPID TESTING 1978 HIV SCREENING 1993 HEPATITIS C SCREENING 06/10/1996 DTAP/TDAP/TD VACCINES (1 - Tdap) 1997 HEPATITIS B VACCINE (1 of 3 - 19+ 3-dose series) 1997 PAP SMEAR 09/26/2023 09/25/2020 SCREENING FOR DIABETES 01/09/2024 COVID-19 VACCINE (1 - 2023-2 5 season) 2024 INFLUENZA VACCINE (#1) 2024 DEPRESSION SCREENING 07/11/2024 MAMMOGRAM 03/28/2026 03/28/2024 ZOSTER VACCINE (1 of 2) 2028 HIB VACCINE Aged Out No longer eligi ble based on patient's age to complete this topic HPV VACCINE Aged Out No longer eligi ble based on patient's age to complete this topic MENINGOCOCCAL (Group B) VACCINE Aged Out No longer eligible based on patient's age to complete this topic MENINGOCOCCAL VACCINE Aged Out No quincy ange eligible based on patient's age to complete this topic PNEUMOCOCCAL VACCINE Aged Out No long er eligible based on patient's age to complete this topic Procedures Procedure Name Priority Date/Time Associated Diagnosis Comments MAMMO BILAT DIAGNOSTIC W BAUTISTA STAT 03/28/2024 7:23 AM CDT Mass of right breast, unspecified quadrant Unspecified lump in the left breast, overlapping quadrants from Last 3 Months or Most Recently Relevant to Health Maintenance Results * Mammo Bilat Diagnostic W Bautista (03/28/2024 7:23 AM CDT) Anatomical Region Laterality Modality Breast Bilateral Mammography 03/28/2024 7:18 AM CDT Addenda Addendum by Monet Connors MD on 05/25/2024 3:01 PM COMPANION Addendum by Monet Connors M.D. This addendum [...] This was discussed with Dr. Jeffrey via [employer] message. EXAMINATIONS: 1. ??RIGHT DIGITAL DIAGNOSTIC MAMMOGRAM AND TOMOSYNTHESIS AND 2. ??COMPLETE BILATERAL BREAST ULTRASOUND (COMBINED REPORT) LOCATION: [facility] EXAM DATE: ??03/28/2024 HISTORY: This is a 43-year-old female patient with painful right breast mass/lump for which she went to the ER at [facility] at the beginning of March. An ultrasound [...] cancer greater than 20%, consultation in the [facility] Breast Surgery High Risk Clinic is recommended. Should she wish to schedule an appointment, the phone number [phone]. The [place] [employer] recommends annual screening breast MRI [...] recommended. COMPARISON: Limited right breast ultrasound 03/11/2024 [facility]. Screening mammography 08/16/2023 from [facility] MAMMOGRAM: TECHNIQUE: Diagnostic bilateral mammography was performed. [...] in size compared to prior exam from [facility]. No suspicious finding was found in the [...] of greater than 20%, consultation in the [facility] High Risk Clinic is recommended. 3. Annual screening breast MRI is recommended, given the elevated lifetime risk of developing breast cancer greater than 20%, according to the [place] [employer] guidelines. This can ??be alternated [...] of greater than 20%, consultation in the [facility] High Risk Clinic is recommended. 3. Annual screening breast MRI is recommended, given the elevated lifetime risk of developing breast cancer greater than 20%, according to the [place] [employer] guidelines. This can ??be alternated [...] 2: BENIGN. Report dictated by Roxie Brumfield TANG (breast imaging fellow). I, Monet Connors MD have personally reviewed and interpreted this examination/study. > Interpreting Provider: Monet Connors MD on 03/28/2024 10:21 AM Narrative 03/28/2024 10:21 AM CDT EXAMINATIONS: 1. ??RIGHT DIGITAL DIAGNOSTIC MAMMOGRAM AND TOMOSYNTHESIS AND 2. ??COMPLETE BILATERAL BREAST ULTRASOUND (COMBINED REPORT) LOCATION: [facility] EXAM DATE: ??03/28/2024 HISTORY: This is a 43-year-old female patient with painful right breast mass/lump for which she went to the ER at [facility] at the beginning of March. An ultrasound [...] cancer greater than 20%, consultation in the [facility] Breast Surgery High Risk Clinic is recommended. Should she wish to schedule an appointment, the phone number [phone]. The [place] [employer] recommends annual screening breast MRI [...] recommended. COMPARISON: Limited right breast ultrasound 03/11/2024 [facility]. Screening mammography 08/16/2023 from [facility] MAMMOGRAM: TECHNIQUE: Diagnostic bilateral mammography was performed. [...] in size compared to prior exam from [facility]. No suspicious finding was found in the [...] COMPLETE BILATERAL BREAST ULTRASOUND (COMBINED REPORT) LOCATION: [facility] EXAM DATE: 03/28/2024 HISTORY: This is a 43-year-old female patient with painful right breast mass/lump for which she went to the ER at [facility] at the beginning of March. An ultrasound [...] cancer greater than 20%, consultation in the [facility] Breast Surgery High Risk Clinic is recommended. Should she wish to schedule an appointment, the phone [phone]. The [place] [employer] recommends annual screening breast MRI in addition to mammograms for women who have a 20% or greater lifetime riskof developing breast cancer. This can be managed through the high riskbreast clinic. Risk assessment based upon the Tyrer-Cuzick v8 model. By the NCCN guidelines and family history of breast cancer, consideration of genetic testing is recommended. COMPARISON: Limited right breast ultrasound 03/11/2024 [facility]. Screening mammography 08/16/2023 from [facility] MAMMOGRAM: TECHNIQUE: Diagnostic bilateral mammography was performed. [...] in size compared to prior exam from [facility]. No suspicious finding was found inthe right [...] cancer ofgreater than 20%, consultation in the [facility] High Risk Clinic is recommended. 3. Annual screening breast MRI is recommended, given the elevatedlifetime risk of developing breast cancer greater than 20%, according to the [place] [employer] guidelines. This can be alternated [...] CATEGORY 2: BENIGN. Report dictated by [facility] (breast imaging fellow). I, Monet Connors MD have personally reviewed and interpreted this examination/study. > Interpreting Provider: Monet Connors MD on 03/28/2024 10:21 AM Yumiko Henderson MD MAMMO ORDERABLES from Last 3 Months or Most Recently Relevant to Health Maintenance Care Teams Assistant Director Of Financial Aid Relationship Specialty Start Date End Date Kwan Macias MD [address] [place] [address] PCP - General Family Medicine 01/09/24 Jg Hummel DO [address] [address] [place] [address] Sound Tester Rheumatology 02/27/24
--- OUTSIDE RECORDS SUMMARY | 2024-08-14 12:09 | XMS_ITS | Referral Summary ---
Author Organization [facility] Address [address] [place] [address] Care Team Providers Care Tile Sorter Name Role Phone Shannon Cruz MD Unavailable [phone] Kwan Macias MD Primary Care Provider [phone] Encounters Date Type Department Care Team Description 07/25/2024 1:00 PM CARDIOPULMONARY SUPERVISOR Procedure visit [facility] Neurology [address] [place] [id number] EmaBrian Si, MD Paresthesia 07/02/2024 9:25 AM CARDIOPULMONARY SUPERVISOR - 07/02/2024 11:59 PM CARDIOPULMONARY SUPERVISOR Hospital Encounter [facility] [address] [place] [address] Asthma, unspecified asthma severity, unspecified whether complicated, unspecified whether persistent Discharge Disposition: Discharge to home or self care 06/26/2024 1:00 PM CARDIOPULMONARY SUPERVISOR Office Visit [facility] Pulmonary at [place] [address] [place] [address] Guillaume Kiran MD Acute pulmonary embolism, unspecified pulmonary embolism type, unspecified whether acute cor pulmonale present (HCC) (Primary Dx); Asthma, unspecified asthma severity, unspecified whether complicated, unspecified whether persistent 06/17/2024 Ancillary Procedure [facility] 06/17/2024 Ancillary Procedure [facility] 06/14/2024 Ancillary Procedure [facility] 06/14/2024 Ancillary Procedure [facility] from Last 3 Months Allergies Active Allergy Reactions Criticality Noted Date Comments Duloxetine Other (See comments) Low 02/13/2024 Excessive sedation on 30 mg bedtime dose Medications vits96/iron fum/folic ( vit-iron fum-folic) 27 mg iron- 800 mcg tablet Active ibuprofen (ADVIL,MOTRIN) 600 mg tabletIndications: Cramps Take 1 tablet (600 mg total) by mouth every 6 (six) hours as needed for pain 60 tablet 04/01/20 Active Additional Information Patient not taking.Reported on 06/26/2024 oxyCODONE (ROXICODONE) 10 mg tabletIndications: Pain Take 1 tablet (10 mg total) by mouth every 4 (four) hours as needed for pain 20 tablet 04/01/20 Active Additional Information Patient not taking.Reported on 06/26/2024 albuterol HFA (PROVENTIL HFA,VENTOLIN HFA,PROAIR HFA) 90 mcg/actuation inhaler 12/30/[address] (CYMBALTA) 30 mg capsule Take 1 capsule (30 mg total) by mouth nightly 01/09/20 24 Active ergocalciferol (VITAMIN D) 50,000 unit capsule Take 1 capsule (50,000 Units total) by mouth once a week 12/23/19 24 Active ferrous sulfate 325 mg (65 mg of elemental iron) tablet Take 1 tablet (325 mg total) by mouth daily Active promethazine (PHENERGAN) 25 mg tablet TAKE 1/2 TABLET BY MOUTH EVERY 6 HOURS NEEDED FOR NAUSEA 01/09/20 24 Active polyethylene glycol-electrolyte s 420 gram solution TAKE DIRECTED BY OFFICE 01/09/20 24 Active ibuprofen (ADVIL,MOTRIN) 800 mg tablet 11/29/19 24 Active apixaban (ELIQUIS) 5 mg tablet Take 1 tablet (5 mg total) by mouth 2 (two) times a day 06/26/20 24 Active gabapentin (NEURONTIN) 100 mg capsule Take 7 capsules (700 mg total) by mouth daily Active budesonide-formote roL (SYMBICORT) 80-4.5 mcg/actuation inhaler Inhale 2 puffs 2 (two) times a day Rinse mouth with water after use. Do not swallow. 1 each 11 06/26/20 24 Active PNV with [id number] ( Plus, calcium carb,) 27 mg iron- 1 mg tablet Active ondansetron ODT (ZOFRAN-ODT) 4 mg disintegrating tablet Active PARoxetine (PaxiL) 10 mg tablet Active risperiDONE (RisperDAL) 1 mg tablet Take 1 tablet twice a day by oral route for 30 days. Active traMADoL (ULTRAM) 50 mg tablet Active traZODone (DESYREL) 50 mg tablet Take 1 tablet every day by oral route for 30 days. Active venlafaxine (EFFEXOR) 75 mg tablet Take 1 tablet every day by oral route for 30 days. 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 Try gabapentin for both RLS and fibromyalgia. Positive HORACE (antinuclear antibody) 01/09/2024 Primary fibromyalgia syndrome 01/09/2024 Unexplained weight loss 01/09/2024 Chest pain 12/30/2023 Finding of above normal blood pressure Palpitations 12/30/2023 Lupus erythematosus 12/30/2023 Shortness of breath 12/30/2023 Previous section 03/30/2021 Previous section co mplicating , antepartum condition or complication 03/29/2021 Advanced maternal age in multigravida, third tri mester 03/29/2021 39 weeks gestation of 03/29/2021 Admission for sterilization 03/29/2021 Immunizations Name Administration Dates Next Due Tdap 03/31/2021 Social History Tobacco Use Types Packs/Day Years Used Date Smoking Tobacco: Never Passive Smoke Exposure: Past Smokeless Tobacco: Never Tobacco Cessation:Counseling Given: Not Answered AUDIT-C Answer Date Recorded Q1: How often do you have a drink containing alc ohol? Never 06/26/2024 Average Number of Drinks Not on file 024 Frequency of Binge Drinking Not on file 06/10 [place] Depression Scale Answer Date Recorded [place] Depression Scale Total 7 03/31/2021 The thought of harming myself has occurred to me . Never 03/31/2021 Comments Unknown Sex and Gender Information Value Date Recorded Sex Assigned at Not on file Legal Sex Female 6:23 PM CARDIOPULMONARY SUPERVISOR Gender Identity Not on file Sexual Orientation Not on file Last Filed Vital Signs Vital Sign Reading Time Taken Comments Blood Pressure 102/60 06/26/2024 1:08 PM CARDIOPULMONARY SUPERVISOR Pulse 70 06/26/2024 1:08 PM CARDIOPULMONARY SUPERVISOR Temperature 36.4 ??C (97.6 ??F) 06/26/2024 1:08 PM CS T Respiratory Rate 12 06/26/2024 1:08 PM CARDIOPULMONARY SUPERVISOR Oxygen Saturation 99% 06/26/2024 1:08 PM CARDIOPULMONARY SUPERVISOR Inhaled Oxygen Concentration - - Weight 79.8 kg (176 lb) 07/25/2024 1:11 PM CARDIOPULMONARY SUPERVISOR Height 157.5 cm (5' 2 ) 07/25/2024 1:11 PM CARDIOPULMONARY SUPERVISOR Body Mass Index 32.19 07/25/2024 1:11 PM CARDIOPULMONARY SUPERVISOR Plan of Treatment Not on file Procedures Procedure Name Priority Date/Time Associated Diagnosis Comments EMG/NCV Routine 07/25/2024 1:28 PM CARDIOPULMONARY SUPERVISOR Paresthesia PULMONARY FUNCTION TEST (PFT) Routine 07/02/2024 10:13 AM CARDIOPULMONARY SUPERVISOR Asthma, unspecified asthma severity, unspecified whether complicated, unspecified whether persistent XR TRANSFER OF OUTSIDE FILMS Routine 06/17/2024 12:[address] BODY OUTSIDE REFERENCE Routine 06/17/2024 12:[address] BODY OUTSIDE REFERENCE Routine 06/14/2024 12:00 AM CARDIOPULMONARY SUPERVISOR US TRANSFER OF OUTSIDE FILMS Routine 06/14/2024 12:00 AM CARDIOPULMONARY SUPERVISOR from Last 3 Months Results * EMG/NCV (07/25/2024 1:28 PM CARDIOPULMONARY SUPERVISOR) Anatomical Region Laterality Modality Other Narrative 07/25/2024 1:28 PM CARDIOPULMONARY SUPERVISOR Brian Boo Si, MD ? 07/27/2024 ??8:14 AM EMG/NCV - Date/Time: 07/25/2024 1:28 PM Performed by: Brian Boo Si, MD Authorized by: Brian Boo Si, MD ??Local anesthesia used: no Anesthesia: Local anesthesia used: no Sedation: Patient sedated: no Comments: See attached procedure documentation. us Brian Boo MD NEUROLOGY ORDERABLES Final Resul t * Pulmonary Function Test - (07/02/2024 10:13 AM CARDIOPULMONARY SUPERVISOR) Anatomical Region Laterality Modality PFT 07/02/2024 9:32 AM CARDIOPULMONARY SUPERVISOR Impressions 07/06/2024 12:31 PM CARDIOPULMONARY SUPERVISOR 1. ??Spirometry is normal. 2. ??There is no significant bronchodilator response. 3. ??Lung volumes are normal. 4. ??Diffusion capacity is normal. Electronically signed by Kevin Borja DO Pulmonary & Critical Care Narrative 07/06/2024 12:31 PM CARDIOPULMONARY SUPERVISOR PULMONARY FUNCTION TESTS Lillian Man 44 y.o. 07/06/2024 INTERPRETATION Please see technologist's comments mentioned in attached results report. SPIROMETRY: ??Pre bronchodilator FEV1 is 101 % predicted, FVC is 89 % predicted, FEV1/FVC is 84 Bronchodilator response: ??There was no significant bronchodilator response. Inspection of the patient's flow-volume loops shows: ??Normal configuration of the inspiratory and expiratory limbs. LUNG VOLUMES: Lung volumes by body plethysmography: ??TLC is 87 % predicted, RV is 76 % predicted DLCO: ??Unadjusted for hemoglobin and carboxyhemoglobin DLCO is 102% predicted Guillaume Kiran MD PFT ORDERABLES Final Result * CT Body Outside Reference (06/17/2024 12:00 AM CARDIOPULMONARY SUPERVISOR) Narrative [facility] - 06/28/2024 9:03 AM CARDIOPULMONARY SUPERVISOR This order has been auto-finalized and does not contain a result. us Not In File Miscellaneous IMG CT PROCEDURES Jeni l Result Performing Organization Address [facility] de Phone Number [facility] * XR Outside Reference (06/17/2024 12:00 AM CARDIOPULMONARY SUPERVISOR) Narrative [facility] - 06/28/2024 9:03 AM CARDIOPULMONARY SUPERVISOR This order has been auto-finalized and does not contain a result. us Not In File Miscellaneous IMG XR PROCEDURES Jeni l Result Performing Organization Address [facility] de Phone Number [facility] * CT Body Outside Reference (06/14/2024 12:00 AM CARDIOPULMONARY SUPERVISOR) Narrative [facility] - 06/28/2024 9:03 AM CARDIOPULMONARY SUPERVISOR This order has been auto-finalized and does not contain a result. us Not In File Miscellaneous IMG CT PROCEDURES Jeni l Result Performing Organization Address [facility] de Phone Number [facility] * US Outside Reference (06/14/2024 12:00 AM CARDIOPULMONARY SUPERVISOR) Narrative [facility] - 06/28/2024 9:03 AM CARDIOPULMONARY SUPERVISOR This order has been auto-finalized and does not contain a result. us Not In File Miscellaneous IMG US PROCEDURES Jeni l Result Performing Organization Address [facility] de Phone Number [facility] from Last 3 Months Insurance [facility] Advance Directives For more information, please contact: [phone] * Full Code (Latest Code Status on File) Date Activated Date Inactivated Comments 03/30/2021 6:35 PM 04/01/2021 5:12 PM Care Teams Tile Sorter Relationship Specialty Start Date End Date Kwan Macias MD [address] [place] [id number] PCP - General Emergency Medicine 01/23/24 Shannon Cruz MD [address] [place] [address] Consulting Physician Obstetrics and Gynecology 04/01/21
--- OUTSIDE RECORDS SUMMARY | 2024-08-14 12:09 | XMS_ITS | Clinical Summary ---
Author Organization [facility] Address [address] [place] [address] Care Team Providers Care Preconstruction Manager Name Role Phone Shannon Cruz MD Unavailable [phone] Kwan Macias MD Primary Care Provider [phone] Allergies Active Allergy Reactions Criticality Noted Date [...] as needed for pain 20 tablet 04/01/20 21 Active Additional Information Patient not taking.Reported on [...] each 11 06/26/20 24 Active PNV with [id number] ( Plus, calcium carb,) 27 mg iron- [...] gestation of 03/29/2021 Admission for sterilization 03/29/2021 Encounters Date Type Department Care Team Description 07/25/2024 1:00 PM CHILDREN'S BOOK AUTHOR Procedure visit [facility] Neurology [address] [place] [id number] Ema, Brian Gottlieb MD Paresthesia 07/02/2024 9:25 AM CHILDREN'S BOOK AUTHOR - 07/02/2024 11:59 PM CHILDREN'S BOOK AUTHOR Hospital Encounter [facility] Respiratory [address] [place] [address] Asthma, unspecified asthma severity, unspecified whether complicated, unspecified whether persistent Discharge Disposition: Discharge to home or self care 06/26/2024 1:00 PM CHILDREN'S BOOK AUTHOR Office Visit [facility] Pulmonary at [place] [address] [place] [address] Guillaume Kiran MD Acute pulmonary embolism, unspecified pulmonary embolism type, unspecified whether acute cor pulmonale present (HCC) (Primary Dx); Asthma, unspecified asthma severity, unspecified whether complicated, unspecified whether persistent 06/17/2024 Ancillary Procedure [facility] 06/17/2024 Ancillary Procedure [facility] 06/14/2024 Ancillary Procedure [facility] 06/14/2024 Ancillary Procedure [facility] from Last 3 Months Immunizations Name Administration Dates Next Due Tdap 03/31/2021 Surgical History Surgery Date Site/Laterality Comments SECTION x6 HERNIA REPAIR N/A BREAST SURGERY 04/10/2024 - 05/10/2024 Bilateral Bilateral cyst and clogged ducts Medical History Medical History Date Comments Mental disorder bipolar and anxi ety-no meds Asthma Pulmonary embolism (HCC) 06/2024 Fibromyalgia Family History Medical History Relation Name Comments COPD Mother Depression Mother Drug abuse Mother Hypertension Mother Relation Name Status Comments Brother Alive Maternal Grandfather Maternal Grandmother Mother Alive Sister Alive Social History Tobacco Use Types Packs/Day Years Used Date Smoking Tobacco: Never Passive Smoke Exposure: Past Smokeless Tobacco: Never Tobacco Cessation:Counseling Given: Not Answered AUDIT-C Answer Date Recorded Q1: How often do you have a drink containing alc ohol? Never 06/26/2024 Average Number of Drinks Not on file 024 Frequency of Binge Drinking Not on file 06/10 Valentine Depression Scale Answer Date Recorded Valentine Depression Scale Total 7 03/31/2021 The thought of harming myself has occurred to me . Never 03/31/2021 Comments Unknown Sex and Gender Information Value Date Recorded Sex Assigned at Not on file Legal Sex Female 6:23 PM CHILDREN'S BOOK AUTHOR Gender Identity Not on file Sexual Orientation Not on file Obstetrics History Para Term AB IAB SAB Ectopic Multiple Livin g Live Births 8 6 4 2 2 2 0 6 6 Date Outcome GA Total Labor Labor/2nd/3rd Weight Sex Type Anes PTL Mari A1 A5 Name Clin Term Term Term SAB SAB 2020 Term 39w 2d 0h 02m 0h 02m 3.89 kg (8 lb 9.2 oz) F CS-LT ranv Spinal N Livin g 8 9 BROWN ,GIRL MAHNAZ Cruz , Jami Qiu MD Complications:None Delivery Location:[facility] ampus ([facility] L AND D PROCEDURE) Last Filed Vital Signs Vital Sign Reading Time Taken Comments Blood Pressure 102/60 06/26/2024 1:08 PM CHILDREN'S BOOK AUTHOR Pulse 70 06/26/2024 1:08 PM CHILDREN'S BOOK AUTHOR Temperature 36.4 ??C (97.6 ??F) 06/26/2024 1:08 PM CS T Respiratory Rate 12 06/26/2024 1:08 PM CHILDREN'S BOOK AUTHOR Oxygen Saturation 99% 06/26/2024 1:08 PM CHILDREN'S BOOK AUTHOR Inhaled Oxygen Concentration - - Weight 79.8 kg (176 lb) 07/25/2024 1:11 PM CHILDREN'S BOOK AUTHOR Height 157.5 cm (5' 2 ) 07/25/2024 1:11 PM CHILDREN'S BOOK AUTHOR Body Mass Index 32.19 07/25/2024 1:11 PM CHILDREN'S BOOK AUTHOR Plan of Treatment Health Maintenance Due Date Last Done Comments Cervical Cancer Screening 1978 Colon Cancer Screening-Colonoscopy 1978 Hepatitis C Screening 1978 Pneumococcal vaccine <65 (1 of 2 - PCV) 1984 Hepatitis B Screening 1996 Regular Well Visit/Exam 18-64 1996 Depression Screening 03/31/2022 03/31/2021 Influenza Vaccine (#1) 2024 Breast Cancer Screening-Mammogram 03/28/2025 03/28/2024, 03/28/2024 DTaP/Tdap/Td Vaccine (3 - Td or Tdap) 03/31/2031 03/31/2021, 07/24/2014 HPV Vaccines Aged Out No longer eligi ble based on patient's age to complete this topic Procedures Procedure Name Priority Date/Time Associated Diagnosis Comments EMG/NCV Routine 07/25/2024 1:28 PM CHILDREN'S BOOK AUTHOR Paresthesia PULMONARY FUNCTION TEST (PFT) Routine 07/02/2024 10:13 AM CHILDREN'S BOOK AUTHOR Asthma, unspecified asthma severity, unspecified whether complicated, unspecified whether persistent XR TRANSFER OF OUTSIDE FILMS Routine 06/17/2024 12:[address] BODY OUTSIDE REFERENCE Routine 06/17/2024 12:[address] BODY OUTSIDE REFERENCE Routine 06/14/2024 12:00 AM CHILDREN'S BOOK AUTHOR US TRANSFER OF OUTSIDE FILMS Routine 06/14/2024 12:00 AM CHILDREN'S BOOK AUTHOR from Last 3 Months Results * EMG/NCV (07/25/2024 1:28 PM CHILDREN'S BOOK AUTHOR) Anatomical Region Laterality Modality Other Narrative 07/25/2024 1:28 PM CHILDREN'S BOOK AUTHOR Brian Boo Si, MD ? 07/27/2024 ??8:14 AM EMG/NCV - Date/Time: 07/25/2024 1:28 PM Performed by: Brian Boo Si, MD Authorized by: Brian Boo Si, MD ??Local anesthesia used: no Anesthesia: Local anesthesia used: no Sedation: Patient sedated: no Comments: See attached procedure documentation. Brian Boo MD NEUROLOGY ORDERABLES Final Resul t * Pulmonary Function Test - (07/02/2024 10:13 AM CHILDREN'S BOOK AUTHOR) Anatomical Region Laterality Modality PFT 07/02/2024 9:32 AM CHILDREN'S BOOK AUTHOR Impressions 07/06/2024 12:31 PM CHILDREN'S BOOK AUTHOR 1. ??Spirometry is normal. 2. ??There is no significant bronchodilator response. 3. ??Lung volumes are normal. 4. ??Diffusion capacity is normal. Electronically signed by Kevin Borja DO Pulmonary & Critical Care Narrative 07/06/2024 12:31 PM CHILDREN'S BOOK AUTHOR PULMONARY FUNCTION TESTS Lillian S Donovan 44 y.o. 07/06/2024 INTERPRETATION Please see technologist's [...] CT Body Outside Reference (06/17/2024 12:00 AM CHILDREN'S BOOK AUTHOR) Narrative [facility] - 06/28/2024 9:03 AM CHILDREN'S BOOK AUTHOR This order has been auto-finalized and does not contain a result. Not In File Miscellaneous IMG CT PROCEDURES Jeni l Result [facility] * XR Outside Reference (06/17/2024 12:00 AM CHILDREN'S BOOK AUTHOR) Narrative [facility] - 06/28/2024 9:03 AM CHILDREN'S BOOK AUTHOR This order has been auto-finalized and does not contain a result. us Not In File Miscellaneous IMG XR PROCEDURES Jeni l Result Performing Organization Address [facility] de Phone Number [facility] * CT Body Outside Reference (06/14/2024 12:00 AM CHILDREN'S BOOK AUTHOR) Narrative [facility] - 06/28/2024 9:03 AM CHILDREN'S BOOK AUTHOR This order has been auto-finalized and does not contain a result. us Not In File Miscellaneous IMG CT PROCEDURES Jeni l Result Performing Organization Address [facility] de Phone Number [facility] * US Outside Reference (06/14/2024 12:00 AM CHILDREN'S BOOK AUTHOR) Narrative [facility] - 06/28/2024 9:03 AM CHILDREN'S BOOK AUTHOR This order has been auto-finalized and does not contain a result. us Not In File Miscellaneous IMG US PROCEDURES Jeni l Result Performing Organization Address [facility] Phone Number [facility] from Last [address] [place], [place] [id number] [place] [address] [facility] Advance Directives For more information, please contact: [phone] * Full Code (Latest Code Status on File) Date Activated Date Inactivated Comments 03/30/2021 6:35 PM 04/01/2021 5:12 PM Care Teams Preconstruction Manager Relationship Specialty Start Date End Date Kwan Macias MD [address] [place] [id number] PCP - General Emergency Medicine 01/23/24 Shannon Cruz MD [address] [place] [address] Consulting Physician Obstetrics and Gynecology 04/01/21
--- OUTSIDE RECORDS SUMMARY | 2024-08-14 12:09 | XMS_ITS | Referral Summary ---
Author Organization [facility] Address [address] [place] [address] Care Team Providers Care Breaker Up Machine Operator Name Role Phone Kwan Macias MD Primary Care Provider [phone] Jg Hummel DO Unavailable Source Comments [facility],non-owned Affiliates and Associated Physician Practices is amultiple site organization consisting of ambulatory clinics and hospital sitesin [place] and [place]. This disclosure is being madepursuant to the Care Everywhere program and may not contain all information available regarding this patient. Last updated 18.[facility] Encounters Date Type Department Care Team Description 07/02/2024 Refill [facility] [address], [address] [place] [address] Jg Hummel DO MEDICATION REFILL 05/28/2024 Refill [facility] [address], [address] [place] [phone] Jg Hummel DO MEDICATION REFILL from Last 3 Months Allergies Active Allergy [...] Active vitamin D, ergocalciferol, (Drisdol) 1.25 MG (04835 UT) capsule TAKE 1 CAPSULE BY MOUTH [...] dose titration based upon tolerability and requirement. Social History Tobacco Use Types Packs/Day Years [...] Description 10/03/2024 10:00 AM CDT Office Visit [facility] [address], [address] [place] [address] Jg Hummel DO [address] [place] [address] Procedures Procedure Name Priority Date/Time Associated Diagnosis [...] Monet Connors MD on 05/25/2024 3:01 PM NURSE PRACTITIONER PER DIEM Addendum by Monet Connors M.D. This addendum [...] This was discussed with Dr. Jeffrey via [employer] message. EXAMINATIONS: 1. ??RIGHT DIGITAL DIAGNOSTIC MAMMOGRAM AND TOMOSYNTHESIS AND 2. ??COMPLETE BILATERAL BREAST ULTRASOUND (COMBINED REPORT) LOCATION: [facility] EXAM DATE: ??03/28/2024 HISTORY: This is a 43-year-old female patient with painful right breast mass/lump for which she went to the ER at [facility] at the beginning of March. An ultrasound [...] cancer greater than 20%, consultation in the [facility] Breast Surgery High Risk Clinic is recommended. Should she wish to schedule an appointment, the phone number [phone]. The [place] [employer] recommends annual screening breast MRI [...] recommended. COMPARISON: Limited right breast ultrasound 03/11/2024 [facility]. Screening mammography 08/16/2023 from [facility] MAMMOGRAM: TECHNIQUE: Diagnostic bilateral mammography was [...] in size compared to prior exam from [facility]. No suspicious finding was found in the [...] cancer greater than 20%, according to the [place] [employer] guidelines. This can ??be alternated [...] cancer greater than 20%, according to the [place] [employer] guidelines. This can ??be alternated [...] ??COMPLETE BILATERAL BREAST ULTRASOUND (COMBINED REPORT) LOCATION: [facility] EXAM DATE: ??03/28/2024 HISTORY: This is a 43-year-old female patient with painful right breast mass/lump for which she went to the ER at [facility] at the beginning of March. An ultrasound [...] cancer greater than 20%, consultation in the [facility] Breast Surgery High Risk Clinic is recommended. Should she wish to schedule an appointment, the phone number [phone]. The [place] [employer] recommends annual screening breast MRI [...] recommended. COMPARISON: Limited right breast ultrasound 03/11/2024 [facility]. Screening mammography 08/16/2023 from [facility] MAMMOGRAM: TECHNIQUE: Diagnostic bilateral mammography was [...] in size compared to prior exam from [facility]. No suspicious finding was found in the [...] COMPLETE BILATERAL BREAST ULTRASOUND (COMBINED REPORT) LOCATION: [facility] EXAM DATE: 03/28/2024 HISTORY: This is a 43-year-old female patient with painful right breast mass/lump for which she went to the ER at [facility] at the beginning of March. An ultrasound [...] cancer greater than 20%, consultation in the [facility] Breast Surgery High Risk Clinic is recommended. Should she wish to schedule an appointment, the phone [phone]. The [place] [employer] recommends annual screening breast MRI in addition to mammograms for women who have a 20% or greater lifetime riskof developing breast cancer. This can be managed through the high riskbreast clinic. Risk assessment based upon the Tyrer-Cuzick v8 model. By the NCCN guidelines and family history of breast cancer, consideration of genetic testing is recommended. COMPARISON: Limited right breast ultrasound 03/11/2024 [facility]. Screening mammography 08/16/2023 from [facility] MAMMOGRAM: TECHNIQUE: Diagnostic bilateral mammography was [...] in size compared to prior exam from [facility]. No suspicious finding was found inthe right [...] cancer greater than 20%, according to the [place] [employer] guidelines. This can be alternated [...] CATEGORY 2: BENIGN. Report dictated by [facility] (breast imaging fellow). IMonet MD have personally reviewed and interpreted this examination/study. > Interpreting Provider: Monet Connors MD on 03/28/2024 10:21 AM Yumiko Henderson MD MAMMO ORDERABLES from Last 3 Months or Most Recently Relevant to Health Maintenance Care Teams Breaker Up Machine Operator Relationship Specialty Start Date End Date Kwan Macias MD [address] [place] [address] PCP - General Family Medicine 01/09/24 Jg Hummel DO [address] [place] [address] [facility] 02/27/24
--- OUTSIDE RECORDS SUMMARY | 2024-08-14 12:09 | XMS_ITS | Clinical Summary ---
Author Organization [facility] Address [address] [place] [address] Care Team Providers Care Family And Consumer Sciences Teacher Name Role Phone Kwan Macias MD Primary Care Provider Allergies No known active allergies Medications ferrous sulfate 325 mg (65 mg iron) tablet Take 325 mg by mouth daily. 4 Active ergocalciferol (VITAMIN D2) 50,000 unit capsule Take 1 Capsule by mouth every 7 days. 4 Active apixaban (Eliquis) 5 mg tablet TAKE 1 TABLET BY MOUTH TWICE A DAY 60 Tablet 2 5 Active apixaban (ELIQUIS) 5 mg tablet Take 1 Tablet (5 mg) by mouth 2 times daily. 60 Tablet 1 4 08/09/19 25 Discontinued Active Problems No known active problems Encounters Date Type Department Care Team Description 08/09/2024 Refill [facility] Oncology and Hematology [facility] [address] [place] [address] Ryan Cheney MD 08/02/2024 External Device Data STL ABSTRACTION Provider, Abstract 08/01/2024 External Device Data STL ABSTRACTION Provider, Abstract 07/31/2024 1:00 PM LUGGAGE REPAIRER Office Visit [facility] Oncology [facility] [address] [place] [address] Ryan Cheney MD Iron deficiency anemia, unspecified iron deficiency anemia type (Primary Dx) 07/31/2024 External Device Data STL ABSTRACTION Provider, Abstract 07/24/2024 External Device Data STL ABSTRACTION Provider, Abstract 07/20/2024 Telephone [facility] Oncology and Hematology [facility] [address] [place] [address] Ryan Cheney MD Surgical Clearance Request 07/20/2024 Abstract [facility] Oncology and Hematology [facility] [address] [place] [address] Ryan Cheney MD 06/26/2024 Refill [facility] Oncology and Hematology [facility] [address] [place] [address] Ryan Cheney MD 06/05/2024 External Device Data STL ABSTRACTION Provider, Abstract 05/14/2024 External Device Data STL ABSTRACTION Provider, Abstract from Last 3 Months Family History Medical History Relation Name Comments No Known Problems Brother No Known Problems Child 1 No Known Problems Child 2 No Known Problems Child 3 No Known Problems Child 4 No Known Problems Child 5 No Known Problems Child 6 Diabetes Father Breast Cancer Mother Diabetes Mother Pancreatic Cancer Mother Diabetes Sister Relation Name Status Comments Brother Alive Child 1 Alive Child 2 Alive Child 3 Alive Child 4 Alive Child 5 Alive Child 6 Alive Father Alive Mother Alive Sister Alive Social History Tobacco Use Types Packs/Day Years Used Date Smoking Tobacco: Never Smokeless Tobacco: Never Tobacco Cessation:Counseling Given: Not Answered Alcohol Use Standard Drinks/Week Comments Yes 0 (1 standard drink = 0.6 oz pur e alcohol) Socially Comments Unknown Sex and Gender Information Value Date Recorded Sex Assigned at Not on file Legal Sex Female 11:19 AM CDT Gender Identity Not on file Sexual Orientation Not on file Last Filed Vital Signs Vital Sign Reading Time Taken Comments Blood Pressure 127/86 07/31/2024 1:00 PM LUGGAGE REPAIRER Pulse 81 07/31/2024 1:00 PM LUGGAGE REPAIRER Temperature 36.8 ??C (98.3 ??F) 07/31/2024 1:00 PM CS T Respiratory Rate 14 07/31/2024 1:00 PM LUGGAGE REPAIRER Oxygen Saturation 98% 07/31/2024 1:00 PM LUGGAGE REPAIRER Inhaled Oxygen Concentration - - Weight 83.9 kg (185 lb) 07/31/2024 1:00 PM LUGGAGE REPAIRER Height 157.5 cm (5' 2 ) 01/23/2024 10:23 AM CDT Body Mass Index 33.84 01/23/2024 10:23 AM CDT Plan of Treatment Upcoming Encounters Date Type Department Care Team (Late st Contact Info) Description 10/03/2024 11:15 AM CDT Office Visit [facility] Oncology and Hematology - [place] [address] [place] [address] Ryan Cheney MD [address] [place] [address] Health Maintenance Due Date Last Done Comments Pre-Diabetes and Diabetes Screening 1978 HEPATITIS B VACCINES (1 of 3 - 19+ 3-dose series) 1997 Preventative Visit-Managed Medicaid 1997 CERVICAL CANCER SCREENING 2008 COLORECTAL SCREENING 2023 Colorectal Cancer Screening 2023 FIT-DNA Q 3 years 2023 FIT/FOBT Q 1 year 2023 Flex Sig/CT Colonography Q 5 years 2023 INFLUENZA VACCINE (#1) 2024 BREAST CANCER SCREENING 03/28/2025 03/28/2024 DTAP/TDAP/TD VACCINES (2 - T d or Tdap) 03/31/2031 03/31/2021 HPV VACCINES Aged Out No longer eligi ble based on patient's age to complete this topic Insurance [facility] MEDICAID Care Teams Family And Consumer Sciences Teacher Relationship Specialty Start Date End Date Kwan Macias MD [address] [place] [phone] PCP - General Family Practice 05/11/24
--- OUTSIDE RECORDS SUMMARY | 2024-08-14 12:09 | XMS_ITS | Clinical Summary ---
Author Organization [facility] Address [address] [place] [address] Phone Care Team Providers Care Nuclear Power Reactor Operator Name Role Phone Kwan Macias MD Primary Care Provider [phone] Allergies No known active allergies Medications Medication Sig Dispensed Refills Start Date End Date Status ferrous sulfate 325 (65 Fe) MG EC tablet Take 325 mg by mouth 1 (one) time each day with breakfast Active apixaban (Eliquis) 5 MG tablet Take 5 mg by mouth 1 (one) time each day Active gabapentin (NEURONTIN) 100 MG capsule Take 100 mg by mouth in the morning and 100 mg in the evening and 100 mg before bedtime. 2 caps morning, 2 caps afternoon, 3 night. Active ergocalciferol (VITAMIN D-2) 1.25 MG (14833 UT) capsule Take 50,000 Units by mouth 1 (one) time per week 07/24/2024 Discontinued albuterol HFA (PROVENTIL HFA) 108 (90 Base) MCG/ACT inhaler Inhale 1 puff every 4 (four) hours if needed for wheezing 07/24/2024 Discontinued cephalexin (KEFLEX) 500 MG capsule Take 500 mg by mouth every 8 (eight) hours 07/24/2024 Discontinued Active Problems Problem Noted Date Diagnosed Date Gross hematuria 07/24/2024 Acquired cyst of kidney 07/24/2024 Iron deficiency 07/19/2024 Bipolar disorder 07/19/2024 Resolved Problems Problem Noted Date Diagnosed Date Resolved Date Vitamin D deficiency 07/19/2024 025 Family History Medical History Relation Comments Diabetes Maternal Grandmother Cancer Mother Relation Status Comments Maternal Grandmother Alive Mother Social History Tobacco Use Types Packs/Day Years Used Date Smoking Tobacco: Never Smokeless Tobacco: Never Tobacco Cessation:Counseling Given: Not Answered Alcohol Use Standard Drinks/Week Comments Yes 0 (1 standard drink = 0.6 oz pur e alcohol) Occasionally Sex and Gender Information Value Date Recorded Sex Assigned at Not on file Gender Identity Not on file Sexual Orientation Not on file Last Filed Vital Signs Vital Sign Reading Time Taken Comments Blood Pressure 131/92 07/24/2024 12:09 PM FISH ICER Pulse 70 07/24/2024 12:09 PM FISH ICER Temperature - - Respiratory Rate - - Oxygen Saturation - - Inhaled Oxygen Concentration - - Weight 81.6 kg (180 lb) 07/24/2024 12:09 PM FISH ICER Height 160 cm (5' 3 ) 07/24/2024 12:09 PM FISH ICER Body Mass Index 31.89 07/24/2024 12:09 PM FISH ICER Plan of Treatment Upcoming Encounters Date Type Department Care Team (Late st Contact Info) Description 08/21/2024 1:20 PM FISH ICER Office Visit [facility] [address] [place] [address] Omid Rowe MD [address] [place] [address] Health Maintenance Due Date Last Done Comments Pneumococcal PPSV23 Highest Risk Adult (1 of 3 - PCV13 ) 1997 Influenza Vaccine (#1) 2024 Care Teams Nuclear Power Reactor Operator Relationship Specialty Start Date End Date Kwan Macias MD PCP - General 06/19/24
--- NOTE | 2024-08-14 12:24 | ED_ITS ---
HPI - SOB/Dyspnea General Chief Complaint: Shortness of Breath/Dyspnea Stated Complaint: Shortness of breath, Headache, CP Time Seen by Provider: 08/14/24 16:29 Source: patient Mode of arrival: ambulatory Limitations: no limitations History of Present Illness HPI Narrative: 44-year-old with a history of high anxiety, depression, fibromyalgia, PE on eliquis here with the complaints of having headache not feeling well, abdominal pain which started this morning. She denies any fever or chills. No history of nausea vomiting MD elicited complaint: shortness of breath Timing: constant Severity: mild Exacerbating factors: nothing Relieving factors: nothing Related Data Home Medications ?Medication ?Instructions ?Recorded ?Confirmed ?Last Taken ?Type ferrous sulfate 325 mg (65 mg 325 mg PO DAILY 03/21/24 06/26/24 04/22/24 History iron) tablet,delayed release gabapentin 100 mg capsule 100 mg PO TID 03/21/24 06/26/24 04/24/24 21:00 History ibuprofen 800 mg tablet 800 mg PO TID 03/21/24 06/26/24 04/18/24 History Allergies Allergy/AdvReac Type Severity Reaction Status Date / Time No Known Allergies Allergy Verified 07/23/24 10:18 Review of Systems 2 Review of Systems: All systems reviewed & are unremarkable except as noted in HPI and below Constitutional: Constitutional: Reports no additional constitutional complaints Eyes: Eyes: Reports no additional eye complaints ENT: Reports system reviewed and no additional complaints, except as documented Cardiovascular: Cardiovascular: Reports no additional cardiovascular complaints Respiratory: Respiratory: Reports no additional respiratory complaints Gastrointestinal: Gastrointestinal: Reports as per HPI Musculoskeletal: Musculoskeletal: Reports no additional musculoskeletal complaints Integumentary/Breasts: Skin/Breast: Reports system reviewed and no additional complaints, except as docu Neurologic: Reports system reviewed and no additional complaints, except as documented PMFSH Past Medical History Medical History Hepatic cyst Anxiety and depression Anemia Asthma Overweight (BMI 25.0-29.9) Eczema Fibromyalgia Subareolar lump of right breast Subareolar lump of left breast Social History Social History Smoking status: Never smoker Alcohol intake: current Substance use: never Substance use type: does not use Do You Feel Safe in your Home?: Yes Lack of Transportation: No Lack of Food: Never True Current Housing: I Have Housing Concerned About Future Housing: No Difficulty Paying Gas/Electric Bills: No Difficulty Paying for Meds: No Currently Unemployed: No Education: High School Diploma/GED Difficulty w/ Childcare or Family Care: No Living arrangements: with family Spiritual care concerns: No Exam 2 Narrative: GENERAL: Well-appearing, well-nourished, and in no acute distress. HEAD: Normocephalic, atraumatic. EYES: PERRLA and EOMI. ENT: Nares clear, no rhinorrhea or epistaxis. Mucous membranes moist. NECK: Supple. CHEST: Clear to auscultation. No respiratory distress. HEART: Regular rate and rhythm. No murmur heard. Normal peripheral pulses. ABDOMEN: Soft, nontender, nondistended, normal active bowel sounds. EXTREMITIES: Normal range of motion. No edema. SKIN: Warm, dry, no rash. NEURO: No focal deficits. Alert and oriented x3. PSYCH: Normal mood and affect. Course Course Emergency Course: Patient feeling much better IV morphine inform her about the lab work, CT findings Vital Signs Vital signs: Vital Signs Temperature 36.4 C 08/14/24 12:36 Pulse Rate 84 08/14/24 12:36 Respiratory Rate 16 08/14/24 12:36 Blood Pressure 128/70 08/14/24 12:36 Pulse Oximetry 99 08/14/24 12:36 Temperature 36.4 C 08/14/24 12:36 Pulse Rate 81 08/14/24 18:26 Respiratory Rate 20 08/14/24 18:15 Blood Pressure 111/69 08/14/24 16:47 Pulse Oximetry 100 08/14/24 18:15 Oxygen Delivery Room Air 08/14/24 17:18 MDM - SOB/Dyspnea Differential Diagnosis Differential diagnosis: Likely congestive heart failure and community acquired pneumonia Medical Records Attestation: I reviewed the patient's medical records. Lab Data Attestation: I reviewed the patient's lab results. 08/14/24 12:44 08/14/24 12:44 Labs: Lab Results 08/14/24 08/14/24 Range/Units 12:44 14:41 WBC 5.6 (4.5-10.0) K/mm3 RBC 4.09 L (4.2-5.4) M/mm3 Hgb 12.4 (12.0-15.0) g/dL Hct 38.2 (37.0-47.0) % MCV 93.4 (80-100) fl MCH 30.3 (26-34) pg MCHC 32.5 (32-36) g/dl RDW 12.7 (11.5-14.5) % Plt Count 189 (150-375) k/mm3 MPV 10.1 (7.4-10.4) fl Immature Gran % (Auto) 0.2 (0-0.5) % Neut % (Auto) 82.6 H (45.5-73.1) % Lymph % (Auto) 6.8 L (18.3-44.2) % Nolan % (Auto) 9.1 H (2.6-8.5) % Eos % (Auto) 1.1 (0-4.4) % Baso % (Auto) 0.2 (0.2-1.2) % Lymph # (Auto) 0.38 L (0.9-3.2) K/mm3 Nolan # (Auto) 0.5 (0.1-0.6) K/mm3 Eos # (Auto) 0.1 (0-0.3) K/mm3 Baso # (Auto) 0.0 (0.0-0.1) K/mm3 Abs Immat Gran (auto) 0.01 (0.00-0.031) K/mm3 Absolute Neuts (auto) 4.6 (1.3-6.7) K/mm3 Absolute Nucleated RBC 0.000 (0.0-0.012) K/mm3 Nucleated RBC % 0.0 (0.0-0.2) % PT 15.2 H (11.1-14.7) Seconds INR 1.2 APTT 31.7 (22.3-36.8) Seconds D-Dimer < 0.27 (<0.48) ug/mL Sodium 135 L (137-145) mmol/L Potassium 3.9 (3.4-5.0) mmol/L Chloride 101 (98-107) mmol/L Carbon Dioxide 25 (22-30) mmol/L Anion Gap 9 (4-12) mmol/L BUN 9 (7-17) mg/dL Creatinine 0.71 (0.7-1.0) mg/dL Estim Creat Clear Calc Not Reportable Estimated GFR > 60 (59 - ) Glucose 91 (65-110) mg/dL Lactic Acid 0.8 (0.7-2.0) mmol/L Calcium 8.7 (8.4-10.2) mg/dL Magnesium 1.7 (1.6-2.3) mg/dL Total Bilirubin 0.3 (0.2-1.3) mg/dL AST 18 (14-36) U/L ALT 15 (6-35) U/L Alkaline Phosphatase 80 (38-126) U/L Troponin I < 0.012 (0.000-0.034) ng/mL Total Protein 7.0 (6.3-8.2) g/dL Albumin 4.2 (3.5-5.1) g/dL Urine Color Yellow (Yellow) Urine Appearance Clear (Clear) Urine pH 5.5 (5.0-9.0) Ur Specific [place] 1.010 (1.001-1.035) Urine Protein Negative (Negative) mg/dL Urine Glucose (UA) Negative (Negative) mg/dL Urine Ketones Negative (Negative) mg/dL Ur Blood (Man) 2+ H (Negative) Urine Nitrate Negative (Negative) Urine Bilirubin Negative (Negative) Urine Urobilinogen 0.2 (<2.0) mg/dL Leukocyte Esterase Rfl Negative (Negative) JAMARI/UL Urine RBC 0-2 (0-2) /hpf Urine WBC 0-5 (0-3) /hpf Ur Squamous Epith Cells None seen (Few) /hpf Urine Bacteria None seen /hpf Urine Casts 0-2 Imaging Data Radiologist's impression: ITS Impressions Chest X-Ray 08/14/24 13:59 IMPRESSION: 1. No acute cardiopulmonary disease. Head CT 08/14/24 18:19 Impression: No acute intracranial hemorrhage or suspicious mass effect. Abdomen/Pelvis CT 08/14/24 18:20 IMPRESSION: No acute intra-abdominal pathology. Dilatation of the main pancreatic duct without a discrete mass identified for which nonemergent follow-up with contrast-enhanced CT or MRI is recommended, with pancreatic mass protocol Discharge Plan Discharge Clinical Impression: Viral syndrome Headache Qualifiers: Headache type: unspecified Headache chronicity pattern: acute headache I ntractability: intractable Qualified Code(s): R51.9 - Headache, unspecified Patient Disposition: Home, Self-Care Condition: Stable Instructions: Antibiotic Form, Acute Headache (DC) Additional Instructions: continue home medications , follow with your doctor. Patient Language: St Helenian Prescriptions: No Action gabapentin 100 mg capsule 100 mg PO TID ibuprofen 800 mg tablet 800 mg PO TID Rx Instructions: Says takes one every day then as needed for pain. ferrous sulfate 325 mg (65 mg iron) tablet,delayed release (DR/EC) 325 mg PO DAILY Eliquis 5 mg tablet 10 mg PO ONCE 1 Days Qty: 2 0RF Rx Instructions: take 06/19/24 PM (already received AM dose and full Rx to take effect 06/20/24) Follow-up/Referrals: Kwan Macias MD [Primary Care Provider] - Time of Disposition: 18:41
[2024-08-14 12:51] LABS: Basophils Percent Auto 0.2 % (0.2-1.2); Eosinophils Absolute Auto 0.1 K/mm3 (0-0.3); Eosinophils Percent Auto 1.1 % (0-4.4); Hematocrit 38.2 % (37.0-47.0); Hemoglobin 12.4 g/dL (12.0-15.0); Immature Granulocyte Absolute 0.01 K/mm3 (0.00-0.031); Immature Granulocyte Percent A 0.2 % (0-0.5); Lymphocytes Absolute Auto 0.38 K/mm3 (0.9-3.2); Lymphocytes Percent Auto 6.8 % (18.3-44.2); Mean Corpuscular HGB Conc 32.5 g/dl (32-36); Mean Corpuscular Hemoglobin 30.3 pg (26-34); Mean Corpuscular Volume 93.4 fl (80-100); Mean Platelet Volume 10.1 fl (7.4-10.4); Monocytes Absolute Auto 0.5 K/mm3 (0.1-0.6); Monocytes Percent Auto 9.1 % (2.6-8.5); Neutrophils Absolute Auto 4.6 K/mm3 (1.3-6.7); Neutrophils Percent Auto 82.6 % (45.5-73.1); Platelet Count Result 189 k/mm3 (150-375); Red Blood Count 4.09 M/mm3 (4.2-5.4); Red Cell Distribution Width 12.7 % (11.5-14.5); White Blood Count 5.6 K/mm3 (4.5-10.0)
[2024-08-14 13:02] LABS: INR 1.2; Prothrombin Time 15.2 Seconds (11.1-14.7)
[2024-08-14 13:03] LABS: Partial Thromboplastin Time 31.7 Seconds (22.3-36.8)
[2024-08-14 13:10] LABS: Alanine Aminotransferase 15 U/L (6-35); Albumin Level 4.2 g/dL (3.5-5.1); Alkaline Phosphatase 80 U/L (38-126); Anion Gap 9 mmol/L (4-12); Aspartate Amino Transferase 18 U/L (14-36); Bilirubin,Total 0.3 mg/dL (0.2-1.3); Blood Urea Nitrogen 9 mg/dL (7-17); Calcium 8.7 mg/dL (8.4-10.2); Carbon Dioxide 25 mmol/L (22-30); Chloride 101 mmol/L (98-107); Estimated Glomerular Filt Rate > 60; Glucose 91 mg/dL (65-110); Lactic Acid Reflex 0.8 mmol/L (0.7-2.0); Magnesium 1.7 mg/dL (1.6-2.3); Potassium 3.9 mmol/L (3.4-5.0); Sodium 135 mmol/L (137-145)
[2024-08-14 13:13] LABS: D Dimer < 0.27 ug/mL (<0.48)
[2024-08-14 13:20] LABS: Troponin I < 0.012 ng/mL (0.000-0.034)
[2024-08-14 15:06] LABS: Add Urine Microscopic? YES; Appearance Urine Clear (Clear); Bacteria Urine None Seen /hpf; Bilirubin Urine Negative (Negative); Blood Urine 2+ (Negative); Color Urine Yellow (Yellow); Glucose Urine UA Negative (Negative); Ketones Urine Negative (Negative); Leukocyte Esterase Ur Negative LEU/UL (Negative); Nitrate Urine Negative (Negative); Non Pathogenic Casts 0-2; Protein Urine Negative (Negative); RBC Urine 0-2 /hpf (0-2); Squamous Epithelial Cell Urine None Seen /hpf (Few); Urobilinogen Urine 0.2 mg/dL (<2.0); WBC Urine 0-5 /hpf (0-3); pH Urine 5.5 (5.0-9.0)
--- OUTSIDE RECORDS SUMMARY | 2024-08-14 16:38 | XMS_ITS | Clinical Summary ---
Author Organization [facility] Address [address] [place] [address] Care Team Providers Care Manual Lathe Operator Name Role Phone Sunny Garza MD Primary Care Provider [phone] Allergies No known active allergies Medications vitamin, [...] patient's age to complete this topic Insurance [place] Care Teams Manual Lathe Operator Relationship Specialty Start Date End Date Sunny Garza MD [address] [place] [id number] PCP - General 03/27/16
--- OUTSIDE RECORDS SUMMARY | 2024-08-14 16:38 | XMS_ITS | Clinical Summary ---
Author Organization [facility] Address [address] [place] [place] [address] Care Team Providers Care Compliance Lead Name Role Phone Kwan Macias MD Primary Care Provider [phone] Jg Hummel DO Unavailable Source Comments [facility],non-owned Affiliates and Associated Physician Practices is amultiple site organization consisting of ambulatory clinics and hospital sitesin [place], [place], [place] and [place]. This disclosure is being madepursuant to the Care Everywhere program and may not contain all information available regarding this patient. Last updated 18.[facility] Allergies Active Allergy Reactions Criticality Noted [...] Active vitamin D, ergocalciferol, (Drisdol) 1.25 MG (51025 UT) capsule TAKE 1 CAPSULE BY MOUTH [...] Type Department Care Team Description 07/02/2024 Refill [facility] - Rheumatology [address] [place] [address], [address] [place] [address] Jg Hummel, DO MEDICATION REFILL 05/28/2024 Refill [facility] - Rheumatology [address] [place] [address], [address] [place] [address] Jg Hummel, DO MEDICATION REFILL from Last [...] Description 10/03/2024 10:00 AM CDT Office Visit [facility] - Rheumatology [address] [place] [address], [address] [place] [address] Jg Hummel DO [address] [place] [address] Health Maintenance Due Date Last [...] Monet Connors MD on 05/25/2024 3:01 PM ELECTRICIAN AIRCRAFT Addendum by Monet Connors M.D. This addendum [...] This was discussed with Dr. Jeffrey via Hively message. EXAMINATIONS: 1. ??RIGHT DIGITAL DIAGNOSTIC MAMMOGRAM AND TOMOSYNTHESIS AND 2. ??COMPLETE BILATERAL BREAST ULTRASOUND (COMBINED REPORT) LOCATION: [facility] EXAM DATE: ??03/28/2024 HISTORY: This is a 43-year-old female patient with painful right breast mass/lump for which she went to the ER at [facility] at the beginning of March. An ultrasound [...] cancer greater than 20%, consultation in the [facility] Breast Surgery High Risk Clinic is recommended. Should she wish to schedule an appointment, the phone number [phone]. The [place] [employer] recommends annual screening breast MRI [...] recommended. COMPARISON: Limited right breast ultrasound 03/11/2024 [facility]. Screening mammography 08/16/2023 from [facility] MAMMOGRAM: TECHNIQUE: Diagnostic bilateral mammography was [...] in size compared to prior exam from [facility]. No suspicious finding was found in the [...] of greater than 20%, consultation in the [facility] High Risk Clinic is recommended. 3. Annual screening breast MRI is recommended, given the elevated lifetime risk of developing breast cancer greater than 20%, according to the [place] [employer] guidelines. This can ??be alternated [...] of greater than 20%, consultation in the [facility] High Risk Clinic is recommended. 3. Annual screening breast MRI is recommended, given the elevated lifetime risk of developing breast cancer greater than 20%, according to the [place] [employer] guidelines. This can ??be alternated [...] ??COMPLETE BILATERAL BREAST ULTRASOUND (COMBINED REPORT) LOCATION: [facility] EXAM DATE: ??03/28/2024 HISTORY: This is a 43-year-old female patient with painful right breast mass/lump for which she went to the ER at [facility] at the beginning of March. An ultrasound [...] cancer greater than 20%, consultation in the [facility] Breast Surgery High Risk Clinic is recommended. Should she wish to schedule an appointment, the phone number [phone]. The [place] [employer] recommends annual screening breast MRI [...] recommended. COMPARISON: Limited right breast ultrasound 03/11/2024 [facility]. Screening mammography 08/16/2023 from [facility] MAMMOGRAM: TECHNIQUE: Diagnostic bilateral mammography was [...] in size compared to prior exam from [facility]. No suspicious finding was found in the [...] COMPLETE BILATERAL BREAST ULTRASOUND (COMBINED REPORT) LOCATION: [facility] EXAM DATE: 03/28/2024 HISTORY: This is a 43-year-old female patient with painful right breast mass/lump for which she went to the ER at [facility] at the beginning of March. An ultrasound [...] cancer greater than 20%, consultation in the [facility] Breast Surgery High Risk Clinic is recommended. Should she wish to schedule an appointment, the phone [phone]. The [place] [employer] recommends annual screening breast MRI in addition to mammograms for women who have a 20% or greater lifetime riskof developing breast cancer. This can be managed through the high riskbreast clinic. Risk assessment based upon the Tyrer-Cuzick v8 model. By the NCCN guidelines and family history of breast cancer, consideration of genetic testing is recommended. COMPARISON: Limited right breast ultrasound 03/11/2024 [facility]. Screening mammography 08/16/2023 from [facility] MAMMOGRAM: TECHNIQUE: Diagnostic bilateral mammography was [...] in size compared to prior exam from [facility]. No suspicious finding was found inthe right [...] cancer ofgreater than 20%, consultation in the [facility] High Risk Clinic is recommended. 3. Annual screening breast MRI is recommended, given the elevatedlifetime risk of developing breast cancer greater than 20%, according to the [place] [employer] guidelines. This can be alternated [...] CATEGORY 2: BENIGN. Report dictated by [facility] (breast imaging fellow). I, Monet Connors MD have personally reviewed and interpreted this examination/study. > Interpreting Provider: Monet Connors MD on 03/28/2024 10:21 AM Yumiko Henderson MD MAMMO ORDERABLES from Last 3 Months or Most Recently Relevant to Health Maintenance Care Teams Compliance Lead Relationship Specialty Start Date End Date Kwan Macias MD [address] [address] [place] [address] PCP - General Family Medicine 01/09/24 Jg Hummel DO [address] [address] [place] [address] [employer] Deputy Sheriff Rheumatology 02/27/24
--- OUTSIDE RECORDS SUMMARY | 2024-08-14 16:38 | XMS_ITS | Clinical Summary ---
Author Organization [facility] Address [address] [place] [address] Care Team Providers Care Printing Press Machinist Name Role Phone Shannon Cruz MD Unavailable [phone] Kwan Macias MD Primary Care Provider [phone] Allergies Active Allergy Reactions Criticality Noted Date [...] each 11 06/26/20 24 Active PNV with [id number] ( Plus, calcium carb,) 27 mg iron- [...] Department Care Team Description 07/25/2024 1:00 PM AIR TANK ASSEMBLER Procedure visit [facility] Neurology [address] [place] [id number] Ema, Brian Gottlieb MD Paresthesia 07/02/2024 9:25 AM AIR TANK ASSEMBLER - 07/02/2024 11:59 PM AIR TANK ASSEMBLER Hospital Encounter [facility] Respiratory [address] [place] [address] Asthma, unspecified asthma severity, unspecified whether complicated, unspecified whether persistent Discharge Disposition: Discharge to home or self care 06/26/2024 1:00 PM AIR TANK ASSEMBLER Office Visit [facility] Pulmonary at [place] [address] [place] [address] Guillaume Kiran MD Acute pulmonary embolism, unspecified [...] of Binge Drinking Not on file 06/10 [place] Depression Scale Answer Date Recorded [place] Depression Scale Total 7 03/31/2021 The thought of harming myself has occurred to me . Never 03/31/2021 Comments Unknown Sex and Gender Information Value Date Recorded Sex Assigned at Not on file Legal Sex Female 6:23 PM AIR TANK ASSEMBLER Gender Identity Not on file Sexual Orientation [...] Cruz , Jami Qiu MD Complications:None Delivery Location:[facility] ampus ([facility] L AND D PROCEDURE) Last Filed Vital Signs Vital Sign Reading Time Taken Comments Blood Pressure 102/60 06/26/2024 1:08 PM AIR TANK ASSEMBLER Pulse 70 06/26/2024 1:08 PM AIR TANK ASSEMBLER Temperature 36.4 ??C (97.6 ??F) 06/26/2024 1:08 PM CS T Respiratory Rate 12 06/26/2024 1:08 PM AIR TANK ASSEMBLER Oxygen Saturation 99% 06/26/2024 1:08 PM AIR TANK ASSEMBLER Inhaled Oxygen Concentration - - Weight 79.8 kg (176 lb) 07/25/2024 1:11 PM AIR TANK ASSEMBLER Height 157.5 cm (5' 2 ) 07/25/2024 1:11 PM AIR TANK ASSEMBLER Body Mass Index 32.19 07/25/2024 1:11 PM AIR TANK ASSEMBLER Plan of Treatment Health Maintenance Due Date [...] Diagnosis Comments EMG/NCV Routine 07/25/2024 1:28 PM AIR TANK ASSEMBLER Paresthesia PULMONARY FUNCTION TEST (PFT) Routine 07/02/2024 10:13 AM AIR TANK ASSEMBLER Asthma, unspecified asthma severity, unspecified whether complicated, unspecified whether persistent XR TRANSFER OF OUTSIDE FILMS Routine 06/17/2024 12:[address] BODY OUTSIDE REFERENCE Routine 06/17/2024 12:[address] BODY OUTSIDE REFERENCE Routine 06/14/2024 12:00 AM AIR TANK ASSEMBLER US TRANSFER OF OUTSIDE FILMS Routine 06/14/2024 12:00 AM AIR TANK ASSEMBLER from Last 3 Months Results * EMG/NCV (07/25/2024 1:28 PM AIR TANK ASSEMBLER) Anatomical Region Laterality Modality Other Narrative 07/25/2024 1:28 PM AIR TANK ASSEMBLER Brian Boo Si, MD ? 07/27/2024 ??8:14 AM EMG/NCV - Date/Time: 07/25/2024 1:28 PM Performed by: Biran Boo Si, MD Authorized by: Brian Boo Si, MD ??Local anesthesia used: no Anesthesia: Local anesthesia used: no Sedation: Patient sedated: no Comments: See attached procedure documentation. Brian Boo MD NEUROLOGY ORDERABLES Final Resul t * Pulmonary Function Test - (07/02/2024 10:13 AM AIR TANK ASSEMBLER) Anatomical Region Laterality Modality PFT 07/02/2024 9:32 AM AIR TANK ASSEMBLER Impressions 07/06/2024 12:31 PM AIR TANK ASSEMBLER 1. ??Spirometry is normal. 2. ??There is no significant bronchodilator response. 3. ??Lung volumes are normal. 4. ??Diffusion capacity is normal. Electronically signed by Kevin Borja DO Pulmonary & Critical Care Narrative 07/06/2024 12:31 PM AIR TANK ASSEMBLER PULMONARY FUNCTION TESTS Lillian S Donovan 44 [...] CT Body Outside Reference (06/17/2024 12:00 AM AIR TANK ASSEMBLER) Narrative [facility] - 06/28/2024 9:03 AM AIR TANK ASSEMBLER This order has been auto-finalized and does not contain a result. Not In File Miscellaneous IMG CT PROCEDURES Jeni l Result [facility] * XR Outside Reference (06/17/2024 12:00 AM AIR TANK ASSEMBLER) Narrative [facility] - 06/28/2024 9:03 AM AIR TANK ASSEMBLER This order has been auto-finalized and does not contain a result. us Not In File Miscellaneous IMG XR PROCEDURES Ejni l Result Performing Organization Address [facility] [address] [facility] de Phone Number [facility] * CT Body Outside Reference (06/14/2024 12:00 AM AIR TANK ASSEMBLER) Narrative [facility] - 06/28/2024 9:03 AM AIR TANK ASSEMBLER This order has been auto-finalized and does not contain a result. us Not In File Miscellaneous IMG CT PROCEDURES Jeni l Result Performing Organization Address [facility] [address]/[facility] de Phone Number [facility] * US Outside Reference (06/14/2024 12:00 AM AIR TANK ASSEMBLER) Narrative [facility] - 06/28/2024 9:03 AM AIR TANK ASSEMBLER This order has been auto-finalized and does not contain a result. us Not In File Miscellaneous IMG US PROCEDURES Jeni l Result Performing Organization Address [facility] [address]/[facility] Phone Number [facility] from Last [address] [place], [place] [id number] [place] [address] [facility] Advance Directives For more information, please contact: [phone] * Full Code (Latest Code Status on File) Date Activated Date Inactivated Comments 03/30/2021 6:35 PM 04/01/2021 5:12 PM Care Teams Printing Press Machinist Relationship Specialty Start Date End Date Kwan Macias MD [address] [place] [address] PCP - General Emergency Medicine 01/23/24 Shannon Cruz MD [address] [place] [address] Consulting Physician Obstetrics and Gynecology 04/01/21
--- OUTSIDE RECORDS SUMMARY | 2024-08-14 16:38 | XMS_ITS | Referral Summary ---
Author Organization [facility] Address [address] [place] [address] Care Team Providers Care Unloader Operator Name Role Phone Shannon Cruz MD Unavailable [phone] Kwan Macias MD Primary Care Provider [phone] Encounters Date Type Department Care Team Description 07/25/2024 1:00 PM 3D TECHNOLOGIST Procedure visit [facility] Neurology [address] [place] [id number] EmaBrian Si, MD Paresthesia 07/02/2024 9:25 AM 3D TECHNOLOGIST - 07/02/2024 11:59 PM 3D TECHNOLOGIST Hospital Encounter [facility] Respiratory [address] [place] [address] Asthma, unspecified asthma severity, unspecified whether complicated, unspecified whether persistent Discharge Disposition: Discharge to home or self care 06/26/2024 1:00 PM 3D TECHNOLOGIST Office Visit [facility] Pulmonary at [place] [address] [place] [address] Guillaume Kiran MD Acute pulmonary embolism, unspecified [...] each 11 06/26/20 24 Active PNV with [id number] ( Plus, calcium carb,) 27 mg iron- [...] of Binge Drinking Not on file 06/10 Nucla Depression Scale Answer Date Recorded Nucla Depression Scale Total 7 03/31/2021 The thought of harming myself has occurred to me . Never 03/31/2021 Comments Unknown Sex and Gender Information Value Date Recorded Sex Assigned at Not on file Legal Sex Female 6:23 PM 3D TECHNOLOGIST Gender Identity Not on file Sexual Orientation Not on file Last Filed Vital Signs Vital Sign Reading Time Taken Comments Blood Pressure 102/60 06/26/2024 1:08 PM 3D TECHNOLOGIST Pulse 70 06/26/2024 1:08 PM 3D TECHNOLOGIST Temperature 36.4 ??C (97.6 ??F) 06/26/2024 1:08 PM CS T Respiratory Rate 12 06/26/2024 1:08 PM 3D TECHNOLOGIST Oxygen Saturation 99% 06/26/2024 1:08 PM 3D TECHNOLOGIST Inhaled Oxygen Concentration - - Weight 79.8 kg (176 lb) 07/25/2024 1:11 PM 3D TECHNOLOGIST Height 157.5 cm (5' 2 ) 07/25/2024 1:11 PM 3D TECHNOLOGIST Body Mass Index 32.19 07/25/2024 1:11 PM 3D TECHNOLOGIST Plan of Treatment Not on file Procedures Procedure Name Priority Date/Time Associated Diagnosis Comments EMG/NCV Routine 07/25/2024 1:28 PM 3D TECHNOLOGIST Paresthesia PULMONARY FUNCTION TEST (PFT) Routine 07/02/2024 10:13 AM 3D TECHNOLOGIST Asthma, unspecified asthma severity, unspecified whether complicated, unspecified whether persistent XR TRANSFER OF OUTSIDE FILMS Routine 06/17/2024 12:[address] BODY OUTSIDE REFERENCE Routine 06/17/2024 12:[address] BODY OUTSIDE REFERENCE Routine 06/14/2024 12:00 AM 3D TECHNOLOGIST US TRANSFER OF OUTSIDE FILMS Routine 06/14/2024 12:00 AM 3D TECHNOLOGIST from Last 3 Months Results * EMG/NCV (07/25/2024 1:28 PM 3D TECHNOLOGIST) Anatomical Region Laterality Modality Other Narrative 07/25/2024 1:28 PM 3D TECHNOLOGIST Brian Boo Si, MD ? 07/27/2024 ??8:14 AM EMG/NCV - Date/Time: 07/25/2024 1:28 PM Performed by: Brian Boo Si, MD Authorized by: Brian Boo Si, MD ??Local anesthesia used: no Anesthesia: Local anesthesia used: no Sedation: Patient sedated: no Comments: See attached procedure documentation. us Brian Boo MD NEUROLOGY ORDERABLES Final Resul t * Pulmonary Function Test - (07/02/2024 10:13 AM 3D TECHNOLOGIST) Anatomical Region Laterality Modality PFT 07/02/2024 9:32 AM 3D TECHNOLOGIST Impressions 07/06/2024 12:31 PM 3D TECHNOLOGIST 1. ??Spirometry is normal. 2. ??There is no significant bronchodilator response. 3. ??Lung volumes are normal. 4. ??Diffusion capacity is normal. Electronically signed by Kevin Borja DO Pulmonary & Critical Care Narrative 07/06/2024 12:31 PM 3D TECHNOLOGIST PULMONARY FUNCTION TESTS Lillian Man 44 y.[address]. [...] CT Body Outside Reference (06/17/2024 12:00 AM 3D TECHNOLOGIST) Narrative [facility] - 06/28/2024 9:03 AM 3D TECHNOLOGIST This order has been auto-finalized and does not contain a result. us Not In File Miscellaneous IMG CT PROCEDURES Jeni l Result Performing Organization Address [facility] de Phone Number [facility] * XR Outside Reference (06/17/2024 12:00 AM 3D TECHNOLOGIST) Narrative [facility] - 06/28/2024 9:03 AM 3D TECHNOLOGIST This order has been auto-finalized and does not contain a result. us Not In File Miscellaneous IMG XR PROCEDURES Jeni l Result Performing Organization Address [facility] de Phone Number [facility] * CT Body Outside Reference (06/14/2024 12:00 AM 3D TECHNOLOGIST) Narrative [facility] - 06/28/2024 9:03 AM 3D TECHNOLOGIST This order has been auto-finalized and does not contain a result. us Not In File Miscellaneous IMG CT PROCEDURES Jeni l Result Performing Organization Address [facility] de Phone Number [facility] * US Outside Reference (06/14/2024 12:00 AM 3D TECHNOLOGIST) Narrative [facility] - 06/28/2024 9:03 AM 3D TECHNOLOGIST This order has been auto-finalized and does not contain a result. us Not In File Miscellaneous IMG US PROCEDURES Jeni l Result Performing Organization Address [facility] de Phone Number [facility] from Last 3 Months Insurance [facility] Advance Directives For more information, please contact: [phone] * Full Code (Latest Code Status on File) Date Activated Date Inactivated Comments 03/30/2021 6:35 PM 04/01/2021 5:12 PM Care Teams Unloader Operator Relationship Specialty Start Date End Date Kwan Macias MD [address] [place] [id number] PCP - General Emergency Medicine 01/23/24 Shanonn Cruz MD [address] [place] [address] Consulting Physician Obstetrics and Gynecology 04/01/21
--- OUTSIDE RECORDS SUMMARY | 2024-08-14 16:38 | XMS_ITS | Referral Summary ---
Author Organization [facility] Address [address] [place] [address] Care Team Providers Care Vertical Mill Operator Name Role Phone Kwan Macias MD Primary Care Provider [phone] Jg Hummel DO Unavailable Source Comments [facility],non-owned Affiliates and Associated Physician Practices is amultiple site organization consisting of ambulatory clinics and hospital sitesin [place], [place], [place] and [place]. This disclosure is being madepursuant to the Care Everywhere program and may not contain all information available regarding this patient. Last updated 18.[facility] Encounters Date Type Department Care Team Description 07/02/2024 Refill [facility] - Rheumatology [address], [address] [place] [address] Jg Hummel DO MEDICATION REFILL 05/28/2024 Refill [facility] - Rheumatology [address], [address] [place] [phone] Jg Hummel DO MEDICATION REFILL from Last [...] Active vitamin D, ergocalciferol, (Drisdol) 1.25 MG (14656 UT) capsule TAKE 1 CAPSULE BY MOUTH [...] Description 10/03/2024 10:00 AM CDT Office Visit [facility] - Rheumatology [address], [address] [place] [address] Jg Hummel DO [address] [place] [address] Procedures Procedure Name Priority Date/Time Associated Diagnosis [...] Monet Connors MD on 05/25/2024 3:01 PM MEDICAL CLAIMS REPRESENTATIVE Addendum by Monet Connors M.D. This addendum [...] This was discussed with Dr. Jeffrey via [employer] message. EXAMINATIONS: 1. ??RIGHT DIGITAL DIAGNOSTIC MAMMOGRAM AND TOMOSYNTHESIS AND 2. ??COMPLETE BILATERAL BREAST ULTRASOUND (COMBINED REPORT) LOCATION: [facility] EXAM DATE: ??03/28/2024 HISTORY: [...] cancer greater than 20%, consultation in the [facility] Breast Surgery High Risk [facility] is recommended. Should she wish to schedule an appointment, the phone number [phone]. The [employer] Society recommends annual screening breast MRI [...] [facility]. Screening mammography 08/16/2023 from [facility] MAMMOGRAM: TECHNIQUE: Diagnostic bilateral mammography was [...] cancer greater than 20%, according to the [employer] guidelines. This can ??be alternated [...] cancer greater than 20%, according to the [employer] guidelines. This can ??be alternated [...] ??BI-RADS CATEGORY 2: BENIGN. Report dictated by Rxoie Brumfield TANG (breast imaging fellow). I, Monet Connors MD have personally reviewed and interpreted this examination/study. > Interpreting Provider: Monet Connors MD on 03/28/2024 10:21 AM Narrative 03/28/2024 10:21 AM CDT EXAMINATIONS: 1. ??RIGHT DIGITAL DIAGNOSTIC MAMMOGRAM AND TOMOSYNTHESIS AND 2. ??COMPLETE BILATERAL BREAST ULTRASOUND (COMBINED REPORT) LOCATION: [facility] EXAM DATE: ??03/28/2024 HISTORY: [...] cancer greater than 20%, consultation in the [facility] Breast Surgery High Risk Clinic is recommended. Should she wish to schedule an appointment, the phone number [phone]. The [employer] Society recommends annual screening breast MRI [...] [facility]. Screening mammography 08/16/2023 from [facility] MAMMOGRAM: TECHNIQUE: Diagnostic bilateral mammography was [...] COMPLETE BILATERAL BREAST ULTRASOUND (COMBINED REPORT) LOCATION: [facility] EXAM DATE: 03/28/2024 HISTORY: [...] cancer greater than 20%, consultation in the [facility] Breast Surgery High Risk Clinic is recommended. Should she wish to schedule an appointment, the phone [phone]. The [employer] Society recommends annual screening breast MRI [...] [facility]. Screening mammography 08/16/2023 from [facility] MAMMOGRAM: TECHNIQUE: Diagnostic bilateral mammography was [...] cancer greater than 20%, according to the [employer] guidelines. This can be alternated [...] CATEGORY 2: BENIGN. Report dictated by Roxie LARANorth [facility], [facility] (breast imaging fellow). IMonet MD have personally reviewed and interpreted this examination/study. > Interpreting Provider: Monet Connors MD on 03/28/2024 10:21 AM Yumiko Henderson MD MAMMO ORDERABLES from Last 3 Months or Most Recently Relevant to Health Maintenance Care Teams Vertical Mill Operator Relationship Specialty Start Date End Date Kwan Macias MD [address] [place] [address] PCP - General Family Medicine 01/09/24 Jg Hummel DO [address] [place] [address] [facility] Rhe[facility] 02/27/24
--- OUTSIDE RECORDS SUMMARY | 2024-08-14 16:39 | XMS_ITS | Patient Health Summary ---
Author Organization [facility] Address [address] [place] [address] Care Team Providers Care Accounts Receivable Associate Name Role Phone Kwan Macias MD Primary Care Provider [phone] Jg Hummel DO Unavailable Note from [facility] [place],non-owned Affiliates and Associated Physician Practices is amultiple site organization consisting of ambulatory clinics and hospital sitesin [place], [place], [place] and [place]. This disclosure is being madepursuant to the Care Everywhere program and may not contain all information available regarding this patient. Last updated 18.[facility] Allergies * Duloxetine(Other) Medications * Be aware that medications may not be up to date on this document. Alwaysverify current medications with the patient. * albuterol HFA (Proventil; Ventolin; Proair) 108 (90 Base) MCG/ACT inhaler (Started 12/30/2023) albuterol sulfate 90 mcg/actuation HFA aerosol inhaler * vitamin D, ergocalciferol, (Drisdol) 1.25 MG (04231 UT) capsule(Started 12/23/2023) TAKE 1 CAPSULE BY [...] Monet Connors MD on 05/25/2024 3:01 PM AERONAUTICAL ENGINEERING TEACHER Addendum by Monet Connors M.D. This addendum [...] This was discussed with Dr. Jeffrey via [employer] message. EXAMINATIONS: 1. ??RIGHT DIGITAL DIAGNOSTIC MAMMOGRAM AND TOMOSYNTHESIS AND 2. ??COMPLETE BILATERAL BREAST ULTRASOUND (COMBINED REPORT) LOCATION: [facility] EXAM DATE: ??03/28/2024 HISTORY: This is a 43-year-old female patient with painful right breast mass/lump for which she went to the ER at [facility] at the beginning of March. [...] cancer greater than 20%, consultation in the [facility] Breast Surgery High Risk Clinic is recommended. Should she wish to schedule an appointment, the phone number [phone]. The [place] [employer] recommends annual screening breast MRI [...] recommended. COMPARISON: Limited right breast ultrasound 03/11/2024 [facility]. Screening mammography 08/16/2023 from [facility] MAMMOGRAM: TECHNIQUE: Diagnostic bilateral mammography was [...] in size compared to prior exam from [facility]. No suspicious finding was found [...] of greater than 20%, consultation in the [facility] High Risk Clinic is recommended. 3. Annual screening breast MRI is recommended, given the elevated lifetime risk of developing breast cancer greater than 20%, according to the [place] [employer] guidelines. This can ??be alternated [...] of greater than 20%, consultation in the [facility] High Risk Clinic is recommended. 3. Annual screening breast MRI is recommended, given the elevated lifetime risk of developing breast cancer greater than 20%, according to the [place] [employer] guidelines. This can ??be alternated [...] 2: BENIGN. Report dictated by Roxie Brumfield [facility] (breast imaging fellow). I, Monet Connors MD have personally reviewed and interpreted this examination/study. > Interpreting Provider: Monet Connors MD on 03/28/2024 10:21 AM Narrative 03/28/2024 10:21 AM CDT EXAMINATIONS: 1. ??RIGHT DIGITAL DIAGNOSTIC MAMMOGRAM AND TOMOSYNTHESIS AND 2. ??COMPLETE BILATERAL BREAST ULTRASOUND (COMBINED REPORT) LOCATION: [facility] EXAM DATE: ??03/28/2024 HISTORY: This is a 43-year-old female patient with painful right breast mass/lump for which she went to the ER at [facility] at the beginning of March. [...] cancer greater than 20%, consultation in the [facility] Breast Surgery High Risk Clinic is recommended. Should she wish to schedule an appointment, the phone number [phone]. The [place] [employer] recommends annual screening breast MRI [...] recommended. COMPARISON: Limited right breast ultrasound 03/11/2024 [facility]. Screening mammography 08/16/2023 from [facility] MAMMOGRAM: TECHNIQUE: Diagnostic bilateral mammography was [...] in size compared to prior exam from [facility]. No suspicious finding was found [...] COMPLETE BILATERAL BREAST ULTRASOUND (COMBINED REPORT) LOCATION: [facility] EXAM DATE: 03/28/2024 HISTORY: This is a 43-year-old female patient with painful right breast mass/lump for which she went to the ER at [facility] at the beginning of March. [...] cancer greater than 20%, consultation in the [facility] Breast Surgery High Risk Clinic is recommended. Should she wish to schedule an appointment, the phone [phone]. The [place] [employer] recommends annual screening breast MRI in addition to mammograms for women who have a 20% or greater lifetime riskof developing breast cancer. This can be managed through the high riskbreast clinic. Risk assessment based upon the Tyrer-Cuzick v8 model. By the NCCN guidelines and family history of breast cancer, consideration of genetic testing is recommended. COMPARISON: Limited right breast ultrasound 03/11/2024 [facility]. Screening mammography 08/16/2023 from [facility] MAMMOGRAM: TECHNIQUE: Diagnostic bilateral mammography was [...] in size compared to prior exam from [facility]. No suspicious finding was found [...] cancer ofgreater than 20%, consultation in the [facility] High Risk Clinic is recommended. 3. Annual screening breast MRI is recommended, given the elevatedlifetime risk of developing breast cancer greater than 20%, according to the [place] [employer] guidelines. This can be alternated [...] 2: BENIGN. Report dictated by Roxie WASHBURN, [facility] (breast imaging fellow). I, Monet Connors MD have personally reviewed and interpreted this examination/study. > Interpreting Provider: Monet Connors MD on 03/28/2024 10:21 AM Yumiko Henderson MD US ORDERABLES * US BREAST RIGHT COMPLETE (SCREENING ONLY) (03/28/2024 8:18 AM CDT) Anatomical Region Laterality Modality Breast Right Mammography 03/28/2024 7:18 AM CDT Addenda Addendum by Monet Connors MD on 05/25/2024 3:01 PM AERONAUTICAL ENGINEERING TEACHER Addendum by Monet Connors M.D. This addendum [...] This was discussed with Dr. Jeffrey via [employer] message. EXAMINATIONS: 1. ??RIGHT DIGITAL DIAGNOSTIC MAMMOGRAM AND TOMOSYNTHESIS AND 2. ??COMPLETE BILATERAL BREAST ULTRASOUND (COMBINED REPORT) LOCATION: [facility] EXAM DATE: ??03/28/2024 HISTORY: This is a 43-year-old female patient with painful right breast mass/lump for which she went to the ER at [facility] at the beginning of March. [...] cancer greater than 20%, consultation in the [facility] Breast Surgery High Risk Clinic is recommended. Should she wish to schedule an appointment, the phone number [phone]. The [place] [employer] recommends annual screening breast MRI [...] recommended. COMPARISON: Limited right breast ultrasound 03/11/2024 [facility]. Screening mammography 08/16/2023 from [facility] MAMMOGRAM: TECHNIQUE: Diagnostic bilateral mammography was [...] in size compared to prior exam from [facility]. No suspicious finding was found [...] of greater than 20%, consultation in the [facility] High Risk Clinic is recommended. 3. Annual screening breast MRI is recommended, given the elevated lifetime risk of developing breast cancer greater than 20%, according to the [place] [employer] guidelines. This can ??be alternated [...] of greater than 20%, consultation in the [facility] High Risk Clinic is recommended. 3. Annual screening breast MRI is recommended, given the elevated lifetime risk of developing breast cancer greater than 20%, according to the [place] [employer] guidelines. This can ??be alternated [...] 2: BENIGN. Report dictated by Roxie WASHBURN, [facility] (breast imaging fellow). I, Monet Connors MD have personally reviewed and interpreted this examination/study. > Interpreting Provider: Monet Connors MD on 03/28/2024 10:21 AM Narrative 03/28/2024 10:21 AM CDT EXAMINATIONS: 1. ??RIGHT DIGITAL DIAGNOSTIC MAMMOGRAM AND TOMOSYNTHESIS AND 2. ??COMPLETE BILATERAL BREAST ULTRASOUND (COMBINED REPORT) LOCATION: [facility] EXAM DATE: ??03/28/2024 HISTORY: This is a 43-year-old female patient with painful right breast mass/lump for which she went to the ER at [facility] at the beginning of March. [...] cancer greater than 20%, consultation in the [facility] Breast Surgery High Risk Clinic is recommended. Should she wish to schedule an appointment, the phone number [phone]. The [place] [employer] recommends annual screening breast MRI [...] recommended. COMPARISON: Limited right breast ultrasound 03/11/2024 [facility]. Screening mammography 08/16/2023 from [facility] MAMMOGRAM: TECHNIQUE: Diagnostic bilateral mammography was [...] in size compared to prior exam from [facility]. No suspicious finding was found [...] COMPLETE BILATERAL BREAST ULTRASOUND (COMBINED REPORT) LOCATION: [facility] EXAM DATE: 03/28/2024 HISTORY: This is a 43-year-old female patient with painful right breast mass/lump for which she went to the ER at [facility] at the beginning of March. [...] cancer greater than 20%, consultation in the [facility] Breast Surgery High Risk Clinic is recommended. Should she wish to schedule an appointment, the phone [phone]. The [place] [employer] recommends annual screening breast MRI in addition to mammograms for women who have a 20% or greater lifetime riskof developing breast cancer. This can be managed through the high riskbreast clinic. Risk assessment based upon the Tyrer-Cuzick v8 model. By the NCCN guidelines and family history of breast cancer, consideration of genetic testing is recommended. COMPARISON: Limited right breast ultrasound 03/11/2024 [facility]. Screening mammography 08/16/2023 from [facility] MAMMOGRAM: TECHNIQUE: Diagnostic bilateral mammography was [...] in size compared to prior exam from [facility]. No suspicious finding was found [...] cancer ofgreater than 20%, consultation in the [facility] High Risk Clinic is recommended. 3. Annual screening breast MRI is recommended, given the elevatedlifetime risk of developing breast cancer greater than 20%, according to the [place] [employer] guidelines. This can be alternated [...] 2: BENIGN. Report dictated by Roxie WASHBURN, [facility] (breast imaging fellow). IMonet MD have personally reviewed and interpreted this examination/study. > Interpreting Provider: Monet Connors MD on 03/28/2024 10:21 AM Yumiko Henderson MD US ORDERABLES * Mammo Bilat Diagnostic W Bautista (03/28/2024 7:23 AM CDT) Anatomical Region Laterality Modality Breast Bilateral Mammography 03/28/2024 7:18 AM CDT Addenda Addendum by Monet Connors MD on 05/25/2024 3:01 PM AERONAUTICAL ENGINEERING TEACHER Addendum by Monet Connors M.D. This addendum is to correct the size of the right subareolar cystic mass versus dilated duct. In the right subareolar breast in the area of palpable concern there is a 3.4 x 2.4 x 1.0 cm cystic mass versus dilated duct with peripheral vascularity and internal debris. The corrected report is below. This was discussed with Dr. eJffrey via [employer] message. EXAMINATIONS: 1. ??RIGHT DIGITAL DIAGNOSTIC MAMMOGRAM AND TOMOSYNTHESIS AND 2. ??COMPLETE BILATERAL BREAST ULTRASOUND (COMBINED REPORT) LOCATION: [facility] EXAM DATE: ??03/28/2024 HISTORY: This is a 43-year-old female patient with painful right breast mass/lump for which she went to the ER at [facility] at the beginning of March. [...] cancer greater than 20%, consultation in the [facility] Breast Surgery High Risk Clinic is recommended. Should she wish to schedule an appointment, the phone number [phone]. The [place] [employer] recommends annual screening breast MRI [...] recommended. COMPARISON: Limited right breast ultrasound 03/11/2024 [facility]. Screening mammography 08/16/2023 from [facility] MAMMOGRAM: TECHNIQUE: Diagnostic bilateral mammography was [...] in size compared to prior exam from [facility]. No suspicious finding was found [...] of greater than 20%, consultation in the [facility] High [facility] is recommended. 3. Annual screening breast MRI is recommended, given the elevated lifetime risk of developing breast cancer greater than 20%, according to the [place] [employer] guidelines. This can ??be alternated at 6 month intervals with mammography performed at the time of screening mammography and can be managed by the high [facility] breast clinic. 4. By the NCCN guidelines [...] of greater than 20%, consultation in the [facility] High Risk [facility] is recommended. 3. Annual screening breast MRI is recommended, given the elevated lifetime risk of developing breast cancer greater than 20%, according to the [place] [employer] guidelines. This can ??be alternated [...] 2: BENIGN. Report dictated by Roxie WASHBURN, [facility] (breast imaging fellow). I, Monet Connors MD have personally reviewed and interpreted this examination/study. > Interpreting Provider: Monet Connors MD on 03/28/2024 10:21 AM Narrative 03/28/2024 10:21 AM CDT EXAMINATIONS: 1. ??RIGHT DIGITAL DIAGNOSTIC MAMMOGRAM AND TOMOSYNTHESIS AND 2. ??COMPLETE BILATERAL BREAST ULTRASOUND (COMBINED REPORT) LOCATION: [facility] EXAM DATE: ??03/28/2024 HISTORY: This is a 43-year-old female patient with painful right breast mass/lump for which she went to the ER at [facility] at the beginning of March. [...] cancer greater than 20%, consultation in the [facility] Breast Surgery High Risk Clinic is recommended. Should she wish to schedule an appointment, the phone number [phone]. The [place] [employer] recommends annual screening breast MRI [...] recommended. COMPARISON: Limited right breast ultrasound 03/11/2024 [facility]. Screening mammography 08/16/2023 from [facility] MAMMOGRAM: TECHNIQUE: Diagnostic bilateral mammography was [...] in size compared to prior exam from [facility]. No suspicious finding was found [...] COMPLETE BILATERAL BREAST ULTRASOUND (COMBINED REPORT) LOCATION: [facility] EXAM DATE: 03/28/2024 HISTORY: This is a 43-year-old female patient with painful right breast mass/lump for which she went to the ER at [facility] at the beginning of March. [...] cancer greater than 20%, consultation in the [facility] Breast Surgery High Risk Clinic is recommended. Should she wish to schedule an appointment, the phone [phone]. The [place] [employer] recommends annual screening breast MRI in addition to mammograms for women who have a 20% or greater lifetime riskof developing breast cancer. This can be managed through the high riskbreast clinic. Risk assessment based upon the Tyrer-Cuzick v8 model. By the NCCN guidelines and family history of breast cancer, consideration of genetic testing is recommended. COMPARISON: Limited right breast ultrasound 03/11/2024 [facility]. Screening mammography 08/16/2023 from [facility] MAMMOGRAM: TECHNIQUE: Diagnostic bilateral mammography was [...] in size compared to prior exam from [facility]. No suspicious finding was found [...] cancer ofgreater than 20%, consultation in the [facility] High Risk Clinic is recommended. 3. Annual screening breast MRI is recommended, given the elevatedlifetime risk of developing breast cancer greater than 20%, according to the [place] [employer] guidelines. This can be alternated [...] 2: BENIGN. Report dictated by Roxie WASHBURN, [facility] (breast imaging fellow). I, Monet Connors MD [...] DO DIAGNOSTIC IMAGING O RDERABLES Care Teams Accounts Receivable Associate Relationship Specialty Start Date End Date Kwan Macias MD [address] [place] [address] PCP - General Family Medicine 01/09/24 Jg Hummel DO [address] [facility] [address] [place] [id number] [address] [facility] 02/27/24
--- OUTSIDE RECORDS SUMMARY | 2024-08-14 16:39 | XMS_ITS | Clinical Summary ---
Author Organization [facility] Address [address] [place] [phone] Phone Care Team Providers Care Lockstitch Lining Setter Name Role Phone Kwan Macias MD Primary Care Provider [phone] Allergies No known active allergies Medications Medication [...] night. Active ergocalciferol (VITAMIN D-2) 1.25 MG (27904 UT) capsule Take 50,000 Units by mouth [...] Comments Blood Pressure 131/92 07/24/2024 12:09 PM OYSTER PREPARER Pulse 70 07/24/2024 12:09 PM OYSTER PREPARER Temperature - - Respiratory Rate - - Oxygen Saturation - - Inhaled Oxygen Concentration - - Weight 81.6 kg (180 lb) 07/24/2024 12:09 PM OYSTER PREPARER Height 160 cm (5' 3 ) 07/24/2024 12:09 PM OYSTER PREPARER Body Mass Index 31.89 07/24/2024 12:09 PM OYSTER PREPARER Plan of Treatment Upcoming Encounters Date Type Department Care Team (Late st Contact Info) Description 08/21/2024 1:20 PM OYSTER PREPARER Office Visit [facility] [address] [place] [address] Omid Rowe MD [address] [facility] [address] [place] [address] Health Maintenance Due Date Last Done Comments Pneumococcal PPSV23 Highest Risk Adult (1 of 3 - PCV13 ) 1997 Influenza Vaccine (#1) 2024 Care Teams Lockstitch Lining Setter Relationship Specialty Start Date End Date Kwan Macias MD PCP - General 06/19/24
--- OUTSIDE RECORDS SUMMARY | 2024-08-14 16:39 | XMS_ITS | Clinical Summary ---
Author Organization [facility] Address [address] [place] [address] Care Team Providers Care Life Enrichment Specialist Name Role Phone Kwan Macias MD Primary Care Provider [phone] Allergies No known active allergies Medications ferrous [...] Type Department Care Team Description 08/09/2024 Refill [facility] Oncology and Hematology [facility] [address] [place] [address] Ryan Cheney MD 08/02/2024 External Device Data STL ABSTRACTION Provider, Abstract 08/01/2024 External Device Data STL ABSTRACTION Provider, Abstract 07/31/2024 1:00 PM DIRECTOR TALENT MANAGEMENT Office Visit [facility] Oncology [facility] [address] [place] [address] Ryan Cheney MD Iron deficiency anemia, unspecified iron deficiency anemia type (Primary Dx) 07/31/2024 External Device Data STL ABSTRACTION Provider, Abstract 07/24/2024 External Device Data STL ABSTRACTION Provider, Abstract 07/20/2024 Telephone [facility] Oncology and Hematology [facility] [address] [place] [address] Ryan Cheney MD Surgical Clearance Request 07/20/2024 Abstract [facility] Oncology and Hematology [facility] [address] [place] [address] Ryan Cheney MD 06/26/2024 Refill [facility] Oncology and Hematology [facility] [address] [place] [address] Ryan Cheney MD 06/05/2024 External Device Data [...] Comments Blood Pressure 127/86 07/31/2024 1:00 PM DIRECTOR TALENT MANAGEMENT Pulse 81 07/31/2024 1:00 PM DIRECTOR TALENT MANAGEMENT Temperature 36.8 ??C (98.3 ??F) 07/31/2024 1:00 PM CS T Respiratory Rate 14 07/31/2024 1:00 PM DIRECTOR TALENT MANAGEMENT Oxygen Saturation 98% 07/31/2024 1:00 PM DIRECTOR TALENT MANAGEMENT Inhaled Oxygen Concentration - - Weight 83.9 kg (185 lb) 07/31/2024 1:00 PM DIRECTOR TALENT MANAGEMENT Height 157.5 cm (5' 2 ) 01/23/2024 10:23 AM CDT Body Mass Index 33.84 01/23/2024 10:23 AM CDT Plan of Treatment Upcoming Encounters Date Type Department Care Team (Late st Contact Info) Description 10/03/2024 11:15 AM CDT Office Visit [facility] Oncology and Hematology - [facility] [address] [facility] [address] [place] [address] Ryan Cheney MD [address] [facility] [address] [place] [address] Health Maintenance Due Date Last [...] patient's age to complete this topic Insurance [facility] MEDICAID Care Teams Life Enrichment Specialist Relationship Specialty Start Date End Date Kwan Macias MD [address] [place] [phone] PCP - General Family Practice 05/11/24
--- OUTSIDE RECORDS SUMMARY | 2024-08-14 16:39 | XMS_ITS | CONTINUITY OF CARE DOCUMENT ---
Author Name haley de leon Address Unknown Organization [facility] Address [address] [facility] [address] [place] [address] Phone [phone] Care Team Providers Care Window Treatment Installer Name Role Phone Angel Newby MD Unavailable [phone] CARLY TAMEZ MD Unavailable [phone] CARLY TAMEZ MD Unavailable [phone] PROBLEMS Condition Status Date Provider Notes Chest pain active Nolan Ahmedzai Shortness of breath active Nolan Ahmedzai Palpitations active Nolan Ahmedzai Elevated blood pressure active Nolan Ahmedza i Lupus active Nolan Ahmedzai Cardiology examination active Nolan Ahmedzai ENCOUNTERS Date Type Provider Location Encounter Diag nosis - In-person encounter Office Visit Angel Newby MD [facility] Cardiology examinationChest painShortness of breathLupusElevated blood [...] Payer name Policy type / Coverage type [place] [employer] [place] MEDICAID (2) Medicaid [id number] ADVANCE DIRECTIVES Name Date DISCUSSED - NO DECISION MADE TREATMENT PLAN Date Name Performer Electrophysiology: O rders: 9 9204 MOD 45-59 min (CPT-94452) Nolan Faustinzaquirino Electrophysiology:Mo nitor your BP at home, goal BP is <135/85 O rders: 9 9204 MOD 45-59 min (CPT-22023) Nolan Ahmedzai Electrophysiology: O rders: C omplete Echo (52961) 9 9204 MOD 45-59 min (CPT-37206) Nolan Ahmedzai Electrophysiology: O rders: C omplete Echo (23561) 9 9204 MOD 45-59 min (CPT-32932) Nolan Faustinzai Date Name Monitor - Telemetry (Mobile Cardiac) Complete Echo HISTORY OF PROCEDURES Procedure Date Procedure Name Provider Procedure Notes S tatus EKG Angel Newby MD comp leted
[2024-08-14] MEDS: ONDANSETRON INJ 4 MG/2 ML VIAL IV PUSH (17:33)
[2024-08-14] MEDS: MORPHINE SULFATE (*CRX) 4 MG/ML INJ IV PUSH (17:33)
[2024-08-14] MEDS: SODIUM CHLORIDE 0.9% IV 1,000 ML 150 ML IV CONT (17:33)
== END 2024-08-14 19:01 | disposition home or self-care (01) ==
PROVIDERS: Registered Nurse; Emergency Provider Family Medicine; PCP Emergency Medicine
DX: B34.9 Viral infection, unspecified (principal); R51.9 Headache, unspecified; J45.909 Unspecified asthma, uncomplicated; M79.7 Fibromyalgia; Z86.2 Personal history of diseases of the blood and blood-forming organs and certain disorders involving the immune mechanism; Z86.711 Personal history of pulmonary embolism; K86.89 Other specified diseases of pancreas; Z79.01 Long term (current) use of anticoagulants; R94.31 Abnormal electrocardiogram [ECG] [EKG]
CPT/HCPCS: 36415; 70450; 71046; 74177; 80053; 81001; 83605; 83735; 84484; 85025; 85380; 85610; 85730; 93005; 96361; 96374; 96375; 99284; J2270; J2405; J7030; Q9967

== ENCOUNTER 2024-09-26 20:17 | Emergency (ER) | payer OTHER, SELFPAY ==
--- NOTE | ~2024-09-26 | XR_ITS ---
CHEST RADIOGRAPH, PA AND LATERAL CLINICAL HISTORY: chest pain . COMPARISON: 08/14/2024 TECHNIQUE: PA and lateral views of the chest. FINDINGS The cardiomediastinal silhouette is unremarkable. The lungs are clear. Visualized osseous structures and soft tissues are unremarkable. IMPRESSION: No focal infiltrate or effusion. Reviewed, dictated and finalized at location A.
--- OUTSIDE RECORDS SUMMARY | 2024-09-26 20:19 | XMS_ITS | Clinical Summary ---
Author Organization [facility] Address [address] [place] [address] Care Team Providers Care Risk And Compliance Analytics Director Name Role Phone Kwan Macias MD Primary Care Provider [phone] Jg Hummel DO Unavailable Source Comments [facility],non-owned Affiliates and Associated Physician Practices is amultiple site organization consisting of ambulatory clinics and hospital sitesin [place], [place], [place] and [place]. This disclosure is being madepursuant to the Care Everywhere program and may not contain all information available regarding this patient. Last updated 18.[facility] Allergies Active Allergy Reactions Criticality Noted [...] Active vitamin D, ergocalciferol, (Drisdol) 1.25 MG (48924 UT) capsule TAKE 1 CAPSULE BY MOUTH ONE TIME PER WEEK 12/23/2023 Active ferrous sulfate 325 (65 FE) MG tablet Take 1 (one) tablet by mouth once daily 12/26/2023 Active gabapentin (Neurontin) 100 MG capsuleIndication s:Fibromyalgia Syndrome,Restless Leg Syndrome Take 2 (two) capsules by mouth every morning AND 2 (two) capsules every afternoon AND 3 (three) capsules at bedtime. Reasons: Fibromyalgia Syndrome, Restless Leg Syndrome. 210 capsule 11 04/05/2024 Active Eliquis 5 MG tablet Take 1 (one) tablet by mouth 2 times daily Active ibuprofen (Motrin) 800 MG tabletIndications :Primary fibromyalgia syndrome Take 1 (one) tablet by mouth 3 times daily as needed with food for Pain 90 tablet 09/20/2024 Active ibuprofen (Motrin) 800 MG tabletIndications :Primary fibromyalgia syndrome Take 1 (one) tablet by mouth 3 times daily as needed with food for Pain 90 tablet 1 07/02/2024 Discontinu ed(Reorder ) Active Problems Problem Noted Date Diagnosed Date Restless legs syndrome 02/13/2024 Overview (02/13/2024): Describes RLS symptoms with previous findings of iron deficiency that hopefully will improve with iron repletion. Try gabapentin for both RLS and fibromyalgia. Positive HORACE (antinuclear antibody) 1-40 speckle d 01/09/2024 Assessment & Plan (01/09/2024 4:54 PM CDT): Uncertain clinical significance of borderline low positive antinuclear antibody. She reports a g oiter although on examination I can not identify [...] Encounters Date Type Department Care Team Description 09/20/2024 Refill [facility] Medical [facility] - Rheumatology [address] [place] [address], [address] [place] [address] Jg Hummel, DO MEDICATION REFILL 09/07/2024 10:30 AM ARMED SECURITY OFFICER Office Visit [facility] - ENT [address] [place] [phone] Steve Van APRN-YAZAN Multiple thyroid nodules (Primary Dx) 09/07/2024 Travel 07/02/2024 Refill [facility] - Rheumatology [address] [place] [address], [address] [place] [address] Jg Hummel, DO MEDICATION REFILL from Last 3 Months Immunizations Name Administration Dates Next Due TDAP (7yrs+) 03/31/2021 Family History Medical History Relation Name Comments Cancer - Breast Maternal Grandmother Cancer - Breast Mother Relation Name Status Comments Maternal Grandmother Mother Social History Tobacco Use Types Packs/Day Years Used Date Smoking Tobacco: Never Smokeless Tobacco: Never Tobacco Cessation:Counseling Given: Not Answered Alcohol Use Standard Drinks/Week Comments Yes 0 (1 standard drink = 0.6 oz pur e alcohol) occ Sex and Gender Information Value Date Recorded Sex Assigned at Not on file Gender Identity Not on file Sexual Orientation Not on file Last Filed Vital Signs Vital Sign Reading Time Taken Comments Blood Pressure 121/79 09/07/2024 10:20 AM ARMED SECURITY OFFICER Pulse 81 09/07/2024 10:20 AM ARMED SECURITY OFFICER Temperature 36.7 C (98 F) 04/05/2024 10:18 AM CDT Respiratory Rate 16 04/05/2024 10:18 AM CDT Oxygen Saturation 98% 04/05/2024 10:18 AM CDT Inhaled Oxygen Concentration - - Weight 87 kg (191 lb 12.8 oz) 09/07/2024 10:20 A M ARMED SECURITY OFFICER Height 157.5 cm (5' 2 ) 09/07/2024 10:20 AM ARMED SECURITY OFFICER Body Mass Index 35.08 09/07/2024 10:20 AM ARMED SECURITY OFFICER Plan of Treatment Upcoming Encounters Date Type Department Care Team (Late st Contact Info) Description 10/03/2024 10:00 AM CDT Office Visit [facility] - Rheumatology [address], [address] [place] [address] Jg Hummel DO [address] [place] [address] 07/25/2025 10:15 AM ARMED SECURITY OFFICER Appointment [facility] [address] [place] [phone] Steve Van, [facility] [address] [place] [address] Health Maintenance Due Date Last Done Comments COLOGUARD (AGES 45-75) - COL ON CA SCREENING 1978 COLON MONITORING 1978 COLONOSCOPY - COLON CA SCREENING 1978 CT COLONOGRAPHY - COLON CA SCREENING 1978 Colorectal Cancer Screening 1978 FIT - COLON CA SCREENING 1978 FLEX SIG - COLON CA SCREENING 1978 LIPID TESTING 1978 PAP SMEAR 1978 HIV SCREENING 1993 HEPATITIS C SCREENING 06/10/1996 HEPATITIS B VACCINE (1 of 3 - 19+ 3-dose series) 1997 SCREENING FOR DIABETES 01/09/2024 COVID-19 VACCINE (2023-2 5 season) 2024 INFLUENZA VACCINE (#1) 2024 DEPRESSION SCREENING 07/11/2024 MAMMOGRAM 03/28/2026 03/28/2024 ZOSTER VACCINE (1 of 2) 2028 DTAP/TDAP/TD VACCINES (2 - T d or Tdap) 03/31/2031 03/31/2021 HIB VACCINE Aged Out No longer eligi ble based on patient's age to complete this topic HPV VACCINE Aged Out No longer eligi ble based on patient's age to complete this topic MENINGOCOCCAL (Group B) VACC INE SHARED DECISION-MAKING Aged Out No longer eligibl e based on patient's age to complete this topic MENINGOCOCCAL GROUPS A/C/Y/W VACCINE Aged Out No longer eligible b ased on patient's age to complete this topic [...] Monet Connors MD on 05/25/2024 3:01 PM ARMED SECURITY OFFICER Addendum by Monet Connors M.D. This addendum [...] This was discussed with Dr. Jeffrey via [employer] message. EXAMINATIONS: 1. RIGHT DIGITAL DIAGNOSTIC MAMMOGRAM AND TOMOSYNTHESIS AND 2. COMPLETE BILATERAL BREAST ULTRASOUND (COMBINED REPORT) LOCATION: [facility] EXAM DATE: 03/28/2024 HISTORY: This is a 43-year-old female patient with painful right breast mass/lump for which she went to the ER at [facility] at the beginning of March. An ultrasound was done. A mammogram was recommended at that time. Today, the patient also reports multiple palpable abnormalities in the left breast of which there are too many patricia. Family history of breast cancer in her mother at age 52. RISK ASSESSMENT CALCULATION: Patient completed a breast cancer risk assessment during her appointment 03/28/2024 . Based upon the information she provided and her mammographic breast density, her lifetime risk of developing breast cancer is 20.3 % (Average Risk <15%; Intermediate / Moderate Risk 15-19%; High Risk > 20%). Given the elevated lifetime risk of breast cancer greater than 20%, consultation in the [facility] Breast Surgery High Risk Clinic is recommended. Should she wish to schedule an appointment, the phone number [phone]. The [place] [employer] recommends annual screening breast MRI [...] recommended. COMPARISON: Limited right breast ultrasound 03/11/2024 [facility]. Screening mammography 08/16/2023 from [facility] MAMMOGRAM: TECHNIQUE: Diagnostic bilateral mammography was performed. Tomosynthesis (3-D) and reconstructed synthetic 2-D images acquired. A total of 10 images were obtained. Transpara AI was utilized in the interpretation of this exam. BREAST COMPOSITION: Category C: The breasts are heterogeneously dense which may obscure small masses. FINDINGS: In the [...] in size compared to prior exam from [facility]. No suspicious finding was found in the [...] be dictated by the ordering physician. RECOMMENDATION: 1. Right subareolar [...] of greater than 20%, consultation in the [facility] High Risk Clinic is recommended. 3. Annual screening breast MRI is recommended, given the elevated lifetime risk of developing breast cancer greater than 20%, according to the [place] [employer] guidelines. This can be alternated [...] letter. OVERALL ASSESSMENT: BI-RADS CATEGORY 2: BENIGN. > Interpreting Provider: Monet [...] be dictated by the ordering physician. RECOMMENDATION: 1. Right subareolar [...] of greater than 20%, consultation in the [facility] High Risk Clinic is recommended. 3. Annual screening breast MRI is recommended, given the elevated lifetime risk of developing breast cancer greater than 20%, according to the [place] [employer] guidelines. This can be alternated [...] 2: BENIGN. Report dictated by Roxie WASHBURN, [facility] (breast imaging fellow). IMonet MD have personally reviewed and interpreted this examination/study. > Interpreting Provider: Monet Connors MD on 03/28/2024 10:21 AM Narrative 03/28/2024 10:21 AM CDT EXAMINATIONS: 1. RIGHT DIGITAL DIAGNOSTIC MAMMOGRAM AND TOMOSYNTHESIS AND 2. COMPLETE BILATERAL BREAST ULTRASOUND (COMBINED REPORT) LOCATION: [facility] EXAM DATE: 03/28/2024 HISTORY: This is a 43-year-old female patient with painful right breast mass/lump for which she went to the ER at [facility] at the beginning of March. An ultrasound was done. A mammogram was recommended at that time. Today, the patient also reports multiple palpable abnormalities in the left breast of which there are too many patricia. Family history of breast cancer in her mother at age 52. RISK ASSESSMENT CALCULATION: Patient completed a breast cancer risk assessment during her appointment 03/28/2024 . Based upon the information she provided and her mammographic breast density, her lifetime risk of developing breast cancer is 20.3 % (Average Risk <15%; Intermediate / Moderate Risk 15-19%; High Risk > 20%). Given the elevated lifetime risk of breast cancer greater than 20%, consultation in the [facility] Breast Surgery High Risk Clinic is recommended. Should she wish to schedule an appointment, the phone number [phone]. The [place] [employer] recommends annual screening breast MRI [...] recommended. COMPARISON: Limited right breast ultrasound 03/11/2024 [facility]. Screening mammography 08/16/2023 from [facility] MAMMOGRAM: TECHNIQUE: Diagnostic bilateral mammography was performed. Tomosynthesis (3-D) and reconstructed synthetic 2-D images acquired. A total of 10 images were obtained. Transpara AI was utilized in the interpretation of this exam. BREAST COMPOSITION: Category C: The breasts are heterogeneously dense which may obscure small masses. FINDINGS: In the [...] in size compared to prior exam from [facility]. No suspicious finding was found in the [...] COMPLETE BILATERAL BREAST ULTRASOUND (COMBINED REPORT) LOCATION: [facility] EXAM DATE: 03/28/2024 HISTORY: This is a 43-year-old female patient with painful right breast mass/lump for which she went to the ER at [facility] at the beginning of March. An ultrasound was done. A mammogram wasrecommended at that time. Today, the patient also reports multiple palpable abnormalities in the left breast of which there are too many patricai.Family history of breast cancer in her mother [...] cancer greater than 20%, consultation in the [facility] Breast Surgery High Risk Clinic is recommended. Should she wish to schedule an appointment, the phone [phone]. The [place] [employer] recommends annual screening breast MRI in addition to mammograms for women who have a 20% or greater lifetime riskof developing breast cancer. This can be managed through the high riskbreast clinic. Risk assessment based upon the Tyrer-Cuzick v8 model. By the NCCN guidelines and family history of breast cancer, consideration of genetic testing is recommended. COMPARISON: Limited right breast ultrasound 03/11/2024 [facility]. Screening mammography 08/16/2023 from [facility] MAMMOGRAM: TECHNIQUE: Diagnostic bilateral mammography was performed. [...] in size compared to prior exam from [facility]. No suspicious finding was found inthe right [...] cancer ofgreater than 20%, consultation in the [facility] High Risk Clinic is recommended. 3. Annual screening breast MRI is recommended, given the elevatedlifetime risk of developing breast cancer greater than 20%, according to the [place] [employer] guidelines. This can be alternated [...] 2: BENIGN. Report dictated by Roxie WASHBURN, FR (breast imaging fellow). I, Monet Connors MD have personally reviewed and interpreted this examination/study. > Interpreting Provider: Monet Connors MD on 03/28/2024 10:21 AM Yumiko Henderson MD MAMMO ORDERABLES from Last 3 Months or Most Recently Relevant to Health Maintenance Care Teams Risk And Compliance Analytics Director Relationship Specialty Start Date End Date Kwan Macias MD [address] [place] [address] PCP - General Family Medicine 01/09/24 Jg Hummel DO [address] [place] [address] Computer Network Specialist Rheumatology 02/27/24
--- OUTSIDE RECORDS SUMMARY | 2024-09-26 20:19 | XMS_ITS | Clinical Summary ---
Author Organization [facility] Address [address] [place] [address] Care Team Providers Care Latin American Studies Director Name Role Phone Shannon Cruz MD Unavailable [phone] Kwan Macias MD Primary Care Provider Allergies Active Allergy Reactions Criticality Noted Date [...] each 11 06/26/20 24 Active PNV with [id number] ( Plus, calcium carb,) 27 mg iron- [...] Department Care Team Description 07/25/2024 1:00 PM BUTTON TUFTING MACHINE OPERATOR Procedure visit [facility] Neurology [address] [place] [address] EmaBrian Si, MD Paresthesia 07/02/2024 9:25 AM BUTTON TUFTING MACHINE OPERATOR - 07/02/2024 11:59 PM BUTTON TUFTING MACHINE OPERATOR Hospital Encounter [facility] Respiratory [address] [place] [address] Asthma, unspecified asthma severity, unspecified whether complicated, unspecified whether persistent Discharge Disposition: Discharge to home or self care from Last 3 Months Immunizations Immunization Administration Dates Next Due Tdap 03/31/2021 Surgical [...] of Binge Drinking Not on file 06/10 Tok Depression Scale Answer Date Recorded Tok Depression Scale Total 7 03/31/2021 The thought of harming myself has occurred to me . Never 03/31/2021 Comments Unknown Sex and Gender Information Value Date Recorded Sex Assigned at Not on file Legal Sex Female 6:23 PM BUTTON TUFTING MACHINE OPERATOR Gender Identity Not on file Sexual Orientation [...] Cruz , Jami Qiu MD Complications:None Delivery Location:[facility] Main C ampus (MHE L AND D PROCEDURE) Last Filed Vital Signs Vital Sign Reading Time Taken Comments Blood Pressure 102/60 06/26/2024 1:08 PM BUTTON TUFTING MACHINE OPERATOR Pulse 70 06/26/2024 1:08 PM BUTTON TUFTING MACHINE OPERATOR Temperature 36.4 C (97.6 F) 06/26/2024 1:08 PM BUTTON TUFTING MACHINE OPERATOR Respiratory Rate 12 06/26/2024 1:08 PM BUTTON TUFTING MACHINE OPERATOR Oxygen Saturation 99% 06/26/2024 1:08 PM BUTTON TUFTING MACHINE OPERATOR Inhaled Oxygen Concentration - - Weight 79.8 kg (176 lb) 07/25/2024 1:11 PM BUTTON TUFTING MACHINE OPERATOR Height 157.5 cm (5' 2 ) 07/25/2024 1:11 PM BUTTON TUFTING MACHINE OPERATOR Body Mass Index 32.19 07/25/2024 1:11 PM BUTTON TUFTING MACHINE OPERATOR Plan of Treatment Health Maintenance Due Date Last Done Comments Cervical Cancer Screening 1978 Colon Cancer Screening-Colonoscopy 1978 Hepatitis C Screening 1978 Hepatitis B Screening 1996 Regular Well Visit/Exam 18-64 1996 Pneumococcal vaccine <65 (1 of 2 - PCV) 1997 Depression Screening 03/31/2022 03/31/2021 Influenza Vaccine (#1) 2024 Breast Cancer Screening-Mammogram 03/28/2025 03/28/2024, 03/28/2024 DTaP/Tdap/Td Vaccine (3 - Td or Tdap) 03/31/2031 03/31/2021, 07/24/2014 HPV Vaccines Aged Out No longer eligi ble based on patient's age to complete this topic Procedures Procedure Name Priority Date/Time Associated Diagnosis Comments EMG/NCV Routine 07/25/2024 1:28 PM BUTTON TUFTING MACHINE OPERATOR Paresthesia PULMONARY FUNCTION TEST (PFT) Routine 07/02/2024 10:13 AM BUTTON TUFTING MACHINE OPERATOR Asthma, unspecified asthma severity, unspecified whether complicated, unspecified whether persistent from Last 3 Months Results * EMG/NCV (07/25/2024 1:28 PM BUTTON TUFTING MACHINE OPERATOR) Anatomical Region Laterality Modality Other Narrative 07/25/2024 1:28 PM BUTTON TUFTING MACHINE OPERATOR Brian Boo Si, MD 07/27/2024 8:14 AM EMG/NCV - Date/Time: 07/25/2024 1:28 PM Performed by: Brian Boo Si, MD Authorized by: Brian Boo Si, MD Local anesthesia used: no Anesthesia: Local anesthesia used: no Sedation: Patient sedated: no Comments: See attached procedure documentation. us Brian Boo MD NEUROLOGY ORDERABLES Final Resul t * Pulmonary Function Test - (07/02/2024 10:13 AM BUTTON TUFTING MACHINE OPERATOR) Anatomical Region Laterality Modality PFT 07/02/2024 9:32 AM BUTTON TUFTING MACHINE OPERATOR Impressions 07/06/2024 12:31 PM BUTTON TUFTING MACHINE OPERATOR 1. Spirometry is normal. 2. There is no significant bronchodilator response. 3. Lung volumes are normal. 4. Diffusion capacity is normal. Electronically signed by Kevin Borja DO Pulmonary & Critical Care Narrative 07/06/2024 12:31 PM BUTTON TUFTING MACHINE OPERATOR PULMONARY FUNCTION TESTS Lillian Man 44 y.o. 07/06/2024 INTERPRETATION Please see technologist's comments mentioned in attached results report. SPIROMETRY: Pre bronchodilator FEV1 is 101 % predicted, FVC is 89 % predicted, FEV1/FVC is 84 Bronchodilator response: There was no significant bronchodilator response. Inspection of the patient's flow-volume loops shows: Normal configuration of the inspiratory and expiratory limbs. LUNG VOLUMES: Lung volumes by body plethysmography: TLC is 87 % predicted, RV is 76 % predicted DLCO: Unadjusted for hemoglobin and carboxyhemoglobin DLCO is 102% predicted Guillaume Kiran MD PFT ORDERABLES Final Result from Last 3 Months Insurance Advance Directives For more information, please contact: [phone] * Full Code (Latest Code Status on File) Date Activated Date Inactivated Comments 03/30/2021 6:35 PM 04/01/2021 5:12 PM Care Teams Latin American Studies Director Relationship Specialty Start Date End Date Kwan Macias MD [address] [place] [address] PCP - General Emergency Medicine 01/23/24 Shannon Cruz MD [address] [place] [address] Consulting Physician Obstetrics and Gynecology 04/01/21
--- OUTSIDE RECORDS SUMMARY | 2024-09-26 20:19 | XMS_ITS | Clinical Summary ---
Author Organization [facility] Address [address] [place] [address] Phone Care Team Providers Care Rink Rat Name Role Phone Kwan Macias MD Primary Care Provider [phone] Allergies No known active allergies Medications Medication [...] morning, 2 caps afternoon, 3 night. Active Active Problems Problem Noted Date Diagnosed [...] Sign Reading Time Taken Comments Blood Pressure 132/90 08/21/2024 1:10 PM FUEL DOCK ATTENDANT Pulse 70 08/21/2024 1:10 PM FUEL DOCK ATTENDANT Temperature - - Respiratory Rate - - Oxygen Saturation - - Inhaled Oxygen Concentration - - Weight 83.5 kg (184 lb) 08/21/2024 1:10 PM FUEL DOCK ATTENDANT Height 160 cm (5' 3 ) 08/21/2024 1:10 PM FUEL DOCK ATTENDANT Body Mass Index 32.59 08/21/2024 1:10 PM FUEL DOCK ATTENDANT Plan of Treatment Upcoming Encounters Date Type Department Care Team (Late st Contact Info) Description 02/19/2025 2:00 PM CDT Office Visit [facility] [address], [address] [place] [address] Omid Rowe MD [address] [facility] [address] [place] [address] Health Maintenance Due Date Last Done Comments Pneumococcal PPSV23 Highest Risk Adult (1 of 3 - PCV13 ) 1997 Influenza Vaccine (#1) 2024 Care Teams Rink Rat Relationship Specialty Start Date End Date Kwan Macias MD PCP - General 06/19/24
--- OUTSIDE RECORDS SUMMARY | 2024-09-26 20:19 | XMS_ITS | Clinical Summary ---
Author Organization [facility] Address [address] [place] [address] Care Team Providers Care Hard Rock Miner Name Role Phone Sunny Garza MD Primary Care Provider [phone] Allergies No known active allergies Medications vitamin, [...] 82 09/25/2020 3:54 PM CDT Temperature 36.1 C (97 F) 09/25/2020 11:15 AM CDT Respiratory Rate 16 [...] HPV 2008 Mammogram Screening 2018 COVID-19 Vaccine (1 - 2023-2 5 season) 2024 Influenza Adult [...] patient's age to complete this topic Insurance [place] Care Teams Hard Rock Miner Relationship Specialty Start Date End Date Sunny Garza MD [address] [place] [address] PCP - General 03/27/16
--- OUTSIDE RECORDS SUMMARY | 2024-09-26 20:19 | XMS_ITS | CONTINUITY OF CARE DOCUMENT ---
Author Name haley de leon Address Unknown Organization [facility] Address [address] [facility] [address] [place] [address] Phone [phone] Care Team Providers Care [facility] Attendant Name Role Phone Angel Newby MD Unavailable CARLY TAMEZ MD Unavailable [phone] CARLY TAMEZ MD Unavailable [phone] PROBLEMS Condition Status Date Provider Notes Cardiology examination active Nolan Ahmedzai Chest pain active Nolan Ahmedzai Shortness of breath active Nolan Ahmedzai Lupus active Nolan Ahmedzai Elevated blood pressure active Nolan Ahmedza i Palpitations active Nolan Ahmedzai ENCOUNTERS Date Type Provider Location Encounter Diag nosis - In-person encounter Office Visit Angel Newby MD [facility] Cardiology examinationChest painShortness of breathLupusElevated blood [...] Schafer ondansetron 4 mg tablet,disintegratin g active Shnadra Schafer ergocalciferol (vitamin D2) 1,250 mcg (50,000 unit) capsule active Shandra Schafer INSURANCE PROVIDERS Payer name Policy type / Coverage type [place] red green party ID [place] MEDICAID (2) Medicaid [id number] ADVANCE DIRECTIVES Name Date DISCUSSED - NO DECISION MADE TREATMENT PLAN Date Name Performer Electrophysiology: O rders: 9 9204 MOD 45-59 min (CPT-56864) Nolan Faustinzaquirino Electrophysiology:Mo nitor your BP at home, goal BP is <135/85 O rders: 9 9204 MOD 45-59 min (CPT-81257) Nolan Ahmedzai Electrophysiology: O rders: C omplete Echo (04362) 9 9204 MOD 45-59 min (CPT-27967) Nolan Ahmedzai Electrophysiology: O rders: C omplete Echo (73049) 9 9204 MOD 45-59 min (CPT-[id number]) Nolan Faustinzai Date Name Monitor - Telemetry (Mobile Cardiac) Complete Echo HISTORY OF PROCEDURES Procedure Date Procedure Name Provider Procedure Notes S tatus EKG Angel Newby MD comp leted
--- OUTSIDE RECORDS SUMMARY | 2024-09-26 20:19 | XMS_ITS | Referral Summary ---
Author Organization [facility] Address [address] [place] [address] Care Team Providers Care Military Exchange Wireless Manager Name Role Phone Shannon Cruz MD Unavailable [phone] Kwan Macias MD Primary Care Provider [phone] Encounters Date Type Department Care Team Description 07/25/2024 1:00 PM AUTOMOBILE PARTS ASSEMBLER Procedure visit [facility] Neurology [address] [place] [address] EmaBrian Si, MD Paresthesia 07/02/2024 9:25 AM AUTOMOBILE PARTS ASSEMBLER - 07/02/2024 11:59 PM AUTOMOBILE PARTS ASSEMBLER Hospital Encounter [facility] Respiratory [address] [place] [address] Asthma, unspecified asthma severity, unspecified whether complicated, unspecified whether persistent Discharge Disposition: Discharge to home or self care from Last 3 Months Allergies Active Allergy Reactions Criticality Noted Date Comments Duloxetine Other (See comments) Low 02/13/2024 Excessive sedation on 30 mg bedtime dose Medications vits96/iron fum/folic ( vit-iron fum-folic) 27 mg iron- 800 mcg tablet Active ibuprofen (ADVIL,MOTRIN) 600 mg tabletIndications: Cramps Take 1 tablet (600 mg total) by mouth every 6 (six) hours as needed for pain 60 tablet 04/01/20 21 Active Additional Information Patient [...] after use. Do not swallow. 1 each 06/26/20 24 Active PNV with [id number] ( Plus, calcium carb,) 27 mg iron- [...] of 03/29/2021 Admission for sterilization 03/29/2021 Immunizations Immunization Administration Dates Next Due Tdap 03/31/2021 Social History Tobacco Use Types Packs/Day Years Used Date Smoking Tobacco: Never Passive Smoke Exposure: Past Smokeless Tobacco: Never Tobacco Cessation:Counseling Given: Not Answered AUDIT-C Answer Date Recorded Q1: How often do you have a drink containing alc ohol? Never 06/26/2024 Average Number of Drinks Not on file 024 Frequency of Binge Drinking Not on file 06/10 [place] Depression Scale Answer Date Recorded [place] Depression Scale Total 7 03/31/2021 The thought of harming myself has occurred to me . Never 03/31/2021 Comments Unknown Sex and Gender Information Value Date Recorded Sex Assigned at Not on file Legal Sex Female 6:23 PM AUTOMOBILE PARTS ASSEMBLER Gender Identity Not on file Sexual Orientation Not on file Last Filed Vital Signs Vital Sign Reading Time Taken Comments Blood Pressure 102/60 06/26/2024 1:08 PM AUTOMOBILE PARTS ASSEMBLER Pulse 70 06/26/2024 1:08 PM AUTOMOBILE PARTS ASSEMBLER Temperature 36.4 C (97.6 F) 06/26/2024 1:08 PM AUTOMOBILE PARTS ASSEMBLER Respiratory Rate 12 06/26/2024 1:08 PM AUTOMOBILE PARTS ASSEMBLER Oxygen Saturation 99% 06/26/2024 1:08 PM AUTOMOBILE PARTS ASSEMBLER Inhaled Oxygen Concentration - - Weight 79.8 kg (176 lb) 07/25/2024 1:11 PM AUTOMOBILE PARTS ASSEMBLER Height 157.5 cm (5' 2 ) 07/25/2024 1:11 PM AUTOMOBILE PARTS ASSEMBLER Body Mass Index 32.19 07/25/2024 1:11 PM AUTOMOBILE PARTS ASSEMBLER Plan of Treatment Not on file Procedures Procedure Name Priority Date/Time Associated Diagnosis Comments EMG/NCV Routine 07/25/2024 1:28 PM AUTOMOBILE PARTS ASSEMBLER Paresthesia PULMONARY FUNCTION TEST (PFT) Routine 07/02/2024 10:13 AM AUTOMOBILE PARTS ASSEMBLER Asthma, unspecified asthma severity, unspecified whether complicated, unspecified whether persistent from Last 3 Months Results * EMG/NCV (07/25/2024 1:28 PM AUTOMOBILE PARTS ASSEMBLER) Anatomical Region Laterality Modality Other Narrative 07/25/2024 1:28 PM AUTOMOBILE PARTS ASSEMBLER Brian Boo Si, MD 07/27/2024 8:14 AM EMG/NCV - Date/Time: 07/25/2024 1:28 PM Performed by: Brian Boo Si, MD Authorized by: Brian Boo Si, MD Local anesthesia used: no Anesthesia: Local anesthesia used: no Sedation: Patient sedated: no Comments: See attached procedure documentation. Brian Boo MD NEUROLOGY ORDERABLES Final Resul t * Pulmonary Function Test - (07/02/2024 10:13 AM AUTOMOBILE PARTS ASSEMBLER) Anatomical Region Laterality Modality PFT 07/02/2024 9:32 AM AUTOMOBILE PARTS ASSEMBLER Impressions 07/06/2024 12:31 PM AUTOMOBILE PARTS ASSEMBLER 1. Spirometry is normal. 2. There is no significant bronchodilator response. 3. Lung volumes are normal. 4. Diffusion capacity is normal. Electronically signed by Kevin Borja DO Pulmonary & Critical Care Narrative 07/06/2024 12:31 PM AUTOMOBILE PARTS ASSEMBLER PULMONARY FUNCTION TESTS Lillian Man 44 y.o. [...] Final Result from Last 3 Months Insurance [facility] [address] Advance Directives For more information, please contact: [phone] * Full Code (Latest Code Status on File) Date Activated Date Inactivated Comments 03/30/2021 6:35 PM 04/01/2021 5:12 PM Care Teams Military Exchange Wireless Manager Relationship Specialty Start Date End Date Kwan Macias MD [address] [place] [address] PCP - General Emergency Medicine 01/23/24 Shannon Cruz MD [address] [place] [address] Consulting Physician Obstetrics and Gynecology 04/01/21
--- OUTSIDE RECORDS SUMMARY | 2024-09-26 20:19 | XMS_ITS | Clinical Summary ---
Author Organization [facility] Frantz diaz [facility] Address [address] [facility] [place] [place] [address] Care Team Providers Care Suture Gauger Name Role Phone Kwan Macias MD Primary Care Provider Allergies No known active allergies Medications ferrous sulfate 325 mg (65 mg iron) tablet Take 325 mg by mouth daily. 12/26/2023 Active ergocalciferol (VITAMIN D2) 50,000 unit capsule Take 1 Capsule by mouth every 7 days. 12/23/2023 Active apixaban (Eliquis) 5 mg tablet TAKE 1 TABLET BY MOUTH TWICE A DAY 60 Tablet 2 08/09/2024 Active Active Problems No known active problems Encounters Date Type Department Care Team Description 09/26/2024 External Device Data STL ABSTRACTION Provider, Abstract 09/20/2024 Abstract [facility] Oncology and Hematology [facility] [address] [place] [address] Ryan Cheney MD 09/20/2024 Telephone [facility] Oncology and Hematology [facility] [address] [place] [address] Ryan Cheney MD Surgical Clearance 09/18/2024 External Device Data ST[place] ABSTRACTION Provider, Abstract 09/18/2024 External Device Data [place] ABSTRACTION Provider, Abstract 09/15/2024 External Device Data [place] ABSTRACTION Provider, Abstract 09/14/2024 External Device Data [place] ABSTRACTION Provider, Abstract 09/11/2024 External Device Data ST[place] ABSTRACTION Provider, Abstract 08/28/2024 External Device Data ST[place] ABSTRACTION Provider, Abstract 08/21/2024 External Device Data ST[place] ABSTRACTION Provider, Abstract 08/09/2024 Refill [facility] Oncology and Hematology [facility] [address] [place] [address] Ryan Cheney MD 08/02/2024 External Device Data ST[place] ABSTRACTION Provider, Abstract 08/01/2024 External Device Data STL ABSTRACTION Provider, Abstract 07/31/2024 1:00 PM HOSPITALIST PHYSICIAN Office Visit [facility] Oncology [facility] Hematology [facility] [address] [place] [address] Ryan Cheney MD Iron deficiency anemia, unspecified iron deficiency anemia type (Primary Dx) 07/31/2024 External Device Data STL ABSTRACTION Provider, Abstract 07/24/2024 External Device Data STL ABSTRACTION Provider, Abstract 07/20/2024 Telephone [facility] Oncology [facility] [address] [place] [address] Ryan Cheney MD Surgical Clearance Request 07/20/2024 Abstract [facility] Oncology [facility] [address] [place] [address] Ryan Cheney MD from Last 3 Months Family History Medical [...] Comments Blood Pressure 127/86 07/31/2024 1:00 PM HOSPITALIST PHYSICIAN Pulse 81 07/31/2024 1:00 PM HOSPITALIST PHYSICIAN Temperature 36.8 C (98.3 F) 07/31/2024 1:00 PM HOSPITALIST PHYSICIAN Respiratory Rate 14 07/31/2024 1:00 PM HOSPITALIST PHYSICIAN Oxygen Saturation 98% 07/31/2024 1:00 PM HOSPITALIST PHYSICIAN Inhaled Oxygen Concentration - - Weight 83.9 kg (185 lb) 07/31/2024 1:00 PM HOSPITALIST PHYSICIAN Height 157.5 cm (5' 2 ) 01/23/2024 10:23 AM CDT Body Mass Index 33.84 01/23/2024 10:23 AM CDT Plan of Treatment Upcoming Encounters Date Type Department Care Team (Late st Contact Info) Description 10/03/2024 11:15 AM CDT Office Visit [facility] Oncology and Hematology [facility] [address] [facility] [address] [place] [address] Ryan Cheney MD [address] [facility] [address] [place] [address] Health Maintenance Due Date Last Done Comments Pre-Diabetes and Diabetes Screening 1978 HEPATITIS B VACCINES (1 of 3 - 19+ 3-dose series) 1997 Preventative Visit-Managed Medicaid 1997 PAP SMEAR 1999 CERVICAL CANCER SCREENING 2008 HPV/Cotest 2008 PAP SMEAR 2008 COLORECTAL SCREENING 2023 Colorectal Cancer Screening 2023 FIT-DNA Q 3 years 2023 FIT/FOBT Q 1 year 2023 Flex Sig/CT Colonography Q 5 years 2023 INFLUENZA VACCINE (#1) 2024 BREAST CANCER SCREENING 03/28/2025 03/28/2024 DTAP/TDAP/TD VACCINES (2 - T d or Tdap) 03/31/2031 03/31/2021 HPV VACCINES Aged Out No longer eligi ble based on patient's age to complete this topic Insurance [facility] MEDICAID Care Teams Suture Gauger Relationship Specialty Start Date End Date Kwan Macias MD [address] [place] [phone] PCP - General Family Practice 05/11/24
--- OUTSIDE RECORDS SUMMARY | 2024-09-26 20:19 | XMS_ITS | Encounter Summary ---
Author Organization [facility] Address [address] [place] [address] Care Team Providers Care Front Line Supervisor Name Role Phone Kwan Macias MD Primary Care Provider [phone] Encounter Details Date Type Department Care Team (Late st Contact Info) Description 09/26/2024 External Device Data ST[place] ABSTRACTION Provider, Abstract NO ADDRESS ON FILE Social History Tobacco Use Types Packs/Day Years Used Date Smoking Tobacco: Never Smokeless Tobacco: Never Alcohol Use Standard Drinks/Week Comments Yes 0 (1 standard drink = 0.6 oz pur e alcohol) Socially Comments Unknown Sex and Gender Information Value Date Recorded Sex Assigned at Not on file Legal Sex Female 11:19 AM CDT Gender Identity Not on file Sexual Orientation Not on file documented as of this encounter Plan of Treatment Upcoming Encounters Date Type Department Care Team (Late st Contact Info) Description 10/03/2024 11:15 AM CDT Office Visit [facility] Oncology and Hematology - [facility] [address] [facility] [address] [place] [address] Ryan Cheney MD [address] [facility] [address] [place] [address] documented as of this encounter Visit Diagnoses Not on filedocumented in this encounter Care Teams Front Line Supervisor Relationship Specialty Start Date End Date Kwan aMcias MD [address] [place] [address] [address] [place] [address] PCP - General Family Practice 05/11/24 documented as of this encounter
[2024-09-26 20:23] VITALS: BP 134/78; PULSE 82; RESP 15; TEMP 36.3; O2SAT 95
--- NOTE | 2024-09-26 20:23 | ECG_ITS ---
Test Date: 2024-09-26 20:29:34 Measurements Intervals [place] Rate: 84 P: 9 CA: 160 QRS: 56 QRSD: 85 T: 38 QT: 357 QTc: 424 Interpretive Statements SINUS RHYTHM Compared to ECG 08/14/2024 12:13:53 No significant changes Electronically Signed On 09-27-2024 09:18:55 CDT by Ruben Gonzalez M.D.
[2024-09-26 20:53] LABS: Basophils Percent Auto 0.3 % (0.2-1.2); Eosinophils Absolute Auto 0.2 K/mm3 (0-0.3); Eosinophils Percent Auto 2.4 % (0-4.4); Hematocrit 37.8 % (37.0-47.0); Hemoglobin 12.5 g/dL (12.0-15.0); Immature Granulocyte Absolute 0.01 K/mm3 (0.00-0.031); Immature Granulocyte Percent A 0.2 % (0-0.5); Lymphocytes Absolute Auto 2.22 K/mm3 (0.9-3.2); Lymphocytes Percent Auto 35.9 % (18.3-44.2); Mean Corpuscular HGB Conc 33.1 g/dl (32-36); Mean Corpuscular Hemoglobin 29.8 pg (26-34); Mean Platelet Volume 9.7 fl (7.4-10.4); Monocytes Absolute Auto 0.5 K/mm3 (0.1-0.6); Monocytes Percent Auto 7.4 % (2.6-8.5); Neutrophils Absolute Auto 3.3 K/mm3 (1.3-6.7); Neutrophils Percent Auto 53.8 % (45.5-73.1); Platelet Count Result 263 k/mm3 (150-375); Red Cell Distribution Width 12.7 % (11.5-14.5); White Blood Count 6.2 K/mm3 (4.5-10.0)
[2024-09-26 21:06] LABS: Alanine Aminotransferase 15 U/L (6-35); Albumin Level 4.2 g/dL (3.5-5.1); Alkaline Phosphatase 78 U/L (38-126); Anion Gap 9 mmol/L (4-12); Aspartate Amino Transferase 19 U/L (14-36); Bilirubin,Total 0.3 mg/dL (0.2-1.3); Blood Urea Nitrogen 10 mg/dL (7-17); Carbon Dioxide 27 mmol/L (22-30); Chloride 102 mmol/L (98-107); Estimated Glomerular Filt Rate > 60; Glucose 98 mg/dL (65-110); Lipase 315 U/L (23-300); Potassium 3.7 mmol/L (3.4-5.0); Sodium 138 mmol/L (137-145)
[2024-09-26 21:18] LABS: Troponin I < 0.012 ng/mL (0.000-0.034)
--- NOTE | 2024-09-26 21:22 | PC.NURSE ---
pt ambulatory to triage desk at this time. Pt request a wait time for her to get a room. flask maker explained that we always advise pt to stay to be seen and that we cannot give out wait times and explained we are trying to move pts around as bets we can. RN further explained triage goes by pt acuity level and that anything can change depending on what comes in via EMS or triage. Pt then states well then you can take me off the list then, I can't do this. I am going home. Pt left without being seen by provider at this time. Pt was given pamphlet to look up her blood work results and EKG.
--- OUTSIDE RECORDS SUMMARY | 2024-09-26 21:38 | XMS_ITS | CONTINUITY OF CARE DOCUMENT ---
Author Name haley de leon Address Unknown Organization [facility] Address [address] [facility] [address] [place] [address] Phone [phone] Care Team Providers Care Entry Level Account Representative Name Role Phone Angel Newby MD Unavailable CARLY TAMEZ MD Unavailable [phone] CARLY TAMEZ MD Unavailable [phone] PROBLEMS Condition Status Date Provider Notes Cardiology examination active Nolan Ahmedzai Chest pain active Nolan Ahmedzai Shortness of breath active Nolan Ahmedzai Lupus active Nolan Ahmedzai Elevated blood pressure active Nolan Ahmedza i Palpitations active Nolan Ahmedzai ENCOUNTERS Date Type Provider Location Encounter Diag nosis - In-person encounter Office Visit Angel Newby MD [place] [facility] Cardiology examinationChest painShortness of breathLupusElevated blood [...] Payer name Policy type / Coverage type [place] red alliance party ID [place] MEDICAID (2) Medicaid [id number] ADVANCE DIRECTIVES Name Date DISCUSSED - NO DECISION MADE TREATMENT PLAN Date Name Performer Electrophysiology: O rders: 9 9204 MOD 45-59 min (CPT-[id number]) Nolan Faustinzaquirino Electrophysiology:Mo nitor your BP at home, goal BP is <135/85 O rders: 9 9204 MOD 45-59 min (CPT-[id number]) Nolan Ahmedzai Electrophysiology: O rders: C omplete Echo (04302) 9 9204 MOD 45-59 min (CPT-[id number]) Nolan Ahmedzai Electrophysiology: O rders: C omplete Echo (32762) 9 9204 MOD 45-59 min (CPT-[id number]) Nolan Faustinzai Date Name Monitor - Telemetry (Mobile Cardiac) Complete Echo HISTORY OF PROCEDURES Procedure Date Procedure Name Provider Procedure Notes S tatus EKG Angel Newby MD comp leted
--- OUTSIDE RECORDS SUMMARY | 2024-09-26 21:38 | XMS_ITS | Clinical Summary ---
Author Organization [facility] Address [address] [place] [address] Care Team Providers Care Pharmacy Services Director Name Role Phone Sunny Garza MD Primary Care Provider [phone] Allergies No known active allergies Medications vitamin, [...] patient's age to complete this topic Insurance [place] Care Teams Pharmacy Services Director Relationship Specialty Start Date End Date Sunny Garza MD [address] [place] [address] PCP - General 03/27/16
--- OUTSIDE RECORDS SUMMARY | 2024-09-26 21:38 | XMS_ITS | Clinical Summary ---
Author Organization [facility] Address [address] [place] [address] Care Team Providers Care Mica Washer Gluer Name Role Phone Shannon Cruz MD Unavailable [phone] Kwan Macias MD Primary Care Provider Allergies [...] each 11 06/26/20 24 Active PNV with [id number] ( Plus, calcium carb,) 27 mg iron- [...] Department Care Team Description 07/25/2024 1:00 PM EMERGENCY MEDICINE Procedure visit [facility] Neurology [address] [facility] [address] [place] [address] EmaBrian Si, MD Paresthesia 07/02/2024 9:25 AM EMERGENCY MEDICINE - 07/02/2024 11:59 PM EMERGENCY MEDICINE Hospital Encounter [facility] Respiratory [address] [place] [address] Asthma, unspecified asthma severity, unspecified whether complicated, [...] of Binge Drinking Not on file 06/10 [place] Depression Scale Answer Date Recorded [place] Depression Scale Total 7 03/31/2021 The thought of harming myself has occurred to me . Never 03/31/2021 Comments Unknown Sex and Gender Information Value Date Recorded Sex Assigned at Not on file Legal Sex Female 6:23 PM EMERGENCY MEDICINE Gender Identity Not on file Sexual Orientation [...] Cruz , Jami Qiu MD Complications:None Delivery Location:[facility] Main C ampus (MHE L AND D PROCEDURE) Last Filed Vital Signs Vital Sign Reading Time Taken Comments Blood Pressure 102/60 06/26/2024 1:08 PM EMERGENCY MEDICINE Pulse 70 06/26/2024 1:08 PM EMERGENCY MEDICINE Temperature 36.4 C (97.6 F) 06/26/2024 1:08 PM EMERGENCY MEDICINE Respiratory Rate 12 06/26/2024 1:08 PM EMERGENCY MEDICINE Oxygen Saturation 99% 06/26/2024 1:08 PM EMERGENCY MEDICINE Inhaled Oxygen Concentration - - Weight 79.8 kg (176 lb) 07/25/2024 1:11 PM EMERGENCY MEDICINE Height 157.5 cm (5' 2 ) 07/25/2024 1:11 PM EMERGENCY MEDICINE Body Mass Index 32.19 07/25/2024 1:11 PM EMERGENCY MEDICINE Plan of Treatment Health Maintenance Due Date [...] Diagnosis Comments EMG/NCV Routine 07/25/2024 1:28 PM EMERGENCY MEDICINE Paresthesia PULMONARY FUNCTION TEST (PFT) Routine 07/02/2024 10:13 AM EMERGENCY MEDICINE Asthma, unspecified asthma severity, unspecified whether complicated, unspecified whether persistent from Last 3 Months Results * EMG/NCV (07/25/2024 1:28 PM EMERGENCY MEDICINE) Anatomical Region Laterality Modality Other Narrative 07/25/2024 1:28 PM EMERGENCY MEDICINE Brian Boo Si, MD 07/27/2024 8:14 AM EMG/NCV - Date/Time: 07/25/2024 1:28 PM Performed by: Brian Boo Si, MD Authorized by: Brian Boo Si, MD Local anesthesia used: no Anesthesia: Local anesthesia used: no Sedation: Patient sedated: no Comments: See attached procedure documentation. us Brian Boo MD NEUROLOGY ORDERABLES Final Resul t * Pulmonary Function Test - (07/02/2024 10:13 AM EMERGENCY MEDICINE) Anatomical Region Laterality Modality PFT 07/02/2024 9:32 AM EMERGENCY MEDICINE Impressions 07/06/2024 12:31 PM EMERGENCY MEDICINE 1. Spirometry is normal. 2. There is no significant bronchodilator response. 3. Lung volumes are normal. 4. Diffusion capacity is normal. Electronically signed by Kevin Borja DO Pulmonary & Critical Care Narrative 07/06/2024 12:31 PM EMERGENCY MEDICINE PULMONARY FUNCTION TESTS Lillian Man 44 y.o. [...] Advance Directives For more information, please contact: [phone] * Full Code (Latest Code Status on File) Date Activated Date Inactivated Comments 03/30/2021 6:35 PM 04/01/2021 5:12 PM Care Teams Mica Washer Gluer Relationship Specialty Start Date End Date Kwan Macias MD [address] [place] [address] PCP - General Emergency Medicine 01/23/24 Shannon Cruz MD [address] [place] [address] Consulting Physician Obstetrics and Gynecology 04/01/21
--- OUTSIDE RECORDS SUMMARY | 2024-09-26 21:38 | XMS_ITS | Referral Summary ---
Author Organization [facility] Address [address] [place] [address] Care Team Providers Care Pan Cleaner Name Role Phone Shannon Cruz MD Unavailable [phone] Kwan Macias MD Primary Care Provider [phone] Encounters Date Type Department Care Team Description 07/25/2024 1:00 PM LODGING FACILITIES MANAGER Procedure visit [facility] Neurology [address] [facility] [facility] [address] [place] [address] EmaBrian Si, MD Paresthesia 07/02/2024 9:25 AM LODGING FACILITIES MANAGER - 07/02/2024 11:59 PM LODGING FACILITIES MANAGER Hospital Encounter [facility] Respiratory [address] [place] [address] Asthma, unspecified asthma severity, unspecified whether complicated, [...] 1 each 06/26/20 24 Active PNV with symssso-hyon-DO ( Plus, calcium carb,) 27 mg iron- [...] of Binge Drinking Not on file 06/10 Erie Depression Scale Answer Date Recorded [place] Depression Scale Total 7 03/31/2021 The thought of harming myself has occurred to me . Never 03/31/2021 Comments Unknown Sex and Gender Information Value Date Recorded Sex Assigned at Not on file Legal Sex Female 6:23 PM LODGING FACILITIES MANAGER Gender Identity Not on file Sexual Orientation Not on file Last Filed Vital Signs Vital Sign Reading Time Taken Comments Blood Pressure 102/60 06/26/2024 1:08 PM LODGING FACILITIES MANAGER Pulse 70 06/26/2024 1:08 PM LODGING FACILITIES MANAGER Temperature 36.4 C (97.6 F) 06/26/2024 1:08 PM LODGING FACILITIES MANAGER Respiratory Rate 12 06/26/2024 1:08 PM LODGING FACILITIES MANAGER Oxygen Saturation 99% 06/26/2024 1:08 PM LODGING FACILITIES MANAGER Inhaled Oxygen Concentration - - Weight 79.8 kg (176 lb) 07/25/2024 1:11 PM LODGING FACILITIES MANAGER Height 157.5 cm (5' 2 ) 07/25/2024 1:11 PM LODGING FACILITIES MANAGER Body Mass Index 32.19 07/25/2024 1:11 PM LODGING FACILITIES MANAGER Plan of Treatment Not on file Procedures Procedure Name Priority Date/Time Associated Diagnosis Comments EMG/NCV Routine 07/25/2024 1:28 PM LODGING FACILITIES MANAGER Paresthesia PULMONARY FUNCTION TEST (PFT) Routine 07/02/2024 10:13 AM LODGING FACILITIES MANAGER Asthma, unspecified asthma severity, unspecified whether complicated, unspecified whether persistent from Last 3 Months Results * EMG/NCV (07/25/2024 1:28 PM LODGING FACILITIES MANAGER) Anatomical Region Laterality Modality Other Narrative 07/25/2024 1:28 PM LODGING FACILITIES MANAGER Brian Boo Si, MD 07/27/2024 8:14 AM EMG/NCV - Date/Time: 07/25/2024 1:28 PM Performed by: Brian Boo Si, MD Authorized by: Brian Boo Si, MD Local anesthesia used: no Anesthesia: Local anesthesia used: no Sedation: Patient sedated: no Comments: See attached procedure documentation. Brian Boo MD NEUROLOGY ORDERABLES Final Resul t * Pulmonary Function Test - (07/02/2024 10:13 AM LODGING FACILITIES MANAGER) Anatomical Region Laterality Modality PFT 07/02/2024 9:32 AM LODGING FACILITIES MANAGER Impressions 07/06/2024 12:31 PM LODGING FACILITIES MANAGER 1. Spirometry is normal. 2. There is no significant bronchodilator response. 3. Lung volumes are normal. 4. Diffusion capacity is normal. Electronically signed by Kevin Borja DO Pulmonary & Critical Care Narrative 07/06/2024 12:31 PM LODGING FACILITIES MANAGER PULMONARY FUNCTION TESTS Lillian Man 44 y.o. [...] Final Result from Last 3 Months Insurance [facility] [address] Advance Directives For more information, please contact: [phone] * Full Code (Latest Code Status on File) Date Activated Date Inactivated Comments 03/30/2021 6:35 PM 04/01/2021 5:12 PM Care Teams Pan Cleaner Relationship Specialty Start Date End Date Kwan Macias MD [address] [place] [address] PCP - General Emergency Medicine 01/23/24 Shannon Cruz MD [address] [facility] [place] [address] Consulting Physician Obstetrics and Gynecology 04/01/21
--- OUTSIDE RECORDS SUMMARY | 2024-09-26 21:38 | XMS_ITS | Encounter Summary ---
Author Organization [facility] Address [address] [place] [address] Care Team Providers Care Questioned Documents Examiner Name Role Phone Kwan Macias MD Primary Care Provider [phone] Encounter Details Date Type Department Care Team [...] Description 10/03/2024 11:15 AM CDT Office Visit [facility] Oncology and Hematology - Saqib [address] [facility] [address] [place] [address] Ryan Cheney MD [address] [facility] [address] [place] [address] documented as of this encounter Visit Diagnoses Not on filedocumented in this encounter Care Teams Questioned Documents Examiner Relationship Specialty Start Date End Date Kwan Macias MD [address] [place] [address] [address] [place] [address] PCP - General Family Practice 05/11/24 documented as of this encounter
--- OUTSIDE RECORDS SUMMARY | 2024-09-26 21:38 | XMS_ITS | Clinical Summary ---
Author Organization [facility] Address [address] [place] [address] Care Team Providers Care Feed Mill Tender Name Role Phone Kwan Macias MD Primary Care Provider [phone] Jg Hummel DO Unavailable Source Comments [facility],non-owned Affiliates and Associated Physician Practices is amultiple site organization consisting of ambulatory clinics and hospital sitesin [place], [place], [place] and [place]. This disclosure is being madepursuant to the Care Everywhere program and may not contain all information available regarding this patient. Last updated 18.[facility] Allergies Active Allergy Reactions Criticality Noted Date [...] Active vitamin D, ergocalciferol, (Drisdol) 1.25 MG (93926 UT) capsule TAKE 1 CAPSULE BY MOUTH [...] Type Department Care Team Description 09/20/2024 Refill [facility] - Rheumatology [address] [place] [address], [address] [place] [address] Jg Hummel, DO MEDICATION REFILL 09/07/2024 10:30 AM PRINT SHOP STENOGRAPHER Office Visit [facility] - ENT [address] [place] [address] Steve Van APRN-YAZAN Multiple thyroid nodules (Primary Dx) 09/07/2024 Travel 07/02/2024 Refill [facility] - Rheumatology [address] [place] [address], [address] [place] [address] Jg Hummel, DO MEDICATION REFILL from Last [...] Comments Blood Pressure 121/79 09/07/2024 10:20 AM PRINT SHOP STENOGRAPHER Pulse 81 09/07/2024 10:20 AM PRINT SHOP STENOGRAPHER Temperature 36.7 C (98 F) 04/05/2024 10:18 AM CDT Respiratory Rate 16 04/05/2024 10:18 AM CDT Oxygen Saturation 98% 04/05/2024 10:18 AM CDT Inhaled Oxygen Concentration - - Weight 87 kg (191 lb 12.8 oz) 09/07/2024 10:20 A M PRINT SHOP STENOGRAPHER Height 157.5 cm (5' 2 ) 09/07/2024 10:20 AM PRINT SHOP STENOGRAPHER Body Mass Index 35.08 09/07/2024 10:20 AM PRINT SHOP STENOGRAPHER Plan of Treatment Upcoming Encounters Date Type Department Care Team (Late st Contact Info) Description 10/03/2024 10:00 AM CDT Office Visit [facility] - Rheumatology [address] [facility], [address] [place] [address] Jg Hummel DO [address] [place] [address] 07/25/2025 10:15 AM PRINT SHOP STENOGRAPHER Appointment [facility] [address] [place] [address] Steve Van, [facility] [address] [facility] [address] [place] [address] Health Maintenance Due Date Last Done Comments [...] Monet Connors MD on 05/25/2024 3:01 PM PRINT SHOP STENOGRAPHER Addendum by Monet Connors M.D. This addendum [...] This was discussed with Dr. Jeffrey via [employer] message. EXAMINATIONS: 1. RIGHT DIGITAL DIAGNOSTIC MAMMOGRAM AND TOMOSYNTHESIS AND 2. COMPLETE BILATERAL BREAST ULTRASOUND (COMBINED REPORT) LOCATION: [facility] EXAM DATE: 03/28/2024 HISTORY: This is a 43-year-old female patient with painful right breast mass/lump for which she went to the ER at [facility] at the beginning of March. An [...] cancer greater than 20%, consultation in the [facility] is recommended. Should she wish to schedule an appointment, the phone number [phone]. The [place] Cancer Society recommends annual screening breast MRI [...] recommended. COMPARISON: Limited right breast ultrasound 03/11/2024 [facility]. Screening mammography 08/16/2023 from [facility] MAMMOGRAM: TECHNIQUE: Diagnostic bilateral mammography [...] in size compared to prior exam from [facility]. No suspicious finding was found in [...] of greater than 20%, consultation in the [facility] is recommended. 3. Annual screening breast MRI is recommended, given the elevated lifetime risk of developing breast cancer greater than 20%, according to the [place] Cancer [employer] guidelines. This can be alternated [...] of greater than 20%, consultation in the [facility] is recommended. 3. Annual screening breast MRI is recommended, given the elevated lifetime risk of developing breast cancer greater than 20%, according to the [place] [employer] guidelines. This can be alternated [...] 2: BENIGN. Report dictated by Roxie WASHBURN, [facility] (breast imaging fellow). IMonet MD have personally reviewed and interpreted this examination/study. > Interpreting Provider: Monet Connors MD on 03/28/2024 10:21 AM Narrative 03/28/2024 10:21 AM CDT EXAMINATIONS: 1. RIGHT DIGITAL DIAGNOSTIC MAMMOGRAM AND TOMOSYNTHESIS AND 2. COMPLETE BILATERAL BREAST ULTRASOUND (COMBINED REPORT) LOCATION: [facility] EXAM DATE: 03/28/2024 HISTORY: This is a 43-year-old female patient with painful right breast mass/lump for which she went to the ER at [facility] at the beginning of March. An [...] cancer greater than 20%, consultation in the [facility] is recommended. Should she wish to schedule an appointment, the phone number [phone]. The [place] Cancer Society recommends annual screening breast MRI [...] recommended. COMPARISON: Limited right breast ultrasound 03/11/2024 [facility]. Screening mammography 08/16/2023 from [facility] MAMMOGRAM: TECHNIQUE: Diagnostic bilateral mammography [...] in size compared to prior exam from [facility]. No suspicious finding was found in [...] COMPLETE BILATERAL BREAST ULTRASOUND (COMBINED REPORT) LOCATION: [facility] EXAM DATE: 03/28/2024 HISTORY: This is a 43-year-old female patient with painful right breast mass/lump for which she went to the ER at [facility] at the beginning of March. An [...] cancer greater than 20%, consultation in the [facility] is recommended. Should she wish to schedule an appointment, the phone [phone]. The [place] [employer] Society recommends annual screening breast MRI in addition to mammograms for women who have a 20% or greater lifetime riskof developing breast cancer. This can be managed through the high riskbreast clinic. Risk assessment based upon the Tyrer-Cuzick v8 model. By the NCCN guidelines and family history of breast cancer, consideration of genetic testing is recommended. COMPARISON: Limited right breast ultrasound 03/11/2024 [facility]. Screening mammography 08/16/2023 from [facility] MAMMOGRAM: TECHNIQUE: Diagnostic bilateral mammography [...] in size compared to prior exam from [facility]. No suspicious finding was found inthe [...] cancer ofgreater than 20%, consultation in the [facility] is recommended. 3. Annual screening breast MRI is recommended, given the elevatedlifetime risk of developing breast cancer greater than 20%, according to the [place] Cancer [employer] guidelines. This can be alternated [...] Recently Relevant to Health Maintenance Care Teams Feed Mill Tender Relationship Specialty Start Date End Date Kwan Macias MD [address] [facility] [address] [place] [address] PCP - General Family Medicine 01/09/24 Jg Hummel DO [address] [facility] [address] [place] [address] Terminal Operations Supervisor Rheumatology 02/27/24
--- OUTSIDE RECORDS SUMMARY | 2024-09-26 21:38 | XMS_ITS | Clinical Summary ---
Author Organization [facility] Frantz diaz [facility] Address [address] [facility] [place] [address] Care Team Providers Care Automotive Parts Salesperson Name Role Phone Kwan Macias MD Primary Care Provider [phone] Allergies No known active allergies Medications ferrous [...] Data STL ABSTRACTION Provider, Abstract 09/20/2024 Abstract [facility] Oncology and Hematology [facility] [address] [place] [address] Ryan Cheney MD 09/20/2024 Telephone [facility] Oncology and Hematology [address] [place] [address] Ryan Cheney MD Surgical Clearance 09/18/2024 External Device Data STL ABSTRACTION Provider, Abstract 09/18/2024 External Device Data STL ABSTRACTION Provider, Abstract 09/15/2024 External Device Data STL ABSTRACTION Provider, Abstract 09/14/2024 External Device Data STL ABSTRACTION Provider, Abstract 09/11/2024 External Device Data STL ABSTRACTION Provider, Abstract 08/28/2024 External Device Data STL ABSTRACTION Provider, Abstract 08/21/2024 External Device Data STL ABSTRACTION Provider, Abstract 08/09/2024 Refill [facility] Oncology and Hematology [facility] [address] [place] [address] Ryan Cheney MD 08/02/2024 External Device Data STL ABSTRACTION Provider, Abstract 08/01/2024 External Device Data STL ABSTRACTION Provider, Abstract 07/31/2024 1:00 PM WATER FILTER CLEANER Office Visit [facility] Oncology [facility] Hematology [facility] [address] [place] [address] Ryan Cheney MD Iron deficiency anemia, unspecified iron deficiency anemia type (Primary Dx) 07/31/2024 External Device Data STL ABSTRACTION Provider, Abstract 07/24/2024 External Device Data STL ABSTRACTION Provider, Abstract 07/20/2024 Telephone [facility] Oncology [facility] [address] [place] [address] Ryan Cheney MD Surgical Clearance Request 07/20/2024 Abstract [facility] Oncology [facility] [address] [place] [address] Ryan Cheney MD from Last 3 Months [...] Comments Blood Pressure 127/86 07/31/2024 1:00 PM WATER FILTER CLEANER Pulse 81 07/31/2024 1:00 PM WATER FILTER CLEANER Temperature 36.8 C (98.3 F) 07/31/2024 1:00 PM WATER FILTER CLEANER Respiratory Rate 14 07/31/2024 1:00 PM WATER FILTER CLEANER Oxygen Saturation 98% 07/31/2024 1:00 PM WATER FILTER CLEANER Inhaled Oxygen Concentration - - Weight 83.9 kg (185 lb) 07/31/2024 1:00 PM WATER FILTER CLEANER Height 157.5 cm (5' 2 ) 01/23/2024 10:23 AM CDT Body Mass Index 33.84 01/23/2024 10:23 AM CDT Plan of Treatment Upcoming Encounters Date Type Department Care Team (Late st Contact Info) Description 10/03/2024 11:15 AM CDT Office Visit [facility] Oncology and Hematology [facility] [address] [facility] [address] [place] [address] Ryan Cheney MD [address] [facility] [address] [place] [address] Health Maintenance Due Date Last [...] patient's age to complete this topic Insurance [facility] MEDICAID Care Teams Automotive Parts Salesperson Relationship Specialty Start Date End Date Kwan Macias MD [address] [place] [phone] PCP - General Family Practice 05/11/24
--- OUTSIDE RECORDS SUMMARY | 2024-09-26 21:38 | XMS_ITS | Clinical Summary ---
Author Organization [facility] Address [address] [place] [address] Phone Care Team Providers Care Atmospheric Scientist Name Role Phone Kwan Macias MD Primary Care Provider [phone] Allergies No known active allergies Medications Medication [...] Comments Blood Pressure 132/90 08/21/2024 1:[address] Pulse 70 08/21/2024 1:[address] Temperature - - Respiratory Rate - - Oxygen Saturation - - Inhaled Oxygen Concentration - - Weight 83.5 kg (184 lb) 08/21/2024 1:[address] Height 160 cm (5' 3 ) 08/21/2024 1:[address] Body Mass Index 32.59 08/21/2024 1:[address] Plan of Treatment Upcoming Encounters Date Type Department Care Team (Late st Contact Info) Description 02/19/2025 2:00 PM CDT Office Visit [facility] [address] [facility] [place] [address] Omid Rowe MD [address] [facility] [address] [place] [address] Health Maintenance Due Date Last Done Comments Pneumococcal PPSV23 Highest Risk Adult (1 of 3 - PCV13 ) 1997 Influenza Vaccine (#1) 2024 Care Teams Atmospheric Scientist Relationship Specialty Start Date End Date Kwan Macias MD PCP - General 06/19/24
== END 2024-09-26 21:22 | disposition left against medical advice (07) ==
PROVIDERS: Emergency Provider Emergency Medicine; PCP Emergency Medicine
DX: R07.9 Chest pain, unspecified (principal)
CPT/HCPCS: 36415; 71046; 80053; 83690; 84484; 85025; 93005; 99199

== ENCOUNTER 2024-10-02 10:52 | Outpatient (CLI) | payer OTHER, SELFPAY ==
[2024-10-02 12:08] LABS: Basophils Percent Auto 0.7 % (0.2-1.2); Eosinophils Absolute Auto 0.3 K/mm3 (0-0.3); Eosinophils Percent Auto 6.7 % (0-4.4); Hematocrit 41.3 % (37.0-47.0); Hemoglobin 13.5 g/dL (12.0-15.0); Lymphocytes Absolute Auto 1.82 K/mm3 (0.9-3.2); Lymphocytes Percent Auto 40.8 % (18.3-44.2); Mean Corpuscular HGB Conc 32.7 g/dl (32-36); Mean Corpuscular Hemoglobin 29.8 pg (26-34); Mean Corpuscular Volume 91.2 fl (80-100); Mean Platelet Volume 10.1 fl (7.4-10.4); Monocytes Absolute Auto 0.4 K/mm3 (0.1-0.6); Monocytes Percent Auto 8.5 % (2.6-8.5); Neutrophils Absolute Auto 1.9 K/mm3 (1.3-6.7); Neutrophils Percent Auto 43.3 % (45.5-73.1); Platelet Count Result 271 k/mm3 (150-375); Red Blood Count 4.53 M/mm3 (4.2-5.4); Red Cell Distribution Width 12.5 % (11.5-14.5); White Blood Count 4.5 K/mm3 (4.5-10.0)
[2024-10-02 12:25] LABS: Alanine Aminotransferase 16 U/L (6-35); Albumin Level 4.3 g/dL (3.5-5.1); Alkaline Phosphatase 82 U/L (38-126); Anion Gap 8 mmol/L (4-12); Aspartate Amino Transferase 20 U/L (14-36); Bilirubin,Total 0.5 mg/dL (0.2-1.3); Blood Urea Nitrogen 10 mg/dL (7-17); Calcium 9.1 mg/dL (8.4-10.2); Carbon Dioxide 26 mmol/L (22-30); Chloride 104 mmol/L (98-107); Estimated Glomerular Filt Rate > 60; Glucose 91 mg/dL (65-110); Sodium 138 mmol/L (137-145)
[2024-10-02 12:32] LABS: Iron 70 ug/dL (37-170)
--- OUTSIDE RECORDS SUMMARY | 2024-10-02 12:56 | XMS_ITS | Clinical Summary ---
Author Organization [facility] Frantz diaz [facility] Address [address] [facility] [place] [address] Care Team Providers Care Proposal Engineer Name Role Phone Kwan Macias MD Primary Care Provider [phone] Allergies No known active allergies Medications ferrous [...] STL ABSTRACTION Provider, Abstract 09/20/2024 Abstract [facility] Oncology and Hematology [facility] [address] [place] [address] Ryan Cheney MD 09/20/2024 Telephone [facility] Oncology and Hematology [facility] [address] [place] [address] Ryan Cheney MD Surgical Clearance 09/18/2024 External [...] STL ABSTRACTION Provider, Abstract 08/09/2024 Refill [facility] Oncology and Hematology [facility] [address] [place] [address] Ryan Cheney MD 08/02/2024 External Device Data STL ABSTRACTION Provider, Abstract 08/01/2024 External Device Data STL ABSTRACTION Provider, Abstract 07/31/2024 1:00 PM SAT ACT INSTRUCTOR Office Visit [facility] Oncology [facility] Hematology [facility] [address] [place] [address] Ryan Cheney MD Iron deficiency anemia, unspecified iron deficiency anemia type (Primary Dx) 07/31/2024 External Device Data STL ABSTRACTION Provider, Abstract 07/24/2024 External Device Data STL ABSTRACTION Provider, Abstract 07/20/2024 Telephone [facility] Oncology [facility] [address] [place] [address] Ryan Cheney MD Surgical Clearance Request 07/20/2024 Abstract [facility] Oncology [facility] [address] [place] [address] Ryan Cheney MD from Last 3 Months [...] Comments Blood Pressure 127/86 07/31/2024 1:00 PM SAT ACT INSTRUCTOR Pulse 81 07/31/2024 1:00 PM SAT ACT INSTRUCTOR Temperature 36.8 C (98.3 F) 07/31/2024 1:00 PM SAT ACT INSTRUCTOR Respiratory Rate 14 07/31/2024 1:00 PM SAT ACT INSTRUCTOR Oxygen Saturation 98% 07/31/2024 1:00 PM SAT ACT INSTRUCTOR Inhaled Oxygen Concentration - - Weight 83.9 kg (185 lb) 07/31/2024 1:00 PM SAT ACT INSTRUCTOR Height 157.5 cm (5' 2 ) 01/23/2024 10:23 AM CDT Body Mass Index 33.84 01/23/2024 10:23 AM CDT Plan of Treatment Upcoming Encounters Date Type Department Care Team (Late st Contact Info) Description 10/03/2024 11:15 AM CDT Office Visit [facility] Oncology and Hematology [facility] [address] [facility] [address] [place] [address] Ryan Cheney MD [address] [facility] [address] [place] [address] Health Maintenance Due Date Last [...] patient's age to complete this topic Insurance [facility] MEDICAID Care Teams Proposal Engineer Relationship Specialty Start Date End Date Kwan Macias MD [address] [place] [phone] PCP - General Family Practice 05/11/24
--- OUTSIDE RECORDS SUMMARY | 2024-10-02 12:56 | XMS_ITS | Referral Summary ---
Author Organization [facility] Address [address] [place] [address] Care Team Providers Care De Icer Name Role Phone Shannon Cruz MD Unavailable [phone] Kwan Macias MD Primary Care Provider [phone] Encounters Date Type Department Care Team Description 07/25/2024 1:00 PM ASSISTANT MANAGER QUALITY MANAGEMENT Procedure visit [facility] Neurology [address] [facility] [address] [place] [address] Brian Boo Si, MD Paresthesia from Last 3 Months Allergies Active Allergy [...] 1 each 06/26/20 24 Active PNV with [id number]-aynv-IQ ( Plus, calcium carb,) 27 mg iron- [...] of Binge Drinking Not on file 06/10 Worley Depression Scale Answer Date Recorded [place] Depression Scale Total 7 03/31/2021 The thought of harming myself has occurred to me . Never 03/31/2021 Comments Unknown Sex and Gender Information Value Date Recorded Sex Assigned at Not on file Legal Sex Female 6:23 PM ASSISTANT MANAGER QUALITY MANAGEMENT Gender Identity Not on file Sexual Orientation Not on file Last Filed Vital Signs Vital Sign Reading Time Taken Comments Blood Pressure 102/60 06/26/2024 1:08 PM ASSISTANT MANAGER QUALITY MANAGEMENT Pulse 70 06/26/2024 1:08 PM ASSISTANT MANAGER QUALITY MANAGEMENT Temperature 36.4 C (97.6 F) 06/26/2024 1:08 PM ASSISTANT MANAGER QUALITY MANAGEMENT Respiratory Rate 12 06/26/2024 1:08 PM ASSISTANT MANAGER QUALITY MANAGEMENT Oxygen Saturation 99% 06/26/2024 1:08 PM ASSISTANT MANAGER QUALITY MANAGEMENT Inhaled Oxygen Concentration - - Weight 79.8 kg (176 lb) 07/25/2024 1:11 PM ASSISTANT MANAGER QUALITY MANAGEMENT Height 157.5 cm (5' 2 ) 07/25/2024 1:11 PM ASSISTANT MANAGER QUALITY MANAGEMENT Body Mass Index 32.19 07/25/2024 1:11 PM ASSISTANT MANAGER QUALITY MANAGEMENT Plan of Treatment Not on file Procedures Procedure Name Priority Date/Time Associated Diagnosis Comments EMG/NCV Routine 07/25/2024 1:28 PM ASSISTANT MANAGER QUALITY MANAGEMENT Paresthesia from Last 3 Months Results * EMG/NCV (07/25/2024 1:28 PM ASSISTANT MANAGER QUALITY MANAGEMENT) Anatomical Region Laterality Modality Other Narrative 07/25/2024 1:28 PM ASSISTANT MANAGER QUALITY MANAGEMENT Brian Boo Si, MD 07/27/2024 8:14 AM EMG/NCV - Date/Time: 07/25/2024 1:28 PM Performed by: Brian Boo Si, MD Authorized by: Brian Boo Si, MD Local anesthesia used: no Anesthesia: Local anesthesia used: no Sedation: Patient sedated: no Comments: See attached procedure documentation. Brian Boo MD NEUROLOGY ORDERABLES Final Resul t from Last 3 Months Insurance [facility] [address] Advance Directives For more information, please contact: [phone] * Full Code (Latest Code Status on File) Date Activated Date Inactivated Comments 03/30/2021 6:35 PM 04/01/2021 5:12 PM Care Teams De Icer Relationship Specialty Start Date End Date Kwan Macias MD [address] [place] [address] PCP - General Emergency Medicine 01/23/24 Shannon Cruz MD [address] [facility] [facility] [place] [address] Consulting Physician Obstetrics and Gynecology 04/01/21
--- OUTSIDE RECORDS SUMMARY | 2024-10-02 12:56 | XMS_ITS | Clinical Summary ---
Author Organization [facility] Address [address] [place] [address] Care Team Providers Care Caser In Name Role Phone Kwan Macias MD Primary Care Provider [phone] Jg Hummel DO Unavailable Source Comments [facility],non-owned Affiliates and Associated Physician Practices is amultiple site organization consisting of ambulatory clinics and hospital sitesin [place], [place], [place] and [place]. This disclosure is being madepursuant to the Care Everywhere program and may not contain all information available regarding this patient. Last updated 18.[facility] Allergies Active Allergy Reactions Criticality Noted Date [...] Active vitamin D, ergocalciferol, (Drisdol) 1.25 MG (75811 UT) capsule TAKE 1 CAPSULE BY MOUTH [...] Type Department Care Team Description 09/20/2024 Refill [facility] Medical [facility] - Rheumatology [address], [address] [place] [address] Jg Hummel, DO MEDICATION REFILL 09/07/2024 10:30 AM RACK CARRIER Office Visit [facility] - ENT [address] [facility] [address] [facility], [place] [id number] Steve Van APRN-YAZAN Multiple thyroid nodules (Primary Dx) 09/07/2024 Travel from Last 3 Months Immunizations Name Administration [...] Comments Blood Pressure 121/79 09/07/2024 10:20 AM RACK CARRIER Pulse 81 09/07/2024 10:20 AM RACK CARRIER Temperature 36.7 C (98 F) 04/05/2024 10:18 AM CDT Respiratory Rate 16 04/05/2024 10:18 AM CDT Oxygen Saturation 98% 04/05/2024 10:18 AM CDT Inhaled Oxygen Concentration - - Weight 87 kg (191 lb 12.8 oz) 09/07/2024 10:20 A M RACK CARRIER Height 157.5 cm (5' 2 ) 09/07/2024 10:20 AM RACK CARRIER Body Mass Index 35.08 09/07/2024 10:20 AM RACK CARRIER Plan of Treatment Upcoming Encounters Date Type Department Care Team (Late st Contact Info) Description 10/03/2024 10:00 AM CDT Office Visit [facility] - Rheumatology [address], [address] [place] [address] Jg Hummel DO [address] [place] [address] 07/25/2025 10:15 AM RACK CARRIER Appointment [facility] [address] [place] [address] Steve Van, STRUCTURAL STEEL PAINTER-[facility] [address] [place] [address] Health Maintenance Due Date Last Done Comments [...] 1999 SCREENING FOR DIABETES 01/09/2024 COVID-19 VACCINE (1 [...] Monet Connors MD on 05/25/2024 3:01 PM RACK CARRIER Addendum by Monet Connors M.D. This addendum [...] This was discussed with Dr. Jeffrey via [employer] message. EXAMINATIONS: 1. RIGHT DIGITAL DIAGNOSTIC MAMMOGRAM AND TOMOSYNTHESIS AND 2. COMPLETE BILATERAL BREAST ULTRASOUND (COMBINED REPORT) LOCATION: [facility] EXAM DATE: 03/28/2024 HISTORY: This is a 43-year-old female patient with painful right breast mass/lump for which she went to the ER at [facility] at the beginning of March. [...] cancer greater than 20%, consultation in the [facility] Breast Surgery High Risk Clinic is recommended. Should she wish to schedule an appointment, the phone number [phone]. The [place] [employer] recommends annual screening breast MRI [...] recommended. COMPARISON: Limited right breast ultrasound 03/11/2024 [facility]. Screening mammography 08/16/2023 from [facility] MAMMOGRAM: TECHNIQUE: Diagnostic bilateral mammography was [...] in size compared to prior exam from [facility]. No suspicious finding was found [...] of greater than 20%, consultation in the [facility] High Risk Clinic is recommended. 3. Annual screening breast MRI is recommended, given the elevated lifetime risk of developing breast cancer greater than 20%, according to the [place] [employer] guidelines. This can be alternated [...] of greater than 20%, consultation in the [facility] High Risk Clinic is recommended. 3. Annual screening breast MRI is recommended, given the elevated lifetime risk of developing breast cancer greater than 20%, according to the [place] [employer] guidelines. This can be alternated [...] BI-RADS CATEGORY 2: BENIGN. Report dictated by GAVINO Gracia (breast imaging fellow). I, Monet Connors MD have personally reviewed and interpreted this examination/study. > Interpreting Provider: Monet Connors MD on 03/28/2024 10:21 AM Narrative 03/28/2024 10:21 AM CDT EXAMINATIONS: 1. RIGHT DIGITAL DIAGNOSTIC MAMMOGRAM AND TOMOSYNTHESIS AND 2. COMPLETE BILATERAL BREAST ULTRASOUND (COMBINED REPORT) LOCATION: [facility] EXAM DATE: 03/28/2024 HISTORY: This is a 43-year-old female patient with painful right breast mass/lump for which she went to the ER at [facility] at the beginning of March. [...] cancer greater than 20%, consultation in the [facility] Breast Surgery High Risk Clinic is recommended. Should she wish to schedule an appointment, the phone number [phone]. The [place] [employer] recommends annual screening breast MRI [...] recommended. COMPARISON: Limited right breast ultrasound 03/11/2024 [facility]. Screening mammography 08/16/2023 from [facility] MAMMOGRAM: TECHNIQUE: Diagnostic bilateral mammography was [...] in size compared to prior exam from [facility]. No suspicious finding was found [...] COMPLETE BILATERAL BREAST ULTRASOUND (COMBINED REPORT) LOCATION: [facility] EXAM DATE: 03/28/2024 HISTORY: This is a 43-year-old female patient with painful right breast mass/lump for which she went to the ER at [facility] at the beginning of March. [...] cancer greater than 20%, consultation in the [facility] Breast Surgery High Risk Clinic is recommended. Should she wish to schedule an appointment, the phone [phone]. The [place] [employer] recommends annual screening breast MRI in addition to mammograms for women who have a 20% or greater lifetime riskof developing breast cancer. This can be managed through the high riskbreast clinic. Risk assessment based upon the Tyrer-Cuzick v8 model. By the NCCN guidelines and family history of breast cancer, consideration of genetic testing is recommended. COMPARISON: Limited right breast ultrasound 03/11/2024 [facility]. Screening mammography 08/16/2023 from [facility] MAMMOGRAM: TECHNIQUE: Diagnostic bilateral mammography was [...] in size compared to prior exam from [facility]. No suspicious finding was found [...] cancer ofgreater than 20%, consultation in the [facility] High Risk Clinic is recommended. 3. Annual screening breast MRI is recommended, given the elevatedlifetime risk of developing breast cancer greater than 20%, according to the [place] [employer] guidelines. This can be alternated [...] CATEGORY 2: BENIGN. Report dictated by [facility], [facility] (breast imaging fellow). IMonet MD have personally reviewed and interpreted this examination/study. > Interpreting Provider: Monet Connors MD on 03/28/2024 10:21 AM Yumiko Henderson MD MAMMO ORDERABLES from Last 3 Months or Most Recently Relevant to Health Maintenance Care Teams Caser In Relationship Specialty Start Date End Date Kwan Macias MD [address] [facility] [place] [address] PCP - General Family Medicine 01/09/24 Jg Hummel DO [address] [facility] [address] [place] [address] [facility] 02/27/24
--- OUTSIDE RECORDS SUMMARY | 2024-10-02 12:56 | XMS_ITS | Clinical Summary ---
Author Organization [facility] Address [address] [place] [address] Care Team Providers Care Assembler Dc Field Ring Name Role Phone Sunny Garza MD Primary Care Provider [phone] Allergies No known active allergies Medications vitamin, [...] patient's age to complete this topic Insurance [employer] Care Teams Assembler Dc Field Ring Relationship Specialty Start Date End Date Sunny Garza MD [address] [place] [address] PCP - General 03/27/16
--- OUTSIDE RECORDS SUMMARY | 2024-10-02 12:56 | XMS_ITS | CONTINUITY OF CARE DOCUMENT ---
Author Name haley de leon Address Unknown Organization [facility] Address [address] [place] [address] Phone [phone] Care Team Providers Care Director Of Agriculture Name Role Phone Angel Newby MD Unavailable [phone] CARLY TAMEZ MD Unavailable [phone] CARLY TAMEZ MD Unavailable [phone] PROBLEMS Condition Status Date Provider Notes Cardiology examination active Nolan Ahmedzai Chest pain active Nolan Ahmedzai Shortness of breath active Nolan Ahmedzai Lupus active Nolan Ahmedzai Elevated blood pressure active Nolan Ahmedza i Palpitations active Nolan Ahmedzai ENCOUNTERS Date Type Provider Location Encounter Diag nosis - In-person encounter Office Visit Angel Newby MD [place] Cardiology examinationChest painShortness of breathLupusElevated blood [...] Payer name Policy type / Coverage type [place] red [place] (2) Medicaid [id number] ADVANCE DIRECTIVES Name Date DISCUSSED - NO DECISION MADE TREATMENT PLAN Date Name Performer Electrophysiology: O rders: 9 9204 MOD 45-59 min (CPT-50746) Nolan Faustinzaquirino Electrophysiology:Mo nitor your BP at home, goal BP is <135/85 O rders: 9 9204 MOD 45-59 min (CPT-95540) Nolan Ahmedzai Electrophysiology: O rders: C omplete Echo (52943) 9 9204 MOD 45-59 min (CPT-79222) Nolan Ahmedzai Electrophysiology: O rders: C omplete Echo (40606) 9 9204 MOD 45-59 min (CPT-97211) Nolan Faustinzai Date Name Monitor - Telemetry (Mobile Cardiac) Complete Echo HISTORY OF PROCEDURES Procedure Date Procedure Name Provider Procedure Notes S tatus EKG Angel Newby MD comp leted
--- OUTSIDE RECORDS SUMMARY | 2024-10-02 12:56 | XMS_ITS | Clinical Summary ---
Author Organization [facility] Address [address] [place] [address] Care Team Providers Care Applications Packager Name Role Phone Shannon Cruz MD Unavailable [phone] Kwan Macias MD Primary Care Provider [phone] Allergies Active Allergy Reactions Criticality Noted Date [...] each 11 06/26/20 24 Active PNV with [id number] ( Plus, calcium carb,) 27 mg iron- [...] Department Care Team Description 07/25/2024 1:00 PM GLOVE OPERATOR Procedure visit [facility] Neurology [address] [place] [address] [place] [address] Brian Boo Si, MD Paresthesia from Last 3 Months Immunizations Immunization Administration [...] of Binge Drinking Not on file 06/10 Hawthorne Depression Scale Answer Date Recorded Hawthorne Depression Scale Total 7 03/31/2021 The thought of harming myself has occurred to me . Never 03/31/2021 Comments Unknown Sex and Gender Information Value Date Recorded Sex Assigned at Not on file Legal Sex Female 6:23 PM GLOVE OPERATOR Gender Identity Not on file Sexual [...] Cruz , Jami Qiu MD Complications:None Delivery Location:[facility] Main C ampus ([facility] L AND D PROCEDURE) Last Filed Vital Signs Vital Sign Reading Time Taken Comments Blood Pressure 102/60 06/26/2024 1:08 PM GLOVE OPERATOR Pulse 70 06/26/2024 1:08 PM GLOVE OPERATOR Temperature 36.4 C (97.6 F) 06/26/2024 1:08 PM GLOVE OPERATOR Respiratory Rate 12 06/26/2024 1:08 PM GLOVE OPERATOR Oxygen Saturation 99% 06/26/2024 1:08 PM GLOVE OPERATOR Inhaled Oxygen Concentration - - Weight 79.8 kg (176 lb) 07/25/2024 1:11 PM GLOVE OPERATOR Height 157.5 cm (5' 2 ) 07/25/2024 1:11 PM GLOVE OPERATOR Body Mass Index 32.19 07/25/2024 1:11 PM GLOVE OPERATOR Plan of Treatment Health Maintenance Due [...] Diagnosis Comments EMG/NCV Routine 07/25/2024 1:28 PM GLOVE OPERATOR Paresthesia from Last 3 Months Results * EMG/NCV (07/25/2024 1:28 PM GLOVE OPERATOR) Anatomical Region Laterality Modality Other Narrative 07/25/2024 1:28 PM GLOVE OPERATOR Brian Boo Si, MD 07/27/2024 8:14 AM EMG/NCV - Date/Time: 07/25/2024 1:28 PM Performed by: Brian Boo Si, MD Authorized by: Brian Boo Si, MD Local anesthesia used: no Anesthesia: Local anesthesia used: no Sedation: Patient sedated: no Comments: See attached procedure documentation. us Brian Boo MD NEUROLOGY ORDERABLES Final Resul t from Last 3 Months Insurance [address] [address] Advance Directives For more information, please contact: [phone] * Full Code (Latest Code Status on File) Date Activated Date Inactivated Comments 03/30/2021 6:35 PM 04/01/2021 5:12 PM Care Teams Applications Packager Relationship Specialty Start Date End Date Kwan Macias MD [address] [place] [address] PCP - General Emergency Medicine 01/23/24 Shannon Cruz MD [address] [place] [address] Consulting Physician Obstetrics and Gynecology 04/01/21
--- OUTSIDE RECORDS SUMMARY | 2024-10-02 12:56 | XMS_ITS | Clinical Summary ---
Author Organization [facility] Address [address] [place] [address] Phone Care Team Providers Care Book Reviewer Name Role Phone Kwan Macias MD Primary Care Provider [phone] Allergies No known active allergies Medications Medication [...] Comments Blood Pressure 132/90 08/21/2024 1:10 PM BUSINESS ANALYST MANAGER Pulse 70 08/21/2024 1:10 PM BUSINESS ANALYST MANAGER Temperature - - Respiratory Rate - - Oxygen Saturation - - Inhaled Oxygen Concentration - - Weight 83.5 kg (184 lb) 08/21/2024 1:10 PM BUSINESS ANALYST MANAGER Height 160 cm (5' 3 ) 08/21/2024 1:10 PM BUSINESS ANALYST MANAGER Body Mass Index 32.59 08/21/2024 1:10 PM BUSINESS ANALYST MANAGER Plan of Treatment Upcoming Encounters Date Type Department Care Team (Late st Contact Info) Description 02/19/2025 2:00 PM CDT Office Visit [facility] [address] [place] [address] Omid Rowe MD [address] [facility] [address] [place] [address] Health Maintenance Due Date Last Done Comments Pneumococcal PPSV23 Highest Risk Adult (1 of 3 - PCV13 ) 1999 Influenza Vaccine (#1) 2024 Care Teams Book Reviewer Relationship Specialty Start Date End Date Kwan Macias MD PCP - General 06/19/24
[2024-10-02 13:22] LABS: Percent Iron Saturation 14 % (20-50)
== END 2024-10-02 10:53 | disposition home or self-care (01) ==
LOC: ANHLAB 10:53
PROVIDERS: PCP Emergency Medicine; Visit Provider Internal Medicine Hematology & Oncology
DX: D50.9 Iron deficiency anemia, unspecified (principal)
CPT/HCPCS: 36415; 80053; 82728; 83540; 83550; 85025

== ENCOUNTER 2024-10-03 14:47 | Outpatient (CLI) | payer OTHER, SELFPAY ==
--- NOTE | ~2024-10-03 | CT_ITS ---
CTA chest PE protocol Ordering provider: Ryan Cheney MD History: 44 years Female with . other acute pulm embolism . Comparison: None. Technique: CT angiogram chest was performed following timed intravenous injection of contrast. Thin s lice axial images and reformatted coronal images were obtained. Three dimensional reformatted images of the chest were also obtained using a [employer] workstation. . Automated exposure control and iterati ve reconstruction technique were employed. The dose-length product was 278.52 mGy-cm. 100 mL Omnipaqu e 350 was given IV. Findings: PULMONARY ARTERIES: No pulmonary embolus. VISUALIZED THORACIC INLET: Right thyroid nodule. Ultrasound evaluation advised. Bilateral axillary ly mph nodes with the largest measures 1.7 cm. MEDIASTINUM: Aorta/coronary arteries: The thoracic aorta is normal. Heart/other: The heart is not enlarged. Lymph nodes: No mediastinal or hilar adenopathy. Right hilar lymph node is seen measuring 1.3 cm. LUNGS: No pulmonary nodules or masses. No infiltrates or effusions. No pneumothorax. Dependent atelectatic c hanges. VISUALIZED UPPER ABDOMEN: Multiple hypodensities in the liver. Ultrasound evaluation to confirm cysti c nature is advised. Slightly prominent pancreatic duct. Otherwise, the visualized upper abdomen is n ormal. MUSCULOSKELETAL: Soft tissues: The superficial soft tissues are normal. Bones: Age appropriate degenerative changes of the spine. IMPRESSION: 1. No pulmonary embolism. 2. No acute cardiopulmonary pathology. 3. Multiple hypodensities in the liver. Ultrasound evaluation cystic nature is advised. 4. Nodule in the right lobe of the thyroid. Ultrasound evaluation advised. Reviewed, dictated and finalized at location A.
--- OUTSIDE RECORDS SUMMARY | 2024-10-03 16:14 | XMS_ITS | Encounter Summary ---
Author Organization [facility] Address [address] [place] [address] Care Team Providers Care Assembly Detailer Name Role Phone Kwan Macias MD Primary Care Provider Reason for Referral * CT Scan (Urgent) - Closed Specialty Diagnoses / Procedures Referred By Contac t Referred To Contact Diagnoses Other acute pulmonary embolism without acute cor pulmonale (CMS/HCC) Procedures CTA CHEST W WO CONTRAST Ryan Cheney MD [address] [employer] [address] [place] [address] Phone: tel: fax: [place] [address] Referral ID Status Reason Start Date Expiration Date V isits Requested Visits Authorized [id number] Closed [facility] CTS 10/03/2024 11/03/2025 1 1 Reason for Visit * Reason Comments Follow Up Encounter Details Date Type Department Care Team (Late st Contact Info) Description 10/03/2024 11:15 AM CDT Office Visit [facility] Oncology and Hematology [facility] [address] [place] [address] [address] [place] [address] Ryan Cheney MD [address] [place] [address] Other acute pulmonary embolism without acute cor pulmonale (CMS/HCC) (Primary Dx) Social History Tobacco Use Types Packs/Day Years [...] on file documented as of this encounter Last Filed Vital Signs Vital Sign Reading Time Taken Comments Blood Pressure 116/75 10/03/2024 10:35 AM CDT Pulse 81 10/03/2024 10:35 AM CDT Temperature 36.2 C (97.1 F) 10/03/2024 10:35 AM CDT Respiratory Rate 16 10/03/2024 10:35 AM CDT Oxygen Saturation 98% 10/03/2024 10:35 AM CDT Inhaled Oxygen Concentration - - Weight 86.7 kg (191 lb 3.2 oz) 10/03/2024 10:35 AM CDT Height - - Body Mass Index 34.97 01/23/2024 10:23 AM CDT documented in this encounter Progress Notes * Ryan Cheney MD - 10/03/2024 10:55 AM CDT HEMATOLOGY / ONCOLOGY PROGRESS NOTE Patient Identification: Name: Lillian Man Age: 44 y.o. Sex: female : 1980 DIAGNOSIS Unprovoked pulmonary embolism diagnosed June 17, 2024. Right breast mass Thrombocytosis Leukopenia Iron deficiency CURRENT TREATMENT Oral iron twice a day Eliquis 5 mg twice daily since June 17, 2024. TREATMENT HISTORY Bilateral excision of subareolar mass done on April 25, 2024. SUBJECTIVE Patient came into the office for follow-up visit. She is complaining of some chest discomfort without any shortness of breath. She denies any bleeding and bruising. She has been taking Eliquis twice a day and tolerating it well. No other new complaints. Review of system Constitutional: Patient did not mention fevers, sweats, denies any tiredness and fatigue, she has gained 6 pound weight. HEENT: Patient did not mention sinus congestion, hearing or vision problems Respiratory: Patient did not mention cough, dyspnea, wheeze Cardiovascular: Complain of some right-sided chest discomfort, exertional chest pressure/discomfort, nausea, syncope, shortness of breath GI: Patient did not mention constipation, diarrhea, dsyphagia, reflux symptoms, vomiting, melena : Patient did not mention dysuria, frequency, incontinence, urgency Integumentary system: no lymphadenopathy, sweats, flushing Musculoskeletal: Patient not mention: myalgia, arthralgia Neurological: Patient did not mention blurry or disturbed vision, numbness/weakness, dizziness Skin: No lumps, bumps or rashes. 12 point review of system was reviewed Objective: Vital signs in last 24 hours: As per nursing note Exam: HENT: Head: Normocephalic and atraumatic. Mouth/Throat: Mouth: Mucous membranes are moist. Pharynx: Oropharynx is clear. Eyes: Pupils: Pupils are equal, round, and reactive to light. Cardiovascular: Rate and Rhythm: Normal rate and regular rhythm. Pulses: Normal pulses. Heart sounds: Normal heart sounds. Pulmonary: Effort: Pulmonary effort is normal. Breath sounds: Normal breath sounds. Abdominal: General: Abdomen is flat. Bowel sounds are normal. Palpations: Abdomen is soft. There is no hepatomegaly or splenomegaly. Musculoskeletal: General: Normal range of motion. Cervical back: Normal range of motion. Skin: General: Skin is warm and dry. Exam as above PATH LABS Labs from January 22 showed WBC 4.2 hemoglobin 13.3 platelet 241,000 CA 19-9 28 creatinine 0.7 B12 897iron 52 saturation 13 ferritin 13.3 hepatitis serology negative Labs from October 02 showed hemoglobin 13.5 iron 70 saturation 14 ferritin 14.1 Assessment: Plan: There are no active problems to display for this patient. Bilateral lower lobe pulmonary embolism diagnosed June 17, 2024. Most likely unprovoked except patient had surgery for breast mass done on April 25, 2024. She is complaining of some right-sided chest wall discomfort without any shortness of breath. I will check CTA chest now. She will continue Eliquis. Phone visit in 1 week. Will perform hypercoagulable workup if there is no further blood clot prior to the surgery for ventral hernia on October 17. Iron deficiency anemia. Hemoglobin is stable. Continue iron twice a day. Thrombocytosis. Resolved. Autoimmune leukopenia. Stable. Follow-up in 3 months. 10/03/2024 Ryan Cheney MD documented in this encounter Plan of Treatment Upcoming Encounters Date Type Department Care Team (Late st Contact Info) Description 10/08/2024 4:00 PM CDT Telephone Check Up [facility] Oncology and Hematology [address] [place] [address] [address] [place] [address] Ryan Cheney MD [address] [facility] [address] [address] [place] [address] 01/04/2025 10:30 AM CDT Office Visit [facility] Oncology and Hematology [facility] [address] [place] [address] Ryan Cheney MD [address] [facility] [address] [place] [address] Scheduled Orders Name Type Priority Associated Diagnoses Orde r Schedule CTA CHEST W WO CONTRAST Imaging Stat Other acute pulmonary embolism without acute cor pulmonale (CMS/HCC) Expected: 10/03/2024, Expires: 10/03/2025 documented as of this encounter Visit Diagnoses Diagnosis Other acute pulmonary embolism without acute cor pulmonale (CMS/HCC)- Primary documented in this encounter Care Teams Assembly Detailer Relationship Specialty Start Date End Date Kwan Macias MD [address] [place] [address] [address] [place] [address] PCP - General Family Practice 05/11/24 documented as of this encounter
--- OUTSIDE RECORDS SUMMARY | 2024-10-03 16:14 | XMS_ITS | CONTINUITY OF CARE DOCUMENT ---
Author Name haley de leon Address Unknown Organization [facility] Address [address] [place] [address] Phone [phone] Care Team Providers Care Linoleum Installer Name Role Phone Angel Newby MD Unavailable CARLY TAMEZ MD Unavailable [phone] CARLY TAMEZ MD Unavailable [phone] PROBLEMS Condition Status Date Provider Notes Cardiology examination active Nolan Ahmedzai Chest pain active Nolan Ahmedzai Shortness of breath active Nolan Ahmedzai Palpitations active Nolan Ahmedzai Elevated blood pressure active Nolan Ahmedza i Lupus active Nolan Ahmedzai ENCOUNTERS Date Type Provider Location Encounter Diag nosis - In-person encounter Office Visit Angel Newby MD [place] [facility] Cardiology examinationChest painShortness of breathLupusElevated blood [...] 325 mg (65 mg iron) tablet active hSandra Schafer albuterol sulfate 90 mcg/actuation HFA aerosol inhaler active Shandra Schafer ibuprofen 800 mg tablet active Shandra Schafer ondansetron 4 mg tablet,disintegratin g active Shandra Schafer ergocalciferol (vitamin D2) 1,250 mcg (50,000 unit) capsule active Shandra Schafer INSURANCE PROVIDERS Payer name Policy type / Coverage type [place] red green party [place] MEDICAID (2) Medicaid [id number] ADVANCE DIRECTIVES Name Date DISCUSSED - NO DECISION MADE TREATMENT PLAN Date Name Performer Electrophysiology: O rders: 9 9204 MOD 45-59 min (CPT-36029) Nolan Faustinzaquirino Electrophysiology:Mo nitor your BP at home, goal BP is <135/85 O rders: 9 9204 MOD 45-59 min (CPT-56754) Nolan Ahmedzai Electrophysiology: O rders: C omplete Echo (91341) 9 9204 MOD 45-59 min (CPT-88395) Nolan Ahmedzai Electrophysiology: O rders: C omplete Echo (66069) 9 9204 MOD 45-59 min (CPT-56451) Nolan Faustinzai Date Name Monitor - Telemetry (Mobile Cardiac) Complete Echo HISTORY OF PROCEDURES Procedure Date Procedure Name Provider Procedure Notes S tatus EKG Angel Newby MD comp leted
--- OUTSIDE RECORDS SUMMARY | 2024-10-03 16:14 | XMS_ITS | Clinical Summary ---
Author Organization [facility] Address [address] [place] [address] Care Team Providers Care Learning Disabled Teacher Name Role Phone Kwan Macias MD Primary Care Provider [phone] Allergies No known active allergies Medications ferrous [...] Encounters Date Type Department Care Team Description 10/03/2024 11:15 AM CDT Office Visit [facility] [address] [place] [address] Ryan Cheney MD Other acute pulmonary embolism without acute cor pulmonale (CMS/HCC) (Primary Dx) 09/26/2024 External Device Data STL ABSTRACTION Provider, Abstract 09/20/2024 Abstract [facility] [address] [place] [address] Ryan Cheney MD 09/20/2024 Telephone [facility] [address] [place] [address] Ryan Cheney MD Surgical Clearance 09/18/2024 External Device Data STL ABSTRACTION Provider, Abstract 09/18/2024 External Device Data STL ABSTRACTION Provider, Abstract 09/15/2024 External Device Data STL ABSTRACTION Provider, Abstract 09/14/2024 External Device Data STL ABSTRACTION Provider, Abstract 09/11/2024 External Device Data STL ABSTRACTION Provider, Abstract 08/28/2024 External Device Data STL ABSTRACTION Provider, Abstract 08/21/2024 External Device Data STL ABSTRACTION Provider, Abstract 08/09/2024 Refill [facility] H[facility] [address] [place] [address] Ryan Cheney MD 08/02/2024 External Device Data STL ABSTRACTION Provider, Abstract 08/01/2024 External Device Data STL ABSTRACTION Provider, Abstract 07/31/2024 1:00 PM GRAPHIC USER INTERFACE DESIGNER Office Visit [facility] [address] [place] [address] Ryan Cheney MD Iron deficiency anemia, unspecified iron deficiency anemia type (Primary Dx) 07/31/2024 External Device Data STL ABSTRACTION Provider, Abstract 07/24/2024 External Device Data STL ABSTRACTION Provider, Abstract 07/20/2024 Telephone [facility] [address] [place] [address] Ryan Cheney MD Surgical Clearance Request 07/20/2024 Abstract [facility] [address] [place] [address] Ryan Cheney MD from Last 3 Months [...] 3.2 oz) 10/03/2024 10:35 AM CDT Height 157.5 cm (5' 2 ) 01/23/2024 10:23 AM CDT Body Mass Index 34.97 01/23/2024 10:23 AM CDT Plan of Treatment Upcoming Encounters Date Type Department Care Team (Late st Contact Info) Description 10/08/2024 4:00 PM CDT Telephone Check Up [facility] - [address] [place] [address] Ryan Cheney MD [facility] [address] [place] [phone] 01/04/2025 10:30 AM CDT Office Visit [facility] - [address] [place] [address] Ryan Cheney MD [address] [place] [phone] Health Maintenance Due Date Last Done Comments [...] VACCINE (#1) 2024 BREAST CANCER SCREENING 03/28/2025 03/28/20 24, 03/28/2024 DTAP/TDAP/TD VACCINES (2 - T d or Tdap) 03/31/2031 03/31/2021 HPV VACCINES Aged Out No longer eligi ble based on patient's age to complete this topic Insurance Care Teams Learning Disabled Teacher Relationship Specialty Start Date End Date Kwan Macias MD [address] [place] [phone] PCP - General Family Practice 05/11/24
--- OUTSIDE RECORDS SUMMARY | 2024-10-03 16:14 | XMS_ITS | Clinical Summary ---
Author Organization [facility] Address [address] [place] [address] Care Team Providers Care Geography Faculty Member Name Role Phone Kwan Macias MD Primary Care Provider [phone] Jg Hummel DO Unavailable Source Comments [facility],non-owned Affiliates and Associated Physician Practices is amultiple site organization consisting of ambulatory clinics and hospital sitesin [place], [place], [place] and [place]. This disclosure is being madepursuant to the Care Everywhere program and may not contain all information available regarding this patient. Last updated 18.[facility] Allergies Active Allergy Reactions Criticality Noted Date [...] Active vitamin D, ergocalciferol, (Drisdol) 1.25 MG (38425 UT) capsule TAKE 1 CAPSULE BY MOUTH [...] Type Department Care Team Description 09/20/2024 Refill [facility] - Rheumatology [address] [facility], [address] [place] [address] Jg Hummel, DO MEDICATION REFILL 09/07/2024 10:30 AM LEAD MANUFACTURING ENGINEER Office Visit [facility] - ENT [address] [address], [place] [phone] Steve Van APRN-YAZAN Multiple thyroid nodules (Primary [...] Comments Blood Pressure 121/79 09/07/2024 10:20 AM LEAD MANUFACTURING ENGINEER Pulse 81 09/07/2024 10:20 AM LEAD MANUFACTURING ENGINEER Temperature 36.7 C (98 F) 04/05/2024 10:18 AM CDT Respiratory Rate 16 04/05/2024 10:18 AM CDT Oxygen Saturation 98% 04/05/2024 10:18 AM CDT Inhaled Oxygen Concentration - - Weight 87 kg (191 lb 12.8 oz) 09/07/2024 10:20 A M LEAD MANUFACTURING ENGINEER Height 157.5 cm (5' 2 ) 09/07/2024 10:20 AM LEAD MANUFACTURING ENGINEER Body Mass Index 35.08 09/07/2024 10:20 AM LEAD MANUFACTURING ENGINEER Plan of Treatment Upcoming Encounters Date Type Department Care Team (Late st Contact Info) Description 10/09/2024 10:20 AM CDT Office Visit [facility] - Rheumatology [address] [address], [address] [place] [address] Jg Hummel DO [address] [place] [address] 07/25/2025 10:15 AM LEAD MANUFACTURING ENGINEER Appointment [facility] [address] [place] [phone] Steve Van, CHEMICAL PROCESSING LABORER-[facility] [address] [place] [address] Health Maintenance Due Date Last Done Comments [...] Associated Diagnosis Comments MAMMO BILAT DIAGNOSTIC W BAUTSITA STAT 03/28/2024 7:23 AM CDT Mass of right breast, unspecified quadrant Unspecified lump in the left breast, overlapping quadrants from Last 3 Months or Most Recently Relevant to Health Maintenance Results * Mammo Bilat Diagnostic W Bautista (03/28/2024 7:23 AM CDT) Anatomical Region Laterality Modality Breast Bilateral Mammography 03/28/2024 7:18 AM CDT Addenda Addendum by Monet Connors MD on 05/25/2024 3:01 PM LEAD MANUFACTURING ENGINEER Addendum by Monet Connors M.D. This addendum [...] This was discussed with Dr. Jeffrey via [employer] message. EXAMINATIONS: 1. RIGHT DIGITAL DIAGNOSTIC MAMMOGRAM AND TOMOSYNTHESIS AND 2. COMPLETE BILATERAL BREAST ULTRASOUND (COMBINED REPORT) LOCATION: [facility] EXAM DATE: 03/28/2024 HISTORY: This is a 43-year-old female patient with painful right breast mass/lump for which she went to the ER at [facility] at the beginning of March. An [...] than 20%, consultation in the [facility] Breast Surgery High Risk Clinic is recommended. Should she wish to schedule an appointment, the phone number [phone]. The [employer] recommends annual screening [...] recommended. COMPARISON: Limited right breast ultrasound 03/11/2024 [facility]. Screening mammography 08/16/2023 from [facility] MAMMOGRAM: TECHNIQUE: Diagnostic bilateral mammography was performed. [...] in size compared to prior exam from [facility]. No suspicious finding was found in [...] of greater than 20%, consultation in the [facility] is recommended. 3. [...] of greater than 20%, consultation in the [facility] is recommended. 3. [...] COMPLETE BILATERAL BREAST ULTRASOUND (COMBINED REPORT) LOCATION: [facility] EXAM DATE: 03/28/2024 HISTORY: This is a 43-year-old female patient with painful right breast mass/lump for which she went to the ER at [facility] at the beginning of March. An [...] than 20%, consultation in the [facility] Breast Surgery High Risk Clinic is recommended. Should she wish to schedule an appointment, the phone number [phone]. The [employer] recommends annual screening [...] recommended. COMPARISON: Limited right breast ultrasound 03/11/2024 [facility]. Screening mammography 08/16/2023 from [facility] MAMMOGRAM: TECHNIQUE: Diagnostic bilateral mammography was performed. [...] in size compared to prior exam from [facility]. No suspicious finding was found in [...] COMPLETE BILATERAL BREAST ULTRASOUND (COMBINED REPORT) LOCATION: [facility] EXAM DATE: 03/28/2024 HISTORY: This is a 43-year-old female patient with painful right breast mass/lump for which she went to the ER at [facility] at the beginning of March. An [...] than 20%, consultation in the [facility] Breast Surgery High Risk Clinic is recommended. Should she wish to schedule an appointment, the phone [phone]. The [employer] recommends annual screening [...] recommended. COMPARISON: Limited right breast ultrasound 03/11/2024 [facility]. Screening mammography 08/16/2023 from [facility] MAMMOGRAM: TECHNIQUE: Diagnostic bilateral mammography was performed. [...] in size compared to prior exam from [facility]. No suspicious finding was found inthe [...] cancer ofgreater than 20%, consultation in the [facility] is recommended. 3. [...] CATEGORY 2: BENIGN. Report dictated by [facility], [facility] (breast imaging fellow). IMonet MD have personally reviewed and interpreted this examination/study. > Interpreting Provider: Monet Connors MD on 03/28/2024 10:21 AM Yumiko Henderson MD MAMMO ORDERABLES from Last 3 Months or Most Recently Relevant to Health Maintenance Care Teams Geography Faculty Member Relationship Specialty Start Date End Date Kwan Macias MD [address] [facility] [address] [place] [address] PCP - General Family Medicine 01/09/24 Jg Hummel DO [address] [facility] [address] [place] [phone] Conference Services Coordinator Rheumatology 02/27/24
--- OUTSIDE RECORDS SUMMARY | 2024-10-03 16:14 | XMS_ITS | Clinical Summary ---
Author Organization [facility] Address [address] [place] [address] Care Team Providers Care Corn Husk Baler Name Role Phone Sunny Garza MD Primary Care Provider [phone] Allergies No known active allergies Medications vitamin, [...] patient's age to complete this topic Insurance [place] Care Teams Corn Husk Baler Relationship Specialty Start Date End Date Sunny Garza MD [address] [place] [address] PCP - General 03/27/16
--- OUTSIDE RECORDS SUMMARY | 2024-10-03 16:14 | XMS_ITS | Clinical Summary ---
Author Organization [facility] Address [address] [place] [address] Phone Care Team Providers Care Oil Changer Name Role Phone Kwan Macias MD Primary Care Provider [phone] Allergies No known active allergies Medications Medication [...] Comments Blood Pressure 132/90 08/21/2024 1:10 PM TOOL AND DIE TECHNICIAN Pulse 70 08/21/2024 1:10 PM TOOL AND DIE TECHNICIAN Temperature - - Respiratory Rate - - Oxygen Saturation - - Inhaled Oxygen Concentration - - Weight 83.5 kg (184 lb) 08/21/2024 1:10 PM TOOL AND DIE TECHNICIAN Height 160 cm (5' 3 ) 08/21/2024 1:10 PM TOOL AND DIE TECHNICIAN Body Mass Index 32.59 08/21/2024 1:10 PM TOOL AND DIE TECHNICIAN Plan of Treatment Upcoming Encounters Date Type Department Care Team (Late st Contact Info) Description 02/19/2025 2:00 PM CDT Office Visit [facility] [address] [facility], [address] [place] [address] Omid Rowe MD [address] [facility] [address] [place] [address] Health Maintenance Due Date Last Done Comments Pneumococcal PPSV23 Highest Risk Adult (1 of 3 - PCV13 ) 1997 Influenza Vaccine (#1) 2024 Care Teams Oil Changer Relationship Specialty Start Date End Date Kwan Macias MD PCP - General 06/19/24
--- OUTSIDE RECORDS SUMMARY | 2024-10-03 16:14 | XMS_ITS | Referral Summary ---
Author Organization [facility] Address [address] [place] [address] Care Team Providers Care Leather Patcher Name Role Phone Shannon Cruz MD Unavailable [phone] Kwan Macias MD Primary Care Provider [phone] Encounters Date Type Department Care Team Description 07/25/2024 1:00 PM CHASSIS ENGINEER Procedure visit [facility] Neurology [address] [facility] [address] [place] [address] Brian Boo Si, MD Paresthesia [...] 1 each 06/26/20 24 Active PNV with [id number] ( Plus, calcium carb,) 27 mg iron- [...] of Binge Drinking Not on file 06/10 [place] Depression Scale Answer Date Recorded [place] Depression Scale Total 7 03/31/2021 The thought of harming myself has occurred to me . Never 03/31/2021 Comments Unknown Sex and Gender Information Value Date Recorded Sex Assigned at Not on file Legal Sex Female 6:23 PM CHASSIS ENGINEER Gender Identity Not on file Sexual Orientation Not on file Last Filed Vital Signs Vital Sign Reading Time Taken Comments Blood Pressure 102/60 06/26/2024 1:08 PM CHASSIS ENGINEER Pulse 70 06/26/2024 1:08 PM CHASSIS ENGINEER Temperature 36.4 C (97.6 F) 06/26/2024 1:08 PM CHASSIS ENGINEER Respiratory Rate 12 06/26/2024 1:08 PM CHASSIS ENGINEER Oxygen Saturation 99% 06/26/2024 1:08 PM CHASSIS ENGINEER Inhaled Oxygen Concentration - - Weight 79.8 kg (176 lb) 07/25/2024 1:11 PM CHASSIS ENGINEER Height 157.5 cm (5' 2 ) 07/25/2024 1:11 PM CHASSIS ENGINEER Body Mass Index 32.19 07/25/2024 1:11 PM CHASSIS ENGINEER Plan of Treatment Not on file Procedures Procedure Name Priority Date/Time Associated Diagnosis Comments EMG/NCV Routine 07/25/2024 1:28 PM CHASSIS ENGINEER Paresthesia from Last 3 Months Results * EMG/NCV (07/25/2024 1:28 PM CHASSIS ENGINEER) Anatomical Region Laterality Modality Other Narrative 07/25/2024 1:28 PM CHASSIS ENGINEER Brian Boo Si, MD 07/27/2024 8:14 AM EMG/NCV - Date/Time: 07/25/2024 1:28 PM Performed by: Brian Boo Si, MD Authorized by: Brian Boo Si, MD Local anesthesia used: no Anesthesia: Local anesthesia used: no Sedation: Patient sedated: no Comments: See attached procedure documentation. Brian Boo MD NEUROLOGY ORDERABLES Final Resul t from Last 3 Months Insurance [facility] [address] Advance Directives For more information, please contact: [phone] * Full Code (Latest Code Status on File) Date Activated Date Inactivated Comments 03/30/2021 6:35 PM 04/01/2021 5:12 PM Care Teams Leather Patcher Relationship Specialty Start Date End Date Kwan Macias MD [address] [place] [address] PCP - General Emergency Medicine 01/23/24 Shannon Cruz MD [address] [place] [address] Consulting Physician Obstetrics and Gynecology 04/01/21
--- OUTSIDE RECORDS SUMMARY | 2024-10-03 16:14 | XMS_ITS | Clinical Summary ---
Author Organization [facility] Address [address] [place] [address] Care Team Providers Care Cloud Systems Architect Name Role Phone Shannon Cruz MD Unavailable [phone] Kwan Macias MD Primary Care Provider [phone] Allergies Active Allergy Reactions Criticality Noted Date [...] each 11 06/26/20 24 Active PNV with [id number] ( Plus, calcium carb,) 27 mg iron- [...] Department Care Team Description 07/25/2024 1:00 PM MERCHANDISING LEAD Procedure visit [facility] Neurology [address] [place] [address] [place] [address] Biran Boo Si, MD Paresthesia from Last 3 [...] of Binge Drinking Not on file 06/10 [place] Depression Scale Answer Date Recorded [place] Depression Scale Total 7 03/31/2021 The thought of harming myself has occurred to me . Never 03/31/2021 Comments Unknown Sex and Gender Information Value Date Recorded Sex Assigned at Not on file Legal Sex Female 6:23 PM MERCHANDISING LEAD Gender Identity Not on file Sexual Orientation [...] Cruz , Jami Qiu MD Complications:None Delivery Location:[facility] Main C ampus ([facility] L AND D PROCEDURE) Last Filed Vital Signs Vital Sign Reading Time Taken Comments Blood Pressure 102/60 06/26/2024 1:08 PM MERCHANDISING LEAD Pulse 70 06/26/2024 1:08 PM MERCHANDISING LEAD Temperature 36.4 C (97.6 F) 06/26/2024 1:08 PM MERCHANDISING LEAD Respiratory Rate 12 06/26/2024 1:08 PM MERCHANDISING LEAD Oxygen Saturation 99% 06/26/2024 1:08 PM MERCHANDISING LEAD Inhaled Oxygen Concentration - - Weight 79.8 kg (176 lb) 07/25/2024 1:11 PM MERCHANDISING LEAD Height 157.5 cm (5' 2 ) 07/25/2024 1:11 PM MERCHANDISING LEAD Body Mass Index 32.19 07/25/2024 1:11 PM MERCHANDISING LEAD Plan of Treatment Health Maintenance Due Date [...] Diagnosis Comments EMG/NCV Routine 07/25/2024 1:28 PM MERCHANDISING LEAD Paresthesia from Last 3 Months Results * EMG/NCV (07/25/2024 1:28 PM MERCHANDISING LEAD) Anatomical Region Laterality Modality Other Narrative 07/25/2024 1:28 PM MERCHANDISING LEAD Brian Boo Si, MD 07/27/2024 8:14 AM EMG/NCV - Date/Time: 07/25/2024 1:28 PM Performed by: Brian Boo Si, MD Authorized by: Brian Boo Si, MD Local anesthesia used: no Anesthesia: Local anesthesia used: no Sedation: Patient sedated: no Comments: See attached procedure documentation. us Brian Boo MD NEUROLOGY ORDERABLES Final Resul t from Last 3 Months Insurance [facility] [address] Advance Directives For more information, please contact: [phone] * Full Code (Latest Code Status on File) Date Activated Date Inactivated Comments 03/30/2021 6:35 PM 04/01/2021 5:12 PM Care Teams Cloud Systems Architect Relationship Specialty Start Date End Date Kwan Macias MD [address] [place] [address] PCP - General Emergency Medicine 01/23/24 Shannon Cruz MD [address] [place] [address] Consulting Physician Obstetrics and Gynecology 04/01/21
== END 2024-10-03 14:48 | disposition home or self-care (01) ==
LOC: ANHIMG 14:52
PROVIDERS: PCP Emergency Medicine; Visit Provider Internal Medicine Hematology & Oncology
DX: I26.99 Other pulmonary embolism without acute cor pulmonale (principal); R93.2 Abnormal findings on diagnostic imaging of liver and biliary tract; E04.1 Nontoxic single thyroid nodule
CPT/HCPCS: 71275; Q9967

== ENCOUNTER 2024-10-15 08:53 | Outpatient (CLI) | payer OTHER, SELFPAY ==
--- OUTSIDE RECORDS SUMMARY | 2024-10-15 09:32 | XMS_ITS | CONTINUITY OF CARE DOCUMENT ---
Author Name haley de leon Address Unknown Organization [facility] Address [address] [place] [address] Phone [phone] Care Team Providers Care Retail Specialist Name Role Phone Angel Newby MD Unavailable [phone] CARLY TAMEZ MD Unavailable [phone] CARLY TAMEZ MD Unavailable [phone] PROBLEMS Condition Status Date Provider Notes Cardiology examination active Nolan Ahmedzai Chest pain active Nolan Ahmedzai Shortness of breath active Nolan Ahmedzai Palpitations active Nolan Ahmedzai Elevated blood pressure active Nolan Ahmedza i Lupus active Nolan Ahmedzai ENCOUNTERS Date Type Provider Location Encounter Diag nosis - In-person encounter Office Visit Angel Newby MD [place] [facility] Cardiology examinationChest painShortness of breathLupusElevated blood [...] Payer name Policy type / Coverage type [employer] party ID [employer] MEDICAID (2) Medicaid [id number] ADVANCE DIRECTIVES Name Date DISCUSSED - NO DECISION MADE TREATMENT PLAN Date Name Performer Electrophysiology: O rders: 9 9204 MOD 45-59 min (CPT-[id number]) Nolan Faustinzaquirino Electrophysiology:Mo nitor your BP at home, goal BP is <135/85 O rders: 9 9204 MOD 45-59 min (CPT-[id number]) Nolan Ahmedzai Electrophysiology: O rders: C omplete Echo (92477) 9 9204 MOD 45-59 min (CPT-[id number]) Nolan Ahmedzai Electrophysiology: O rders: C omplete Echo (59613) 9 9204 MOD 45-59 min (CPT-[id number]) Nolan Faustinzai Date Name Monitor - Telemetry (Mobile Cardiac) Complete Echo HISTORY OF PROCEDURES Procedure Date Procedure Name Provider Procedure Notes S tatus EKG Angel Newby MD comp leted
--- OUTSIDE RECORDS SUMMARY | 2024-10-15 09:32 | XMS_ITS | Clinical Summary ---
Author Organization [facility] Address [address] [place] [address] Phone Care Team Providers Care Audio Visual Secretary Name Role Phone Kwan Macias MD Primary Care Provider [phone] Allergies No known active allergies Medications Medication [...] Comments Blood Pressure 132/90 08/21/2024 1:10 PM OPTICAL MECHANIC Pulse 70 08/21/2024 1:10 PM OPTICAL MECHANIC Temperature - - Respiratory Rate - - Oxygen Saturation - - Inhaled Oxygen Concentration - - Weight 83.5 kg (184 lb) 08/21/2024 1:10 PM OPTICAL MECHANIC Height 160 cm (5' 3 ) 08/21/2024 1:10 PM OPTICAL MECHANIC Body Mass Index 32.59 08/21/2024 1:10 PM OPTICAL MECHANIC Plan of Treatment Upcoming Encounters Date Type Department Care Team (Late st Contact Info) Description 02/19/2025 2:00 PM CDT Office Visit [facility] [address] [place] [address] Omid Rowe MD [address] [place] [address] Health Maintenance Due Date Last Done Comments Pneumococcal PPSV23 Highest Risk Adult (1 of 3 - PCV13 ) 1997 Influenza Vaccine (Season Ended) 2025 Care Teams Audio Visual Secretary Relationship Specialty Start Date End Date Kwan Macias MD PCP - General 06/19/24
--- OUTSIDE RECORDS SUMMARY | 2024-10-15 09:32 | XMS_ITS | Clinical Summary ---
Author Organization [facility] Address [address] [place] [address] Care Team Providers Care Director Of Rotc Name Role Phone Sunny Garza MD Primary Care Provider [phone] Allergies No known active allergies Medications vitamin, [...] Vaccine (1 - 2023-2 5 season) 2024 RSV Immunization or 60+ Years (1 [...] to complete this topic Insurance Care Teams Director Of Rotc Relationship Specialty Start Date End Date Sunny Garza MD [address] [place] [id number] PCP - General 03/27/16
--- OUTSIDE RECORDS SUMMARY | 2024-10-15 09:32 | XMS_ITS | Clinical Summary ---
Author Organization [facility] Address [address] [place] [address] Care Team Providers Care Waist Cutter Name Role Phone Shannon Cruz MD Unavailable [phone] Kwan Macias MD Primary Care Provider [phone] Allergies Active Allergy Reactions Criticality Noted Date [...] each 11 06/26/20 24 Active PNV with [id number] ( Plus, calcium carb,) 27 mg iron- [...] Department Care Team Description 07/25/2024 1:00 PM LINE FISHER Procedure visit [facility] Neurology [address] [place] [address] [place] [phone] Brian Boo Si, MD Paresthesia from [...] of Binge Drinking Not on file 06/10 [place] Depression Scale Answer Date Recorded [place] Depression Scale Total 7 03/31/2021 The thought of harming myself has occurred to me . Never 03/31/2021 Comments Unknown Sex and Gender Information Value Date Recorded Sex Assigned at Not on file Legal Sex Female 6:23 PM LINE FISHER Gender Identity Not on file Sexual Orientation [...] Cruz , Jami Qiu MD Complications:None Delivery Location:[facility] Main C ampus ([facility] L AND D PROCEDURE) Last Filed Vital Signs Vital Sign Reading Time Taken Comments Blood Pressure 102/60 06/26/2024 1:08 PM LINE FISHER Pulse 70 06/26/2024 1:08 PM LINE FISHER Temperature 36.4 C (97.6 F) 06/26/2024 1:08 PM LINE FISHER Respiratory Rate 12 06/26/2024 1:08 PM LINE FISHER Oxygen Saturation 99% 06/26/2024 1:08 PM LINE FISHER Inhaled Oxygen Concentration - - Weight 79.8 kg (176 lb) 07/25/2024 1:11 PM LINE FISHER Height 157.5 cm (5' 2 ) 07/25/2024 1:11 PM LINE FISHER Body Mass Index 32.19 07/25/2024 1:11 PM LINE FISHER Plan of Treatment Health Maintenance Due Date Last Done Comments Cervical Cancer Screening 1978 Colon Cancer Screening-Colonoscopy 1978 Hepatitis C Screening 1978 Hepatitis B Screening 1996 Regular Well Visit/Exam 18-64 1996 Pneumococcal vaccine <65 (1 of 2 - PCV) 1997 Depression Screening 03/31/2022 03/31/2021 Influenza Vaccine (Season Ended) 2025 Breast Cancer Screening-Mammogram 03/28/2025 03/28/2024, 03/28/2024 DTaP/Tdap/Td Vaccine (3 - Td or Tdap) 03/31/2031 03/31/2021, 07/24/2014 HPV Vaccines Aged Out No longer eligi ble based on patient's age to complete this topic Procedures Procedure Name Priority Date/Time Associated Diagnosis Comments EMG/NCV Routine 07/25/2024 1:28 PM LINE FISHER Paresthesia from Last 3 Months Results * EMG/NCV (07/25/2024 1:28 PM LINE FISHER) Anatomical Region Laterality Modality Other Narrative 07/25/2024 1:28 PM LINE FISHER Brian Boo Si, MD 07/27/2024 8:14 AM EMG/NCV - Date/Time: 07/25/2024 1:28 PM Performed by: Brian Boo Si, MD Authorized by: Brian Boo Si, MD Local anesthesia used: no Anesthesia: Local anesthesia used: no Sedation: Patient sedated: no Comments: See attached procedure documentation. us Brian Boo MD NEUROLOGY ORDERABLES Final Resul t from Last 3 Months Insurance [facility] [address] Advance Directives For more information, please contact: [phone] * Full Code (Latest Code Status on File) Date Activated Date Inactivated Comments 03/30/2021 6:35 PM 04/01/2021 5:12 PM Care Teams Waist Cutter Relationship Specialty Start Date End Date Kwan Macias MD [address] [place] [address] PCP - General Emergency Medicine 01/23/24 Shannon Cruz MD [address] [place] [address] Consulting Physician Obstetrics and Gynecology 04/01/21
--- OUTSIDE RECORDS SUMMARY | 2024-10-15 09:32 | XMS_ITS | Clinical Summary ---
Author Organization [facility] Address [address] [place] [address] Care Team Providers Care Rejoiner Name Role Phone Kwan Macias MD Primary Care Provider [phone] Jg Hummel DO Unavailable Source Comments [facility],non-owned Affiliates and Associated Physician Practices is amultiple site organization consisting of ambulatory clinics and hospital sitesin [place], [place], [place] and [place]. This disclosure is being madepursuant to the Care Everywhere program and may not contain all information available regarding this patient. Last updated 18.[facility] Allergies Active Allergy Reactions Criticality Noted Date Comments Duloxetine Other 02/13/2024 Excessive sedation on 30 mg bedtime dose Medications * Be aware that medications may not be up to date on this document. Alwaysverify current medications with the patient. Medication Sig Dispensed Refills Start Date End Date Status albuterol HFA (Proventil; Ventolin; Proair) 108 (90 Base) MCG/ACT inhaler 12/30/2023 Active ferrous sulfate 325 (65 FE) MG tablet Take 1 (one) tablet by mouth once daily 12/26/2023 Active Eliquis 5 MG tablet Take 1 (one) tablet by mouth 2 times daily Active ibuprofen (Motrin) 800 MG tabletIndications :Primary fibromyalgia syndrome Take 1 (one) tablet by mouth 3 times daily as needed with food for Pain 90 tablet 09/20/2024 Active gabapentin (Neurontin) 100 MG capsuleIndication s:Fibromyalgia Syndrome,Restless Leg Syndrome Take 2 (two) capsules by mouth every morning AND 2 (two) capsules every afternoon AND 3 (three) capsules at bedtime. Reasons: Fibromyalgia Syndrome, Restless Leg Syndrome. 10/09/2024 Active vitamin D, ergocalciferol, (Drisdol) 1.25 MG (16446 UT) capsule TAKE 1 CAPSULE BY MOUTH ONE TIME PER WEEK 12/23/2023 5 Discontinu ed(List Clean-Up) gabapentin (Neurontin) 100 MG capsuleIndication s:Fibromyalgia Syndrome,Restless Leg Syndrome Take 2 (two) capsules by mouth every morning AND 2 (two) capsules every afternoon AND 3 (three) capsules at bedtime. Reasons: Fibromyalgia Syndrome, Restless Leg Syndrome. 210 capsule 11 04/05/2024 5 Discontinu ed(Reorder ) ibuprofen (Motrin) 800 MG tabletIndications :Primary fibromyalgia syndrome Take 1 (one) tablet by mouth 3 times daily as needed with food for Pain 90 tablet 1 07/02/2024 5 Discontinu ed(Reorder ) Active Problems Problem Noted [...] Encounters Date Type Department Care Team Description 10/09/2024 10:20 AM CDT Office Visit [facility] - Rheumatology [address] [place] [phone] Jg Hummel DO Primary fibromyalgia syndrome (Primary Dx); Restless legs syndrome; Acute pain of right knee 09/20/2024 Refill [facility] - Rheumatology [address] [place] [phone] Jg Hummel DO MEDICATION REFILL 09/07/2024 10:30 AM TOY MAKER Office Visit [facility] - ENT [address] [place] [phone] Steve Van, CONCHE OPERATOR-POULTRY INSEMINATOR Multiple thyroid nodules (Primary Dx) 09/07/2024 Travel [...] = 0.6 oz pur e alcohol) occ PHQ-2 Answer Date Recorded Patient Health Questionnaire-2 Score 0 10/09/2024 Sex and Gender Information Value Date Recorded Sex Assigned at Not on file Gender Identity Not on file Sexual Orientation Not on file Last Filed Vital Signs Vital Sign Reading Time Taken Comments Blood Pressure 110/54 10/09/2024 9:54 AM CDT Pulse 79 10/09/2024 9:54 AM CDT Temperature 36.1 C (97 F) 10/09/2024 9:54 AM CDT Respiratory Rate 16 10/09/2024 9:54 AM CDT Oxygen Saturation 100% 10/09/2024 9:54 AM CDT Inhaled Oxygen Concentration - - Weight 87.5 kg (193 lb) 10/09/2024 9:54 AM CDT Height 157.5 cm (5' 2 ) 09/07/2024 10:20 AM TOY MAKER Body Mass Index 35.3 09/07/2024 10:20 AM TOY MAKER Plan of Treatment Upcoming Encounters Date Type Department Care Team (Late st Contact Info) Description 04/10/2025 10:20 AM CDT Office Visit [facility] - Rheumatology [address] [place] [address] Jg Hummel DO [address] [place] [address] 07/25/2025 10:15 AM TOY MAKER Appointment [facility] [address] [place] [phone] Steve Van, CONCHE OPERATOR-POULTRY INSEMINATOR [address] [facility] [place] [address] Health Maintenance Due Date Last Done Comments [...] - 2023-2 5 season) 2024 INFLUENZA VACCINE (Season Ended) 2025 MAMMOGRAM 03/28/2026 03/28/2024 ZOSTER VACCINE (1 of 2) 2028 DTAP/TDAP/TD VACCINES (2 - T d or Tdap) 03/31/2031 03/31/2021 DEPRESSION SCREENING Completed 10/09/2024 HIB VACCINE Aged Out No longer eligi [...] Monet Connors MD on 05/25/2024 3:01 PM TOY MAKER Addendum by Monet Connors M.D. This addendum [...] This was discussed with Dr. Jeffrey via [employer] message. EXAMINATIONS: 1. RIGHT DIGITAL DIAGNOSTIC MAMMOGRAM AND TOMOSYNTHESIS AND 2. COMPLETE BILATERAL BREAST ULTRASOUND (COMBINED REPORT) LOCATION: [facility] EXAM DATE: 03/28/2024 HISTORY: This is a 43-year-old female patient with painful right breast mass/lump for which she went to the ER at [facility] at the beginning of March. An ultrasound [...] cancer greater than 20%, consultation in the [facility] Breast Surgery High Risk Clinic is recommended. Should she wish to schedule an appointment, the phone number [phone]. The [place] [employer] recommends annual screening breast MRI [...] recommended. COMPARISON: Limited right breast ultrasound 03/11/2024 [facility]. Screening mammography 08/16/2023 from [facility] MAMMOGRAM: TECHNIQUE: Diagnostic bilateral mammography was [...] in size compared to prior exam from [facility]. No suspicious finding was found in the [...] of greater than 20%, consultation in the [facility] High Risk Clinic is recommended. 3. Annual screening breast MRI is recommended, given the elevated lifetime risk of developing breast cancer greater than 20%, according to the [place] [employer] guidelines. This can be alternated [...] of greater than 20%, consultation in the [facility] High Risk Clinic is recommended. 3. Annual screening breast MRI is recommended, given the elevated lifetime risk of developing breast cancer greater than 20%, according to the [place] [employer] guidelines. This can be alternated [...] COMPLETE BILATERAL BREAST ULTRASOUND (COMBINED REPORT) LOCATION: [facility] EXAM DATE: 03/28/2024 HISTORY: This is a 43-year-old female patient with painful right breast mass/lump for which she went to the ER at [facility] at the beginning of March. An ultrasound [...] cancer greater than 20%, consultation in the [facility] Breast Surgery High Risk Clinic is recommended. Should she wish to schedule an appointment, the phone number [phone]. The [place] [employer] recommends annual screening breast MRI [...] recommended. COMPARISON: Limited right breast ultrasound 03/11/2024 [facility]. Screening mammography 08/16/2023 from [facility] MAMMOGRAM: TECHNIQUE: Diagnostic bilateral mammography was [...] in size compared to prior exam from [facility]. No suspicious finding was found in the [...] COMPLETE BILATERAL BREAST ULTRASOUND (COMBINED REPORT) LOCATION: [facility] EXAM DATE: 03/28/2024 HISTORY: This is a 43-year-old female patient with painful right breast mass/lump for which she went to the ER at [facility] at the beginning of March. An ultrasound [...] cancer greater than 20%, consultation in the [facility] Breast Surgery High Risk Clinic is recommended. Should she wish to schedule an appointment, the phone [phone]. The [place] [employer] Society recommends annual screening breast MRI in addition to mammograms for women who have a 20% or greater lifetime riskof developing breast cancer. This can be managed through the high riskbreast clinic. Risk assessment based upon the Tyrer-Cuzick v8 model. By the NCCN guidelines and family history of breast cancer, consideration of genetic testing is recommended. COMPARISON: Limited right breast ultrasound 03/11/2024 [facility]. Screening mammography 08/16/2023 from [facility] MAMMOGRAM: TECHNIQUE: Diagnostic bilateral mammography was [...] in size compared to prior exam from [facility]. No suspicious finding was found inthe right [...] cancer ofgreater than 20%, consultation in the [facility] High Risk Clinic is recommended. 3. Annual screening breast MRI is recommended, given the elevatedlifetime risk of developing breast cancer greater than 20%, according to the [place] [employer] guidelines. This can be alternated [...] CATEGORY 2: BENIGN. Report dictated by Roxie Brumfield, FRTANG (breast imaging fellow). I, Monet Connors MD have personally reviewed and interpreted this examination/study. > Interpreting Provider: Monet Connors MD on 03/28/2024 10:21 AM Yumiko Henderson MD MAMMO ORDERABLES from Last 3 Months or Most Recently Relevant to Health Maintenance Care Teams Rejoiner Relationship Specialty Start Date End Date Kwan Macias MD [address] [place] [address] PCP - General Family Medicine 01/09/24 Jg Hummel DO [address] [facility] [address] [place] [phone] Trains Service Conductor Rheumatology 02/27/24
--- OUTSIDE RECORDS SUMMARY | 2024-10-15 09:32 | XMS_ITS | Referral Summary ---
Author Organization [facility] Address [address] [place] [address] Care Team Providers Care Wood Room Hand Name Role Phone Shannon Cruz MD Unavailable [phone] Kwan Macias MD Primary Care Provider [phone] Encounters Date Type Department Care Team Description 07/25/2024 1:00 PM HAND SPINNER Procedure visit [facility] Neurology [address] [place] [address] Brian Boo Si, MD Paresthesia [...] 1 each 06/26/20 24 Active PNV with [id number] ( Plus, calcium carb,) 27 mg iron- [...] of Binge Drinking Not on file 06/10 [place] Depression Scale Answer Date Recorded [place] Depression Scale Total 7 03/31/2021 The thought of harming myself has occurred to me . Never 03/31/2021 Comments Unknown Sex and Gender Information Value Date Recorded Sex Assigned at Not on file Legal Sex Female 6:23 PM HAND SPINNER Gender Identity Not on file Sexual Orientation Not on file Last Filed Vital Signs Vital Sign Reading Time Taken Comments Blood Pressure 102/60 06/26/2024 1:08 PM HAND SPINNER Pulse 70 06/26/2024 1:08 PM HAND SPINNER Temperature 36.4 C (97.6 F) 06/26/2024 1:08 PM HAND SPINNER Respiratory Rate 12 06/26/2024 1:08 PM HAND SPINNER Oxygen Saturation 99% 06/26/2024 1:08 PM HAND SPINNER Inhaled Oxygen Concentration - - Weight 79.8 kg (176 lb) 07/25/2024 1:11 PM HAND SPINNER Height 157.5 cm (5' 2 ) 07/25/2024 1:11 PM HAND SPINNER Body Mass Index 32.19 07/25/2024 1:11 PM HAND SPINNER Plan of Treatment Not on file Procedures Procedure Name Priority Date/Time Associated Diagnosis Comments EMG/NCV Routine 07/25/2024 1:28 PM HAND SPINNER Paresthesia from Last 3 Months Results * EMG/NCV (07/25/2024 1:28 PM HAND SPINNER) Anatomical Region Laterality Modality Other Narrative 07/25/2024 1:28 PM HAND SPINNER Brian Boo Si, MD 07/27/2024 8:14 AM EMG/NCV - Date/Time: 07/25/2024 1:28 PM Performed by: Brian Boo Si, MD Authorized by: Brian Boo Si, MD Local anesthesia used: no Anesthesia: Local anesthesia used: no Sedation: Patient sedated: no Comments: See attached procedure documentation. Brian Boo MD NEUROLOGY ORDERABLES Final Resul t from Last 3 Months Insurance [facility] [address] Advance Directives For more information, please contact: [phone] * Full Code (Latest Code Status on File) Date Activated Date Inactivated Comments 03/30/2021 6:35 PM 04/01/2021 5:12 PM Care Teams Wood Room Hand Relationship Specialty Start Date End Date Kwan Macias MD [address] [place] [address] PCP - General Emergency Medicine 01/23/24 Shannon Cruz MD [address] [place] [address] Consulting Physician Obstetrics and Gynecology 04/01/21
--- OUTSIDE RECORDS SUMMARY | 2024-10-15 09:32 | XMS_ITS | Clinical Summary ---
Author Organization [facility] Address [address] [place] [address] Care Team Providers Care Caddy Name Role Phone Kwan Macias MD Primary Care Provider [phone] Allergies No known active allergies Medications ferrous [...] Encounters Date Type Department Care Team Description 10/12/2024 Abstract [facility] Oncology and Hematology [facility] [address] [place] [address] Ryan Cheney MD 10/08/2024 4:00 PM CDT Telephone Check Up [facility] Oncology and Hematology [facility] [address] [place] [address] Ryan Cheney MD Other acute pulmonary embolism without acute cor pulmonale (CMS/HCC) (Primary Dx) 10/03/2024 11:15 AM CDT Office Visit [facility] Oncology and Hematology [facility] [address] [place] [address] Ryan Cheney MD Other acute pulmonary embolism without acute cor pulmonale (CMS/HCC) (Primary Dx) 09/26/2024 External Device Data STL ABSTRACTION Provider, Abstract 09/20/2024 Abstract [facility] Oncology and Hematology [facility] [address] [place] [address] Ryan Cheney MD 09/20/2024 Telephone [facility] [address] [place] [address] Ryan Cheney MD Surgical Clearance 09/18/2024 External Device Data STL ABSTRACTION Provider, Abstract 09/18/2024 External Device Data STL ABSTRACTION Provider, Abstract 09/15/2024 External Device Data STL ABSTRACTION Provider, Abstract 09/14/2024 External Device Data STL ABSTRACTION Provider, Abstract 09/11/2024 External Device Data STL ABSTRACTION Provider, Abstract 08/28/2024 External Device Data STL ABSTRACTION Provider, Abstract 08/21/2024 External Device Data STL ABSTRACTION Provider, Abstract 08/09/2024 Refill [facility] Oncology and Hematology [facility] [address] [place] [address] Ryan Cheney MD 08/02/2024 External Device Data STL ABSTRACTION Provider, Abstract 08/01/2024 External Device Data STL ABSTRACTION Provider, Abstract 07/31/2024 1:00 PM OUTPATIENT PHLEBOTOMIST Office Visit [facility] Oncology [facility] [address] [place] [address] Ryan Cheney MD Iron deficiency anemia, unspecified iron deficiency anemia type (Primary Dx) 07/31/2024 External Device Data STL ABSTRACTION Provider, Abstract 07/24/2024 External Device Data STL ABSTRACTION Provider, Abstract 07/20/2024 Telephone [facility] Oncology [facility] [address] [place] [address] Ryan Cheney MD Surgical Clearance Request 07/20/2024 Abstract [facility] [address] [place] [address] Ryan Cheney MD from Last 3 Months [...] Care Team (Late st Contact Info) Description 10/23/2024 4:15 PM CDT Telephone Check Up [facility] Oncology and Hematology - [facility] [address] [place] [address] Ryan Cheney MD [address] [facility] [address] [address] [place] [address] 01/04/2025 10:30 AM CDT Office Visit [facility] Oncology and Hematology - [facility] [address] [place] [address] Ryan Cheney MD [address] [facility] [address] [place] [address] Health Maintenance Due Date Last Done Comments Pre-Diabetes and Diabetes Screening 1978 HEPATITIS B VACCINES (1 of 3 - 19+ 3-dose series) 1997 Preventative Visit-Managed Medicaid 1997 HPV/Cotest (21-29) 1999 CERVICAL CANCER SCREENING 2008 HPV/Cotest (30-65) 2008 PAP SMEAR 2008 COLORECTAL SCREENING 2023 [...] patient's age to complete this topic Insurance MEDICAID Care Teams Caddy Relationship Specialty Start Date End Date Kwan Macias MD [address] [place] [phone] PCP - General Family Practice 05/11/24
[2024-10-17 12:04] LABS: Homocysteine 9.3 umol/L (<10.4)
[2024-10-17 20:38] LABS: Lupus dRVVT Screen 31 sec (< OR = 45); PTT-LA Screen 40 sec (< OR = 40)
[2024-10-17 21:54] LABS: Antithrombin III Activity 115 % normal (80-135)
== END 2024-10-15 08:54 | disposition home or self-care (01) ==
LOC: ANHLAB 08:54
PROVIDERS: PCP Emergency Medicine; Visit Provider Internal Medicine Hematology & Oncology
DX: I26.99 Other pulmonary embolism without acute cor pulmonale (principal)
CPT/HCPCS: 36415; 81240; 81241; 83090; 85300; 85303; 85306; 85613; 85730; 86146

== ENCOUNTER 2024-10-17 12:48 | Inpatient (IN) | payer OTHER, SELFPAY ==
[2024-10-08 15:37] VITALS: BMI 34.9
--- NOTE | 2024-10-08 15:38 | PC.NURSE ---
Report to the Outpatient Waiting Room, entrance under the green pavilion located off [facility], at time _0600_ on date _[id number]_. Planned Procedure Time: _0730_.? Time changes happen often and if your time is changed the preop area will call you the afternoon before. - You and your visitor will be asked to self-screen and do not enter if you have any COVID symptoms. Please call surgeon if you need to reschedule. - A mask is optional within the hospital at this time. Patients may have clear liquids (water, carbonated beverages, clear teas, apple juice) until 3 hours prior to surgery with a maximum of 20 ounces. - No food from midnight until time of surgery and no smoking, or chewing tobacco (or any form of nicotine). No chewing gum, candy or mints. Take only the following medications with a SIP of water on the morning of surgery: __Gabapentin DO NOT STOP ANY OF YOUR OTHER PRESCRIPTION MEDICATIONS PRIOR TO SURGERY EXCEPT THE FOLLOWING Hold all vitamins and supplements for 3 days per anesthesiologist. Medications to discontinue per physician Patient says was told by Dr Rodriguez to hold eliquis and Ibuprofen 5 days before surgery.___ Date to take last dose Please no make-up, nail syriac, hairspray, perfume, deodorant, or body powder the day of surgery.? No jewelry (including any body piercings) or valuables the day of surgery, leave them at home.? Please take a shower or bath the night before, or the morning of, surgery with an antibacterial soap.? Wear comfortable, loose fitting clothing.? - Jewelry must be removed prior to entering the operating room.? Rings and piercings that are not removed may be cut off. - The hospital will not accept responsibility for valuables.? - Please leave all valuables, including medications, at home the day of surgery. If you are going home after surgery, a licensed mechanic welder truck driver must drive you home.? - NO public transportation without another adult if you receive anesthesia. - We recommend that an adult stay with you for 24 hours following discharge. - We also recommend that you do not drive, make important decision, drink alcoholic beverages, or take any drugs that were not prescribed by your health care provider for at least 24 hours after your discharge time. Follow any additional instructions given to you from your surgeon. Telephone instructions given to __Nicole__and asked if any additional questions and then verbalized understanding. Patient advised to call surgeon office or pre surgery nurse liaison [phone] if any additional questions.
[2024-10-17] VITALS (17 sets, daily range): BP systolic 110–139; BP diastolic 60–91; PULSE 71–95; RESP 12–18; TEMP 36.1–37.1; O2SAT 95–100
--- OUTSIDE RECORDS SUMMARY | 2024-10-17 00:11 | XMS_ITS | Clinical Summary ---
Author Organization [facility] Address [address] [place] [address] Phone Care Team Providers Care Keyboarding Clerk Name Role Phone Kwan Macias MD Primary Care Provider [phone] Allergies No known active allergies Medications ferrous sulfate 325 (65 Fe) MG EC [...] = 0.6 oz pur e alcohol) Occasionally Comments Unknown Sex and Gender Information Value Date Recorded Sex Assigned at Not on file Legal Sex Female 8:45 AM MST Gender Identity Not on file Sexual Orientation Not on file Last Filed Vital Signs Vital Sign Reading Time Taken Comments Blood Pressure 132/90 08/21/2024 1:10 PM MOTORIZED SQUAD COMMANDING OFFICER Pulse 70 08/21/2024 1:10 PM MOTORIZED SQUAD COMMANDING OFFICER Temperature - - Respiratory Rate - - Oxygen Saturation - - Inhaled Oxygen Concentration - - Weight 83.5 kg (184 lb) 08/21/2024 1:10 PM MOTORIZED SQUAD COMMANDING OFFICER Height 160 cm (5' 3 ) 08/21/2024 1:10 PM MOTORIZED SQUAD COMMANDING OFFICER Body Mass Index 32.59 08/21/2024 1:10 PM MOTORIZED SQUAD COMMANDING OFFICER Plan of Treatment Upcoming Encounters Date Type Department Care Team (Late st Contact Info) Description 02/19/2025 2:00 PM CDT Office Visit [facility] [address] [facility] [place] [address] Omid Rowe MD [address] [facility] [address] [place] [address] Health Maintenance Due Date Last Done Comments Pneumococcal PPSV23 Highest Risk Adult (1 of 3 - PCV13 ) 1997 Influenza Vaccine (Season Ended) 2025 [place] [address] PM [employer] INSURANCE Care Teams Keyboarding Clerk Relationship Specialty Start Date End Date Kwan Macias MD PCP - General 06/19/24
--- OUTSIDE RECORDS SUMMARY | 2024-10-17 00:11 | XMS_ITS | Clinical Summary ---
Author Organization [facility] Address [address] [place] [address] Care Team Providers Care Nurse Specialist Name Role Phone Kwan Macias MD [...] Type Department Care Team Description 10/12/2024 Abstract [facility] Oncology and Hematology [facility] [address] [place] [address] Ryan Cheney MD 10/08/2024 4:00 PM CDT Telephone Check Up [facility] Oncology and Hematology [facility] [address] [place] [address] Ryan Cheney MD Other acute pulmonary embolism without acute cor pulmonale (CMS/HCC) (Primary Dx) 10/03/2024 11:15 AM CDT Office Visit [facility] Oncology and Hematology [facility] [address] [place] [address] Ryan Cheney MD Other acute pulmonary embolism without acute cor pulmonale (CMS/HCC) (Primary Dx) 09/26/2024 External Device Data STL ABSTRACTION Provider, Abstract 09/20/2024 Abstract [facility] Oncology and Hematology [facility] [address] [place] [address] Ryan Cheney MD 09/20/2024 Telephone [facility] Oncology [facility] Hematology [facility] [address] [place] [address] Ryan Cheney MD Surgical Clearance 09/18/2024 External Device Data STL ABSTRACTION Provider, Abstract 09/18/2024 External Device Data STL ABSTRACTION Provider, Abstract 09/15/2024 External Device Data STL ABSTRACTION Provider, Abstract 09/14/2024 External Device Data STL ABSTRACTION Provider, Abstract 09/11/2024 External Device Data STL ABSTRACTION Provider, Abstract 08/28/2024 External Device Data STL ABSTRACTION Provider, Abstract 08/21/2024 External Device Data STL ABSTRACTION Provider, Abstract 08/09/2024 Refill [facility] Oncology and Hematology [facility] [address] [place] [address] Ryan Cheney MD 08/02/2024 External Device Data STL ABSTRACTION Provider, Abstract 08/01/2024 External Device Data STL ABSTRACTION Provider, Abstract 07/31/2024 1:00 PM GYMNASTICS COACH Office Visit [facility] Oncology [facility] [address] [place] [address] Ryan Cheney MD Iron deficiency anemia, unspecified iron deficiency anemia type (Primary Dx) 07/31/2024 External Device Data STL ABSTRACTION Provider, Abstract 07/24/2024 External Device Data STL ABSTRACTION Provider, Abstract 07/20/2024 Telephone [facility] Oncology [facility] [address] [place] [address] Ryan Cheney MD Surgical Clearance Request 07/20/2024 Abstract [facility] [address] [place] [address] Ryan Cheney MD from Last 3 Months [...] 10/23/2024 4:15 PM CDT Telephone Check Up [facility] Oncology and Hematology - [facility] [address] [place] [address] Ryan Cheney MD [address] [facility] [employer] [address] [place] [address] 01/04/2025 10:30 AM CDT Office Visit [facility] Oncology and Hematology - [facility] [address] [place] [address] Ryan Cheney MD [address] [facility] [address] [place] [address] Health Maintenance Due Date Last [...] complete this topic Insurance MEDICAID Care Teams Nurse Specialist Relationship Specialty Start Date End Date Kwan Macias MD [address] [place] [phone] PCP - General Family Practice 05/11/24
--- OUTSIDE RECORDS SUMMARY | 2024-10-17 00:11 | XMS_ITS | Clinical Summary ---
Author Organization [facility] Address [address] [place] [address] Care Team Providers Care Cook Vegetable Name Role Phone Shannon Cruz MD Unavailable [phone] Kwan Macias MD Primary Care Provider Allergies [...] each 11 06/26/20 24 Active PNV with [id number] ( Plus, calcium carb,) 27 mg iron- [...] Department Care Team Description 07/25/2024 1:00 PM TYPE ROLLING MACHINE OPERATOR Procedure visit [facility] Neurology [address] [place] [address] [place] [address] Brian Boo Si, MD Paresthesia from [...] of Binge Drinking Not on file 06/10 Harvard Depression Scale Answer Date Recorded Harvard Depression Scale Total 7 03/31/2021 The thought of harming myself has occurred to me . Never 03/31/2021 Comments Unknown Sex and Gender Information Value Date Recorded Sex Assigned at Not on file Legal Sex Female 6:23 PM TYPE ROLLING MACHINE OPERATOR Gender Identity Not on file [...] Cruz , Jami Qiu MD Complications:None Delivery Location:[facility] Main C ampus ([facility] L AND D PROCEDURE) Last Filed Vital Signs Vital Sign Reading Time Taken Comments Blood Pressure 102/60 06/26/2024 1:08 PM TYPE ROLLING MACHINE OPERATOR Pulse 70 06/26/2024 1:08 PM TYPE ROLLING MACHINE OPERATOR Temperature 36.4 C (97.6 F) 06/26/2024 1:08 PM TYPE ROLLING MACHINE OPERATOR Respiratory Rate 12 06/26/2024 1:08 PM TYPE ROLLING MACHINE OPERATOR Oxygen Saturation 99% 06/26/2024 1:08 PM TYPE ROLLING MACHINE OPERATOR Inhaled Oxygen Concentration - - Weight 79.8 kg (176 lb) 07/25/2024 1:11 PM TYPE ROLLING MACHINE OPERATOR Height 157.5 cm (5' 2 ) 07/25/2024 1:11 PM TYPE ROLLING MACHINE OPERATOR Body Mass Index 32.19 07/25/2024 1:11 PM TYPE ROLLING MACHINE OPERATOR Plan of Treatment Health Maintenance [...] Diagnosis Comments EMG/NCV Routine 07/25/2024 1:28 PM TYPE ROLLING MACHINE OPERATOR Paresthesia from Last 3 Months Results * EMG/NCV (07/25/2024 1:28 PM TYPE ROLLING MACHINE OPERATOR) Anatomical Region Laterality Modality Other Narrative 07/25/2024 1:28 PM TYPE ROLLING MACHINE OPERATOR Brian Boo Si, MD 07/27/2024 8:14 AM EMG/NCV - Date/Time: 07/25/2024 1:28 PM Performed by: Brian Boo Si, MD Authorized by: Brian Boo Si, MD Local anesthesia used: no Anesthesia: Local anesthesia used: no Sedation: Patient sedated: no Comments: See attached procedure documentation. us Brian Boo MD NEUROLOGY ORDERABLES Final Resul t from Last 3 Months Insurance [facility] [address] Advance Directives For more information, please contact: [phone] * Full Code (Latest Code Status on File) Date Activated Date Inactivated Comments 03/30/2021 6:35 PM 04/01/2021 5:12 PM Care Teams Cook Vegetable Relationship Specialty Start Date End Date Kwan Macias MD [address] [place] [address] PCP - General Emergency Medicine 01/23/24 Shannon Cruz MD [address] [facility] [place] [address] Consulting Physician Obstetrics and Gynecology 04/01/21
--- OUTSIDE RECORDS SUMMARY | 2024-10-17 00:11 | XMS_ITS | CONTINUITY OF CARE DOCUMENT ---
Author Name haley de leon Address Unknown Organization [facility] Address [address] [facility] [address] [place] [address] Phone [phone] Care Team Providers Care Scout Executive Name Role Phone Angel Newby MD Unavailable CARLY TAMEZ MD Unavailable [phone] CARLY TAMEZ MD Unavailable [phone] PROBLEMS Condition Status Date Provider Notes Cardiology examination active Nolan Ahmedzai Chest pain active Nolan Ahmedzai Shortness of breath active Nolan Ahmedzai Lupus active Nolan Ahmedzai Elevated blood pressure active Nolan Ahmedza i Palpitations active Nolan Ahmedzai ENCOUNTERS Date Type Provider Location Encounter Diag nosis - In-person encounter Office Visit Angel Newby MD [place] [facility] Cardiology examinationChest painShortness of breathLupusElevated blood [...] Payer name Policy type / Coverage type [place] [employer] party ID [place] MEDICAID (2) Medicaid [id number] ADVANCE DIRECTIVES Name Date DISCUSSED - NO DECISION MADE TREATMENT PLAN Date Name Performer Electrophysiology: O rders: 9 9204 MOD 45-59 min (CPT-72660) Nolan Faustinzaquirino Electrophysiology:Mo nitor your BP at home, goal BP is <135/85 O rders: 9 9204 MOD 45-59 min (CPT-05513) Nolan Ahmedzai Electrophysiology: O rders: C omplete Echo (26232) 9 9204 MOD 45-59 min (CPT-99683) Nolan Ahmedzai Electrophysiology: O rders: C omplete Echo (27009) 9 9204 MOD 45-59 min (CPT-97602) Nolan Faustinzai Date Name Monitor - Telemetry (Mobile Cardiac) Complete Echo HISTORY OF PROCEDURES Procedure Date Procedure Name Provider Procedure Notes S tatus EKG Angel Newby MD comp leted
--- OUTSIDE RECORDS SUMMARY | 2024-10-17 00:11 | XMS_ITS | Clinical Summary ---
Author Organization [facility] Address [address] [facility] [place] [address] Care Team Providers Care Banking Officer Name Role Phone Kwan Macias MD Primary Care Provider [phone] Jg Hummel DO Unavailable Source Comments [facility],non-owned Affiliates and Associated Physician Practices is amultiple site organization consisting of ambulatory clinics and hospital sitesin [place], [place], [place] and [place]. This disclosure is being madepursuant to the Care Everywhere program and may not contain all information available regarding this patient. Last updated 18.[facility] Allergies Active Allergy Reactions Criticality Noted Date [...] Active vitamin D, ergocalciferol, (Drisdol) 1.25 MG (53736 UT) capsule TAKE 1 CAPSULE BY MOUTH [...] Description 10/09/2024 10:20 AM CDT Office Visit [facility] - Rheumatology [address] [place] [phone] Jg Hummel DO Primary fibromyalgia syndrome (Primary Dx); Restless legs syndrome; Acute pain of right knee 09/20/2024 Refill [facility] - Rheumatology [address] [place] [phone] Jg Hummel DO MEDICATION REFILL 09/07/2024 10:30 AM DENTAL PROFESSIONAL Office Visit [facility] - ENT [address] [place] [phone] Steve Van, ASSEMBLER TRACTOR-BLOCK SAW OPERATOR Multiple thyroid nodules (Primary Dx) 09/07/2024 Travel [...] cm (5' 2 ) 09/07/2024 10:20 AM DENTAL PROFESSIONAL Body Mass Index 35.3 09/07/2024 10:20 AM DENTAL PROFESSIONAL Plan of Treatment Upcoming Encounters Date Type Department Care Team (Late st Contact Info) Description 04/10/2025 10:20 AM CDT Office Visit [facility] - Rheumatology [address] [facility] [place] [address] Jg Hummel DO [address] [facility] [address] [place] [address] 07/25/2025 10:15 AM DENTAL PROFESSIONAL Appointment [facility] [address] [place] [phone] Steve Van, ASSEMBLER TRACTOR-BLOCK SAW OPERATOR [address] [facility] [address] [place] [address] Health Maintenance Due Date Last Done Comments [...] Monet Connors MD on 05/25/2024 3:01 PM DENTAL PROFESSIONAL Addendum by Monet Connors M.D. This addendum [...] This was discussed with Dr. Jeffrey via Vendormate message. EXAMINATIONS: 1. RIGHT DIGITAL DIAGNOSTIC MAMMOGRAM AND TOMOSYNTHESIS AND 2. COMPLETE BILATERAL BREAST ULTRASOUND (COMBINED REPORT) LOCATION: [facility] EXAM DATE: 03/28/2024 HISTORY: This is a 43-year-old female patient with painful right breast mass/lump for which she went to the ER at [facility] at the beginning of March. [...] cancer greater than 20%, consultation in the [facility] Breast Surgery High Risk Clinic is recommended. Should she wish to schedule an appointment, the phone number [phone]. The [place] recommends annual screening breast MRI [...] recommended. COMPARISON: Limited right breast ultrasound 03/11/2024 [facility]. Screening mammography 08/16/2023 from [facility] MAMMOGRAM: TECHNIQUE: Diagnostic bilateral mammography [...] in size compared to prior exam from [facility]. No suspicious finding was found [...] of greater than 20%, consultation in the [facility] High Risk Clinic is recommended. 3. Annual screening breast MRI is recommended, given the elevated lifetime risk of developing breast cancer greater than 20%, according to the [place] guidelines. This can be alternated [...] of greater than 20%, consultation in the [facility] High Risk Clinic is recommended. 3. Annual screening breast MRI is recommended, given the elevated lifetime risk of developing breast cancer greater than 20%, according to the [place] guidelines. This can be alternated [...] COMPLETE BILATERAL BREAST ULTRASOUND (COMBINED REPORT) LOCATION: [facility] EXAM DATE: 03/28/2024 HISTORY: This is a 43-year-old female patient with painful right breast mass/lump for which she went to the ER at [facility] at the beginning of March. [...] cancer greater than 20%, consultation in the [facility] Breast Surgery High Risk Clinic is recommended. Should she wish to schedule an appointment, the phone number [phone]. The [employer] recommends annual screening breast MRI [...] recommended. COMPARISON: Limited right breast ultrasound 03/11/2024 [facility]. Screening mammography 08/16/2023 from [facility] MAMMOGRAM: TECHNIQUE: Diagnostic bilateral mammography [...] in size compared to prior exam from [facility]. No suspicious finding was found [...] COMPLETE BILATERAL BREAST ULTRASOUND (COMBINED REPORT) LOCATION: [facility] EXAM DATE: 03/28/2024 HISTORY: This is a 43-year-old female patient with painful right breast mass/lump for which she went to the ER at [facility] at the beginning of March. [...] cancer greater than 20%, consultation in the [facility] Breast Surgery High Risk Clinic is recommended. Should she wish to schedule an appointment, the phone [phone]. The [place] recommends annual screening breast MRI in addition to mammograms for women who have a 20% or greater lifetime riskof developing breast cancer. This can be managed through the high riskbreast clinic. Risk assessment based upon the Tyrer-Cuzick v8 model. By the NCCN guidelines and family history of breast cancer, consideration of genetic testing is recommended. COMPARISON: Limited right breast ultrasound 03/11/2024 [facility]. Screening mammography 08/16/2023 from [facility] MAMMOGRAM: TECHNIQUE: Diagnostic bilateral mammography [...] in size compared to prior exam from [facility]. No suspicious finding was found [...] cancer ofgreater than 20%, consultation in the [facility] High Risk Clinic is recommended. 3. Annual screening breast MRI is recommended, given the elevatedlifetime risk of developing breast cancer greater than 20%, according to the [employer] guidelines. This can be alternated [...] Recently Relevant to Health Maintenance Care Teams Banking Officer Relationship Specialty Start Date End Date Kwan Macias MD [address] [facility] [address] [place] [address] PCP - General Family Medicine 01/09/24 Jg Hummel DO [address] [facility] [address] [place] [phone] Senior Portfolio Analyst Rheumatology 02/27/24
--- OUTSIDE RECORDS SUMMARY | 2024-10-17 00:11 | XMS_ITS | Referral Summary ---
Author Organization [facility] Address [address] [place] [address] Care Team Providers Care Pancake Professional Name Role Phone Shannon Cruz MD Unavailable [phone] Kwan Macias MD Primary Care Provider [phone] Encounters Date Type Department Care Team Description 07/25/2024 1:00 PM RADIATOR REPAIRER Procedure visit [facility] Neurology [address] [place] [address] Brian Boo Si, MD Paresthesia [...] 1 each 06/26/20 24 Active PNV with [id number] ( Plus, calcium carb,) 27 mg iron- [...] of Binge Drinking Not on file 06/10 [place] Depression Scale Answer Date Recorded [place] Depression Scale Total 7 03/31/2021 The thought of harming myself has occurred to me . Never 03/31/2021 Comments Unknown Sex and Gender Information Value Date Recorded Sex Assigned at Not on file Legal Sex Female 6:23 PM RADIATOR REPAIRER Gender Identity Not on file Sexual Orientation Not on file Last Filed Vital Signs Vital Sign Reading Time Taken Comments Blood Pressure 102/60 06/26/2024 1:08 PM RADIATOR REPAIRER Pulse 70 06/26/2024 1:08 PM RADIATOR REPAIRER Temperature 36.4 C (97.6 F) 06/26/2024 1:08 PM RADIATOR REPAIRER Respiratory Rate 12 06/26/2024 1:08 PM RADIATOR REPAIRER Oxygen Saturation 99% 06/26/2024 1:08 PM RADIATOR REPAIRER Inhaled Oxygen Concentration - - Weight 79.8 kg (176 lb) 07/25/2024 1:11 PM RADIATOR REPAIRER Height 157.5 cm (5' 2 ) 07/25/2024 1:11 PM RADIATOR REPAIRER Body Mass Index 32.19 07/25/2024 1:11 PM RADIATOR REPAIRER Plan of Treatment Not on file Procedures Procedure Name Priority Date/Time Associated Diagnosis Comments EMG/NCV Routine 07/25/2024 1:28 PM RADIATOR REPAIRER Paresthesia from Last 3 Months Results * EMG/NCV (07/25/2024 1:28 PM RADIATOR REPAIRER) Anatomical Region Laterality Modality Other Narrative 07/25/2024 1:28 PM RADIATOR REPAIRER Brian Boo Si, MD 07/27/2024 8:14 AM EMG/NCV - Date/Time: 07/25/2024 1:28 PM Performed by: Brian Boo Si, MD Authorized by: Brian Boo Si, MD Local anesthesia used: no Anesthesia: Local anesthesia used: no Sedation: Patient sedated: no Comments: See attached procedure documentation. Brian Boo MD NEUROLOGY ORDERABLES Final Resul t from Last 3 Months [facility] [address] Advance Directives For more information, please contact: [phone] * Full Code (Latest Code Status on File) Date Activated Date Inactivated Comments 03/30/2021 6:35 PM 04/01/2021 5:12 PM Care Teams Pancake Professional Relationship Specialty Start Date End Date Kwan Macias MD [address] [place] [id number] PCP - General Emergency Medicine 01/23/24 Shannon Cruz MD [address] [place] [address] Consulting Physician Obstetrics and Gynecology 04/01/21
[2024-10-17] MEDS: LACTATED RINGERS 1,000 ML 30 ML IV CONT ×3 (06:45→11:58)
--- NOTE | 2024-10-17 07:02 | P.HP_ITS ---
H&P: HPI History of Present Illness Date/Time: 10/17/24 07:02 Chief Complaint: Hernia Narrative: Patient is a 44-year-old woman who was seen in the office for an abdominal bulge. Her exam and CT scan showed an 11.5 cm reducible, wide mouth, ventral hernia. This has been getting worse and is sometimes painful for her. She also has a history of having had a pulmonary embolism last June. She has been taking apixaban anticoagulant therapy which is been held for surgery. She is taken to surgery now for ventral hernia repair with mesh, posterior component separation. Review of Systems Review of Systems: All systems reviewed & are unremarkable except as noted in HPI and below (HPI) [facility] Past Medical History Medical History Hepatic cyst Anxiety and depression Anemia Asthma Overweight (BMI 25.0-29.9) Eczema Fibromyalgia Subareolar lump of right breast Subareolar lump of left breast Social History Social History Smoking status: Never smoker Alcohol intake: current Substance use: never Substance use type: marijuana Other substance usage details: edibles daily Do You Feel Safe in your Home?: Yes Lack of Transportation: No Lack of Food: Never True Current Housing: I Have Housing Concerned About Future Housing: No Difficulty Paying Gas/Electric Bills: No Difficulty Paying for Meds: No Currently Unemployed: No Education: High School Diploma/GED Difficulty w/ Childcare or Family Care: No Living arrangements: with family Spiritual care concerns: No Meds Home Medications and Allergies Home Medications ?Medication ?Instructions ?Recorded ?Confirmed ?Type ferrous sulfate 325 mg (65 mg 325 mg PO DAILY 03/21/24 10/17/24 History iron) tablet,delayed release gabapentin 100 mg capsule 100 mg PO TID 03/21/24 10/17/24 History ibuprofen 800 mg tablet 800 mg PO TID 03/21/24 10/17/24 History apixaban 5 mg tablet (Eliquis) 10 mg (2 x 5 mg) PO ONCE 1 day #2 06/19/24 10/17/24 Rx tabs Allergies Allergy/AdvReac Type Severity Reaction Status Date / Time No Known Allergies Allergy Verified 10/08/24 15:32 Exam Const: General: comfortable, no acute distress, alert and awake HENMT: Head: normocephalic and atraumatic Mouth: Yes Normal oral and palatal mucosa present Eyes: Conjunctivae: conjunctivae normal Pupils: Equal, round and reactive pupils present EOM: EOMs intact bilaterally Neck: Neck: normal visual inspection, no lymphadenopathy and nontender Resp: Effort & Inspection: normal respiratory effort Auscultation: clear to auscultation bilaterally Cardio: Rate: regular rate Rhythm: regular rhythm Heart sounds: no gallops, no murmurs and no rubs GI: Inspection: non-distended and visible herniation GI Palp: Yes Soft to palpation, No Tenderness to palpation present (GI), No Hepatomegaly present, No Splenomegaly present, Yes Hernia present ventral > 10 cm (11.5 x 10 cm) and No Palpable mass present Skin: Lesions: no lesions Rashes: no rashes Neuro: General: no focal motor deficits and CN's II-XI intact bilaterally Cranial nerves: Yes Equal, round and reactive pupils present, Yes Bilaterally intact EOM present, Yes facial symmetry and Yes Midline tongue present Speech: normal speech Motor exam (neuro): 5/5 motor strength present throughout and Motor abnormalities not present Extrem: General: no clubbing, cyanosis or edema and edema Psych: Affect: normal affect Thought process: Normal thought process present Insight: Good insight present (Psych) H&P: Results Imaging CT scan - chest: My impression: Negative Radiologist's impression: Read as no pulmonary embolism, this is from October 03, 2024 US - abdomen: Radiologist's impression: Left hepatic cyst, no evidence of metastatic nodule or primary tumor Assessment and Plan Assessment and plan (1) Ventral hernia without obstruction or gangrene: Code(s): K43.9 - Ventral hernia without obstruction or gangrene Status: Chronic Assessment and Plan: After discussion, patient wishes to proceed with ventral hernia repair with mesh. This will also involve bilateral posterior component separation due to the wide mouthed ventral hernia. The procedure, risks, benefits, alternatives, have been discussed. All questions were answered. Patient also understands that she will be in the hospital after surgery for a few days and a general description of the length of the surgery and length of recovery was discussed. The use of mesh has also been discussed. All questions were answered. She understands and agrees to go ahead. (2) Chronic anticoagulation: Code(s): Z79.01 - [facility] (current) use of anticoagulants Status: Chronic Assessment and Plan: Held for surgery (3) History of pulmonary embolism: Code(s): Z86.711 - Personal history of pulmonary embolism Status: Chronic Assessment and Plan: June 2024
[2024-10-17] MEDS: ACETAMINOPHEN 500 MG TABLET 1000 MG PO (07:04)
[2024-10-17] MEDS: KETOROLAC 15 MG/ML VIAL (*BKC) IV PUSH (07:04)
--- NOTE | 2024-10-17 07:11 | WPDHPUPDATE1 ---
History and Physical Update Update Date/Time: 10/17/24 07:11 History and Physical has been reviewed, including an updated exam of the patient. There are NO changes in the patient's condition. Risks, benefits, and alternatives have been discussed and questions answered. Patient agrees to proceed with procedure.
--- NOTE | 2024-10-17 07:15 | WPDANESEPPF ---
Anes - Initial Pre Proc Eval Procedure: Operation Date: 10/17/24 07:30 Proposed Procedures p Repair Recurrent Ventral Hernia with Mesh, Posterior Component Separation - Rafael Rodriguez MD Date/Time: 10/17/24 07:15 Surgeon: Rafael Rodriguez MD Pre Op Diagnosis: Recurrent Ventral Hernia 11.5cm Patient Data Age: 44 Gender: F Height: 1.57 m Weight: 86.8 kg Allergies Allergy/AdvReac Type Severity Reaction Status Date / Time No Known Allergies Allergy Verified 10/08/24 15:32 Home Medications ?Medication ?Instructions ?Recorded ?Confirmed ?Type ferrous sulfate 325 mg (65 mg 325 mg PO DAILY 03/21/24 10/17/24 History iron) tablet,delayed release gabapentin 100 mg capsule 100 mg PO TID 03/21/24 10/17/24 History ibuprofen 800 mg tablet 800 mg PO TID 03/21/24 10/17/24 History apixaban 5 mg tablet (Eliquis) 10 mg (2 x 5 mg) PO ONCE 1 day #2 06/19/24 10/17/24 Rx tabs Patient hx anesthesia problems: none Family hx anesthesia problems: none Results Review: All pre-operative results and documents have been reviewed as part of the pre-operative evaluation. [facility] Past Medical History Medical History Hepatic cyst Anxiety and depression Anemia Asthma Overweight (BMI 25.0-29.9) Eczema Fibromyalgia Subareolar lump of right breast Subareolar lump of left breast Social History Social History Smoking status: Never smoker Alcohol intake: current Substance use: never Substance use type: marijuana Other substance usage details: edibles daily Do You Feel Safe in your Home?: Yes Lack of Transportation: No Lack of Food: Never True Current Housing: I Have Housing Concerned About Future Housing: No Difficulty Paying Gas/Electric Bills: No Difficulty Paying for Meds: No Currently Unemployed: No Education: High School Diploma/GED Difficulty w/ Childcare or Family Care: No Living arrangements: with family Spiritual care concerns: No Anes - Eval Final PreProcedure Day of Procedure 10/17/24 07:15 Patient weight: obese Lungs: normal air movement Airway: Mallampati scale class II and special considerations (Covering of several teeth w gold covering, all stable per pt. ) Neurological: alert and oriented Last oral intake: >/= 8 hours ASA classification: III Emergent: no Anesthetic plan: proceed Anesthesia type and monitoring: general ETT and standard monitoring Results Review: All pre-operative results and documents have been reviewed as part of the pre-operative evaluation. BMI 35, stable asthma. Pt reports cleared by cardiology approx 04/03 after holter/stress test were neg at [place]. Of note, pt had PE 07/03 and she was treated at [place] w blood thinners and has been on eliquis (off now or sx). She reports f/u CT was neg for blood clot and has been cleared to go off anticoag post op but that will be determined post op. Informed Consent: The patient's anesthetic plan and its attendant risks and benefits were discussed with the patient/family/POA. Questions were solicited and answers provided to the satisfaction of the patient/family/POA.
[2024-10-17 07:20] LABS: BEDSIDEPREGUCG Negative (Negative)
[2024-10-17] MEDS: ceFAZolin 2 GM/D5W 50 ML 2 GM/50 ML BAG IVPB (07:42)
[2024-10-17] MEDS: fentaNYL CITRATE INJ (*CRX) 100 MCG/2 ML VIAL 25 MCG IV PUSH ×8 (11:15→11:45)
--- NOTE | 2024-10-17 11:29 | P.OP_ITS ---
Procedure Note - Detailed Date of Procedure 10/17/24 Pre-op Diagnosis Ventral hernia with 11.5 cm defect Post-op Diagnosis Same Procedure Performed Repair ventral hernia with mesh, 12 cm defect, bilateral myofascial flap advancement, 4 cm on the right, 6 cm on the left Surgeon Rafael Rodriguez MD Undercoat Sprayer Consuelo [facility] Anesthesia General Indications Patient has had an increasing abdominal bulge particularly around the umbilical area. This measured 11.5 cm x 10 cm in the office. Size on CT scan was similar. The hernia is not only getting bigger but is occasionally painful. She is taken to surgery now for repair with mesh and bilateral myofascial flap advancement. Findings Large ventral hernia as described Description of Procedure Patient was taken to surgery and induced into general anesthesia. Pizano catheter was placed. The abdomen was prepped and draped. Midline incision was made that was mostly above the umbilicus but did extend below the umbilicus about another 6 cm. Dissection through the subcutaneous was carried out. Cautery was used to achieve hemostasis. We opened the fascia in the midline. The fascia was then opened through the hernia defect and on beyond it towards the pubis. The abdomen was explored and no anterior abdominal wall adhesions or other significant findings were appreciated. The abdominal viscera was then covered with a blue towel to from the anterior abdominal wall. We then started on the patient's left side. An incision was made on the posterior rectus fascia at the edge of the rectus abdominis muscle medially. Careful dissection was then proceeded both cephalad and caudad dividing the posterior rectus fascia the length of the wound. We then placed traction on the posterior rectus fascia and using primarily blunt dissection with occasional cautery dissected the posterior rectus fascia off the rectus abdominis muscle. Once we had completed this the length of the wound, we continued this dissection cephalad up to and beyond the xiphoid process. The lower edge of the costal margin was exposed. I was able to dissect across the midline staying in the preperitoneal space. We then continued this dissection caudally down below the arcuate line and then continued dissecting down in the retropubic space. Once this was completed, the 1st operations administrative assistant and surgeon changed sides. The dissection was repeated on the patient's right side. The cephalad and caudad extension of the dissection was completed so that there was space up to and beyond the xiphoid process, under the distal sternum. The 2 spaces connected the right and left sides. We then also connected the right and left sides in the retropubic space. The myofascial transversus release was then started. We exposed the transversus muscle at the uppermost aspect of the incision. The fibers were divided over a clamp at the lower margin of the rib. We continued from cephalad to caudad, carefully dividing the muscular fibers of the transversus. Towards the midportion of the abdomen, there was little or no muscle to be divided and we continued this dissection on down to the arcuate line. I then went back and carefully dissected the transversus muscle laterally using primarily blunt dissection. Cautery was used for hemostasis when necessary. This was done broadly and eventually I was able to dissect all the way to the retroperitoneal fat near the midline. The dissection was continued the entire length of the right side of the abdominal wall. This gave an extremely broad, wide space for mesh placement and flap advancement. Once the patient's right-sided been completed, the surgeon and 1st operations administrative assistant changed sides again. The process was repeated on the patient's left side, starting again under the costal margin on the left side and continuing the dissection from the left side over to the previously created space on the right side. A transversus was divided the length of the wound to the arcuate line. The transversus was then mobilized creating a wide space posterior to the transversus so that flap advancement could be accomplished on the left side as well. Wide mobilization was again accomplished, proceeding to the retroperitoneal fat. Below the arcuate line on both sides, the dissection was continued and communicated such that it extended into the retropubic space. Both the round ligaments were divided with the cautery. A final review was carried out all around the areas of dissection. There were 2 peritoneal openings on the left side that were closed with 3-0 Vicryl. One was in the left upper quadrant. One was near the midline in the low lower abdomen. The blue towel was then removed. 0 Vicryl running bidirectional suture was used to close the posterior rectus fascia. Extra-large soft polypropylene mesh was then brought into the wound. It was placed in jagruti fashion so that 1 of the edges was under the lower sternum and the opposite corner was in the retropubic space past the pubis. The mesh did not have to be cut in any way. Both sides extended their entire length and fit nicely over the posterior back this closure. And 19 Burmese Perry drain was then placed bringing it out in the right lower quadrant. It was sutured to the skin with 2-0 silk. The midline fascia was closed with bidirectional running 1. PDS suture. The subcu was closed with interrupted 3-0 Vicryl suture. The skin was approximated with interrupted subcuticular 4-0 Vicryl skin suture. The wound was dressed with Xeroform gauze, fluffs, ABDs, and Medipore tape. The drain was placed to bulb suction. The patient was awakened and taken to recovery in good condition. The Pizano catheter was left in place. Sponge needle counts were correct x2. Implants Extra-large soft polypropylene mesh Estimated Blood Loss -100 Drains Yes (Retro rectus MARYELLEN drain right lower quadrant) Packing No Pathology None sent Complications None Condition Stable Disposition PACU [facility] Billing Surgery - Charge Forward: Surgery Billing (Repair ventral hernia with 12 cm defect with mesh, bilateral myofascial flap advancement, 4 cm on the right, 6 cm on the left)
[2024-10-17] MEDS: HYDROmorphone HCL INJ (*CRX) 1 MG/ML SYR 0.25 MG IV PUSH ×4 (11:43→12:25)
[2024-10-17] MEDS: diphenhydrAMINE HCl INJ 50 MG/ML VIAL 12.5 MG IV PUSH ×2 (11:58→12:35)
[2024-10-17] MEDS: IBUPROFEN IV 800 MG/200 ML 800 MG/200 ML BAG 400 MG IVPB ×3 (13:02→23:32)
[2024-10-17] MEDS: GABAPENTIN 100 MG CAPSULE PO ×2 (13:27→17:09)
[2024-10-17] MEDS: LACTATED RINGERS 1,000 ML 100 ML IV CONT (13:43)
[2024-10-17] MEDS: MORPHINE SULFATE (*CRX) 2 MG/ML INJ IV PUSH (15:29)
[2024-10-17] MEDS: oxyCODONE/ACETAMINOPHEN (*CRX) 5-325 MG TABLET 1 TABLET PO ×2 (17:19→21:19)
[2024-10-17] MEDS: FAMOTIDINE 20 MG/2 ML VIAL IV PUSH (20:09)
[2024-10-18] MEDS: LACTATED RINGERS 1,000 ML 100 ML IV CONT (00:36)
[2024-10-18 03:21] VITALS: BP 110/69; PULSE 80; RESP 16; TEMP 37.1; O2SAT 98
[2024-10-18 06:20] LABS: Hematocrit 34.2 % (37.0-47.0); Mean Corpuscular HGB Conc 32.2 g/dl (32-36); Mean Corpuscular Hemoglobin 29.4 pg (26-34); Mean Corpuscular Volume 91.4 fl (80-100); Mean Platelet Volume 10.4 fl (7.4-10.4); Platelet Count Result 189 k/mm3 (150-375); Red Blood Count 3.74 M/mm3 (4.2-5.4); Red Cell Distribution Width 12.6 % (11.5-14.5); White Blood Count 11.6 K/mm3 (4.5-10.0)
[2024-10-18 06:33] LABS: Anion Gap 3 mmol/L (4-12); Blood Urea Nitrogen 7 mg/dL (7-17); Calcium 8.2 mg/dL (8.4-10.2); Carbon Dioxide 29 mmol/L (22-30); Chloride 102 mmol/L (98-107); Estimated CRCL calculation 88 ml/min; Estimated Glomerular Filt Rate > 60; Glucose 90 mg/dL (65-110); Potassium 4.2 mmol/L (3.4-5.0); Sodium 134 mmol/L (137-145)
[2024-10-18] MEDS: oxyCODONE/ACETAMINOPHEN (*CRX) 5-325 MG TABLET 1 TABLET PO (06:36)
[2024-10-18] MEDS: IBUPROFEN IV 800 MG/200 ML 800 MG/200 ML BAG 400 MG IVPB (06:37)
--- NOTE | 2024-10-18 07:32 | P.PNGS_ITS ---
Progress Note: A&P Assessment and Plan (1) Ventral hernia without obstruction or gangrene: Code(s): K43.9 - Ventral hernia without obstruction or gangrene Status: Chronic Assessment and Plan: Repair intact (2) Status post hernia repair: Code(s): Z98.890 - Other specified postprocedural states; Z87.19 - Personal history of other diseases of the digestive system Status: Acute Assessment and Plan: Having lot of pain making her unable to sleep or move adequately. 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 Up today in chair and walking in room. Leave Pizano catheter today. Recheck labs and exam again tomorrow. (3) Chronic anticoagulation: Code(s): Z79.01 - [facility] living (current) use of anticoagulants Status: Chronic Assessment and Plan: Continue to hold apixaban. On prophylactic dose of enoxaparin. (4) History of pulmonary embolism: Code(s): Z86.711 - Personal history of pulmonary embolism Status: Chronic Assessment and Plan: Last June. Subjective Subjective Date/Time Seen: 10/18/24 07:32 Post Op day: 1 Patient reports: still having pain (Very painful, could not sleep last night, can not really move much at all.), tolerating liquids well, no flatus, no bowel movement and afebrile Exam Const: General: no acute distress, alert, awake, tired appearing and uncomfortable Orientation/consciousness: patient oriented x3 and No confusion GI: Inspection: non-distended and incision (Dressing dry and intact) GI Palp: Yes Soft to palpation, Yes Tenderness to palpation present (GI) (Diffuse tenderness with guarding) and Yes Guarding due to palpation present (GI) Auscultation: Hypoactive bowel sounds present Neuro: General: patient oriented x3 and no focal motor deficits Cognition (Neuro): normal cognition Speech: normal speech Extrem: General: no calf tenderness and no edema Psych: Mental Status: mental status grossly normal Speech and movement: Clear speech present Affect: normal affect Attitude: cooperative Thought process: Normal thought process present Insight: Good insight present (Psych) Judgement: Good judgement present (Psych) Objective Data Vital Signs Vital Signs: Vital Signs - 24 hr 10/17/24 11:02 10/17/24 11:15 10/17/24 11:30 Temperature 36.1 C L Pulse Rate 88 88 85 Respiratory Rate 18 18 15 Blood Pressure 126/85 126/85 126/72 Pulse Oximetry 100 100 100 Oxygen Delivery Simple Face Mask Simple Face Mask Simple Face Mask Oxygen Flow Rate 8 8 8 10/17/24 11:36 10/17/24 11:45 10/17/24 12:00 Temperature Pulse Rate 93 90 Respiratory Rate 12 12 Blood Pressure 129/74 121/78 Pulse Oximetry 100 98 100 Oxygen Delivery Room Air Room Air Room Air Oxygen Flow Rate 10/17/24 12:15 10/17/24 12:30 10/17/24 12:45 Temperature 36.2 C L Pulse Rate 91 94 95 Respiratory Rate 12 16 12 Blood Pressure 125/78 126/77 127/78 Pulse Oximetry 100 99 100 Oxygen Delivery Room Air Room Air Room Air Oxygen Flow Rate 10/17/24 12:48 10/17/24 13:03 10/17/24 13:31 Temperature 36.5 C 36.7 C Pulse Rate 94 89 Respiratory Rate 18 18 Blood Pressure 127/79 123/78 Pulse Oximetry 100 99 Oxygen Delivery Room Air Oxygen Flow Rate 10/17/24 13:33 10/17/24 14:33 10/17/24 18:33 Temperature 36.6 C 36.6 C 36.5 C Pulse Rate 76 74 79 Respiratory Rate 18 18 18 Blood Pressure 114/71 113/84 125/73 Pulse Oximetry 95 100 100 Oxygen Delivery Oxygen Flow Rate 10/17/24 20:00 10/17/24 21:12 10/17/24 23:21 Temperature 37.1 C 37.1 C Pulse Rate 85 75 Respiratory Rate 16 16 Blood Pressure 110/65 112/60 Pulse Oximetry 100 100 Oxygen Delivery Room Air Oxygen Flow Rate 10/18/24 03:21 Temperature 37.1 C Pulse Rate 80 Respiratory Rate 16 Blood Pressure 110/69 Pulse Oximetry 98 Oxygen Delivery Oxygen Flow Rate Intake/Output Intake/Output: Intake & Output 10/15/24 10/16/24 10/17/24 10/18/24 23:59 23:59 23:59 23:59 Intake Total 3140 2050 Output Total 9364 2145 Balance 1646 -95 Meds/Results Medications: Active Medications Generic Name Dose Route Start Last Admin Trade Name Freq PRN Reason Stop Dose Admin Acetaminophen 500 mg 10/17/24 12:48 Acetaminophen 500 Mg Tablet PO Q6H PRN Pain Rated 1-3 Enoxaparin Sodium 40 mg 10/18/24 09:00 Enoxaparin 40 Mg/0.4 Ml Syringe SUB-Q DAILY [facility] Ferrous Sulfate 325 mg 10/18/24 09:00 Ferrous Sulfate [address] PO DAILY [facility] Gabapentin 100 mg 10/17/24 13:00 10/17/24 17:09 Gabapentin 100 Mg Capsule PO 100 mg TID AXEL Administration Naloxone HCl 0.1 mg 10/17/24 12:48 Naloxone Hcl 0.4 Mg/Ml Vial IV PUSH Q2M PRN Opiate Reversal Ondansetron HCl 4 mg 10/17/24 12:48 Ondansetron Inj 4 Mg/2 Ml Vial IV PUSH Q4H PRN Nausea And Vomiting Oxycodone/Acetaminophen 1 tablet 10/17/24 12:48 10/18/24 06:36 Oxycodone/Acetaminophen (*Crx) 5-325 Mg Tablet PO 1 tablet Q4H PRN Administration Pain Rated 4-6 Labs Labs: Laboratory Results - last 24 hr 10/18/24 05:48 WBC 11.6 H RBC 3.74 L Hgb 11.0 L Hct 34.2 L MCV 91.4 MCH 29.4 MCHC 32.2 RDW 12.6 Plt Count 189 MPV 10.4 Sodium 134 L Potassium 4.2 Chloride 102 Carbon Dioxide 29 Anion Gap 3 L BUN 7 Creatinine 0.71 Estim Creat Clear Calc 88 Estimated GFR > 60 Glucose 90 Calcium 8.2 L
[2024-10-18] MEDS: polyethylene glycoL 3350 17 GM POWD.PACK PO (08:26)
[2024-10-18] MEDS: ENOXAPARIN 40 MG/0.4 ML SYRINGE SUB-Q (08:28)
[2024-10-18] MEDS: FERROUS SULFATE 325 MG TABLET DR PO (08:28)
[2024-10-18] MEDS: ACETAMINOPHEN 500 MG TABLET PO ×2 (08:28→21:09)
[2024-10-18] MEDS: GABAPENTIN 100 MG CAPSULE PO ×3 (08:28→16:07)
[2024-10-18 08:57] VITALS: RESP 16; O2SAT 99
[2024-10-18] MEDS: MORPHINE SULFATE PCA (*CRX) 30 MG/30 ML SYR IV CONT ×2 (08:57→18:16)
[2024-10-18] MEDS: KCL 20MEQ/0.9% SOD CHL 1,000 ML 60 ML IV CONT (09:07)
--- NOTE | 2024-10-18 10:33 | WPDANESPN ---
Anes - Prog Note Post-Op Date/Time: 10/18/24 10:33 Cardiovascular status: normal Respiratory status: normal Airway patency: baseline Mental status: baseline Vital Signs: Last Vital Signs Temp 37.1 C 10/18/24 03:21 Pulse 80 10/18/24 03:21 Resp 16 10/18/24 08:57 BP 110/69 10/18/24 03:21 Pulse Ox 99 10/18/24 08:57 O2 Del Method Room Air 10/17/24 20:00 O2 Flow Rate 8 10/17/24 11:30 Pain Score (VAS): 7 I/O: Intake & Output 10/17/24 10/18/24 10/18/24 23:59 07:59 15:59 Intake Total 990 2050 Output Total 1339 2145 Balance -349 -95 Laboratory Tests 10/18/24 05:48 10/18/24 05:48 10/18/24 05:48 WBC 11.6 H RBC 3.74 L Hgb 11.0 L Hct 34.2 L MCV 91.4 MCH 29.4 MCHC 32.2 RDW 12.6 Plt Count 189 MPV 10.4 Sodium 134 L Potassium 4.2 Chloride 102 Carbon Dioxide 29 Anion Gap 3 L BUN 7 Creatinine 0.71 Estim Creat Clear Calc 88 Estimated GFR > 60 Glucose 90 Calcium 8.2 L Patient Feedback: Patient satisfied with anesthetic care.
[2024-10-18 12:00] VITALS: BP 116/85; PULSE 76; RESP 18; TEMP 36.3; O2SAT 100
[2024-10-18 16:00] VITALS: BP 117/77; PULSE 91; RESP 16; TEMP 36.5; O2SAT 100
[2024-10-18 18:16] VITALS: RESP 16; O2SAT 100
[2024-10-18] MEDS: SENNA/DOCUSATE SODIUM TABLET 2 TAB PO (21:07)
[2024-10-18 21:40] VITALS: BP 128/86; PULSE 86; RESP 13; TEMP 36.4; O2SAT 99
[2024-10-18] MEDS: diphenhydrAMINE HCl INJ 50 MG/ML VIAL 25 MG IV PUSH (21:49)
[2024-10-19] MEDS: KCL 20MEQ/0.9% SOD CHL 1,000 ML 60 ML IV CONT (03:57)
[2024-10-19 05:44] VITALS: BP 130/86; PULSE 93; RESP 14; TEMP 36.7; O2SAT 98
[2024-10-19 06:46] LABS: Hematocrit 37.8 % (37.0-47.0); Hemoglobin 11.4 g/dL (12.0-15.0); Mean Corpuscular HGB Conc 30.2 g/dl (32-36); Mean Corpuscular Volume 96.2 fl (80-100); Mean Platelet Volume 10.4 fl (7.4-10.4); Platelet Count Result 171 k/mm3 (150-375); Red Blood Count 3.93 M/mm3 (4.2-5.4); Red Cell Distribution Width 12.7 % (11.5-14.5); White Blood Count 7.5 K/mm3 (4.5-10.0)
[2024-10-19 07:00] LABS: Anion Gap 5 mmol/L (4-12); Blood Urea Nitrogen 7 mg/dL (7-17); Calcium 8.3 mg/dL (8.4-10.2); Carbon Dioxide 29 mmol/L (22-30); Chloride 102 mmol/L (98-107); Estimated CRCL calculation 91 ml/min; Estimated Glomerular Filt Rate > 60; Glucose 92 mg/dL (65-110); Potassium 4.3 mmol/L (3.4-5.0); Sodium 136 mmol/L (137-145)
[2024-10-19] MEDS: GABAPENTIN 100 MG CAPSULE PO ×3 (09:12→17:09)
[2024-10-19] MEDS: FERROUS SULFATE 325 MG TABLET DR PO (09:12)
[2024-10-19] MEDS: polyethylene glycoL 3350 17 GM POWD.PACK PO (09:12)
[2024-10-19] MEDS: ENOXAPARIN 40 MG/0.4 ML SYRINGE SUB-Q (09:12)
[2024-10-19 09:17] VITALS: O2SAT 97
[2024-10-19] MEDS: MORPHINE SULFATE PCA (*CRX) 30 MG/30 ML SYR IV CONT (09:17)
[2024-10-19] MEDS: ACETAMINOPHEN 500 MG TABLET PO ×2 (09:29→20:30)
[2024-10-19 14:00] VITALS: BP 146/78; PULSE 87; RESP 18; TEMP 36.7; O2SAT 99
--- NOTE | 2024-10-19 17:48 | P.PNGS_ITS ---
Progress Note: A&P Assessment and Plan (1) Ventral hernia without obstruction or gangrene: Code(s): K43.9 - Ventral hernia without obstruction or gangrene Status: Chronic Assessment and Plan: Repair intact (2) Status post hernia repair: Code(s): Z98.890 - Other specified postprocedural states; Z87.19 - Personal history of other diseases of the digestive system Status: Acute Assessment and Plan: Pain much improved with FOOD TECHNICIAN. Will reduce dose of FOOD TECHNICIAN and these see Pizano catheter. Advanced to regular diet. Doing well. (3) Chronic anticoagulation: Code(s): Z79.01 - manager terminal (current) use of anticoagulants Status: Chronic Assessment and Plan: Continue to hold apixaban. On prophylactic dose of enoxaparin. (4) History of pulmonary embolism: Code(s): Z86.711 - Personal history of pulmonary embolism Status: Chronic Assessment and Plan: Last June. Subjective Subjective Date/Time Seen: 10/19/24 06:48 Post Op day: 2 Patient reports: feels better, pain is less, flatus, no bowel movement and afebrile Exam GI: Inspection: non-distended and incision (Healing well, MARYELLEN mostly serous) GI Palp: Yes Tenderness to palpation present (GI) Objective Data Vital Signs Vital Signs: Vital Signs - 24 hr 10/18/24 18:16 10/18/24 18:16 10/18/24 20:00 Temperature Pulse Rate Respiratory Rate 16 16 Blood Pressure Pulse Oximetry 100 100 Oxygen Delivery Room Air 10/18/24 21:40 10/19/24 05:44 10/19/24 08:00 Temperature 36.4 C L 36.7 C Pulse Rate 86 93 Respiratory Rate 13 14 Blood Pressure 128/86 130/86 Pulse Oximetry 99 98 Oxygen Delivery Room Air 10/19/24 09:17 10/19/24 09:17 10/19/24 14:00 Temperature 36.7 C Pulse Rate 87 Respiratory Rate 18 Blood Pressure 146/78 H Pulse Oximetry 97 97 99 Oxygen Delivery Intake/Output Intake/Output: Intake & Output 10/16/24 10/17/24 10/18/24 10/19/24 23:59 23:59 23:59 23:59 Intake Total 3140 3800 3050 Output Total 9995 5079 6254 Balance 1646 940 -3060 Meds/Results Medications: Active Medications Generic Name Dose Route Start Last Admin Trade Name Freq PRN Reason Stop Dose Admin Acetaminophen 500 mg 10/17/24 12:48 10/19/24 09:29 Acetaminophen 500 Mg Tablet PO 500 mg Q6H PRN Administration Pain Rated 1-3 Diphenhydramine HCl 25 - 50 mg 10/18/24 22:59 Diphenhydramine Hcl Inj 50 Mg/Ml Vial IV PUSH Q4H PRN Itching Enoxaparin Sodium 40 mg 10/18/24 09:00 10/19/24 09:12 Enoxaparin 40 Mg/0.4 Ml Syringe SUB-Q 40 mg DAILY AXEL Administration Ferrous Sulfate 325 mg 10/18/24 09:00 10/19/24 09:12 Ferrous Sulfate [address] PO 325 mg DAILY AXEL Administration Gabapentin 100 mg 10/17/24 13:00 10/19/24 17:09 Gabapentin 100 Mg Capsule PO 100 mg TID AXEL Administration Ibuprofen 800 mg in 200 mls @ 400 mls/hr 10/18/24 07:31 Caldolor 800 Mg/200 Ml IVPB Q6H PRN Breakthrough Pain Rated 1-3 or NPO Morphine Sulfate 30 mg in 30 mls @ 0 mls/hr 10/18/24 07:28 10/19/24 09:17 Morphine Sulfate Adult Education Instructor IV CONT 1 mg/hr PRN PRN 1 mls/hr FOOD TECHNICIAN Management Administration Protocol 0 MG/HR Naloxone HCl 0.1 mg 10/17/24 12:48 Naloxone Hcl 0.4 Mg/Ml Vial IV PUSH Q2M PRN Opiate Reversal Ondansetron HCl 4 mg 10/17/24 12:48 Ondansetron Inj 4 Mg/2 Ml Vial IV PUSH Q4H PRN Nausea And Vomiting Oxycodone/Acetaminophen 1 tablet 10/17/24 12:48 10/18/24 06:36 Oxycodone/Acetaminophen (*Crx) 5-325 Mg Tablet PO 1 tablet Q4H PRN Administration Pain Rated 4-6 Polyethylene Glycol 17 gm 10/18/24 09:00 10/19/24 09:12 Polyethylene Glycol 3350 17 Gm Powd.Pack PO 17 gm QAM AXEL Administration Senna/Docusate Sodium 2 tab 10/18/24 21:00 10/18/24 21:07 Senna/Docusate Sodium Tablet PO 2 tab HS AXEL Administration Labs Labs: Laboratory Results - last 24 hr 10/19/24 06:18 WBC 7.5 RBC 3.93 L Hgb 11.4 L Hct 37.8 MCV 96.2 D MCH 29.0 MCHC 30.2 L RDW 12.7 Plt Count 171 MPV 10.4 Sodium 136 L Potassium 4.3 Chloride 102 Carbon Dioxide 29 Anion Gap 5 BUN 7 Creatinine 0.68 L Estim Creat Clear Calc 91 Estimated GFR > 60 Glucose 92 Calcium 8.3 L
[2024-10-19] MEDS: SENNA/DOCUSATE SODIUM TABLET 2 TAB PO (20:31)
[2024-10-19] MEDS: diphenhydrAMINE HCl INJ 50 MG/ML VIAL IV PUSH (20:31)
[2024-10-19 21:24] VITALS: BP 142/85; PULSE 105; RESP 18; TEMP 36.6; O2SAT 98
[2024-10-20 06:00] VITALS: BP 117/87; PULSE 99; RESP 18; TEMP 36.4; O2SAT 99
[2024-10-20 06:45] LABS: Hematocrit 38.5 % (37.0-47.0); Hemoglobin 12.2 g/dL (12.0-15.0); Mean Corpuscular HGB Conc 31.7 g/dl (32-36); Mean Corpuscular Hemoglobin 29.3 pg (26-34); Mean Corpuscular Volume 92.3 fl (80-100); Platelet Count Result 214 k/mm3 (150-375); Red Blood Count 4.17 M/mm3 (4.2-5.4); Red Cell Distribution Width 12.3 % (11.5-14.5); White Blood Count 6.8 K/mm3 (4.5-10.0)
[2024-10-20 07:00] LABS: Anion Gap 7 mmol/L (4-12); Blood Urea Nitrogen 6 mg/dL (7-17); Carbon Dioxide 29 mmol/L (22-30); Chloride 97 mmol/L (98-107); Estimated CRCL calculation 91 ml/min; Estimated Glomerular Filt Rate > 60; Glucose 94 mg/dL (65-110); Potassium 4.5 mmol/L (3.4-5.0); Sodium 133 mmol/L (137-145)
[2024-10-20] MEDS: ENOXAPARIN 40 MG/0.4 ML SYRINGE SUB-Q (08:38)
[2024-10-20] MEDS: polyethylene glycoL 3350 17 GM POWD.PACK PO (08:38)
[2024-10-20] MEDS: GABAPENTIN 100 MG CAPSULE PO ×3 (08:38→17:18)
[2024-10-20] MEDS: FERROUS SULFATE 325 MG TABLET DR PO (08:38)
--- NOTE | 2024-10-20 09:43 | PM.PNGS ---
Progress Note: A&P Assessment and Plan (1) Ventral hernia without obstruction or gangrene: Code(s): K43.9 - Ventral hernia without obstruction or gangrene Status: Chronic Assessment and Plan: Repair intact (2) Status post hernia repair: Code(s): Z98.890 - Other specified postprocedural states; Z87.19 - Personal history of other diseases of the digestive system Status: Acute Assessment and Plan: Will discontinue RISK CONTROL PRODUCT LIABILITY DIRECTOR. Patient can have 5 mg or 10 mg of Percocet as needed with backup of IV morphine sulfate. Encouraged to ambulate. Will give soapsuds enema as still no bowel movement despite MiraLax and Senokot. (3) Chronic anticoagulation: Code(s): Z79.01 - terminal operations supervisor (current) use of anticoagulants Status: Chronic Assessment and Plan: Continue to hold apixaban. On prophylactic dose of enoxaparin. (4) History of pulmonary embolism: Code(s): Z86.711 - Personal history of pulmonary embolism Status: Chronic Assessment and Plan: Last June. Subjective Subjective Date/Time Seen: 10/20/24 09:43 Post Op day: 3 Patient reports: feels better, pain is less (Only using RISK CONTROL PRODUCT LIABILITY DIRECTOR at bedtime as she gets up to urinate frequently), voiding w/o difficulty, flatus, no bowel movement and afebrile Exam Const: General: comfortable, alert and awake GI: Inspection: non-distended and incision (Clean and dry, no redness or purulent drainage) GI Palp: Yes Soft to palpation and Yes Tenderness to palpation present (GI) Auscultation: normoactive bowel sounds Objective Data Vital Signs Vital Signs: Vital Signs - 24 hr 10/19/24 14:00 10/19/24 20:00 10/19/24 21:24 Temperature 36.7 C 36.6 C Pulse Rate 87 105 H Respiratory Rate 18 18 Blood Pressure 146/78 H 142/85 H Pulse Oximetry 99 98 Oxygen Delivery Room Air 10/20/24 06:00 Temperature 36.4 C Pulse Rate 99 Respiratory Rate 18 Blood Pressure 117/87 Pulse Oximetry 99 Oxygen Delivery Intake/Output Intake/Output: Intake & Output 10/17/24 10/18/24 10/19/24 10/20/24 23:59 23:59 23:59 23:59 Intake Total 3140 3800 3050 Output Total 1494 3345 6110 70 Balance 1646 455 -3060 -70 Meds/Results Medications: Active Medications Generic Name Dose Route Start Last Admin Trade Name Freq PRN Reason Stop Dose Admin Acetaminophen 500 mg 10/17/24 12:48 10/19/24 20:30 Acetaminophen 500 Mg Tablet PO 500 mg Q6H PRN Administration Pain Rated 1-3 Diphenhydramine HCl 25 - 50 mg 10/18/24 22:59 10/19/24 20:31 Diphenhydramine Hcl Inj 50 Mg/Ml Vial IV PUSH 25 mg Q4H PRN Administration Itching Enoxaparin Sodium 40 mg 10/18/24 09:00 10/20/24 08:38 Enoxaparin 40 Mg/0.4 Ml Syringe SUB-Q 40 mg DAILY AXEL Administration Ferrous Sulfate 325 mg 10/18/24 09:00 10/20/24 08:38 Ferrous Sulfate [address] PO 325 mg DAILY AXEL Administration Gabapentin 100 mg 10/17/24 13:00 10/20/24 08:38 Gabapentin 100 Mg Capsule PO 100 mg TID AXEL Administration Ibuprofen 800 mg in 200 mls @ 400 mls/hr 10/18/24 07:31 Caldolor 800 Mg/200 Ml IVPB Q6H PRN Breakthrough Pain Rated 1-3 or NPO Morphine Sulfate 1 mg 10/20/24 09:39 Morphine Sulfate (*Crx) 2 Mg/Ml Inj IV PUSH Q2H PRN Breakthrough Pain Rated 4-6 or NPO Morphine Sulfate 2 mg 10/20/24 09:39 Morphine Sulfate (*Crx) 4 Mg/Ml Inj IV PUSH Q2H PRN Breakthrough Pain Rated 7-10 or NPO Naloxone HCl 0.1 mg 10/17/24 12:48 Naloxone Hcl 0.4 Mg/Ml Vial IV PUSH Q2M PRN Opiate Reversal Ondansetron HCl 4 mg 10/17/24 12:48 Ondansetron Inj 4 Mg/2 Ml Vial IV PUSH Q4H PRN Nausea And Vomiting Oxycodone/Acetaminophen 1 tablet 10/17/24 12:48 10/18/24 06:36 Oxycodone/Acetaminophen (*Crx) 5-325 Mg Tablet PO 1 tablet Q4H PRN Administration Pain Rated 4-6 Oxycodone/Acetaminophen 1 tab 10/20/24 09:39 Oxycodone/Acetaminophen (*Crx) 10-325 Mg Tablet PO Q6H PRN Pain Rated 7-10 Polyethylene Glycol 17 gm 10/18/24 09:00 10/20/24 08:38 Polyethylene Glycol 3350 17 Gm Powd.Pack PO 17 gm QAM AXEL Administration Senna/Docusate Sodium 2 tab 10/18/24 21:00 10/19/24 20:31 Senna/Docusate Sodium Tablet PO 2 tab HS AXEL Administration Labs Labs: Laboratory Results - last 24 hr 10/20/24 06:27 WBC 6.8 RBC 4.17 L Hgb 12.2 Hct 38.5 MCV 92.3 MCH 29.3 MCHC 31.7 L RDW 12.3 Plt Count 214 MPV 10.0 Sodium 133 L Potassium 4.5 Chloride 97 L Carbon Dioxide 29 Anion Gap 7 BUN 6 L Creatinine 0.68 L Estim Creat Clear Calc 91 Estimated GFR > 60 Glucose 94 Calcium 9.0
[2024-10-20 09:56] VITALS: O2SAT 98
[2024-10-20] MEDS: oxyCODONE/ACETAMINOPHEN (*CRX) 10-325 MG TABLET 1 TAB PO ×2 (12:40→21:13)
[2024-10-20 14:00] VITALS: BP 130/86; PULSE 100; RESP 16; TEMP 36.3; O2SAT 100
[2024-10-20] MEDS: ACETAMINOPHEN 500 MG TABLET PO (17:22)
[2024-10-20] MEDS: SENNA/DOCUSATE SODIUM TABLET 2 TAB PO (21:12)
[2024-10-20 21:21] VITALS: BP 127/82; PULSE 98; RESP 18; TEMP 36.4; O2SAT 100
[2024-10-21 06:00] VITALS: BP 123/84; PULSE 85; RESP 18; TEMP 35.8; O2SAT 100
[2024-10-21] MEDS: oxyCODONE/ACETAMINOPHEN (*CRX) 10-325 MG TABLET 1 TAB PO ×2 (06:02→15:04)
[2024-10-21 06:13] LABS: Hematocrit 39.2 % (37.0-47.0); Hemoglobin 12.8 g/dL (12.0-15.0); Mean Corpuscular HGB Conc 32.7 g/dl (32-36); Mean Corpuscular Hemoglobin 29.6 pg (26-34); Mean Corpuscular Volume 90.7 fl (80-100); Mean Platelet Volume 9.9 fl (7.4-10.4); Platelet Count Result 275 k/mm3 (150-375); Red Blood Count 4.32 M/mm3 (4.2-5.4); Red Cell Distribution Width 12.1 % (11.5-14.5); White Blood Count 5.7 K/mm3 (4.5-10.0)
[2024-10-21 06:22] LABS: Anion Gap 4 mmol/L (4-12); Blood Urea Nitrogen 9 mg/dL (7-17); Calcium 8.9 mg/dL (8.4-10.2); Carbon Dioxide 32 mmol/L (22-30); Chloride 98 mmol/L (98-107); Estimated CRCL calculation 85 ml/min; Estimated Glomerular Filt Rate > 60; Glucose 99 mg/dL (65-110); Potassium 4.5 mmol/L (3.4-5.0); Sodium 134 mmol/L (137-145)
[2024-10-21] MEDS: polyethylene glycoL 3350 17 GM POWD.PACK PO (08:37)
[2024-10-21] MEDS: ENOXAPARIN 40 MG/0.4 ML SYRINGE SUB-Q (08:37)
[2024-10-21] MEDS: FERROUS SULFATE 325 MG TABLET DR PO (08:37)
[2024-10-21] MEDS: GABAPENTIN 100 MG CAPSULE PO ×2 (08:38→12:34)
--- NOTE | 2024-10-21 12:54 | P.DS_ITS ---
DS: Admitting Diagnosis Discharge Date 10/21/2024 Admitting Diagnosis * Large ventral hernia * History pulmonary embolism June 2024 * Chronic anticoagulation * Chronic anemia * Fibromyalgia DS: Discharge Diagnosis Discharge Diagnosis (1) Ventral hernia without obstruction or gangrene: Code(s): K43.9 - Ventral hernia without obstruction or gangrene Status: Chronic Assessment and Plan: 12 cm defect, wide mouth ventral hernia (2) Status post hernia repair: Code(s): Z98.890 - Other specified postprocedural states; Z87.19 - Personal history of other diseases of the digestive system Status: Acute Assessment and Plan: Large ventral hernia repaired 10/17/2024 with mesh and posterior component separation (3) History of pulmonary embolism: Code(s): Z86.711 - Personal history of pulmonary embolism Status: Chronic Assessment and Plan: Diagnosis 06/14/2024 (4) Chronic anticoagulation: Code(s): Z79.01 - continuous churn buttermaker (current) use of anticoagulants Status: Chronic Assessment and Plan: Patient will resume Eliquis on discharge (5) Fibromyalgia: Code(s): M79.7 - Fibromyalgia Status: Chronic DS: Summary Hospital Course Hospital Course: Patient was having an increasing bulge in the abdomen with hypogastric pain. She had a CT scan in early June which showed a wide mouth ventral hernia. At examination in the office, she was felt to have an 11.5 cm defect ventral hernia. After discussion, patient was prepared for surgery and taken to the ope rating room on 10/17/2024. She was found to have a large ventral hernia with 12 cm defect. This was repaired with mesh and transversus myofascial posterior flap release. Following surgery the patient was on a OCCUPATIONAL THERAPY DEPARTMENT CHAIR pump for postoperative pain. This was started on postop day 1. She was given MiraLax and Senokot to facilitate bowel movement. The OCCUPATIONAL THERAPY DEPARTMENT CHAIR was able to be reduced on postop day 2. And discontinued on postop day 3. She also had large bowel movement on postop day 3. On postop day 4., 10/21/2024, patient was eating a regular diet, ambulating with minimal discomfort and steady on her feet, requiring only oral analgesics for pain. She was able to be discharged in good condition on postop day 4. Status at Discharge Functional status at discharge: independent ambulation Overall status at discharge: patient is progressing back to baseline Time Spent with Patient Time attestation: Total time spent providing and/or coordinating discharge services: Time spent: Less than 30 minutes DS: Data Data Completed and Pending Labs on day of discharge: Labs from last 24 hours 10/21/24 05:36 WBC 5.7 RBC 4.32 Hgb 12.8 Hct 39.2 MCV 90.7 MCH 29.6 MCHC 32.7 RDW 12.1 Plt Count 275 MPV 9.9 Sodium 134 L Potassium 4.5 Chloride 98 Carbon Dioxide 32 H Anion Gap 4 BUN 9 Creatinine 0.74 Estim Creat Clear Calc 85 Estimated GFR > 60 Glucose 99 Calcium 8.9 Discharge Plan Discharge Attending physician on discharge: Rafael Rodriguez Discharging Clinician: Rafael Rodriguez Anticipated Discharge Date/Time: 10/21/24 13:03 Patient Disposition: Home Activity: may shower, no straining and as tolerated Diet: regular Wound Care Instructions: keep dressing dry and remove dressing to shower Discharge Instructions: * Ambulate 3-4 x per day and as tolerated. * No lifting over 15-20lbs. * May bathe or shower. * Stairs are OK. * May drive a car in 3 days. * Remove any dressings before shower and replace after. Dress both the drain site and the abdominal incision. * May discontinue dressings to incision and drain site on Tuesday10/24/2024. Leave both wounds open * Call Dr. Curry office for new onset severe pain, persistent wound drainage or bleeding, temperature over 100.5?, other significant change in condition. * Prescription pain medication has been sent to your pharmacy. Take this only as needed. Try to use ibuprofen or Tylenol for pain relief as much as possible. * Continue taking MiraLax and Senokot S as prescribed to avoid constipation. * Resume taking apixaban anticoagulant today or tomorrow. Take as previously scheduled thereafter. Patient Instructions: Antibiotic Form Patient Language: Vietnamese Stand Alone Forms: General Discharge Information Follow-up/Referrals: Rafael Rodriguez MD [Physician] - 2 Weeks Kwan Macias MD [Primary Care Provider] - 2 Weeks Discharge Medications: New oxycodone-acetaminophen [Percocet] 5-325 mg tablet 1 - 2 tablet PO Q8H PRN (Reason: pain) Qty: 30 0RF sennosides-docusate sodium [Senokot-S] 8.6-50 mg Tablet 2 tab PO HS Qty: 10 0RF polyethylene glycol 3350 [Miralax] 17 gram Powder In Packet 17 g PO QAM Qty: 10 0RF Continued gabapentin 100 mg capsule 100 mg PO TID ibuprofen 800 mg tablet 800 mg PO TID Rx Instructions: Says takes one every day then as needed for pain. ferrous sulfate 325 mg (65 mg iron) tablet,delayed release (DR/EC) 325 mg PO DAILY Eliquis 5 mg tablet 10 mg PO ONCE 1 Days Qty: 2 0RF Rx Instructions: take 06/19/24 PM (already received AM dose and full Rx to take effect 06/20/24) Date of admission: 10/17/24 12:48 Primary Care Provider: Kwan Macias Admitting Provider: Rafael Rodriguez Attending physician on admission: Rafael Rodriguez Condition: Improved
[2024-10-21 14:00] VITALS: BP 119/81; PULSE 94; RESP 18; TEMP 36.4; O2SAT 100
== END 2024-10-21 16:05 | disposition home or self-care (01) | DRG 227 ==
LOC: ANH3MEDSUR 12:51
PROVIDERS: Admitting Provider Surgery; PCP Emergency Medicine; Visit Provider Surgery
PROC: 0WQF0ZZ Repair Abdominal Wall, Open Approach (ICD-10-PCS; principal; 2024-10-17 07:30)
DX: K43.9 Ventral hernia without obstruction or gangrene (principal); D64.9 Anemia, unspecified; M79.7 Fibromyalgia; F41.8 Other specified anxiety disorders; L30.9 Dermatitis, unspecified; E66.9 Obesity, unspecified; Z86.711 Personal history of pulmonary embolism; Z79.01 Long term (current) use of anticoagulants; Z68.35 Body mass index [BMI] 35.0-35.9, adult
CPT/HCPCS: 36415; 80048; 85027; A9270; C1781; J0690; J1100; J1171; J1200; J1650; J1741; J1885; J2003; J2250; J2270; J2405; J2704; J3010; J3480; J7120

== ENCOUNTER 2024-11-15 10:57 | Outpatient (CLI) | payer OTHER, SELFPAY ==
--- NOTE | ~2024-11-15 | US_ITS ---
BILATERAL LOWER EXTREMITY VENOUS ULTRASOUND Ordering provider: Rafael Rodriguez MD History: . M79.604 - Pain in right leg . Comparison: None. FINDINGS: RIGHT LOWER EXTREMITY VEINS: --COMMON FEMORAL: Patent and free of thrombus. Normal compressibility, phasic flow and augmentation. --PROXIMAL SUPERFICIAL FEMORAL: Patent and free of thrombus. Normal compressibility, phasic flow and augmentation. --DISTAL SUPERFICIAL FEMORAL: Patent and free of thrombus. Normal compressibility, phasic flow and au gmentation. --POPLITEAL: Patent and free of thrombus. Normal compressibility, phasic flow and augmentation. --POSTERIOR TIBIAL: Patent and free of thrombus. Normal compressibility, phasic flow and augmentation . LEFT LOWER EXTREMITY VEINS: --COMMON FEMORAL: Patent and free of thrombus. Normal compressibility, phasic flow and augmentation. --PROXIMAL SUPERFICIAL FEMORAL: Patent and free of thrombus. Normal compressibility, phasic flow and augmentation. --DISTAL SUPERFICIAL FEMORAL: Patent and free of thrombus. Normal compressibility, phasic flow and au gmentation. --POPLITEAL: Patent and free of thrombus. Normal compressibility, phasic flow and augmentation. --POSTERIOR TIBIAL: Patent and free of thrombus. Normal compressibility, phasic flow and augmentation . IMPRESSION: Negative bilateral lower extremity venous US. No deep vein thrombosis. Reviewed, dictated and finalized at location A.
--- OUTSIDE RECORDS SUMMARY | 2024-11-15 11:13 | XMS_ITS | Clinical Summary ---
Author Organization [facility] Address [address] [place] [address] Care Team Providers Care Medical Malpractice Paralegal Name Role Phone Kwan Macias MD Primary Care Provider [phone] Allergies No known active allergies Medications ferrous [...] Encounters Date Type Department Care Team Description 10/23/2024 4:15 PM CDT Telephone Check Up [facility] On[facility] and H[facility]ology - [address] [place] [address] Ryan Cheney MD 10/23/2024 Orders Only [facility] - [address] [place] [address] Ryan Cheney MD 10/23/2024 External Device Data STL ABSTRACTION Provider, Abstract 10/22/2024 Orders Only [facility] - [address] [place] [address] Ryan Cheney MD 10/19/2024 Orders Only [facility] - [address] [place] [address] Ryan Cheney MD 10/17/2024 Orders Only [facility] [address] [place] [address] Ryan Cheney MD 10/12/2024 Abstract [facility] [address] [place] [address] Ryan Cheney MD 10/08/2024 4:00 PM CDT Telephone Check Up [facility] [address] [place] [address] Ryan Cheney MD Other acute pulmonary embolism without acute cor pulmonale (CMS/HCC) (Primary Dx) 10/03/2024 11:15 AM CDT Office Visit [facility] [address] [place] [address] Ryan Cheney MD Other acute pulmonary embolism without acute cor pulmonale (CMS/HCC) (Primary Dx) 09/26/2024 External Device Data STL ABSTRACTION Provider, Abstract 09/20/2024 Abstract [facility] [address] [place] [address] Ryan Cheney MD 09/20/2024 Telephone [facility] [address] [place] [address] Ryan Cheney MD Surgical Clearance 09/18/2024 External [...] Care Team (Late st Contact Info) Description 01/04/2025 10:30 AM CDT Office Visit [facility] - [address] [facility] [address] [place] [address] Ryan Cheney MD [address] [facility] [address] [place] [address] Health Maintenance Due Date Last Done Comments Pre-Diabetes and Diabetes Screening 1978 HEPATITIS B VACCINES (1 of 3 - 19+ 3-dose series) 1997 HPV/Cotest (21-29) 1999 CERVICAL CANCER SCREENING [...] Procedure Name Priority Date/Time Associated Diagnosis Comments PROTHROMBIN GENE ANALYSIS Routine 2024 4:21 PM CDT FACTOR V LEIDEN MUTATION Routine 025 3:17 PM CDT BETA 2 GLYCOPROTEIN 1 AB, IGG/IGM Routine 10/15/2024 2:19 PM CDT PROTEIN C & S ACTIVITY Routine 2:12 PM CDT ANTITHROMBIN III ACTIVITY Routine 2024 2:01 PM CDT from Last 3 Months Results * PROTHROMBIN GENE ANALYSIS (10/15/2024 4:21 PM CDT) Blood us Ryan Cheney MD CHEMISTRY ORDERABLES Final Resu lt * FACTOR V LEIDEN MUTATION (10/15/2024 3:17 PM CDT) Blood us Ryan Cheney MD HEMATOLOGY ORDERABLES Final Res ult * BETA 2 GLYCOPROTEIN 1 AB, IGG/IGM (10/15/2024 2:19 PM CDT) Blood us Ryan Cheney MD CHEMISTRY ORDERABLES COM Final Result * PROTEIN C & S ACTIVITY (10/15/2024 2:12 PM CDT) Blood Ryan Cheeny MD CHEMISTRY ORDERABLES Final Resu lt * ANTITHROMBIN III ACTIVITY (10/15/2024 2:01 PM CDT) Blood us Ryan Cheney MD HEMATOLOGY ORDERABLES Final Res ult from Last 3 Months Insurance [facility] [address] MEDICAID Care Teams Medical Malpractice Paralegal Relationship Specialty Start Date End Date Kwan Macias MD [address] [place] [phone] PCP - General Family Practice 05/11/24
--- OUTSIDE RECORDS SUMMARY | 2024-11-15 11:13 | XMS_ITS | Clinical Summary ---
Author Organization [facility] Address [address] [facility] [place] [address] Care Team Providers Care Taxonomy Teacher Name Role Phone Kwan Macias MD Primary Care Provider [phone] Jg Hummel DO Unavailable Source Comments [facility],non-owned Affiliates and Associated Physician Practices is amultiple site organization consisting of ambulatory clinics and hospital sitesin [place], [place], [place] and [place]. This disclosure is being madepursuant to the Care Everywhere program and may not contain all information available regarding this patient. Last updated 18.[facility] Allergies Active Allergy Reactions Criticality Noted Date Comments Duloxetine Other 02/13/2024 Excessive sedation on 30 mg bedtime dose Medications * Be aware that medications may not be up to date on this document. Alwaysverify current medications with the patient. albuterol HFA (Proventil; Ventolin; Proair) 108 (90 Base) MCG/ACT inhaler 4 Active ferrous sulfate 325 (65 FE) MG tablet Take 1 (one) tablet by mouth once daily 4 Active Eliquis 5 MG tablet Take 1 (one) tablet by mouth 2 times daily Active ibuprofen (Motrin) 800 MG tabletIndication s:Primary fibromyalgia syndrome Take 1 (one) tablet by mouth 3 times daily as needed with food for Pain 90 tablet 5 Active gabapentin (Neurontin) 100 MG capsuleIndicatio ns:Fibromyalgia Syndrome,Restles s Leg Syndrome Take 2 (two) capsules by mouth every morning AND 2 (two) capsules every afternoon AND 3 (three) capsules at bedtime. Reasons: Fibromyalgia Syndrome, Restless Leg Syndrome. 5 Active Active Problems Problem Noted Date Diagnosed [...] Description 10/09/2024 10:20 AM CDT Office Visit [facility] Medical [facility] - Rheumatology [address] [place] [address], [facility] [address] [place] [address] Jg Hummel DO Primary fibromyalgia syndrome (Primary Dx); Restless legs syndrome; Acute pain of right knee 09/20/2024 Refill [facility] - Rheumatology [address], [facility] [address] [place] [address] Jg Hummel DO MEDICATION REFILL 09/07/2024 10:30 AM SUPERVISOR CORDUROY CUTTING Office Visit [facility] - ENT [address] [place] [address] Steve Van, NEEDLEMAKER-GREIGE GOODS MARKER Multiple thyroid nodules (Primary Dx) 09/07/2024 Travel from Last 3 Months Immunizations Immunization Administration Dates Next Due TDAP (7yrs+) 03/31/2021 [...] Recorded Patient Health Questionnaire-2 Score 0 10/09/2024 Comments No Sex and Gender Information Value Date Recorded Sex Assigned at Not on file Legal Sex Female 9:57 AM CDT Gender Identity Not on file [...] cm (5' 2 ) 09/07/2024 10:20 AM SUPERVISOR CORDUROY CUTTING Body Mass Index 35.3 09/07/2024 10:20 AM SUPERVISOR CORDUROY CUTTING Plan of Treatment Upcoming Encounters Date Type Department Care Team (Late st Contact Info) Description 04/10/2025 10:20 AM CDT Office Visit [facility] - Rheumatology [address], [address] [place] [address] Jg Hummel DO [address] [place] [address] 07/25/2025 10:15 AM SUPERVISOR CORDUROY CUTTING Appointment [facility] [address] [place] [phone] Steve Van, NEEDLEMAKER-[facility] [address] [facility] [address] [place] [address] Health Maintenance Due Date Last Done Comments [...] Monet Connors MD on 05/25/2024 3:01 PM SUPERVISOR CORDUROY CUTTING Addendum by Monet Connors M.D. This addendum [...] This was discussed with Dr. Jeffrey via [employer] message. EXAMINATIONS: 1. RIGHT DIGITAL DIAGNOSTIC MAMMOGRAM AND TOMOSYNTHESIS AND 2. COMPLETE BILATERAL BREAST ULTRASOUND (COMBINED REPORT) LOCATION: [facility] EXAM DATE: 03/28/2024 HISTORY: This is a 43-year-old female patient with painful right breast mass/lump for which she went to the ER at [facility] at the beginning of March. [...] greater than 20%, consultation in the [facility] Breast Surgery High Risk Clinic is recommended. Should she wish to schedule an appointment, the phone number [phone]. The [place] [employer] recommends annual screening breast MRI [...] recommended. COMPARISON: Limited right breast ultrasound 03/11/2024 [facility]. Screening mammography 08/16/2023 from [facility] MAMMOGRAM: TECHNIQUE: Diagnostic bilateral mammography [...] in size compared to prior exam from [facility]. No suspicious finding was found [...] cancer greater than 20%, according to the [employer] guidelines. This can be alternated [...] cancer greater than 20%, according to the [employer] guidelines. This can be alternated [...] CATEGORY 2: BENIGN. Report dictated by Roxie WASHBURN [facility] (breast imaging fellow). I, Monet Connors MD have personally reviewed and interpreted this examination/study. > Interpreting Provider: Monet Connors MD on 03/28/2024 10:21 AM Narrative 03/28/2024 10:21 AM CDT EXAMINATIONS: 1. RIGHT DIGITAL DIAGNOSTIC MAMMOGRAM AND TOMOSYNTHESIS AND 2. COMPLETE BILATERAL BREAST ULTRASOUND (COMBINED REPORT) LOCATION: [facility] EXAM DATE: 03/28/2024 HISTORY: This is a 43-year-old female patient with painful right breast mass/lump for which she went to the ER at [facility] at the beginning of March. [...] greater than 20%, consultation in the [facility] Breast Surgery High Risk Clinic is recommended. Should she wish to schedule an appointment, the phone number [phone]. The [employer] recommends annual screening breast MRI [...] recommended. COMPARISON: Limited right breast ultrasound 03/11/2024 [facility]. Screening mammography 08/16/2023 from [facility] MAMMOGRAM: TECHNIQUE: Diagnostic bilateral mammography [...] in size compared to prior exam from [facility]. No suspicious finding was found [...] COMPLETE BILATERAL BREAST ULTRASOUND (COMBINED REPORT) LOCATION: [facility] EXAM DATE: 03/28/2024 HISTORY: This is a 43-year-old female patient with painful right breast mass/lump for which she went to the ER at [facility] at the beginning of March. [...] greater than 20%, consultation in the [facility] Breast Surgery High Risk Clinic is recommended. Should she wish to schedule an appointment, the phone [phone]. The [place] [employer] recommends annual screening breast MRI in addition to mammograms for women who have a 20% or greater lifetime riskof developing breast cancer. This can be managed through the high riskbreast clinic. Risk assessment based upon the Tyrer-Cuzick v8 model. By the NCCN guidelines and family history of breast cancer, consideration of genetic testing is recommended. COMPARISON: Limited right breast ultrasound 03/11/2024 [facility]. Screening mammography 08/16/2023 from [facility] MAMMOGRAM: TECHNIQUE: Diagnostic bilateral mammography [...] in size compared to prior exam from [facility]. No suspicious finding was found [...] cancer greater than 20%, according to the [employer] guidelines. This can be alternated [...] 2: BENIGN. Report dictated by Roxie WASHBURN, [facility] (breast imaging fellow). I, Monet Connors MD have personally reviewed and interpreted this examination/study. > Interpreting Provider: Monet Connors MD on 03/28/2024 10:21 AM Yumiko Henderson MD MAMMO ORDERABLES Edited Resu lt - Final from Last 3 Months or Most Recently Relevant to Health Maintenance Insurance [facility] SELF PAY NO INSURANCE Member Subscriber Plan / Payer (Ef fective for All Dates) Name:Amelie Man Member ID:Not on file Relation to Subscriber:Not on file Name:GIANNIAMELIE Subscriber ID:Not on file (Home) Address: [address] [place] [id number] Payer ID:Not on file Group ID:Not on file Type:Self Pay Address: [place], [place] Care Teams Taxonomy Teacher Relationship Specialty Start Date End Date Kwan Macias MD [address] [facility] [address] [place] [address] PCP - General Family Medicine 01/09/24 Jg Hummel DO [address] [place] [address] Events Administrative Assistant Rheumatology 02/27/24
--- OUTSIDE RECORDS SUMMARY | 2024-11-15 11:13 | XMS_ITS | Clinical Summary ---
Author Organization [facility] Address [address] [place] [address] Care Team Providers Care Sap Security Consultant Name Role Phone Shannon Cruz MD Unavailable [phone] Kwan Macias MD Primary Care Provider [phone] Allergies Active Allergy Reactions Criticality Noted Date [...] each 11 06/26/20 24 Active PNV with [id number] ( Plus, calcium carb,) 27 mg iron- [...] of Binge Drinking Not on file 06/10 [place] Depression Scale Answer Date Recorded [place] Depression Scale Total 7 03/31/2021 The thought of harming myself has occurred to me . Never 03/31/2021 Comments Unknown Sex and Gender Information Value Date Recorded Sex Assigned at Not on file Legal Sex Female 6:23 PM INTER FOLD ROLL CUTTER Gender Identity Not on file Sexual Orientation [...] Cruz , Jami Qiu MD Complications:None Delivery Location:[facility] (MHE L AND D PROCEDURE) Last Filed Vital Signs Vital Sign Reading Time Taken Comments Blood Pressure 102/60 06/26/2024 1:08 PM INTER FOLD ROLL CUTTER Pulse 70 06/26/2024 1:08 PM INTER FOLD ROLL CUTTER Temperature 36.4 C (97.6 F) 06/26/2024 1:08 PM INTER FOLD ROLL CUTTER Respiratory Rate 12 06/26/2024 1:08 PM INTER FOLD ROLL CUTTER Oxygen Saturation 99% 06/26/2024 1:08 PM INTER FOLD ROLL CUTTER Inhaled Oxygen Concentration - - Weight 79.8 kg (176 lb) 07/25/2024 1:11 PM INTER FOLD ROLL CUTTER Height 157.5 cm (5' 2 ) 07/25/2024 1:11 PM INTER FOLD ROLL CUTTER Body Mass Index 32.19 07/25/2024 1:11 PM INTER FOLD ROLL CUTTER Plan of Treatment Health Maintenance Due Date [...] patient's age to complete this topic Insurance [address] [place], [place] [id number] [place] [address] Advance Directives For more information, please contact: [phone] * Full Code (Latest Code Status on File) Date Activated Date Inactivated Comments 03/30/2021 6:35 PM 04/01/2021 5:12 PM Care Teams Sap Security Consultant Relationship Specialty Start Date End Date Kwan Macias MD [address] [place] [address] PCP - General Emergency Medicine 01/23/24 Shannon Cruz MD [address] [place] [address] Consulting Physician Obstetrics and Gynecology 04/01/21
--- OUTSIDE RECORDS SUMMARY | 2024-11-15 11:13 | XMS_ITS | CONTINUITY OF CARE DOCUMENT ---
Author Name haley de leon Address Unknown Organization [facility] Address [address] [facility] [address] [place] [address] Phone [phone] Care Team Providers Care Back Office Medical Assistant Name Role Phone Angel Newby MD Unavailable CARLY TAMEZ MD Unavailable [phone] CARLY TAMEZ MD Unavailable [phone] PROBLEMS Condition Status Date Provider Notes Cardiology examination active Nolan Ahmedzai Chest pain active Nolan Ahmedzai Shortness of breath active Nolan Ahmedzai Palpitations active Nolan Ahmedzai Elevated blood pressure active Nolan Ahmedza i Lupus active Nolan Ahmedzai ENCOUNTERS Date Type Provider Location Encounter Diag nosis - In-person encounter Office Visit Angel Newby MD [place] [facility] Cardiology examinationChest painShortness of breathLupusElevated blood [...] Payer name Policy type / Coverage type [place] red green party ID [place] MEDICAID (2) Medicaid [id number] ADVANCE DIRECTIVES Name Date DISCUSSED - NO DECISION MADE TREATMENT PLAN Date Name Performer Electrophysiology: O rders: 9 9204 MOD 45-59 min (CPT-89019) Nolan Faustinzaquirino Electrophysiology:Mo nitor your BP at home, goal BP is <135/85 O rders: 9 9204 MOD 45-59 min (CPT-42912) Nolan Ahmedzai Electrophysiology: O rders: C omplete Echo (57967) 9 9204 MOD 45-59 min (CPT-34602) Nolan Ahmedzai Electrophysiology: O rders: C omplete Echo (40331) 9 9204 MOD 45-59 min (CPT-84679) Nolan Faustinzai Date Name Monitor - Telemetry (Mobile Cardiac) Complete Echo HISTORY OF PROCEDURES Procedure Date Procedure Name Provider Procedure Notes S tatus EKG Angel Newby MD comp leted
--- OUTSIDE RECORDS SUMMARY | 2024-11-15 11:13 | XMS_ITS | Clinical Summary ---
Author Organization [facility] Address [address] [place] [address] Phone Care Team Providers Care Senior C Software Engineer Name Role Phone Kwan Macias MD Primary Care Provider [phone] Allergies No known active allergies Medications ferrous [...] Comments Blood Pressure 132/90 08/21/2024 1:10 PM FULL ROLL INSPECTOR Pulse 70 08/21/2024 1:10 PM FULL ROLL INSPECTOR Temperature - - Respiratory Rate - - Oxygen Saturation - - Inhaled Oxygen Concentration - - Weight 83.5 kg (184 lb) 08/21/2024 1:10 PM FULL ROLL INSPECTOR Height 160 cm (5' 3 ) 08/21/2024 1:10 PM FULL ROLL INSPECTOR Body Mass Index 32.59 08/21/2024 1:10 PM FULL ROLL INSPECTOR Plan of Treatment Upcoming Encounters Date Type Department Care Team (Late st Contact Info) Description 02/19/2025 2:00 PM CDT Office Visit [facility] [address] [facility], [address] [place] [address] Omid Rowe MD [address] [facility] [address] [place] [address] Health Maintenance Due Date Last Done Comments Pneumococcal PPSV23 Highest Risk Adult (1 of 3 - PCV13 ) 1997 Influenza Vaccine (Season Ended) 2025 [place] [address] PM INTERFACED INSURANCE Care Teams Senior C Software Engineer Relationship Specialty Start Date End Date Kwan Macias MD PCP - General 06/19/24
--- OUTSIDE RECORDS SUMMARY | 2024-11-15 11:13 | XMS_ITS | Referral Summary ---
Author Organization [facility] Address [address] [place] [address] Care Team Providers Care Marketing Production Coordinator Name Role Phone Shannon Cruz MD Unavailable [phone] Kwan Macias MD Primary Care Provider [phone] Allergies Active Allergy Reactions Criticality Noted Date [...] each 11 06/26/20 24 Active PNV with [id number] ( Plus, calcium carb,) 27 mg iron- [...] of Binge Drinking Not on file 06/10 [place] Depression Scale Answer Date Recorded [place] Depression Scale Total 7 03/31/2021 The thought of harming myself has occurred to me . Never 03/31/2021 Comments Unknown Sex and Gender Information Value Date Recorded Sex Assigned at Not on file Legal Sex Female 6:23 PM FARM ADVISOR Gender Identity Not on file Sexual Orientation Not on file Last Filed Vital Signs Vital Sign Reading Time Taken Comments Blood Pressure 102/60 06/26/2024 1:08 PM FARM ADVISOR Pulse 70 06/26/2024 1:08 PM FARM ADVISOR Temperature 36.4 C (97.6 F) 06/26/2024 1:08 PM FARM ADVISOR Respiratory Rate 12 06/26/2024 1:08 PM FARM ADVISOR Oxygen Saturation 99% 06/26/2024 1:08 PM FARM ADVISOR Inhaled Oxygen Concentration - - Weight 79.8 kg (176 lb) 07/25/2024 1:11 PM FARM ADVISOR Height 157.5 cm (5' 2 ) 07/25/2024 1:11 PM FARM ADVISOR Body Mass Index 32.19 07/25/2024 1:11 PM FARM ADVISOR Plan of Treatment Not on file Insurance Advance Directives For more information, please contact: [phone] * Full Code (Latest Code Status on File) Date Activated Date Inactivated Comments 03/30/2021 6:35 PM 04/01/2021 5:12 PM Care Teams Marketing Production Coordinator Relationship Specialty Start Date End Date Kwan Macias MD [address] [place] [address] PCP - General Emergency Medicine 01/23/24 Shannon Cruz MD [address] [place] [address] Consulting Physician Obstetrics and Gynecology 04/01/21
== END 2024-11-15 10:58 | disposition home or self-care (01) ==
PROVIDERS: PCP Emergency Medicine; Visit Provider Surgery
DX: M79.604 Pain in right leg (principal); M79.605 Pain in left leg; Z98.890 Other specified postprocedural states
CPT/HCPCS: 93970

== ENCOUNTER 2024-11-20 12:20 | Outpatient (CLI) | payer OTHER, SELFPAY ==
--- NOTE | ~2024-11-20 | MM_ITS ---
EXAMINATION: MM diagnostic stephen BI w zack HISTORY: Prior breast surgery TECHNIQUE: 3-D tomosynthesis images of the breasts were performed and synthetic 2-D images were gener ated. CAD analysis was submitted and interpreted. COMPARISON: None BREAST PARENCHYMAL COMPOSITION:Not Dense. There are scattered areas of fibroglandular density. FINDINGS: No suspicious mass lesion or distortion seen in either breast. No suspicious microcalcifica tions. Parenchymal pattern is unremarkable. IMPRESSION: No mammographic evidence for malignancy. BI-RADS Category 1: Negative Reviewed, dictated and finalized at location .
--- OUTSIDE RECORDS SUMMARY | 2024-11-20 12:22 | XMS_ITS | Clinical Summary ---
Author Organization [facility] Frantz diaz Edwardleticia Address [address] [place] [address] Care Team Providers Care Hydrogen Power Plant Manager Name Role Phone Kwan Macias MD Primary Care Provider [phone] Allergies No known active allergies Medications ferrous sulfate 325 mg (65 mg iron) tablet Take 325 mg by mouth daily. 4 Active ergocalciferol (VITAMIN D2) 50,000 unit capsule Take 1 Capsule by mouth every 7 days. 4 Active Eliquis 5 mg tablet TAKE 1 TABLET BY MOUTH TWICE A DAY 60 Tablet 2 5 Active apixaban (Eliquis) 5 mg tablet TAKE 1 TABLET BY MOUTH TWICE A DAY 60 Tablet 2 5 11/20/19 25 Discontinued Active Problems No known active problems Encounters Date Type Department Care Team Description 11/19/2024 Refill [facility] - [address] [place] [address] Ryan Cheney MD 10/23/2024 4:15 PM CDT Telephone Check Up [facility] - [address] [facility] [place] [address] Ryan Cheney MD 10/23/2024 Orders Only [facility] - [address] [place] [address] Ryan Cheney MD 10/23/2024 External Device Data STL ABSTRACTION Provider, Abstract 10/22/2024 Orders Only [facility] - [address] [place] [phone] Ryan Cheney MD 10/19/2024 Orders Only [facility] H[facility] - [address] [place] [address] Ryan Cheney MD 10/17/2024 Orders Only [facility] - [address] [place] [address] Ryan Cheney MD 10/12/2024 Abstract [facility] - [address] [place] [address] Ryan Cheney MD 10/08/2024 4:00 PM CDT Telephone Check Up [facility] - [address] [place] [phone] Ryan Cheney MD Other acute pulmonary embolism without acute cor pulmonale (CMS/HCC) (Primary Dx) 10/03/2024 11:15 AM CDT Office Visit [facility] - [address] [place] [address] Ryan Cheney MD Other acute pulmonary embolism without acute cor pulmonale (CMS/HCC) (Primary Dx) 09/26/2024 External Device Data STL ABSTRACTION Provider, Abstract 09/20/2024 Abstract [facility] - [address] [place] [address] Ryan Cheney MD 09/20/2024 Telephone [facility] - [address] [place] [address] Ryan Cheney MD Surgical Clearance 09/18/2024 External [...] Description 01/04/2025 10:30 AM CDT Office Visit [facility] - [place] [address] [facility] [address] [place] [address] Ryan Cheney MD [address] [facility] [address] [place] [address] Health Maintenance Due Date Last [...] CDT PROTEIN C & S ACTIVITY Routine 5 2:12 PM CDT ANTITHROMBIN III ACTIVITY Routine 2024 2:01 PM CDT from Last 3 Months Results * PROTHROMBIN GENE ANALYSIS (10/15/2024 4:21 PM CDT) Blood Ryan Cheney MD CHEMISTRY ORDERABLES Final Resu lt * FACTOR V LEIDEN MUTATION (10/15/2024 3:17 PM CDT) Blood us Ryan Cheney MD HEMATOLOGY ORDERABLES Final Res ult * BETA 2 GLYCOPROTEIN 1 AB, IGG/IGM (10/15/2024 2:19 PM CDT) Blood Ryan Cheney MD CHEMISTRY ORDERABLES COM Final Result * PROTEIN C & S ACTIVITY (10/15/2024 2:12 PM CDT) Blood Ryan Cheney MD CHEMISTRY ORDERABLES Final Resu lt * ANTITHROMBIN III ACTIVITY (10/15/2024 2:01 PM CDT) Blood Ryan Cheney MD HEMATOLOGY ORDERABLES Final Res ult from Last 3 Months Insurance MEDICAID Care Teams Hydrogen Power Plant Manager Relationship Specialty Start Date End Date Kwan Macias MD [address] [place] [phone] PCP - General Family Practice 05/11/24
--- OUTSIDE RECORDS SUMMARY | 2024-11-20 12:22 | XMS_ITS | Referral Summary ---
Author Organization [facility] Address [address] [place] [address] Care Team Providers Care Molding Machine Operator Helper Name Role Phone Shannon Cruz MD Unavailable [phone] Kwan Macias MD Primary Care Provider [phone] Allergies Active Allergy Reactions Criticality Noted Date [...] each 11 06/26/20 24 Active PNV with [id number] ( Plus, calcium carb,) 27 mg iron- [...] of Binge Drinking Not on file 06/10 [place] Depression Scale Answer Date Recorded [place] Depression Scale Total 7 03/31/2021 The thought of harming myself has occurred to me . Never 03/31/2021 Comments Unknown Sex and Gender Information Value Date Recorded Sex Assigned at Not on file Legal Sex Female 6:23 PM STILL PUMP OPERATOR Gender Identity Not on file Sexual Orientation Not on file Last Filed Vital Signs Vital Sign Reading Time Taken Comments Blood Pressure 102/60 06/26/2024 1:08 PM STILL PUMP OPERATOR Pulse 70 06/26/2024 1:08 PM STILL PUMP OPERATOR Temperature 36.4 C (97.6 F) 06/26/2024 1:08 PM STILL PUMP OPERATOR Respiratory Rate 12 06/26/2024 1:08 PM STILL PUMP OPERATOR Oxygen Saturation 99% 06/26/2024 1:08 PM STILL PUMP OPERATOR Inhaled Oxygen Concentration - - Weight 79.8 kg (176 lb) 07/25/2024 1:11 PM STILL PUMP OPERATOR Height 157.5 cm (5' 2 ) 07/25/2024 1:11 PM STILL PUMP OPERATOR Body Mass Index 32.19 07/25/2024 1:11 PM STILL PUMP OPERATOR Plan of Treatment Not on file Insurance Advance Directives For more information, please contact: [phone] * Full Code (Latest Code Status on File) Date Activated Date Inactivated Comments 03/30/2021 6:35 PM 04/01/2021 5:12 PM Care Teams Molding Machine Operator Helper Relationship Specialty Start Date End Date Kwan Macias MD [address] [place] [address] PCP - General Emergency Medicine 01/23/24 Shannon Cruz MD [address] [place] [address] Consulting Physician Obstetrics and Gynecology 04/01/21
--- OUTSIDE RECORDS SUMMARY | 2024-11-20 12:22 | XMS_ITS | Clinical Summary ---
Author Organization [facility] (formerly [facility])[3] at the [facility] Address [address] [place] [address] Care Team Providers Care Store Administrator Name Role Phone Shannon Cruz MD Unavailable [phone] Kwan Macias MD Primary Care Provider [phone] Allergies Active Allergy Reactions Criticality Noted Date [...] each 11 06/26/20 24 Active PNV with tyduzln-wnan-OC ( Plus, calcium carb,) 27 mg iron- [...] of Binge Drinking Not on file 06/10 Dresser Depression Scale Answer Date Recorded Dresser Depression Scale Total 7 03/31/2021 The thought of harming myself has occurred to me . Never 03/31/2021 Comments Unknown Sex and Gender Information Value Date Recorded Sex Assigned at Not on file Legal Sex Female 6:23 PM HOST Gender Identity Not on file Sexual Orientation [...] Comments Blood Pressure 102/60 06/26/2024 1:08 PM HOST Pulse 70 06/26/2024 1:08 PM HOST Temperature 36.4 C (97.6 F) 06/26/2024 1:08 PM HOST Respiratory Rate 12 06/26/2024 1:08 PM HOST Oxygen Saturation 99% 06/26/2024 1:08 PM HOST Inhaled Oxygen Concentration - - Weight 79.8 kg (176 lb) 07/25/2024 1:11 PM HOST Height 157.5 cm (5' 2 ) 07/25/2024 1:11 PM HOST Body Mass Index 32.19 07/25/2024 1:11 PM HOST Plan of Treatment Health Maintenance Due Date [...] to complete this topic Insurance Dr. [place], [place] [id number] [place] [address] Advance Directives For more information, please contact: [phone] * Full Code (Latest Code Status on File) Date Activated Date Inactivated Comments 03/30/2021 6:35 PM 04/01/2021 5:12 PM Care Teams Store Administrator Relationship Specialty Start Date End Date Kwan Macias MD [address] [place] [address] PCP - General Emergency Medicine 01/23/24 Shannon Cruz MD [address] [place] [address] Consulting Physician Obstetrics and Gynecology 04/01/21
--- OUTSIDE RECORDS SUMMARY | 2024-11-20 12:22 | XMS_ITS | Clinical Summary ---
Author Organization [facility] Address [address] [place] [address] Phone Care Team Providers Care Security Analyst Name Role Phone Kwan Macias MD Primary [...] Comments Blood Pressure 132/90 08/21/2024 1:10 PM INSTRUMENTATION TECHNOLOGIST Pulse 70 08/21/2024 1:10 PM INSTRUMENTATION TECHNOLOGIST Temperature - - Respiratory Rate - - Oxygen Saturation - - Inhaled Oxygen Concentration - - Weight 83.5 kg (184 lb) 08/21/2024 1:10 PM INSTRUMENTATION TECHNOLOGIST Height 160 cm (5' 3 ) 08/21/2024 1:10 PM INSTRUMENTATION TECHNOLOGIST Body Mass Index 32.59 08/21/2024 1:10 PM INSTRUMENTATION TECHNOLOGIST Plan of Treatment Upcoming Encounters Date Type Department Care Team (Late st Contact Info) Description 02/19/2025 2:00 PM CDT Office Visit [facility] [address] [facility], [address] [place] [address] Omid Rowe MD [address] [facility] [address] [place] [address] Health Maintenance Due Date Last Done Comments Pneumococcal PPSV23 Highest Risk Adult (1 of 3 - PCV13 ) 1997 Influenza Vaccine (Season Ended) 2025 [place] [address] PM INTERFACED INSURANCE Care Teams Security Analyst Relationship Specialty Start Date End Date Kwan Macias MD PCP - General 06/19/24
--- OUTSIDE RECORDS SUMMARY | 2024-11-20 12:22 | XMS_ITS | CONTINUITY OF CARE DOCUMENT ---
Author Name haley de leon Address Unknown Organization [facility] Address [address] [facility] [address] [place] [address] Phone [phone] Care Team Providers Care Seo Consultant Name Role Phone Anegl Newby MD Unavailable CARLY TAMEZ MD Unavailable [phone] CARLY TAMEZ MD Unavailable [phone] PROBLEMS Condition Status Date Provider Notes Cardiology examination active Nolan Ahmedzai Chest pain active Nolan Ahmedzai Shortness of breath active Nolan Ahmedzai Lupus active Nolan Ahmedzai Elevated blood pressure active Nolan Ahmedza i Palpitations active Nolan Ahmedzai ENCOUNTERS Date Type Provider Location Encounter Diag nosis - In-person encounter Office Visit Angel Newby MD [facility] Cardiology examinationChest painShortness of breathLupusElevated blood [...] Payer name Policy type / Coverage type [place] [employer] [place] MEDICAID (2) Medicaid [id number] ADVANCE DIRECTIVES Name Date DISCUSSED - NO DECISION MADE TREATMENT PLAN Date Name Performer Electrophysiology: O rders: 9 9204 MOD 45-59 min (CPT-68196) Nolan Faustinzaquirino Electrophysiology:Mo nitor your BP at home, goal BP is <135/85 O rders: 9 9204 MOD 45-59 min (CPT-01904) Nolan Ahmedzai Electrophysiology: O rders: C omplete Echo (60548) 9 9204 MOD 45-59 min (CPT-21568) Nolan Ahmedzai Electrophysiology: O rders: C omplete Echo (49718) 9 9204 MOD 45-59 min (CPT-16088) Nolan Faustinzai Date Name Monitor - Telemetry (Mobile Cardiac) Complete Echo HISTORY OF PROCEDURES Procedure Date Procedure Name Provider Procedure Notes S tatus EKG Angel Newby MD comp leted
--- OUTSIDE RECORDS SUMMARY | 2024-11-20 12:22 | XMS_ITS | Encounter Summary ---
Author Organization [facility] Address [address] [place] [address] Care Team Providers Care Senior Catering Sales Manager Name Role Phone Kwan Macias MD Primary Care Provider [phone] Reason for Visit * Reason Comments Med Refill Encounter Details Date Type Department Care Team (Late st Contact Info) Description 11/19/2024 Refill [facility] Oncology and Hematology - [address] [place] [address] Ryan Cheney MD [address] [place] [phone] Social History Tobacco Use Types Packs/Day Years [...] Description 01/04/2025 10:30 AM CDT Office Visit [facility] Oncology and Hematology - [address] [place] [address] Ryan Cheney MD [address] [place] [phone] documented as of this encounter Visit Diagnoses Not on filedocumented in this encounter Care Teams Senior Catering Sales Manager Relationship Specialty Start Date End Date Kwan Macias MD [address] [place] [phone] PCP - General Family Practice 05/11/24 documented as of this encounter
--- OUTSIDE RECORDS SUMMARY | 2024-11-20 12:22 | XMS_ITS | Clinical Summary ---
Author Organization [facility] Address [address] [facility] [place] [address] Care Team Providers Care Telephone Order Dispatcher Name Role Phone Kwan Macias MD Primary Care Provider [phone] Jg Hummel DO Unavailable Source Comments [facility],non-owned Affiliates and Associated Physician Practices is amultiple site organization consisting of ambulatory clinics and hospital sitesin [place], [place], [place] and [place]. This disclosure is being madepursuant to the Care Everywhere program and may not contain all information available regarding this patient. Last updated 18.[facility] Allergies Active Allergy Reactions Criticality [...] Description 10/09/2024 10:20 AM CDT Office Visit [facility] Medical [facility] - Rheumatology [address] [place] [address], [facility] [address] [place] [address] Jg Hummel DO Primary fibromyalgia syndrome (Primary Dx); Restless legs syndrome; Acute pain of right knee 09/20/2024 Refill [facility] - Rheumatology [address] [facility], [facility] [address] [place] [address] Jg Hummel DO MEDICATION REFILL 09/07/2024 10:30 AM GUEST RELATIONS RECEPTIONIST Office Visit [facility] - ENT [address] [place] [phone] Steve Van, FLYING I INSTRUCTOR-FINANCE ANALYST Multiple thyroid nodules (Primary Dx) 09/07/2024 Travel [...] cm (5' 2 ) 09/07/2024 10:20 AM GUEST RELATIONS RECEPTIONIST Body Mass Index 35.3 09/07/2024 10:20 AM GUEST RELATIONS RECEPTIONIST Plan of Treatment Upcoming Encounters Date Type Department Care Team (Late st Contact Info) Description 04/10/2025 10:20 AM CDT Office Visit [facility] - Rheumatology [address] [facility], [address] [place] [address] Jg Hummel DO [address] [facility] [address] [place] [address] 07/25/2025 10:15 AM GUEST RELATIONS RECEPTIONIST Appointment [facility] [address] [place] [phone] Steve Van, FLYING I INSTRUCTOR-[facility] [address] [facility] [address] [place] [address] Health Maintenance Due Date Last Done Comments [...] Monet Connors MD on 05/25/2024 3:01 PM GUEST RELATIONS RECEPTIONIST Addendum by Monet Connors M.D. This addendum [...] This was discussed with Dr. Jeffrey via [employer] message. EXAMINATIONS: 1. RIGHT DIGITAL DIAGNOSTIC MAMMOGRAM AND TOMOSYNTHESIS AND 2. COMPLETE BILATERAL BREAST ULTRASOUND (COMBINED REPORT) LOCATION: [facility] EXAM DATE: 03/28/2024 HISTORY: This is a 43-year-old female patient with painful right breast mass/lump for which she went to the ER at [facility] at the beginning of March. [...] cancer greater than 20%, consultation in the [facility] Breast Surgery High Risk Clinic is recommended. Should she wish to schedule an appointment, the phone number [phone]. The [employer] recommends annual screening breast MRI [...] recommended. COMPARISON: Limited right breast ultrasound 03/11/2024 [facility]. Screening mammography 08/16/2023 from [facility] MAMMOGRAM: TECHNIQUE: Diagnostic bilateral mammography was [...] in size compared to prior exam from [facility]. No suspicious finding was found [...] of greater than 20%, consultation in the [facility] High Risk Clinic is recommended. 3. Annual screening breast MRI is recommended, given the elevated lifetime risk of developing breast cancer greater than 20%, according to the [employer] guidelines. This can be alternated [...] of greater than 20%, consultation in the [facility] High Risk Clinic is recommended. 3. Annual screening breast MRI is recommended, given the elevated lifetime risk of developing breast cancer greater than 20%, according to the [employer] guidelines. This can be alternated [...] 2: BENIGN. Report dictated by Roxie WASHBURN [facility] (breast imaging fellow). I, Monet Connors MD have personally reviewed and interpreted this examination/study. > Interpreting Provider: Monet Connors MD on 03/28/2024 10:21 AM Narrative 03/28/2024 10:21 AM CDT EXAMINATIONS: 1. RIGHT DIGITAL DIAGNOSTIC MAMMOGRAM AND TOMOSYNTHESIS AND 2. COMPLETE BILATERAL BREAST ULTRASOUND (COMBINED REPORT) LOCATION: [facility] EXAM DATE: 03/28/2024 HISTORY: This is a 43-year-old female patient with painful right breast mass/lump for which she went to the ER at [facility] at the beginning of March. [...] cancer greater than 20%, consultation in the [facility] Breast Surgery High Risk Clinic is recommended. Should she wish to schedule an appointment, the phone number [phone]. The [employer] recommends annual screening breast MRI [...] recommended. COMPARISON: Limited right breast ultrasound 03/11/2024 [facility]. Screening mammography 08/16/2023 from [facility] MAMMOGRAM: TECHNIQUE: Diagnostic bilateral mammography was [...] in size compared to prior exam from [facility]. No suspicious finding was found [...] COMPLETE BILATERAL BREAST ULTRASOUND (COMBINED REPORT) LOCATION: [facility] EXAM DATE: 03/28/2024 HISTORY: This is a 43-year-old female patient with painful right breast mass/lump for which she went to the ER at [facility] at the beginning of March. [...] cancer greater than 20%, consultation in the [facility] Breast Surgery High Risk Clinic is recommended. Should she wish to schedule an appointment, the phone [phone]. The [employer] recommends annual screening breast MRI in addition to mammograms for women who have a 20% or greater lifetime riskof developing breast cancer. This can be managed through the high riskbreast clinic. Risk assessment based upon the Tyrer-Cuzick v8 model. By the NCCN guidelines and family history of breast cancer, consideration of genetic testing is recommended. COMPARISON: Limited right breast ultrasound 03/11/2024 [facility]. Screening mammography 08/16/2023 from [facility] MAMMOGRAM: TECHNIQUE: Diagnostic bilateral mammography was [...] in size compared to prior exam from [facility]. No suspicious finding was found [...] cancer ofgreater than 20%, consultation in the [facility] High Risk Clinic is recommended. 3. Annual screening breast MRI is recommended, given the elevatedlifetime risk of developing breast cancer greater than 20%, according to the [employer] guidelines. This can be alternated [...] 2: BENIGN. Report dictated by Roxie WASHBURN, [facility] (breast imaging fellow). I, Monet Connors MD have personally reviewed and interpreted this examination/study. > Interpreting Provider: Monet Connors MD on 03/28/2024 10:21 AM Yumiko Henderson MD MAMMO ORDERABLES Edited Resu lt - Final from Last 3 Months or Most Recently Relevant to Health Maintenance Insurance [facility] SELF PAY NO INSURANCE Member Subscriber Plan / Payer (Ef fective for All Dates) Name:Amelie Man Member ID:Not on file Relation to Subscriber:Not on file Name:GIANNIAMELIE Subscriber ID:Not on file (Home) Address: [address] [place] [id number] Payer ID:Not on file Group ID:Not on file Type:Self Pay Address: [place], [place] Care Teams Telephone Order Dispatcher Relationship Specialty Start Date End Date Kwan Macias MD [address] [facility] [address] [place] [address] PCP - General Family Medicine 01/09/24 Jg Hummel DO [address] [facility] [address] [place] [address] Corrosion Prevention Metal Sprayer Rheumatology 02/27/24
== END 2024-11-20 12:21 | disposition home or self-care (01) ==
PROVIDERS: PCP Emergency Medicine; Visit Provider Surgery
DX: N63.10 Unspecified lump in the right breast, unspecified quadrant (principal); N63.15 Unspecified lump in the right breast, overlapping quadrants; N63.25 Unspecified lump in the left breast, overlapping quadrants
CPT/HCPCS: 77062; 77066; G0279

== ENCOUNTER 2025-02-16 02:38 | Emergency (ER) | payer OTHER, SELFPAY ==
[2025-02-16 02:38] VITALS: BP 136/94; PULSE 79; RESP 17; TEMP 36.7; O2SAT 100
--- OUTSIDE RECORDS SUMMARY | 2025-02-16 02:40 | XMS_ITS | Clinical Summary ---
Author Organization [facility] Address [address] [place] [address] Care Team Providers Care Senior Applications Engineer Name Role Phone Kwan Macias MD Primary Care Provider [phone] Allergies No known active allergies Medications ferrous sulfate 325 mg (65 mg iron) tablet Take 325 mg by mouth daily. 4 Active ergocalciferol (VITAMIN D2) 50,000 unit capsule Take 1 Capsule by mouth every 7 days. 4 Active Eliquis 5 mg tablet TAKE 1 TABLET BY MOUTH TWICE A DAY 60 Tablet 2 5 Active Eliquis 5 mg tablet TAKE 1 TABLET BY MOUTH TWICE A DAY 60 Tablet 2 5 02/12/20 25 Discontinued Active Problems No known active problems Encounters Date Type Department Care Team Description 02/12/2025 External Device Data STL ABSTRACTION Provider, Abstract 02/10/2025 Refill [facility] Oncology and Hematology [address] [place] [phone] Ryan Cheney MD 01/23/2025 External Device Data STL ABSTRACTION Provider, Abstract 01/22/2025 External Device Data STL ABSTRACTION Provider, Abstract 01/04/2025 Orders Only [facility] Oncology [facility] Hematology [facility] [address] [place] [phone] Ryan Cheney MD 12/25/2024 External Device Data STL ABSTRACTION Provider, Abstract 12/11/2024 External Device Data STL ABSTRACTION Provider, Abstract 11/29/2024 External Device Data STL ABSTRACTION Provider, Abstract 11/27/2024 External Device Data STL ABSTRACTION Provider, Abstract 11/19/2024 Refill [facility] Oncology and Hematology - [address] [place] [phone] Ryan Cheney MD from Last 3 Months [...] 10:35 AM CDT Height 157.5 cm (5' 2) 01/23/2024 10:23 AM CDT Body Mass Index 34.97 01/23/2024 10:23 AM CDT Plan of Treatment Upcoming Encounters Date Type Department Care Team (Late st Contact Info) Description 04/16/2025 3:45 PM CDT Office Visit [facility] Oncology and Hematology - [address] [place] [address] Ryan Cheney MD [address] [facility] [address] [place] [phone] Health Maintenance Due Date Last Done Comments Pre-Diabetes and Diabetes Screening 1978 HEPATITIS B VACCINES (1 of 3 - 19+ 3-dose series) 1997 HPV/Cotest (21-29) 1999 CERVICAL CANCER SCREENING 2008 HPV/Cotest (30-65) 2008 PAP SMEAR 2008 COLORECTAL SCREENING 2023 Colorectal Cancer Screening 2023 FIT-DNA Q 3 years 2023 FIT/FOBT Q 1 year 2023 Flex Sig/CT Colonography Q 5 years 2023 INFLUENZA VACCINE (#1) 2025 BREAST CANCER SCREENING 03/28/2025 03/28/20 24, 03/28/2024 DTAP/TDAP/TD VACCINES (2 - T d or Tdap) 03/31/2031 03/31/2021 HPV VACCINES Aged Out No longer eligi ble based on patient's age to complete this topic Insurance MEDICAID Care Teams Senior Applications Engineer Relationship Specialty Start Date End Date Kwan Macias MD [address] [place] [phone] PCP - General Family Practice 05/11/24
--- OUTSIDE RECORDS SUMMARY | 2025-02-16 02:40 | XMS_ITS | Clinical Summary ---
Author Organization [facility] Address [address] [facility] [place] [address] Care Team Providers Care Service Parts Driver Name Role Phone Kwan Macias MD Primary Care Provider [phone] Jg Hummel DO Unavailable Source Comments [facility],non-owned Affiliates and Associated Physician Practices is amultiple site organization consisting of ambulatory clinics and hospital sitesin [place], [place], [place]. This disclosure is being madepursuant to the Care Everywhere program and may not contain all information available regarding this patient. Last updated 18.[facility] Allergies Active Allergy Reactions Criticality Noted [...] tablet by mouth 2 times daily Active gabapentin (Neurontin) 100 MG capsuleIndicat ions:Fibromyal jill Syndrome,Restl ess Leg Syndrome Take 2 (two) capsules by mouth at bedtime. Note dose reduction effective 02/13/2025. Reasons: Fibromyalgia Syndrome, Restless Leg Syndrome. 5 Active cyclobenzaprin e (Flexeril) 5 MG tabletIndicati ons:Fibromyalg ia Syndrome Take 1 (one) tablet by mouth 3 times daily as needed for Muscle Spasms Reasons: Fibromyalgia Syndrome 90 tablet 2 5 Active gabapentin (Neurontin) 100 MG capsuleIndicat ions:Fibromyal jill Syndrome,Restl ess Leg Syndrome Take 2 (two) capsules by mouth every morning AND 2 (two) capsules every afternoon AND 3 (three) capsules at bedtime. Reasons: Fibromyalgia Syndrome, Restless Leg Syndrome. 5 025 Discontin ued(Reord er) cyclobenzaprin e (Flexeril) 10 MG tabletIndicati ons:Fibromyalg ia Syndrome Take 0.5 (one-half) tablet by mouth 3 times daily as needed for Muscle Spasms Reasons: Fibromyalgia Syndrome 90 tablet 5 025 Discontin ued(Reord er) Active Problems Problem Noted Date Diagnosed Date De Quervain's tenosynovitis, left 12/05/2024 Overview (12/05/2024): Start using a spica thumb/wrist splint and ice twice daily 15-20 minutes. Pes planus of both feet 12/05/2024 Overview (12/05/2024): Burning sensation with weight bearing and appearance of ankle valgus when standing. Recommend podiatry for shoe orthotics. Restless legs syndrome 02/13/2024 Overview (02/13/2024): Describes [...] to exclude a systemic connective tissue disease. Primary fibromyalgia syndrome 01/09/2024 Assessment & Plan [...] dose titration based upon tolerability and requirement. Resolved Problems Problem Noted Date Diagnosed Date Resolved Date Unexplained weight loss 01/09/202411/09 Assessment & Plan (01/09/2024 4:53 PM CDT): [...] appropriate given the significant weight loss described. Encounters Date Type Department Care Team Description 02/13/2025 8:00 AM CDT Office Visit [facility] - Rheumatology [address] [place] [address], [address] [place] [phone] Jg Hummel DO Muscle spasm (Primary Dx); Primary fibromyalgia syndrome; Memory impairment 02/13/2025 Refill [facility] - Rheumatology [address], [address] [place] [address] Jg Hummel DO Medication Issue 12/12/2024 Telephone [facility] - Rheumatology [address], [address] [place] [address] Jg Hummel DO Care Management Other (Needing medical leave leave form completed for work) 12/05/2024 4:20 PM CDT Office Visit [facility] - Rheumatology [address], [address] [place] [address] Jg Hummel DO De Quervain's tenosynovitis, left (Primary Dx); Pes planus of both feet from Last 3 Months Immunizations Immunization Administration [...] Answer Date Recorded Patient Health Questionnaire-2 Score 6 02/13/2025 Comments No Sex and Gender Information Value Date Recorded Sex Assigned at Not on file Legal Sex Female 9:57 AM CDT Gender Identity Not on file Sexual Orientation Not on file Last Filed Vital Signs Vital Sign Reading Time Taken Comments Blood Pressure 128/82 02/13/2025 7:55 AM CDT Pulse 78 02/13/2025 7:55 AM CDT Temperature 36.7 C (98 F) 02/13/2025 7:55 AM CDT Respiratory Rate 16 02/13/2025 7:55 AM CDT Oxygen Saturation 99% 02/13/2025 7:55 AM CDT Inhaled Oxygen Concentration - - Weight 90.7 kg (200 lb) 02/13/2025 7:55 AM CDT Height 157.5 cm (5' 2) 09/07/2024 10:20 AM AUTOMOBILE UPHOLSTERER APPRENTICE Body Mass Index 36.58 09/07/2024 10:20 AM AUTOMOBILE UPHOLSTERER APPRENTICE Plan of Treatment Upcoming Encounters Date Type Department Care Team (Late st Contact Info) Description 03/27/2025 10:20 AM CDT Office Visit [facility] - Rheumatology [address], [address] [place] [phone] Jg Hummel DO [address] [place] [address] 07/25/2025 10:15 AM AUTOMOBILE UPHOLSTERER APPRENTICE Appointment [facility] [address] [place] [phone] Steve Van, SEED CLEANER OPERATOR-STUCCO APPLICATOR [address] [address] [place] [address] Health Maintenance Due Date Last Done Comments COLOGUARD (AGES 45-75) - COLON CA SCREENING 1978 COLON MONITORING 1978 COLONOSCOPY - COLON CA SCREENING 1978 CT COLONOGRAPHY - COLON CA SCREENING 1978 Colorectal Cancer Screening 1978 FIT - COLON CA SCREENING 1978 FLEX SIG - COLON CA SCREENING 1978 LIPID TESTING 1978 HIV SCREENING 1993 HEPATITIS C SCREENING 06/10/1996 HEPATITIS B VACCINE (1 of 3 - 19+ 3-dose series) 1997 PAP SMEAR 1999 COVID-19 VACCINE ( - 2023- season) 2024 INFLUENZA VACCINE (#1) 2025 MAMMOGRAM 03/28/2026 03/28/2024 SCREENING FOR DIABETES 02/14/2028 , 03/30/2021, 09/25/2020, Additional history exists ZOSTER VACCINE (1 of 2) 2028 DTAP/TDAP/TD VACCINES (2 - Td or Tdap) 03/31/2031 03/31/2021 DEPRESSION SCREENING Completed 10/09/2024 HIB VACCINE Aged Out No longer eligi ble based on patient's age to complete this topic HPV VACCINE Aged Out No longer eligi ble based on patient's age to complete this topic MENINGOCOCCAL (Group B) VACCINE SHARED DECISION-MAKING Aged Out No longer eligible based on patient's age to complete this topic MENINGOCOCCAL GROUPS A/C/Y/W VACCINE Aged Out No longer eligible based on patient's age to complete this topic PNEUMOCOCCAL VACCINE Aged Out No long er eligible based on patient's age to complete this topic Procedures Procedure Name Priority Date/Time Associated Diagnosis Comments VITAMIN D 25-HYDROXY Routine 02/13/2025 8:36 AM CDT Muscle spasm CK BLOOD Routine 02/13/2025 8:36 AM CDT Muscle spasm MAGNESIUM BLOOD Routine 02/13/2025 8:36 AM CDT Muscle spasm COMPREHENSIVE METABOLIC PANEL Routine 02/13/2025 8:36 AM CDT Muscle spasm MAMMO BILAT DIAGNOSTIC W BAUTISTA STAT 03/28/2024 7:23 AM CDT Mass of right breast, unspecified quadrant Unspecified lump in the left breast, overlapping quadrants from Last 3 Months or Most Recently Relevant to Health Maintenance Results * VITAMIN D 25-HYDROXY (02/13/2025 8:36 AM CDT) Vitamin D, 25 Hydroxy 30.6 30.0 - 100.0 ng/mL [facility] INSURANCE BILL Comment: Vitamin D deficiency has been defined by the [place] of Medicine and an Endocrine Society practice guideline as a level of serum 25-OH vitamin D less than 20 ng/mL (1,2). The Endocrine Society went on to further define vitamin D insufficiency as a level between 21 and 29 ng/mL (2). 1. IOM ([place] of Medicine). 2010. Dietary reference intakes for calcium and D. [place]: The National Academies Press. 2. Dominick MF, Ye RANGEL, Geri ROD, et al. Evaluation, treatment, and prevention of vitamin D deficiency: an Endocrine Society clinical practice guideline. JCEM. 2011 Jan; 96(7):1911-30. Blood BLOOD SPECIMEN / Unknown 02/13/2025 8:36 AM CDT 02/13/2025 Narrative [facility] INSURANCE BILL - 02/14/2025 8:12 AM CDT Performed at: [address] [place] [id number] Hemodialysis Charge Nurse: Siddhartha Maynard PhD, Phone: [phone] Jg Hummel DO LAB - CHEMISTRY ORDERABLES Final Result [facility] INSURANCE BILL [address] [place] [address] * COMPREHENSIVE METABOLIC PANEL (02/13/2025 8:36 AM CDT) Pathologist [facility] Glucose 89 70 - 99 mg/dL [facility] INSURANCE BILL BUN 7 6 - 24 mg/dL [facility] INSURANCE BILL Creatinine 0.79 0.57 - 1.00 mg/dL [facility] INSURANCE BILL eGFR by CKD-EPI 93 >59 mL/min/1.7 3 [facility] INSURANCE BILL BUN/Creatinine Ratio 9 9 - 23 [facility] INSURANCE BILL Sodium 139 134 - 144 mmol/L [facility] INSURANCE BILL Potassium 4.4 3.5 - 5.2 mmol/L [facility] INSURANCE BILL Chloride 103 96 - 106 mmol/L [facility] INSURANCE BILL CO2 21 20 - 29 mmol/L [facility] INSURANCE BILL Calcium 9.1 8.7 - 10.2 mg/dL [facility] INSURANCE BILL Protein Total 6.7 6.0 - 8.5 g/dL [facility] INSURANCE BILL Albumin 4.2 3.9 - 4.9 g/dL [facility] INSURANCE BILL Globulin Total 2.5 1.5 - 4.5 g/dL [facility] INSURANCE BILL Bilirubin Total <0.2 0.0 - 1.2 mg/dL [facility] INSURANCE BILL Alkaline Phosphatase 89 44 - 121 IU/L [facility] INSURANCE BILL AST 17 0 - 40 IU/L [facility] INSURANCE BILL ALT 15 0 - 32 IU/L [facility] INSURANCE BILL Blood BLOOD SPECIMEN / Unknown 02/13/2025 8:36 AM CDT 02/13/2025 Narrative [facility] INSURANCE BILL - 02/14/2025 7:09 AM CDT Performed at: [address] [id number] Hemodialysis Charge Nurse: Siddhartha Maynard PhD, Phone: [phone] Jg Hummel DO LAB - CHEMISTRY ORDERABLES Final Result Performing Organization Address City/[facility]/ZIP Co de Phone Number [facility] INSURANCE BILL [address] [place] [address] * MAGNESIUM BLOOD (02/13/2025 8:36 AM CDT) Magnesium 2.1 1.6 - 2.3 mg/dL [facility] INSURANCE BILL Blood BLOOD SPECIMEN / Unknown 02/13/2025 8:36 AM CDT 02/13/2025 Narrative [facility] INSURANCE BILL - 02/14/2025 7:09 AM CDT Performed at: [address] [place] [id number] Hemodialysis Charge Nurse: Siddhartha Maynard PhD, Phone: [phone] Jg Hummel DO LAB - CHEMISTRY ORDERABLES Final Result Performing Organization Address [facility] Co de Phone Number [facility] INSURANCE BILL [address] [place] [address] * (ABNORMAL) CK BLOOD (02/13/2025 8:36 AM CDT) CK 373(H) 32 - 182 U/L [facility] INSURANCE BILL Blood BLOOD SPECIMEN / Unknown 02/13/2025 8:36 AM CDT 02/13/2025 Narrative [facility] INSURANCE BILL - 02/14/2025 7:09 AM CDT Performed at: [address] [place] [id number] Hemodialysis Charge Nurse: Siddhartha Maynard PhD, Phone: [phone] Jg Hummel DO LAB - CHEMISTRY ORDERABLES Final Result Performing Organization Address City/[facility] Co de Phone Number [facility] INSURANCE BILL [address] [place] [address] * Mammo Bilat Diagnostic W Bautista (03/28/2024 7:23 AM CDT) Anatomical Region Laterality Modality Breast Bilateral Mammography 03/28/2024 7:18 AM CDT Addenda Addendum by Monet Connors MD on 05/25/2024 3:01 PM AUTOMOBILE UPHOLSTERER APPRENTICE Addendum by Monet Connors M.D. This addendum [...] This was discussed with Dr. Jeffrey via Bag of Ice message. EXAMINATIONS: 1. RIGHT DIGITAL DIAGNOSTIC MAMMOGRAM AND TOMOSYNTHESIS AND 2. COMPLETE BILATERAL BREAST ULTRASOUND (COMBINED REPORT) LOCATION: [facility] EXAM DATE: 03/28/2024 HISTORY: This is a 43-year-old female patient with painful right breast mass/lump for which she went to the ER at [facility] at the beginning of March. An ultrasound [...] cancer greater than 20%, consultation in the [facility] Breast [facility] is recommended. Should she wish to schedule an appointment, the phone number [phone]. The [place] [employer] recommends annual screening breast MRI [...] recommended. COMPARISON: Limited right breast ultrasound 03/11/2024 [facility]. Screening mammography 08/16/[address] [facility] MAMMOGRAM: TECHNIQUE: Diagnostic bilateral mammography was [...] in size compared to prior exam from [facility]. No suspicious finding was found in the [...] of greater than 20%, consultation in the [facility] is recommended. 3. Annual screening breast MRI is recommended, given the elevated lifetime risk of developing breast cancer greater than 20%, according to the [place] [employer] guidelines. This can be alternated [...] of greater than 20%, consultation in the [facility] is recommended. 3. Annual screening breast MRI is recommended, given the elevated lifetime risk of developing breast cancer greater than 20%, according to the [place] [employer] guidelines. This can be alternated [...] COMPLETE BILATERAL BREAST ULTRASOUND (COMBINED REPORT) LOCATION: [facility] EXAM DATE: 03/28/2024 HISTORY: This is a 43-year-old female patient with painful right breast mass/lump for which she went to the ER at [facility] at the beginning of March. An ultrasound [...] cancer greater than 20%, consultation in the [facility] is recommended. Should she wish to schedule an appointment, the phone number [phone]. The [place] [employer] recommends annual screening breast MRI [...] recommended. COMPARISON: Limited right breast ultrasound 03/11/2024 [facility]. Screening mammography 08/16/[address] [facility] MAMMOGRAM: TECHNIQUE: Diagnostic bilateral mammography was [...] in size compared to prior exam from [facility]. No suspicious finding was found in the [...] COMPLETE BILATERAL BREAST ULTRASOUND (COMBINED REPORT) LOCATION: [facility] EXAM DATE: 03/28/2024 HISTORY: This is a 43-year-old female patient with painful right breast mass/lump for which she went to the ER at [facility] at the beginning of March. An ultrasound [...] cancer greater than 20%, consultation in the [facility] is recommended. Should she wish to schedule an appointment, the phone -[phone]. The [place] [employer] recommends annual screening breast MRI in addition to mammograms for women who have a 20% or greater lifetime riskof developing breast cancer. This can be managed through the high riskbreast clinic. Risk assessment based upon the Tyrer-Cuzick v8 model. By the NCCN guidelines and family history of breast cancer, consideration of genetic testing is recommended. COMPARISON: Limited right breast ultrasound 03/11/2024 [facility]. Screening mammography 08/16/[address] [facility] MAMMOGRAM: TECHNIQUE: Diagnostic bilateral mammography was [...] in size compared to prior exam from [facility]. No suspicious finding was found inthe right [...] cancer ofgreater than 20%, consultation in the [facility] is recommended. 3. Annual screening breast MRI is recommended, given the elevatedlifetime risk of developing breast cancer greater than 20%, according to the [place] [employer] guidelines. This can be alternated [...] Most Recently Relevant to Health Maintenance Insurance [facility] SELF PAY NO INSURANCE Member Subscriber Plan / Payer (Ef fective for All Dates) Name:Amelie Man Member ID:Not on file Relation to Subscriber:Not on file Name:AMELIE MAN Subscriber ID:Not on file (Home) Address: [address] [place] [address] Payer ID:Not on file Group ID:Not on file Type:Self Pay Address: [place], [place] Care Teams Service Parts Driver Relationship Specialty Start Date End Date Kwan Macias MD [address] [place] [address] PCP - General Family Medicine 01/09/24 Jg Hummel DO [address] [place] [address] Narrative Writer Rheumatology 02/27/24
--- OUTSIDE RECORDS SUMMARY | 2025-02-16 02:40 | XMS_ITS | Clinical Summary ---
Author Organization [facility] Address [address] [place] [address] Care Team Providers Care Track Repair Supervisor Name Role Phone Shannon Cruz MD Unavailable [phone] Kwan Macias MD Primary Care Provider [phone] Allergies Active Allergy Reactions Criticality Noted Date [...] each 11 06/26/20 24 Active PNV with [id number]-zffo-[id number] ( Plus, calcium carb,) 27 mg iron- [...] and anxi ety-no meds Asthma Pulmonary embolism 06/2024 Fibromyalgia Family History Medical History Relation [...] of Binge Drinking Not on file 06/10 [place] Depression Scale Answer Date Recorded [place] Depression Scale Total 7 03/31/2021 The thought of harming myself has occurred to me . Never 03/31/2021 Comments Unknown Sex and Gender Information Value Date Recorded Sex Assigned at Not on file Legal Sex Female 6:23 PM LAWN SERVICE WORKER Gender Identity Not on file Sexual Orientation [...] Comments Blood Pressure 102/60 06/26/2024 1:08 PM LAWN SERVICE WORKER Pulse 70 06/26/2024 1:08 PM LAWN SERVICE WORKER Temperature 36.4 C (97.6 F) 06/26/2024 1:08 PM LAWN SERVICE WORKER Respiratory Rate 12 06/26/2024 1:08 PM LAWN SERVICE WORKER Oxygen Saturation 99% 06/26/2024 1:08 PM LAWN SERVICE WORKER Inhaled Oxygen Concentration - - Weight 79.8 kg (176 lb) 07/25/2024 1:11 PM LAWN SERVICE WORKER Height 157.5 cm (5' 2) 07/25/2024 1:11 PM LAWN SERVICE WORKER Body Mass Index 32.19 07/25/2024 1:11 PM LAWN SERVICE WORKER Plan of Treatment Health Maintenance Due Date Last Done Comments Cervical Cancer Screening 1978 Colon Cancer Screening-Colonoscopy 1978 Hepatitis C Screening 1978 Hepatitis B Screening 1996 Regular Well Visit/Exam 18-64 1996 Pneumococcal vaccine <65 (1 of 2 - PCV) 1997 Depression Screening 03/31/2022 03/31/2021 Influenza Vaccine (#1) 2025 Breast Cancer Screening-Mammogram 03/28/2025 03/28/2024, 03/28/2024 DTaP/Tdap/Td Vaccine (3 - Td or Tdap) 03/31/2031 03/31/2021, 07/24/2014 HPV Vaccines Aged Out No longer eligi ble based on patient's age to complete this topic Insurance * Guarantor: Lillian Man Account Type Relation to Patient Date of Phone Billing Address Personal/Family Self 1980 [address] [place] [address] [facility] Advance Directives For more information, please contact: [phone] * Full Code (Latest Code Status on File) Date Activated Date Inactivated Comments 03/30/2021 6:35 PM 04/01/2021 5:12 PM Care Teams Track Repair Supervisor Relationship Specialty Start Date End Date Kwan Macias MD [address] [place] [address] PCP - General Emergency Medicine 01/23/24 Shannon Cruz MD [address] [place] [address] Consulting Physician Obstetrics and Gynecology 04/01/21
--- OUTSIDE RECORDS SUMMARY | 2025-02-16 02:40 | XMS_ITS | Clinical Summary ---
Author Organization [facility] Address [address] [place] [address] Phone Care Team Providers Care Plate Corrector Name Role Phone Kwan Macias MD Primary Care Provider [phone] Allergies No known active allergies Medications ferrous [...] Comments Blood Pressure 132/90 08/21/2024 1:10 PM PARTNER Pulse 70 08/21/2024 1:10 PM PARTNER Temperature - - Respiratory Rate - - Oxygen Saturation - - Inhaled Oxygen Concentration - - Weight 83.5 kg (184 lb) 08/21/2024 1:10 PM PARTNER Height 160 cm (5' 3) 08/21/2024 1:10 PM PARTNER Body Mass Index 32.59 08/21/2024 1:10 PM PARTNER Plan of Treatment Upcoming Encounters Date Type Department Care Team (Late st Contact Info) Description 02/19/2025 2:00 PM CDT Office Visit [facility] [address] [place] [address] Omid Rowe MD [address] [facility] [address] [place] [address] Health Maintenance Due Date Last Done Comments Pneumococcal PPSV23 Highest Risk Adult (1 of 3 - PCV13 ) 1997 Influenza Vaccine (#1) 2025 [place] [address] PM [employer] INSURANCE Care Teams Plate Corrector Relationship Specialty Start Date End Date Kwan Macias MD PCP - General 06/19/24
[2025-02-16 03:01] VITALS: BP 131/80; PULSE 75; RESP 23; O2SAT 100
--- OUTSIDE RECORDS SUMMARY | 2025-02-16 03:10 | XMS_ITS | Clinical Summary ---
Author Organization [facility] Address [address] [place] [address] Care Team Providers Care Farrowing Worker Name Role Phone Kwan Macias MD Primary Care Provider [phone] Allergies No known active allergies Medications ferrous [...] Data STL ABSTRACTION Provider, Abstract 02/10/2025 Refill [facility] Oncology and Hematology [address] [place] [address] Ryan Cheney MD 01/23/2025 External Device Data STL ABSTRACTION Provider, Abstract 01/22/2025 External Device Data STL ABSTRACTION Provider, Abstract 01/04/2025 Orders Only [facility] Oncology [facility] Hematology [facility] [address] [place] [address] Ryan Cheney MD 12/25/2024 External Device Data STL ABSTRACTION Provider, Abstract 12/11/2024 External Device Data STL ABSTRACTION Provider, Abstract 11/29/2024 External Device Data STL ABSTRACTION Provider, Abstract 11/27/2024 External Device Data STL ABSTRACTION Provider, Abstract 11/19/2024 Refill [facility] Oncology and Hematology - [address] [place] [phone] Ryan Cheney MD from Last 3 Months [...] Description 04/16/2025 3:45 PM CDT Office Visit [facility] Oncology and Hematology - [address] [place] [address] Ryan Cheney MD [address] [facility] [address] [place] [phone] Health Maintenance Due Date Last Done Comments [...] complete this topic Insurance MEDICAID Care Teams Farrowing Worker Relationship Specialty Start Date End Date Kwan Macias MD [address] [place] [id number] PCP - General Family Practice 05/11/24
--- OUTSIDE RECORDS SUMMARY | 2025-02-16 03:10 | XMS_ITS | Clinical Summary ---
Author Organization [facility] Address [address] [place] [address] Care Team Providers Care Conduit Worker Name Role Phone Shannon Cruz MD Unavailable [phone] Kwan Macias MD Primary Care Provider [phone] Allergies Active Allergy Reactions Criticality Noted Date [...] each 11 06/26/20 24 Active PNV with cfsoctn-exob-SX ( Plus, calcium carb,) 27 mg iron- [...] of Binge Drinking Not on file 06/10 [place] Depression Scale Answer Date Recorded [place] Depression Scale Total 7 03/31/2021 The thought of harming myself has occurred to me . Never 03/31/2021 Comments Unknown Sex and Gender Information Value Date Recorded Sex Assigned at Not on file Legal Sex Female 6:23 PM LAP LAYER Gender Identity Not on file Sexual Orientation [...] Comments Blood Pressure 102/60 06/26/2024 1:08 PM LAP LAYER Pulse 70 06/26/2024 1:08 PM LAP LAYER Temperature 36.4 C (97.6 F) 06/26/2024 1:08 PM LAP LAYER Respiratory Rate 12 06/26/2024 1:08 PM LAP LAYER Oxygen Saturation 99% 06/26/2024 1:08 PM LAP LAYER Inhaled Oxygen Concentration - - Weight 79.8 kg (176 lb) 07/25/2024 1:11 PM LAP LAYER Height 157.5 cm (5' 2) 07/25/2024 1:11 PM LAP LAYER Body Mass Index 32.19 07/25/2024 1:11 PM LAP LAYER Plan of Treatment Health Maintenance Due Date [...] patient's age to complete this topic Insurance [facility] Advance Directives For more information, please contact: [phone] * Full Code (Latest Code Status on File) Date Activated Date Inactivated Comments 03/30/2021 6:35 PM 04/01/2021 5:12 PM Care Teams Conduit Worker Relationship Specialty Start Date End Date Kwan Macias MD [address] [place] [address] PCP - General Emergency Medicine 01/23/24 Shannon Cruz MD [address] [place] [address] Consulting Physician Obstetrics and Gynecology 04/01/21
--- OUTSIDE RECORDS SUMMARY | 2025-02-16 03:10 | XMS_ITS | Clinical Summary ---
Author Organization [facility] Address [address] [place] [address] Care Team Providers Care Certified Surgical Technologist Name Role Phone Kwan Macias MD Primary Care Provider [phone] Jg Hummel DO Unavailable Source Comments [facility],non-owned Affiliates and Associated Physician Practices is amultiple site organization consisting of ambulatory clinics and hospital sitesin [place], [place], [place] and [place]. This disclosure is being madepursuant to the Care Everywhere program and may not contain all information available regarding this patient. Last updated 18.[facility] Allergies Active Allergy Reactions Criticality [...] Description 02/13/2025 8:00 AM CDT Office Visit [facility] - Rheumatology [address] [place] [address], [address] [place] [address] Jg Hummel DO Muscle spasm (Primary Dx); Primary fibromyalgia syndrome; Memory impairment 02/13/2025 Refill [facility] - Rheumatology [address], [address] [place] [address] Jg Hummel DO Medication Issue 12/12/2024 Telephone [facility] - Rheumatology [address], [address] [place] [address] Jg Hummel DO Care Management Other (Needing medical leave leave form completed for work) 12/05/2024 4:20 PM CDT Office Visit [facility] - Rheumatology [address], [address] [place] [address] Jg Hummel DO De Quervain's [...] 157.5 cm (5' 2) 09/07/2024 10:20 AM GAS ENGINE PERFORMANCE ENGINEER Body Mass Index 36.58 09/07/2024 10:20 AM GAS ENGINE PERFORMANCE ENGINEER Plan of Treatment Upcoming Encounters Date Type Department Care Team (Late st Contact Info) Description 03/27/2025 10:20 AM CDT Office Visit [facility] - Rheumatology [address], [address] [place] [phone] Jg Hummel DO [address] [place] [address] 07/25/2025 10:15 AM GAS ENGINE PERFORMANCE ENGINEER Appointment [facility] [address] [place] [phone] Steve Van, RESTAURANT CREW MEMBER-FORCER MAKER [address] [facility] [address] [place] [address] Health Maintenance Due Date Last Done Comments [...] D deficiency has been defined by the [employer] of [employer] and an Endocrine Society practice guideline as a level of serum 25-OH vitamin D less than 20 ng/mL (1,2). The Endocrine Society went on to further define vitamin D insufficiency as a level between 21 and 29 ng/mL (2). 1. IOM ([employer] of Medicine). 2010. Dietary reference intakes for [...] - 02/14/2025 8:12 AM CDT Performed at: [address] [place] [id number] Media Law Faculty Member: Siddhartha Maynard PhD, Phone: [phone] Jg Hummel DO LAB - CHEMISTRY ORDERABLES Final Result [facility] INSURANCE BILL [address] [place] [address] * COMPREHENSIVE METABOLIC PANEL (02/13/2025 8:36 AM CDT) Pathologist [facility] Glucose 89 70 - 99 mg/dL [facility] [...] 7:09 AM CDT Performed at: 01 - [address] [id number] Media [employer] Faculty Member: Siddhatrha Maynard PhD, Phone: [phone] Jg Hummel DO LAB - CHEMISTRY ORDERABLES Final Result Performing Organization Address City/[facility]/ZIP Co de Phone Number [facility] INSURANCE BILL [address] [place] [address] * MAGNESIUM BLOOD (02/13/2025 8:36 AM CDT) Magnesium 2.1 1.6 - 2.3 mg/dL [facility] INSURANCE BILL Blood BLOOD SPECIMEN / Unknown 02/13/2025 8:36 AM CDT 02/13/2025 Narrative [facility] INSURANCE BILL - 02/14/2025 7:09 AM CDT Performed at: [address] [place] [id number] Media [employer] Faculty Member: Siddhartha Maynard PhD, Phone: [phone] Jg Hummel DO LAB - CHEMISTRY ORDERABLES Final Result Performing Organization Address [facility] Co de Phone Number [facility] INSURANCE BILL [address] [place] [address] * (ABNORMAL) CK BLOOD (02/13/2025 8:36 AM CDT) CK 373(H) 32 - 182 U/L [facility] INSURANCE BILL Blood BLOOD SPECIMEN / Unknown 02/13/2025 8:36 AM CDT 02/13/2025 Narrative [facility] INSURANCE BILL - 02/14/2025 7:09 AM CDT Performed at: [address] [place] [id number] Media [employer] Faculty Member: Siddhartha Maynard PhD, Phone: [phone] Jg Hummel DO LAB - CHEMISTRY ORDERABLES Final Result Performing Organization Address City/[facility] Co de Phone Number [facility] INSURANCE BILL [address] [place] [address] * Mammo Bilat Diagnostic W Bautista (03/28/2024 7:23 AM CDT) Anatomical Region Laterality Modality Breast Bilateral Mammography 03/28/2024 7:18 AM CDT Addenda Addendum by Monet Connors MD on 05/25/2024 3:01 PM GAS ENGINE PERFORMANCE ENGINEER Addendum by Monet Connors M.D. This [...] This was discussed with Dr. Jeffrey via [employer] message. EXAMINATIONS: 1. RIGHT DIGITAL DIAGNOSTIC MAMMOGRAM AND TOMOSYNTHESIS AND 2. COMPLETE BILATERAL BREAST ULTRASOUND (COMBINED REPORT) LOCATION: [facility] EXAM DATE: 03/28/2024 HISTORY: This is a 43-year-old female patient with painful right breast mass/lump for which she went to the ER at [facility] at the beginning of March. [...] than 20%, consultation in the [facility] Breast Surgery High Risk [facility] is recommended. Should she wish to schedule an appointment, the phone number [phone]. The [place] [employer] recommends annual screening breast MRI [...] recommended. COMPARISON: Limited right breast ultrasound 03/11/2024 [facility]. Screening mammography 08/16/2023 from [facility] MAMMOGRAM: TECHNIQUE: Diagnostic bilateral mammography was performed. [...] in size compared to prior exam from [facility]. No suspicious finding was found [...] than 20%, consultation in the [facility] High Risk Clinic is recommended. 3. Annual screening breast MRI is recommended, given the elevated lifetime risk of developing breast cancer greater than 20%, according to the [place] [employer] guidelines. This can be alternated [...] than 20%, consultation in the [facility] is recommended. 3. Annual screening breast MRI is recommended, given the elevated lifetime risk of developing breast cancer greater than 20%, according to the [place] [employer] guidelines. This can be alternated [...] ULTRASOUND (COMBINED REPORT) LOCATION: [facility] EXAM DATE: 03/28/2024 HISTORY: This is a 43-year-old female patient with painful right breast mass/lump for which she went to the ER at [facility] at the beginning of March. [...] than 20%, consultation in the [facility] Breast Surgery High Risk Clinic is recommended. Should she wish to schedule an appointment, the phone number [phone]. The [place] Cancer Society recommends annual screening breast MRI [...] recommended. COMPARISON: Limited right breast ultrasound 03/11/2024 [facility]. Screening mammography 08/16/2023 from [facility] MAMMOGRAM: TECHNIQUE: Diagnostic bilateral mammography was performed. [...] in size compared to prior exam from [facility]. No suspicious finding was found [...] ULTRASOUND (COMBINED REPORT) LOCATION: [facility] EXAM DATE: 03/28/2024 HISTORY: This is a 43-year-old female patient with painful right breast mass/lump for which she went to the ER at [facility] at the beginning of March. [...] than 20%, consultation in the [facility] Breast Surgery High Risk Clinic is recommended. Should she wish to schedule an appointment, the phone [phone]. The [place] Cancer Society recommends annual screening breast MRI in addition to mammograms for women who have a 20% or greater lifetime riskof developing breast cancer. This can be managed through the high riskbreast clinic. Risk assessment based upon the Tyrer-Cuzick v8 model. By the NCCN guidelines and family history of breast cancer, consideration of genetic testing is recommended. COMPARISON: Limited right breast ultrasound 03/11/2024 [facility]. Screening mammography 08/16/2023 from [facility] MAMMOGRAM: TECHNIQUE: Diagnostic bilateral mammography was performed. [...] in size compared to prior exam from [facility]. No suspicious finding was found [...] than 20%, consultation in the [facility] High Risk [facility] is recommended. 3. Annual screening breast MRI is recommended, given the elevatedlifetime risk of developing breast cancer greater than 20%, according to the [place] [employer] guidelines. This can be alternated [...] Most Recently Relevant to Health Maintenance Insurance [facility] SELF PAY NO INSURANCE Member Subscriber Plan / Payer (Ef fective for All Dates) Name:Amelie Man Member ID:Not on file Relation to Subscriber:Not on file Name:AMELIE MAN Subscriber ID:Not on file (Home) Address: [address] [place] [address] Payer ID:Not on file Group ID:Not on file Type:Self Pay Address: [place], [place] Care Teams Certified Surgical Technologist Relationship Specialty Start Date End Date Kwan Macias MD [address] [facility] [address] [place] [address] PCP - General Family Medicine 01/09/24 Jg Hummel DO [address] [facility] [address] [place] [address] Deck Engine Operator Rheumatology 02/27/24
--- OUTSIDE RECORDS SUMMARY | 2025-02-16 03:10 | XMS_ITS | Clinical Summary ---
Author Organization [facility] Address [address] [place] [address] Phone Care Team Providers Care Kiln Packer Name Role Phone Kwan Macias MD Primary Care Provider [phone] Allergies No known active allergies Medications ferrous [...] Comments Blood Pressure 132/90 08/21/2024 1:10 PM KENNEL ASSISTANT Pulse 70 08/21/2024 1:10 PM KENNEL ASSISTANT Temperature - - Respiratory Rate - - Oxygen Saturation - - Inhaled Oxygen Concentration - - Weight 83.5 kg (184 lb) 08/21/2024 1:10 PM KENNEL ASSISTANT Height 160 cm (5' 3) 08/21/2024 1:10 PM KENNEL ASSISTANT Body Mass Index 32.59 08/21/2024 1:10 PM KENNEL ASSISTANT Plan of Treatment Upcoming Encounters Date Type Department Care Team (Late st Contact Info) Description 02/19/2025 2:00 PM CDT Office Visit [facility] [address] [facility], [address] [place] [address] Omid Rowe MD [address] [facility] [address] [address] [place] [address] Health Maintenance Due Date Last Done Comments Pneumococcal PPSV23 Highest Risk Adult (1 of 3 - PCV13 ) 1997 Influenza Vaccine (#1) 2025 [place] [address] PM INTERFACED INSURANCE Care Teams Kiln Packer Relationship Specialty Start Date End Date Kwan Macias MD PCP - General 06/19/24
--- NOTE | 2025-02-16 03:41 | ED_ITS ---
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 She states that her blood pressure has been ?all over the place? and she states that she is taking her blood pressure multiple times at home with readings in the 150s and 160s. She knows that when she gets a headache her blood pressure is high and that is when she checks it. Presently her blood pressure is normal range she does not have any symptoms but wants to be evaluated. Denies any ongoing headache at this time, no nausea, vomiting, vision changes, chest pain, shortness a breath. Was otherwise in her normal state of health without any recent changes to her medication regimen. Denies any traumatic injuries. States that she has some kidney issues and wants to be evaluated for this. Related Data Home Medications ?Medication ?Instructions ?Recorded ?Confirmed ?Last Taken ?Type ferrous sulfate 325 mg (65 mg 325 mg PO DAILY 03/21/24 12/17/24 10/12/24 History iron) tablet,delayed release gabapentin 100 mg capsule 100 mg PO TID 03/21/24 12/17/24 10/16/24 History ibuprofen 800 mg tablet 800 mg PO TID 03/21/24 12/17/24 10/12/24 History Allergies Allergy/AdvReac Type Severity Reaction Status Date / Time No Known Allergies Allergy Verified 12/17/24 12:14 Review of Systems 2 Review of Systems: As reviewed above in HPI REPLACED BY [facility] Past Medical History Medical History Hepatic cyst Anxiety and depression Anemia Asthma Overweight (BMI 25.0-29.9) Eczema Fibromyalgia Subareolar lump of right breast Subareolar lump of left breast Surgical History Surgical History Hx of ventral hernia repair 10/17/24 Repair ventral hernia with mesh, 12 cm defect, bilateral myofascial flap advancement, 4 cm on the right, 6 cm on the left Dr. Rodriguez Social History Social History Smoking status: Never smoker Alcohol intake: current Substance use: never Substance use type: marijuana Other substance usage details: edibles daily Do You Feel Safe in your Home?: Yes Lack of Transportation: No Lack of Food: Never True Current Housing: I Have Housing Concerned About Future Housing: No Difficulty Paying Gas/Electric Bills: No Difficulty Paying for Meds: No Currently Unemployed: No Education: High School Diploma/GED Difficulty w/ Childcare or Family Care: No Living arrangements: with family Spiritual care concerns: No Exam 2 Narrative: GENERAL: [Well-appearing, well-nourished, and in no acute distress.] HEAD: [Normocephalic, atraumatic.] EYES: [PERRLA and EOMI.] ENT: Nares clear, no rhinorrhea or epistaxis. Mucous membranes moist. NECK: Supple. CHEST: [Clear to auscultation. No respiratory distress.] HEART: [Regular rate and rhythm]. No murmur heard. [Normal peripheral pulses.] ABDOMEN: [Soft, nondistended], [nontender], [No rigidity or guarding] EXTREMITIES: Normal range of motion. [No edema.] SKIN: Warm, dry, no rash. NEURO: [No focal deficits]. Alert and oriented [x3.] PSYCH: [Normal mood and affect.] Course Vital Signs Vital signs: Vital Signs Temperature 36.7 C 02/16/25 02:38 Pulse Rate 79 02/16/25 02:38 Respiratory Rate 17 02/16/25 02:38 Blood Pressure 136/94 H 02/16/25 02:38 Pulse Oximetry 100 02/16/25 02:38 Oxygen Delivery Room Air 02/16/25 02:38 Temperature 36.7 C 02/16/25 02:38 Pulse Rate 75 02/16/25 03:01 Respiratory Rate 23 H 02/16/25 03:01 Blood Pressure 131/80 02/16/25 03:01 Pulse Oximetry 100 02/16/25 03:01 Oxygen Delivery Room Air 02/16/25 02:38 MDM - Recheck/Abnormal Lab/Rx MDM Narrative Medical decision making narrative: 44-year-old female with a 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 She states that her blood pressure has been ?all over the place? and she states that she is taking her blood pressure multiple times at home with readings in the 150s and 160s. She knows that when she gets a headache her blood pressure is high and that is when she checks it. Presently her blood pressure is normal range she does not have any symptoms but wants to be evaluated. Denies any ongoing headache at this time, no nausea, vomiting, vision changes, chest pain, shortness a breath. Was otherwise in her normal state of health without any recent changes to her medication regimen. Denies any traumatic injuries. States that she has some kidney issues and wants to be evaluated for this. Patient has an unremarkable physical examination with normal vital signs. Patient is normotensive here with a blood pressure 112/68 during my assessment. No tachycardia, fever, hypoxia. No symptoms during my assessment. Denies any headache or vision changes. No signs of any hypertensive urgency or emergency on her history or physical exam. Patient has a few blood pressure readings that were elevated at home but does not take any antihypertensive. Discussed with the patient that we can obtain some basic labs to make sure there is no acute kidney concern or electrolyte imbalances and that she will have to talk to her primary care provider about hypertensive regimen but given her normal vitals here without any symptoms no indication for treatment at this time. Patient and family receptive. Laboratory studies are unremarkable. She remains asymptomatic with normal vitals and is safe for discharge. Follow-up instructions and return precautions described. Medical Records Attestation: I reviewed the patient's medical records. Lab Data Attestation: I reviewed the patient's lab results. 02/16/25 03:59 02/16/25 03:59 Labs: Lab Results 02/16/25 Range/Units 03:59 WBC 4.9 (4.5-10.0) K/mm3 RBC 4.03 L (4.2-5.4) M/mm3 Hgb 11.9 L (12.0-15.0) g/dL Hct 37.1 (37.0-47.0) % MCV 92.1 (80-100) fl MCH 29.5 (26-34) pg MCHC 32.1 (32-36) g/dl RDW 12.9 (11.5-14.5) % Plt Count 251 (150-375) k/mm3 MPV 9.3 (7.4-10.4) fl Immature Gran % (Auto) 0.2 (0-0.5) % Neut % (Auto) 52.0 (45.5-73.1) % Lymph % (Auto) 36.1 (18.3-44.2) % [place] % (Auto) 9.7 H (2.6-8.5) % Eos % (Auto) 1.6 (0-4.4) % Baso % (Auto) 0.4 (0.2-1.2) % Lymph # (Auto) 1.76 (0.9-3.2) K/mm3 [place] # (Auto) 0.5 (0.1-0.6) K/mm3 Eos # (Auto) 0.1 (0-0.3) K/mm3 Baso # (Auto) 0.0 (0.0-0.1) K/mm3 Abs Immat Gran (auto) 0.01 (0.00-0.031) K/mm3 Absolute Neuts (auto) 2.5 (1.3-6.7) K/mm3 Absolute Nucleated RBC 0.000 (0.0-0.012) K/mm3 Nucleated RBC % 0.0 (0.0-0.2) % Sodium 134 L (137-145) mmol/L Potassium 3.9 (3.4-5.0) mmol/L Chloride 104 (98-107) mmol/L Carbon Dioxide 27 (22-30) mmol/L Anion Gap 3 L (4-12) mmol/L BUN 6 L (7-17) mg/dL Creatinine 0.85 (0.7-1.0) mg/dL Estim Creat Clear Calc 77 ml/min Estimated GFR > 60 (59 - ) Glucose 94 (65-110) mg/dL Calcium 8.8 (8.4-10.2) mg/dL Discharge Plan Discharge Clinical Impression: Asymptomatic hypertension Patient Disposition: Home Condition: Stable Instructions: Antibiotic Form, Hypertension (ED) Additional Instructions: Laboratory studies are reassuring here. No signs of any urgent or emergent concerns. Talk to your doctor about managing blood pressure on outpatient basis. No indications to start blood pressure medicines in the ER at this time. Patient Language: Italian Prescriptions: No Action gabapentin 100 mg capsule 100 mg PO TID ibuprofen 800 mg tablet 800 mg PO TID Rx Instructions: Says takes one every day then as needed for pain. ferrous sulfate 325 mg (65 mg iron) tablet,delayed release (DR/EC) 325 mg PO DAILY Follow-up/Referrals: Kwan Macias MD [Primary Care Provider] - Time of Disposition: 04:57
[2025-02-16 04:03] LABS: Hematocrit 37.1 % (37.0-47.0); Hemoglobin 11.9 g/dL (12.0-15.0); Immature Granulocyte Percent A 0.2 % (0-0.5); Lymphocytes Absolute Auto 1.76 K/mm3 (0.9-3.2); Mean Corpuscular HGB Conc 32.1 g/dl (32-36); Mean Corpuscular Hemoglobin 29.5 pg (26-34); Mean Corpuscular Volume 92.1 fl (80-100); Nucleated Red Blood Cells Absolute Auto 0.000 K/mm3 (0.0-0.012); Nucleated Red Blood Cells Perc 0.0 % (0.0-0.2); Platelet Count Result 251 k/mm3 (150-375); Red Blood Count 4.03 M/mm3 (4.2-5.4); White Blood Count 4.9 K/mm3 (4.5-10.0)
[2025-02-16 04:33] LABS: Anion Gap 3 mmol/L (4-12); Blood Urea Nitrogen 6 mg/dL (7-17); Calcium 8.8 mg/dL (8.4-10.2); Carbon Dioxide 27 mmol/L (22-30); Chloride 104 mmol/L (98-107); Estimated CRCL calculation 77 ml/min; Estimated Glomerular Filt Rate > 60; Glucose 94 mg/dL (65-110); Potassium 3.9 mmol/L (3.4-5.0); Sodium 134 mmol/L (137-145)
[2025-02-16 05:00] VITALS: BP 115/81; PULSE 71; RESP 16; O2SAT 99
== END 2025-02-16 05:11 | disposition home or self-care (01) ==
PROVIDERS: Emergency Provider Student in an Organized Health Care Education/Training Program; PCP Emergency Medicine
DX: I10 Essential (primary) hypertension (principal); Z86.711 Personal history of pulmonary embolism; Z79.01 Long term (current) use of anticoagulants; F41.8 Other specified anxiety disorders; J45.909 Unspecified asthma, uncomplicated
CPT/HCPCS: 36415; 80048; 85025; 99283

== ENCOUNTER 2025-02-16 19:09 | Emergency (ER) | payer OTHER, SELFPAY ==
[2025-02-16] VITALS (10 sets, daily range): BP systolic 114–134; BP diastolic 73–104; PULSE 84–104; RESP 16–28; TEMP 36.9; O2SAT 97–100
--- NOTE | ~2025-02-16 | XR_ITS ---
EXAMINATION: XR chest 2V Exam Date/Time: 02/16/2025 19:44 CDT HISTORY: Chest pain Comparison: None. RESULT: Lines, tubes, and devices: None. Lungs and pleura: Clear. Cardiomediastinal silhouette: Stable. Other: No acute osseous or upper abdominal finding. IMPRESSION: No acute cardiopulmonary process. Reviewed, dictated and finalized at location K.
--- NOTE | 2025-02-16 19:11 | ECG_ITS ---
Test Date: 2025-02-16 19:19:03 Measurements Intervals [place] Rate: 96 P: 48 MS: 144 QRS: -10 QRSD: 97 T: 47 QT: 328 QTc: 416 Interpretive Statements SINUS RHYTHM NORMAL ECG Compared to ECG 09/26/2024 20:29:34 No significant changes Electronically Signed On 02-16-2025 20:32:18 CDT by Joel Aponte D.O.
--- OUTSIDE RECORDS SUMMARY | 2025-02-16 19:12 | XMS_ITS | Clinical Summary ---
Author Organization [facility] Address [address] [place] [address] Care Team Providers Care Technical Maintenance Technician Name Role Phone Shannon Cruz MD Unavailable [phone] Kwan Macias MD Primary Care Provider [phone] Allergies Active Allergy Reactions Criticality Noted Date [...] each 11 06/26/20 24 Active PNV with [id number] ( Plus, calcium carb,) 27 mg iron- [...] of Binge Drinking Not on file 06/10 [place] Depression Scale Answer Date Recorded [place] Depression Scale Total 7 03/31/2021 The thought of harming myself has occurred to me . Never 03/31/2021 Comments Unknown Sex and Gender Information Value Date Recorded Sex Assigned at Not on file Legal Sex Female 6:23 PM HOME CONNECT LPN Gender Identity Not on file Sexual Orientation [...] Comments Blood Pressure 102/60 06/26/2024 1:08 PM HOME CONNECT LPN Pulse 70 06/26/2024 1:08 PM HOME CONNECT LPN Temperature 36.4 C (97.6 F) 06/26/2024 1:08 PM HOME CONNECT LPN Respiratory Rate 12 06/26/2024 1:08 PM HOME CONNECT LPN Oxygen Saturation 99% 06/26/2024 1:08 PM HOME CONNECT LPN Inhaled Oxygen Concentration - - Weight 79.8 kg (176 lb) 07/25/2024 1:11 PM HOME CONNECT LPN Height 157.5 cm (5' 2) 07/25/2024 1:11 PM HOME CONNECT LPN Body Mass Index 32.19 07/25/2024 1:11 PM HOME CONNECT LPN Plan of Treatment Health Maintenance Due Date [...] patient's age to complete this topic Insurance [facility] Advance Directives For more information, please contact: [phone] * Full Code (Latest Code Status on File) Date Activated Date Inactivated Comments 03/30/2021 6:35 PM 04/01/2021 5:12 PM Care Teams Technical Maintenance Technician Relationship Specialty Start Date End Date Kwan Macias MD [address] [place] [address] PCP - General Emergency Medicine 01/23/24 Shannon Cruz MD [address] [place] [address] Consulting Physician Obstetrics and Gynecology 04/01/21
--- OUTSIDE RECORDS SUMMARY | 2025-02-16 19:12 | XMS_ITS | Clinical Summary ---
Author Organization [facility] Address [address] [place] [address] Care Team Providers Care Swamper Name Role Phone Kwan Macias MD Primary Care Provider [phone] Allergies No known active allergies Medications ferrous [...] Data STL ABSTRACTION Provider, Abstract 02/10/2025 Refill [facility] [address] [place] [address] Ryan Cheney MD 01/23/2025 External Device Data STL ABSTRACTION Provider, Abstract 01/22/2025 External Device Data STL ABSTRACTION Provider, Abstract 01/04/2025 Orders Only [facility] H[facility] [address] [place] [phone] Ryan Cheney MD 12/25/2024 External Device Data STL ABSTRACTION Provider, Abstract 12/11/2024 External Device Data STL ABSTRACTION Provider, Abstract 11/29/2024 External Device Data STL ABSTRACTION Provider, Abstract 11/27/2024 External Device Data STL ABSTRACTION Provider, Abstract 11/19/2024 Refill [facility] - [address] [place] [id number] Ryan Cheney MD from Last 3 Months [...] Description 04/16/2025 3:45 PM CDT Office Visit [facility] - [address] [place] [address] Ryan Cheney MD [address] [facility] [address] [place] [address] Health Maintenance Due Date Last Done Comments [...] complete this topic Insurance MEDICAID Care Teams Swamper Relationship Specialty Start Date End Date Kwan Macias MD [address] [place] [phone] PCP - General Family Practice 05/11/24
--- OUTSIDE RECORDS SUMMARY | 2025-02-16 19:12 | XMS_ITS | Clinical Summary ---
Author Organization [facility] Address [address] [place] [address] Phone Care Team Providers Care Staff Scientist Name Role Phone Kwan Macias MD Primary Care Provider [phone] Allergies No known active allergies Medications ferrous [...] Comments Blood Pressure 132/90 08/21/2024 1:10 PM BOATWRIGHT Pulse 70 08/21/2024 1:10 PM BOATWRIGHT Temperature - - Respiratory Rate - - Oxygen Saturation - - Inhaled Oxygen Concentration - - Weight 83.5 kg (184 lb) 08/21/2024 1:10 PM BOATWRIGHT Height 160 cm (5' 3) 08/21/2024 1:10 PM BOATWRIGHT Body Mass Index 32.59 08/21/2024 1:10 PM BOATWRIGHT Plan of Treatment Upcoming Encounters Date Type Department Care Team (Late st Contact Info) Description 02/19/2025 2:00 PM CDT Office Visit [facility] [address], [address] [place] [address] Omid Rowe MD [address] [facility] 1 [place] [address] Health Maintenance Due Date Last Done Comments Pneumococcal PPSV23 Highest Risk Adult (1 of 3 - PCV13 ) 1997 Influenza Vaccine (#1) 2025 [place] [address] PM INTERFACED INSURANCE Care Teams Staff Scientist Relationship Specialty Start Date End Date Kwan Macias MD PCP - General 06/19/24
--- OUTSIDE RECORDS SUMMARY | 2025-02-16 19:12 | XMS_ITS | Clinical Summary ---
Author Organization [facility] Address [address] [place] [address] Care Team Providers Care Russian Language Professor Name Role Phone Kwan Macias MD Primary Care Provider [phone] Jg Hummel DO Unavailable Source Comments [facility],non-owned Affiliates and Associated Physician Practices is amultiple site organization consisting of ambulatory clinics and hospital sitesin [place], [place], [place] and [place]. This disclosure is being madepursuant to the Care Everywhere program and may not contain all information available regarding this patient. Last updated 18.[facility] Allergies Active Allergy Reactions Criticality [...] Description 02/13/2025 8:00 AM CDT Office Visit [facility] [address] [place] [address], [address] [place] [address] Jg Hummel DO Muscle spasm (Primary Dx); Primary fibromyalgia syndrome; Memory impairment 02/13/2025 Refill [facility] [address] [facility], [address] [place] [address] Jg Hummel DO Medication Issue 12/12/2024 Telephone [facility] [address], [address] [place] [address] Jg Hummel DO Care Management Other (Needing medical leave leave form completed for work) 12/05/2024 4:20 PM CDT Office Visit [facility] [address], [address] [place] [address] Jg Hummel DO De Quervain's [...] 157.5 cm (5' 2) 09/07/2024 10:20 AM BUSINESS ANALYSIS ANALYST Body Mass Index 36.58 09/07/2024 10:20 AM BUSINESS ANALYSIS ANALYST Plan of Treatment Upcoming Encounters Date Type Department Care Team (Late st Contact Info) Description 03/27/2025 10:20 AM CDT Office Visit [facility] [address], [address] [place] [phone] Jg Hummel DO [address] [place] [address] 07/25/2025 10:15 AM BUSINESS ANALYSIS ANALYST Appointment [facility] [address] [place] [phone] Steve Van, ELECTRIC WHEELCHAIR REPAIRER-GEOPHYSICAL ENGINEER [address] [facility] [address] [place] [address] Health Maintenance Due Date Last Done Comments [...] D deficiency has been defined by the [place] of Medicine and an Endocrine Society practice guideline as a level of serum 25-OH vitamin D less than 20 ng/mL (1,2). The Endocrine Society went on to further define vitamin D insufficiency as a level between 21 and 29 ng/mL (2). 1. IOM ([place] of [employer]). 2010. Dietary reference intakes for [...] - 02/14/2025 8:12 AM CDT Performed at: [address] [place] [id number] Home And Family Living Professor: Siddhartha Maynard PhD, Phone: [phone] Jg Hummel DO LAB - CHEMISTRY ORDERABLES Final Result [facility] INSURANCE BILL [address] [place] [address] * COMPREHENSIVE METABOLIC PANEL (02/13/2025 8:36 AM CDT) Pathologist [facility] [place] Glucose 89 70 - 99 mg/dL [facility] [...] 7:09 AM CDT Performed at: 01 - [address] [id number] Home And Family Living Professor: Siddhartha Maynard PhD, Phone: [phone] Jg Hummel DO LAB - CHEMISTRY ORDERABLES Final Result Performing Organization Address City/[facility]/ZIP Co de Phone Number [facility] INSURANCE BILL [address] [place] [address] * MAGNESIUM BLOOD (02/13/2025 8:36 AM CDT) Magnesium 2.1 1.6 - 2.3 mg/dL [facility] INSURANCE BILL Blood BLOOD SPECIMEN / Unknown 02/13/2025 8:36 AM CDT 02/13/2025 Narrative [facility] INSURANCE BILL - 02/14/2025 7:09 AM CDT Performed at: [address] [place] [id number] Home And Family Living Professor: Siddhartha Maynard PhD, Phone: [phone] Jg Hummel DO LAB - CHEMISTRY ORDERABLES Final Result Performing Organization Address [facility] Co de Phone Number [facility] INSURANCE BILL [address] [place] [address] * (ABNORMAL) CK BLOOD (02/13/2025 8:36 AM CDT) CK 373(H) 32 - 182 U/L [facility] INSURANCE BILL Blood BLOOD SPECIMEN / Unknown 02/13/2025 8:36 AM CDT 02/13/2025 Narrative [facility] INSURANCE BILL - 02/14/2025 7:09 AM CDT Performed at: [address] [place] [id number] Home And Family Living Professor: Siddhartha Maynard PhD, Phone: [phone] Jg Hummel DO LAB - CHEMISTRY ORDERABLES Final Result Performing Organization Address City/[facility] Co de Phone Number [facility] INSURANCE BILL [address] [place] [address] * Mammo Bilat Diagnostic W Bautista (03/28/2024 7:23 AM CDT) Anatomical Region Laterality Modality Breast Bilateral Mammography 03/28/2024 7:18 AM CDT Addenda Addendum by Monet Connors MD on 05/25/2024 3:01 PM BUSINESS ANALYSIS ANALYST Addendum by Monet Connors M.D. This addendum [...] This was discussed with Dr. Jeffrey via [employer] message. EXAMINATIONS: 1. RIGHT DIGITAL DIAGNOSTIC MAMMOGRAM AND TOMOSYNTHESIS AND 2. COMPLETE BILATERAL BREAST ULTRASOUND (COMBINED REPORT) LOCATION: [facility] EXAM DATE: 03/28/2024 HISTORY: This is a 43-year-old female patient with painful right breast mass/lump for which she went to the ER at [facility] at the beginning of March. An ultrasound [...] greater than 20%, consultation in the [facility] Breast Surgery High Risk Clinic is recommended. Should she wish to schedule an appointment, the phone number [phone]. The [place] Cancer Society recommends annual screening breast MRI [...] recommended. COMPARISON: Limited right breast ultrasound 03/11/2024 [facility]. Screening mammography 08/16/2023 from [facility] MAMMOGRAM: TECHNIQUE: Diagnostic bilateral mammography [...] in size compared to prior exam from [facility]. No suspicious finding was found in the [...] cancer greater than 20%, according to the [place] Cancer [employer] guidelines. This can be alternated [...] cancer greater than 20%, according to the [place] Cancer [employer] guidelines. This can be alternated [...] COMPLETE BILATERAL BREAST ULTRASOUND (COMBINED REPORT) LOCATION: [facility] EXAM DATE: 03/28/2024 HISTORY: This is a 43-year-old female patient with painful right breast mass/lump for which she went to the ER at [facility] at the beginning of March. An ultrasound [...] greater than 20%, consultation in the [facility] Breast Surgery High Risk Clinic is recommended. Should she wish to schedule an appointment, the phone number [phone]. The [place] Cancer Society recommends annual screening breast MRI [...] recommended. COMPARISON: Limited right breast ultrasound 03/11/2024 [facility]. Screening mammography 08/16/2023 from [facility] MAMMOGRAM: TECHNIQUE: Diagnostic bilateral mammography [...] in size compared to prior exam from [facility]. No suspicious finding was found in the [...] COMPLETE BILATERAL BREAST ULTRASOUND (COMBINED REPORT) LOCATION: [facility] EXAM DATE: 03/28/2024 HISTORY: This is a 43-year-old female patient with painful right breast mass/lump for which she went to the ER at [facility] at the beginning of March. An ultrasound [...] greater than 20%, consultation in the [facility] Breast Surgery High Risk Clinic is recommended. Should she wish to schedule an appointment, the phone [phone]. The [place] Cancer Society recommends annual screening breast MRI in addition to mammograms for women who have a 20% or greater lifetime riskof developing breast cancer. This can be managed through the high riskbreast clinic. Risk assessment based upon the Tyrer-Cuzick v8 model. By the NCCN guidelines and family history of breast cancer, consideration of genetic testing is recommended. COMPARISON: Limited right breast ultrasound 03/11/2024 [facility]. Screening mammography 08/16/2023 from [facility] MAMMOGRAM: TECHNIQUE: Diagnostic bilateral mammography [...] in size compared to prior exam from [facility]. No suspicious finding was found inthe right [...] cancer greater than 20%, according to the [place] [employer] guidelines. This can be alternated [...] Most Recently Relevant to Health Maintenance Insurance [facility] SELF PAY NO INSURANCE Member Subscriber Plan / Payer (Ef fective for All Dates) Name:Amelie Man Member ID:Not on file Relation to Subscriber:Not on file Name:AMELIE MAN Subscriber ID:Not on file (Home) Address: [address] [place] [address] Payer ID:Not on file Group ID:Not on file Type:Self Pay Address: [place], [place] Care Teams Russian Language Professor Relationship Specialty Start Date End Date Kwan Macias MD [address] [facility] [facility] [address] [facility] [address] [place] [address] PCP - General Family Medicine 01/09/24 Jg Hummel DO [address] [facility] [address] [place] [address] [facility] 02/27/24
[2025-02-16 19:31] LABS: Hematocrit 39.7 % (37.0-47.0); Hemoglobin 12.9 g/dL (12.0-15.0); Immature Granulocyte Percent A 0.2 % (0-0.5); Lymphocytes Absolute Auto 2.44 K/mm3 (0.9-3.2); Mean Corpuscular HGB Conc 32.5 g/dl (32-36); Mean Corpuscular Hemoglobin 29.7 pg (26-34); Mean Corpuscular Volume 91.5 fl (80-100); Nucleated Red Blood Cells Absolute Auto 0.000 K/mm3 (0.0-0.012); Nucleated Red Blood Cells Perc 0.0 % (0.0-0.2); Platelet Count Result 302 k/mm3 (150-375); Red Blood Count 4.34 M/mm3 (4.2-5.4); White Blood Count 6.1 K/mm3 (4.5-10.0)
[2025-02-16] MEDS: ASPIRIN 81 MG CHEWABLE TABLET 324 MG PO (19:31)
--- NOTE | 2025-02-16 19:43 | ED_ITS ---
HPI - Chest Pain General Chief Complaint: Chest Pain Stated Complaint: chest pain Time Seen by Provider: 02/16/25 19:15 Source: patient, family and RN notes reviewed Mode of arrival: ambulatory Limitations: no limitations History of Present Illness HPI narrative: 44 y/o AAF in the ED for CP X1 month. Pt states pain is across the lower area of both breasts, around into her back, as well as intermittent palpitations. Pt states she has been SOB on occasion, denies N/V and diaphoresis. Pt denies cardiac hx of any kind. Pt described the pain as a cramp, not made better w/ movement. Pt denies GERD or indigestion hx/complaints. Pt spouse also concerned for HTN and wanting it addressed. Pt and significant other state BPs as high as 170s systolic. Denies ROD, dizziness, or vision complaints. Related Data Home Medications ?Medication ?Instructions ?Recorded ?Confirmed ?Last Taken ?Type ferrous sulfate 325 mg (65 mg 325 mg PO DAILY 03/21/24 12/17/24 10/12/24 History iron) tablet,delayed release gabapentin 100 mg capsule 100 mg PO TID 03/21/24 12/17/24 10/16/24 History ibuprofen 800 mg tablet 800 mg PO TID 03/21/24 12/17/24 10/12/24 History Allergies Allergy/AdvReac Type Severity Reaction Status Date / Time No Known Allergies Allergy Verified 12/17/24 12:14 Review of Systems 2 Review of Systems: All systems reviewed & are unremarkable except as noted in HPI and below PMFSH Past Medical History Medical History Hepatic cyst Anxiety and depression Anemia Asthma Overweight (BMI 25.0-29.9) Eczema Fibromyalgia Subareolar lump of right breast Subareolar lump of left breast Surgical History Surgical History Hx of ventral hernia repair 10/17/24 Repair ventral hernia with mesh, 12 cm defect, bilateral myofascial flap advancement, 4 cm on the right, 6 cm on the left Dr. Rodriguez Social History Social History Smoking status: Never smoker Alcohol intake: current Substance use: never Substance use type: marijuana Other substance usage details: edibles daily Do You Feel Safe in your Home?: Yes Lack of Transportation: No Lack of Food: Never True Current Housing: I Have Housing Concerned About Future Housing: No Difficulty Paying Gas/Electric Bills: No Difficulty Paying for Meds: No Currently Unemployed: No Education: High School Diploma/GED Difficulty w/ Childcare or Family Care: No Living arrangements: with family Spiritual care concerns: No Exam 2 Narrative: GENERAL: Well-appearing, well-nourished, and in no acute distress. HEAD: Normocephalic, atraumatic. EYES: PERRLA and EOMI. ENT: Nares clear, no rhinorrhea or epistaxis. Mucous membranes moist. NECK: Supple. CHEST: Clear to auscultation. No respiratory distress. Pain on palpation across the lower chest HEART: Regular rate and rhythm. No murmur heard. Normal peripheral pulses. ABDOMEN: Soft, nontender, nondistended, normal active bowel sounds. EXTREMITIES: Normal range of motion. No edema. SKIN: Warm, dry, no rash. NEURO: No focal deficits. Alert and oriented x3. PSYCH: Normal mood and affect. Course Vital Signs Vital signs: Vital Signs Temperature 36.9 C 02/16/25 19:14 Pulse Rate 100 02/16/25 19:14 Respiratory Rate 21 H 02/16/25 19:14 Blood Pressure 134/104 H 02/16/25 19:14 Pulse Oximetry 100 02/16/25 19:14 Temperature 36.9 C 02/16/25 19:14 Pulse Rate 84 02/16/25 20:01 Respiratory Rate 16 02/16/25 20:01 Blood Pressure 114/73 02/16/25 20:01 Pulse Oximetry 99 02/16/25 20:01 Oxygen Delivery Room Air 02/16/25 19:27 MDM - Chest Pain MDM Narrative Medical decision making narrative: 44 y/o AAF in the ED for CP X1 month. Pt states pain is across the lower area of both breasts, around into her back, as well as intermittent palpitations. Pt states she has been SOB on occasion, denies N/V and diaphoresis. Pt denies cardiac hx of any kind. Pt described the pain as a cramp, not made better w/ movement. Pt denies GERD or indigestion hx/complaints. Pt spouse also concerned for HTN and wanting it addressed. Pt and significant other state BPs as high as 170s systolic. Denies ROD, dizziness, or vision complaints. My Plan Labs Ordered: CBC, CMP, Lipase, Pt/PTT, Trop X2 Imaging Ordered: CXR and EKG X2 Medications Ordered: None Results: Chest x-ray within normal limits, labs unremarkable with 2- troponins, EKGs x2 show normal sinus rhythm Diagnosis: chest wall pain Risks: HEART score - 1 Consults: None Pt endorses blood pressure concerns noted yesterday during ED visit. Normal at time of my exam at 128/83. Physical exam relatively unremarkable, labs unremarkable with 2 negative troponins. Chest x-ray within normal limits. Both EKGs normal sinus rhythm. Patient to be discharged home with primary care follow-up Differential Diagnosis Differential diagnosis: Likely stable angina, atypical chest pain, costochondritis and chest pain Lab Data Attestation: I reviewed the patient's lab results. 02/16/25 19:24 02/16/25 19:24 Labs: Lab Results 02/16/25 02/16/25 Range/Units 19:24 22:15 WBC 6.1 (4.5-10.0) K/mm3 RBC 4.34 (4.2-5.4) M/mm3 Hgb 12.9 (12.0-15.0) g/dL Hct 39.7 (37.0-47.0) % MCV 91.5 (80-100) fl MCH 29.7 (26-34) pg MCHC 32.5 (32-36) g/dl RDW 12.7 (11.5-14.5) % Plt Count 302 (150-375) k/mm3 MPV 9.6 (7.4-10.4) fl Immature Gran % (Auto) 0.2 (0-0.5) % Neut % (Auto) 50.3 (45.5-73.1) % Lymph % (Auto) 40.1 (18.3-44.2) % [place] % (Auto) 7.1 (2.6-8.5) % Eos % (Auto) 2.0 (0-4.4) % Baso % (Auto) 0.3 (0.2-1.2) % Lymph # (Auto) 2.44 (0.9-3.2) K/mm3 [place] # (Auto) 0.4 (0.1-0.6) K/mm3 Eos # (Auto) 0.1 (0-0.3) K/mm3 Baso # (Auto) 0.0 (0.0-0.1) K/mm3 Abs Immat Gran (auto) 0.01 (0.00-0.031) K/mm3 Absolute Neuts (auto) 3.1 (1.3-6.7) K/mm3 Absolute Nucleated RBC 0.000 (0.0-0.012) K/mm3 Nucleated RBC % 0.0 (0.0-0.2) % PT 16.1 H (11.1-14.7) Seconds INR 1.3 APTT 32.8 (22.3-36.8) Seconds Sodium 136 L (137-145) mmol/L Potassium 4.4 (3.4-5.0) mmol/L Chloride 104 (98-107) mmol/L Carbon Dioxide 27 (22-30) mmol/L Anion Gap 5 (4-12) mmol/L BUN 6 L (7-17) mg/dL Creatinine 0.91 (0.7-1.0) mg/dL Estim Creat Clear Calc Not Reportable Estimated GFR > 60 (59 - ) Glucose 95 (65-110) mg/dL Calcium 9.0 (8.4-10.2) mg/dL Total Bilirubin 0.4 (0.2-1.3) mg/dL AST 36 (14-36) U/L ALT 25 (6-35) U/L Alkaline Phosphatase 63 (38-126) U/L Troponin I < 0.012 Pending (0.000-0.034) ng/mL Total Protein 7.6 (6.3-8.2) g/dL Albumin 4.3 (3.5-5.1) g/dL Lipase 167 (23-300) U/L Imaging Data Radiologist's impression: ITS Impressions Chest X-Ray 02/16/25 21:08 IMPRESSION: No acute cardiopulmonary process. ECG Data EKG #1: ECG completion date: 02/16/25 ECG completion time: 19:19 Prior ECG tracings: available for review EKG Interpretation: normal rate, sinus rhythm, no ectopy, no ST changes, normal QRS and normal QT EKG #2: ECG completion date: 02/16/25 ECG completion time: 22:16 EKG Interpretation: normal rate, sinus rhythm, no ectopy, no ST changes, normal QRS, normal QT and no acute changes Discharge Plan Discharge Clinical Impression: Chest wall pain Patient Disposition: Home Condition: Stable Instructions: Antibiotic Form, Chest Wall Pain (ED) Additional Instructions: You may take [id number] Motrin or Tylenol for pain. Please return to the ER with any worsening symptoms. ?Follow-up with primary care provider as soon as possible. ?Take all medications as prescribed, including regularly scheduled medications. Patient Language: Portuguese Prescriptions: No Action gabapentin 100 mg capsule 100 mg PO TID ibuprofen 800 mg tablet 800 mg PO TID Rx Instructions: Says takes one every day then as needed for pain. ferrous sulfate 325 mg (65 mg iron) tablet,delayed release (DR/EC) 325 mg PO DAILY Follow-up/Referrals: Kwan Macias MD [Primary Care Provider] - 1 Week
[2025-02-16 19:44] LABS: Alanine Aminotransferase 25 U/L (6-35); Albumin Level 4.3 g/dL (3.5-5.1); Alkaline Phosphatase 63 U/L (38-126); Anion Gap 5 mmol/L (4-12); Aspartate Amino Transferase 36 U/L (14-36); Bilirubin,Total 0.4 mg/dL (0.2-1.3); Blood Urea Nitrogen 6 mg/dL (7-17); Calcium 9.0 mg/dL (8.4-10.2); Carbon Dioxide 27 mmol/L (22-30); Chloride 104 mmol/L (98-107); Estimated Glomerular Filt Rate > 60; Glucose 95 mg/dL (65-110); Lipase 167 U/L (23-300); Potassium 4.4 mmol/L (3.4-5.0); Sodium 136 mmol/L (137-145); Total Protein 7.6 g/dL (6.3-8.2)
--- OUTSIDE RECORDS SUMMARY | 2025-02-16 19:44 | XMS_ITS | Clinical Summary ---
Author Organization [facility] Address [address] [place] [address] Phone Care Team Providers Care Plant Clerk Name Role Phone Kwan Macias MD Primary Care Provider [phone] Allergies No known active allergies Medications ferrous [...] Comments Blood Pressure 132/90 08/21/2024 1:10 PM DYE WEIGHER HELPER Pulse 70 08/21/2024 1:10 PM DYE WEIGHER HELPER Temperature - - Respiratory Rate - - Oxygen Saturation - - Inhaled Oxygen Concentration - - Weight 83.5 kg (184 lb) 08/21/2024 1:10 PM DYE WEIGHER HELPER Height 160 cm (5' 3) 08/21/2024 1:10 PM DYE WEIGHER HELPER Body Mass Index 32.59 08/21/2024 1:10 PM DYE WEIGHER HELPER Plan of Treatment Upcoming Encounters Date Type Department Care Team (Late st Contact Info) Description 02/19/2025 2:00 PM CDT Office Visit [facility] [address] [facility] [place] [address] Omid Rowe MD [address] [facility] [address] [place] [address] Health Maintenance Due Date Last Done Comments Pneumococcal PPSV23 Highest Risk Adult (1 of 3 - PCV13 ) 1999 Influenza Vaccine (#1) 2025 [place] [address] PM INTERFACED INSURANCE Care Teams Plant Clerk Relationship Specialty Start Date End Date Kwan Macias MD PCP - General 06/19/24
--- OUTSIDE RECORDS SUMMARY | 2025-02-16 19:44 | XMS_ITS | Clinical Summary ---
Author Organization [facility] Address [address] [place] [address] Care Team Providers Care Laundry Room Attendant Name Role Phone Kwan Macias MD Primary Care Provider [phone] Allergies No known active allergies Medications ferrous [...] Data STL ABSTRACTION Provider, Abstract 02/10/2025 Refill [facility] [address] [place] [address] Ryan Cheney MD 01/23/2025 External Device Data STL ABSTRACTION Provider, Abstract 01/22/2025 External Device Data STL ABSTRACTION Provider, Abstract 01/04/2025 Orders Only [facility] Hematology [facility] [address] [place] [address] Ryan Cheney MD 12/25/2024 External Device Data STL ABSTRACTION Provider, Abstract 12/11/2024 External Device Data STL ABSTRACTION Provider, Abstract 11/29/2024 External Device Data STL ABSTRACTION Provider, Abstract 11/27/2024 External Device Data STL ABSTRACTION Provider, Abstract 11/19/2024 Refill [facility] - [address] [place] [phone] Ryan Cheney MD from Last 3 Months [...] Description 04/16/2025 3:45 PM CDT Office Visit [facility] - [address] [place] [address] yRan Cheney MD [address] [facility] [address] [place] [address] Health Maintenance Due Date Last Done Comments [...] complete this topic Insurance MEDICAID Care Teams Laundry Room Attendant Relationship Specialty Start Date End Date Kwan Macias MD [address] [place] [phone] PCP - General Family Practice 05/11/24
--- OUTSIDE RECORDS SUMMARY | 2025-02-16 19:44 | XMS_ITS | Clinical Summary ---
Author Organization [facility] Address [address] [place] [address] Care Team Providers Care Panama Hat Hydraulic Press Operator Name Role Phone Kwan Macias MD Primary Care Provider [phone] Jg Hummel DO Unavailable Source Comments [facility],non-owned Affiliates and Associated Physician Practices is amultiple site organization consisting of ambulatory clinics and hospital sitesin [place], [place], [place] and [place]. This disclosure is being madepursuant to the Care Everywhere program and may not contain all information available regarding this patient. Last updated 18.[facility] Allergies Active Allergy Reactions Criticality Noted [...] Description 02/13/2025 8:00 AM CDT Office Visit [facility] [address] [place] [address], [address] [place] [id number] Jg Hummel DO Muscle spasm (Primary Dx); Primary fibromyalgia syndrome; Memory impairment 02/13/2025 Refill [facility] [address], [address] [place] [address] Jg Hummel DO Medication Issue 12/12/2024 Telephone [facility] [address], [address] [place] [address] Jg Hummel DO Care Management Other (Needing medical leave leave form completed for work) 12/05/2024 4:20 PM CDT Office Visit [facility] [address], [address] [place] [address] Jg Hummel DO De Quervain's [...] 157.5 cm (5' 2) 09/07/2024 10:20 AM SALES INTERN Body Mass Index 36.58 09/07/2024 10:20 AM SALES INTERN Plan of Treatment Upcoming Encounters Date Type Department Care Team (Late st Contact Info) Description 03/27/2025 10:20 AM CDT Office Visit [facility] [address], [address] [place] [phone] Jg Hummel DO [address] [place] [address] 07/25/2025 10:15 AM SALES INTERN Appointment [facility] [place] [address] [place] [phone] Steve Van, COUNTRY PRINTER-SUPERVISOR [employer] [address] [place] [address] Health Maintenance Due Date Last Done Comments [...] D deficiency has been defined by the [employer] of [employer] and an Endocrine Society practice guideline as a level of serum 25-OH vitamin D less than 20 ng/mL (1,2). The Endocrine Society went on to further define vitamin D insufficiency as a level between 21 and 29 ng/mL (2). 1. IOM ([employer] of Medicine). 2010. Dietary reference intakes for [...] - 02/14/2025 8:12 AM CDT Performed at: [address] [place] [id number] Director Of Event Sales: Siddhartha Maynard PhD, Phone: [phone] Jg Hummel DO LAB - CHEMISTRY ORDERABLES Final Result [facility] INSURANCE BILL [address] [place] [address] * COMPREHENSIVE METABOLIC PANEL (02/13/2025 8:36 AM CDT) Pathologist [facility] Glucose 89 70 - 99 mg/dL [facility] [...] 7:09 AM CDT Performed at: [address] [id number] Director Of Event Sales: Siddhartha Maynard PhD, Phone: [phone] Jg Hummel DO LAB - CHEMISTRY ORDERABLES Final Result Performing Organization Address City/[facility]/ZIP Co de Phone Number [facility] INSURANCE BILL [address] [place] [address] * MAGNESIUM BLOOD (02/13/2025 8:36 AM CDT) Magnesium 2.1 1.6 - 2.3 mg/dL [facility] INSURANCE BILL Blood BLOOD SPECIMEN / Unknown 02/13/2025 8:36 AM CDT 02/13/2025 Narrative [facility] INSURANCE BILL - 02/14/2025 7:09 AM CDT Performed at: [address] [place] [id number] Director Of Event Sales: Siddhartha Maynard PhD, Phone: [phone] Jg Hummel DO LAB - CHEMISTRY ORDERABLES Final Result Performing Organization Address [facility] Co de Phone Number [facility] INSURANCE BILL [address] [place] [address] * (ABNORMAL) CK BLOOD (02/13/2025 8:36 AM CDT) CK 373(H) 32 - 182 U/L [facility] INSURANCE BILL Blood BLOOD SPECIMEN / Unknown 02/13/2025 8:36 AM CDT 02/13/2025 Narrative [facility] INSURANCE BILL - 02/14/2025 7:09 AM CDT Performed at: [address] [place] [id number] Director Of Event Sales: Siddhartha Maynard PhD, Phone: [phone] Jg Hummel DO LAB - CHEMISTRY ORDERABLES Final Result Performing Organization Address [facility] Co de Phone Number [facility] INSURANCE BILL [address] [place] [address] * Mammo Bilat Diagnostic W Bautista (03/28/2024 7:23 AM CDT) Anatomical Region Laterality Modality Breast Bilateral Mammography 03/28/2024 7:18 AM CDT Addenda Addendum by Monet Connors MD on 05/25/2024 3:01 PM SALES INTERN Addendum by Monet Connors M.D. This addendum [...] This was discussed with Dr. Jeffrey via [employer] message. EXAMINATIONS: 1. RIGHT DIGITAL DIAGNOSTIC MAMMOGRAM AND TOMOSYNTHESIS AND 2. COMPLETE BILATERAL BREAST ULTRASOUND (COMBINED REPORT) LOCATION: [facility] EXAM DATE: 03/28/2024 HISTORY: This is a 43-year-old female patient with painful right breast mass/lump for which she went to the ER at [facility] at the beginning of March. An ultrasound [...] greater than 20%, consultation in the [facility] High Risk [facility] is recommended. Should she wish to schedule an appointment, the phone number [phone]. The [place] [employer] recommends annual screening breast MRI [...] recommended. COMPARISON: Limited right breast ultrasound 03/11/2024 [facility]. Screening mammography 08/16/2023 from [facility] MAMMOGRAM: TECHNIQUE: Diagnostic bilateral mammography [...] in size compared to prior exam from [facility]. No suspicious finding was found in the [...] of greater than 20%, consultation in the [facility] is recommended. 3. Annual screening breast MRI is recommended, given the elevated lifetime risk of developing breast cancer greater than 20%, according to the [place] [employer] guidelines. This can be alternated [...] of greater than 20%, consultation in the [facility] is recommended. 3. Annual screening breast MRI is recommended, given the elevated lifetime risk of developing breast cancer greater than 20%, according to the [place] [employer] guidelines. This can be alternated [...] COMPLETE BILATERAL BREAST ULTRASOUND (COMBINED REPORT) LOCATION: [facility] EXAM DATE: 03/28/2024 HISTORY: This is a 43-year-old female patient with painful right breast mass/lump for which she went to the ER at [facility] at the beginning of March. An ultrasound [...] greater than 20%, consultation in the [facility] High Risk [facility] is recommended. Should she wish to schedule an appointment, the phone number [phone]. The [place] [employer] recommends annual screening breast MRI [...] recommended. COMPARISON: Limited right breast ultrasound 03/11/2024 [facility]. Screening mammography 08/16/2023 from [facility] MAMMOGRAM: TECHNIQUE: Diagnostic bilateral mammography [...] in size compared to prior exam from [facility]. No suspicious finding was found in the [...] COMPLETE BILATERAL BREAST ULTRASOUND (COMBINED REPORT) LOCATION: [facility] EXAM DATE: 03/28/2024 HISTORY: This is a 43-year-old female patient with painful right breast mass/lump for which she went to the ER at [facility] at the beginning of March. An ultrasound [...] greater than 20%, consultation in the [facility] High Risk [facility] is recommended. Should she wish to schedule an appointment, the phone [phone]. The [place] [employer] recommends annual screening breast MRI in addition to mammograms for women who have a 20% or greater lifetime riskof developing breast cancer. This can be managed through the high riskbreast clinic. Risk assessment based upon the Tyrer-Cuzick v8 model. By the NCCN guidelines and family history of breast cancer, consideration of genetic testing is recommended. COMPARISON: Limited right breast ultrasound 03/11/2024 [facility]. Screening mammography 08/16/2023 from [facility] MAMMOGRAM: TECHNIQUE: Diagnostic bilateral mammography [...] in size compared to prior exam from [facility]. No suspicious finding was found inthe right [...] cancer ofgreater than 20%, consultation in the [facility] is recommended. 3. Annual screening breast MRI is recommended, given the elevatedlifetime risk of developing breast cancer greater than 20%, according to the [place] [employer] guidelines. This can be alternated [...] Most Recently Relevant to Health Maintenance Insurance [facility] SELF PAY NO INSURANCE Member Subscriber Plan / Payer (Ef fective for All Dates) Name:Amelie Man Member ID:Not on file Relation to Subscriber:Not on file Name:AMELIE MAN Subscriber ID:Not on file (Home) Address: [address] [place] [address] Payer ID:Not on file Group ID:Not on file Type:Self Pay Address: [place], [place] Care Teams Panama Hat Hydraulic Press Operator Relationship Specialty Start Date End Date Kwan Macias MD [address] [facility] [place] [address] PCP - General Family Medicine 01/09/24 Jg Hummel DO [address] [place] [address] Musical Engineer Rheumatology 02/27/24
--- OUTSIDE RECORDS SUMMARY | 2025-02-16 19:44 | XMS_ITS | Clinical Summary ---
Author Organization [facility] Address [address] [place] [address] Care Team Providers Care Residential Child Care Counselor Name Role Phone Shannon Cruz MD Unavailable [phone] Kwan Macias MD Primary Care Provider [phone] Allergies Active Allergy Reactions Criticality Noted [...] each 11 06/26/20 24 Active PNV with [id number] ( Plus, calcium carb,) 27 mg iron- [...] of Binge Drinking Not on file 06/10 [place] Depression Scale Answer Date Recorded [place] Depression Scale Total 7 03/31/2021 The thought of harming myself has occurred to me . Never 03/31/2021 Comments Unknown Sex and Gender Information Value Date Recorded Sex Assigned at Not on file Legal Sex Female 6:23 PM CARD GRINDER Gender Identity Not on file Sexual Orientation [...] Comments Blood Pressure 102/60 06/26/2024 1:08 PM CARD GRINDER Pulse 70 06/26/2024 1:08 PM CARD GRINDER Temperature 36.4 C (97.6 F) 06/26/2024 1:08 PM CARD GRINDER Respiratory Rate 12 06/26/2024 1:08 PM CARD GRINDER Oxygen Saturation 99% 06/26/2024 1:08 PM CARD GRINDER Inhaled Oxygen Concentration - - Weight 79.8 kg (176 lb) 07/25/2024 1:11 PM CARD GRINDER Height 157.5 cm (5' 2) 07/25/2024 1:11 PM CARD GRINDER Body Mass Index 32.19 07/25/2024 1:11 PM CARD GRINDER Plan of Treatment Health Maintenance Due Date [...] patient's age to complete this topic Insurance [facility] Advance Directives For more information, please contact: [phone] * Full Code (Latest Code Status on File) Date Activated Date Inactivated Comments 03/30/2021 6:35 PM 04/01/2021 5:12 PM Care Teams Residential Child Care Counselor Relationship Specialty Start Date End Date Kwan Macias MD [address] [place] [id number] PCP - General Emergency Medicine 01/23/24 Shannon Cruz MD [address] [place] [address] Consulting Physician Obstetrics and Gynecology 04/01/21
[2025-02-16 19:48] LABS: INR 1.3; Prothrombin Time 16.1 Seconds (11.1-14.7)
[2025-02-16 19:49] LABS: Partial Thromboplastin Time 32.8 Seconds (22.3-36.8)
[2025-02-16 19:54] LABS: Troponin I < 0.012 ng/mL (0.000-0.034)
--- NOTE | 2025-02-16 22:10 | ECG_ITS ---
Test Date: 2025-02-16 22:16:09 Measurements Intervals [place] Rate: 65 P: 63 MI: 165 QRS: -2 QRSD: 98 T: 42 QT: 402 QTc: 419 Interpretive Statements SINUS RHYTHM DELAYED PRECORDIAL R/S TRANSITION BORDERLINE ECG Compared to ECG 02/16/2025 19:19:03 No significant changes Electronically Signed On 02-17-2025 08:01:11 CDT by Joel Aponte D.O.
[2025-02-16 22:45] LABS: Troponin I < 0.012 ng/mL (0.000-0.034)
== END 2025-02-16 23:04 | disposition home or self-care (01) ==
PROVIDERS: Emergency Medicine; Emergency Provider Registered Nurse Emergency; PCP Emergency Medicine
DX: R07.89 Other chest pain (principal); J45.909 Unspecified asthma, uncomplicated; F41.8 Other specified anxiety disorders
CPT/HCPCS: 36415; 71046; 80053; 83690; 84484; 85025; 85610; 85730; 93005; 99284; A9270

== ENCOUNTER 2025-04-10 10:26 | Outpatient (CLI) | payer OTHER, SELFPAY ==
[2025-04-10 10:54] LABS: Hematocrit 36.8 % (37.0-47.0); Hemoglobin 11.7 g/dL (12.0-15.0); Immature Granulocyte Percent A 0.2 % (0-0.5); Lymphocytes Absolute Auto 1.61 K/mm3 (0.9-3.2); Mean Corpuscular HGB Conc 31.8 g/dl (32-36); Mean Corpuscular Hemoglobin 29.1 pg (26-34); Mean Corpuscular Volume 91.5 fl (80-100); Nucleated Red Blood Cells Absolute Auto 0.000 K/mm3 (0.0-0.012); Nucleated Red Blood Cells Perc 0.0 % (0.0-0.2); Platelet Count Result 262 k/mm3 (150-375); Red Blood Count 4.02 M/mm3 (4.2-5.4); White Blood Count 6.5 K/mm3 (4.5-10.0)
--- OUTSIDE RECORDS SUMMARY | 2025-04-10 11:13 | XMS_ITS | Clinical Summary ---
Author Organization [facility] Address [address] [place] [address] Phone Care Team Providers Care Meringuer Name Role Phone Kwan Macias MD Primary Care Provider [phone] Allergies No known active allergies Medications ferrous [...] hematuria 07/24/2024 Acquired cyst of kidney 07/24/2024 Resolved Problems Problem Noted Date Diagnosed Date Resolved Date Iron deficiency 07/19/2024 03/15/2025 Vitamin D deficiency 07/19/2024 025 Bipolar disorder 07/19/2024 03/15/2025 Family History Medical History Relation Comments Diabetes [...] on file Legal Sex Female 8:45 AM [facility] Gender Identity Not on file Sexual Orientation Not on file Last Filed Vital Signs Vital Sign Reading Time Taken Comments Blood Pressure 132/90 08/21/2024 1:10 PM FURNACE REPAIRER HELPER Pulse 70 08/21/2024 1:10 PM FURNACE REPAIRER HELPER Temperature - - Respiratory Rate - - Oxygen Saturation - - Inhaled Oxygen Concentration - - Weight 83.5 kg (184 lb) 08/21/2024 1:10 PM FURNACE REPAIRER HELPER Height 160 cm (5' 3) 08/21/2024 1:10 PM FURNACE REPAIRER HELPER Body Mass Index 32.59 08/21/2024 1:10 PM FURNACE REPAIRER HELPER Plan of Treatment Upcoming Encounters Date Type Department Care Team (Late st Contact Info) Description 06/18/2025 11:40 AM FURNACE REPAIRER HELPER Office Visit [facility] [address] [facility], [address] [place] [address] Kurt Tripathi MD [address] [place] [address] Health Maintenance Due Date Last Done Comments Pneumococcal PPSV23 Highest Risk Adult (1 of 3 - PCV13 ) 1997 Influenza Vaccine (#1) [address] [place] [address] PM INTERFACED INSURANCE Care Teams Meringuer Relationship Specialty Start Date End Date Kwan Macias MD PCP - General 06/19/24
--- OUTSIDE RECORDS SUMMARY | 2025-04-10 11:13 | XMS_ITS | Clinical Summary ---
Author Organization [facility] at [facility] Office Center Address [address] [place] [address] Care Team Providers Care Die Set Up Worker Name Role Phone Shannon Cruz MD Unavailable [phone] Kwan Macias MD Primary Care Provider [phone] Allergies Active Allergy Reactions Criticality Noted Date [...] Active Additional Information Patient not taking.Reported on 04/02/2025 oxyCODONE (ROXICODONE) 10 mg tabletIndications: Pain Take 1 tablet (10 mg total) by mouth every 4 (four) hours as needed for pain 20 tablet 04/01/20 21 Active Additional Information Patient not taking.Reported on 04/02/[address] (CYMBALTA) 30 mg capsule Take [...] (700 mg total) by mouth daily Active PNV with digzuxe-eeqm-PB ( Plus, calcium carb,) 27 mg iron- [...] (EFFEXOR-XR) 75 mg 24 hr capsule Active cyclobenzaprine (FLEXERIL) 5 mg tablet TAKE 1 TABLET BY MOUTH THREE TIMES A DAY NEEDED FOR MUSLE SPASMS REASONS FIBROMYALGIA SYNDROME Active budesonide-formote roL (SYMBICORT) 160-4.5 mcg/actuation inhaler Inhale 2 puffs 2 (two) times a day Rinse mouth with water after use. Do not swallow. 1 each 03/20/20 25 Active montelukast (SINGULAIR) 10 mg tablet Take 1 tablet (10 mg total) by mouth nightly 30 tablet 03/20/20 25 026 Active albuterol HFA (PROVENTIL HFA,VENTOLIN HFA,PROAIR HFA) 90 mcg/actuation inhaler Inhale 2 puffs every 6 (six) hours as needed for wheezing or shortness of breath 1 each 03/20/20 25 Active albuterol 2.5 mg /3 mL (0.083 %) nebulizer solution Take 3 mL (2.5 mg total) by nebulization every 6 (six) hours as needed for wheezing or shortness of breath 360 mL 3 03/20/20 25 Active famotidine (PEPCID) 40 mg tablet Take 1 tablet (40 mg total) by mouth daily 30 tablet 11 03/20/20 25 026 Active Additional Information Patient not taking.Reported on 04/02/2025 albuterol HFA (PROVENTIL HFA,VENTOLIN HFA,PROAIR HFA) 90 mcg/actuation inhaler 12/30/19 24 025 Discontin ued(Alter dariusz therapy) budesonide-formote roL (SYMBICORT) 80-4.5 mcg/actuation inhaler Inhale 2 puffs 2 (two) times a day Rinse mouth with water after use. Do not swallow. 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 Start Singulair 10 mg 1 tablet in the evening. I have sent for an albuterol inhaler Last eosinophil count I see in 2020 was 200. I have also ordered a nebulizer to be used as needed at home for significant symptoms of shortness of breath wheezing, and cough. 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 Vaginal discharge 07/25/2024 Paresthesia [...] Encounters Date Type Department Care Team Description 04/08/2025 Orders Only [facility] Health Information Management [address] [place] [address] Scanning, Provider 04/04/2025 Orders Only [facility] [address] [place] [address] Lee Ann Garnica MD Dilation of pancreatic duct (Primary Dx) 04/04/2025 Telephone [facility] Gastroenterology [address] Medicine 12th [place] [address] [place] [phone] Michelle Villaseñor RMA UPPER ENDOSCOPIC ULTRASOUND (GI Pre Procedure Assessment: The EUS is scheduled on 04-11-25 @ 11:[address] Garnica at the [facility]./EUS Prep Instructions were sent through Bindo today to the patient.) 04/02/2025 11:30 AM CDT Lab [facility] [address] [place] [address] Palpitations 04/02/2025 11:00 AM CDT Ancillary Procedure [facility] Cardiology [address] [place] [id number] Palpitations 04/02/2025 10:30 AM CDT Office Visit [facility] Medical [facility] Cardiology [address] [place] [phone] Wiliam Lopez MD Chest pain, unspecified type (Primary Dx); Palpitations 03/20/2025 10:30 AM CDT Office Visit [facility] Medical [facility] Pulmonary at [address] [place] [address] Isaura Romero NP Asthma, unspecified asthma severity, unspecified whether complicated, unspecified whether persistent (Primary Dx) from Last 3 Months Immunizations Immunization Administration [...] Tobacco: Never Tobacco Cessation:Counseling Given: Not Answered Hana Depression Scale Answer Date Recorded Hana Depression Scale Total 7 03/31/2021 The thought of harming myself has occurred to me . Never 03/31/2021 AUDIT-C Answer Date Recorded Frequency of Alcohol Consumption Not on file 03/20/2025 Q2: How many drinks containi ng alcohol do you have on a typical day when you are drinking? Patient does not drink Frequency of Binge Drinking Not on file 03/11 Comments Unknown Sex and Gender Information Value Date Recorded Sex Assigned at Not on file Legal Sex Female 6:23 PM [employer] Gender Identity Not on file Sexual Orientation [...] Cruz , Jami Qiu MD Complications:None Delivery Location:[facility] Main C ampus (E L AND D PROCEDURE) Last Filed Vital Signs Vital Sign Reading Time Taken Comments Blood Pressure 110/80 04/02/2025 10:04 AM CDT Pulse 109 04/02/2025 10:04 AM CDT Temperature 36.7 C (98 F) 03/20/2025 10:01 AM CDT Respiratory Rate 12 06/26/2024 1:08 PM CAST IRON DIPPER Oxygen Saturation 99% 04/02/2025 10:04 AM CDT Inhaled Oxygen Concentration - - Weight 86.7 kg (191 lb 1.6 oz) 04/02/2025 10:04 AM CDT Height 157.5 cm (5' 2.01) 04/02/2025 10:04 AM C DT Body Mass Index 34.94 04/02/2025 10:04 AM CDT Plan of Treatment Upcoming Encounters Date Type Department Care Team (Latest Contact Info) Description 04/11/2025 11:00 AM CDT Hospital Encounter [facility] [place] [address] [place] [address] Lee Ann Garnica MD [address] [address] Dilation of pancreatic duct 04/11/2025 11:00 AM CDT - 04/11/2025 12:00 PM CDT Surgery [facility] [address] [place] [address] Lee Ann Garnica MD [address] [address] [place] Endoscopy Health Maintenance Due Date Last Done Comments [...] Procedure Name Priority Date/Time Associated Diagnosis Comments SCAN - OTHER ORDERS 04/08/2025 EGFR Routine 04/02/2025 11:34 AM CDT Palpitations DIFFERENTIAL AUTO Routine 04/02/2025 11: 34 AM CDT Palpitations CBC WITH AUTO DIFFERENTIAL Routine 04/02/2025 11:34 AM CDT Palpitations COMPREHENSIVE METABOLIC PANEL Routine 04/02/2025 11:34 AM CDT Palpitations THYROID FUNCTION CASCADE Routine 04/02/2025 11:34 AM CDT Palpitations D-DIMER, QUANTITATIVE Routine 04/02/2025 11:34 AM CDT Palpitations ECG 12-LEAD Routine 04/02/2025 10:10 AM CDT Chest pain, unspecified type from Last 3 Months Results * SCAN - OTHER ORDERS (04/08/2025) us Provider Scanning Final Result * eGFR (04/02/2025 11:34 AM CDT) eGFR 74 >=60 mL/min/1. 73 m2 Comment: Interpretive Data Reference Interval Normal >/= 90 mL/min/1.73m2 Mildly decreased* 60 - 89 mL/min/1.73m2 Mildly to moderately decreased 45 - 59 mL/min/1.73m2 Moderately to severely decreased 30 - 44 mL/min/1.73m2 Severely decreased 15 - 29 mL/min/1.73m2 Kidney Failure < 15 mL/min/1.73m2 *Relative to young adult level Estimated glomerular filtration rate is determined by the 2020 CKD-EPI equation recommended by the National Kidney Foundation (A Unifying Approach to GFR Estimation: Recommendations of the NKF-ASK Task Force on Reassessing the Inclusion of Race in Diagnosing Kidney Disease, JASN 202). The CKD-EPI equation should not be used for patients with unstable renal function and has not been validated in children and those over 70. Current interpretive data was last reviewed 2021. Blood 04/02/2025 11:3 4 AM CDT 04/02/2025 12:04 PM CDT us Wiliam Lopez MD LAB BLOOD ORDERABLES Final Res ult [place] [id number] [facility] [place] [address] * Differential, auto (04/02/2025 11:34 AM CDT) Neutrophil abs 3.83 1.50 - 6.50 K/cumm Imm gran abs 0.01 0.00 - 0.10 K/cumm [facility] Lymphocyte abs 1.82 0.80 - 3.30 K/cumm [facility] Monocyte abs 0.48 0.20 - 0.80 K/cumm [facility] Eosinophil abs 0.07 0.00 - 0.50 K/cumm [facility] Basophil abs 0.02 0.00 - 0.10 K/cumm [facility] Neutrophil pct 61.5 % [facility] Comment: Interpretive Data Percent cell count reference ranges are not reported, since discordance with absolute values may lead to misinterpretation of CBC data. Current Interpretive Data was last revised on 2017. Imm gran pct 0.2 % [facility] Comment: Interpretive Data Percent cell count reference ranges are not reported, since discordance with absolute values may lead to misinterpretation of CBC data. Current Interpretive Data was last revised on 2017. Lymphocyte pct 29.2 % [facility] Comment: Interpretive Data Percent cell count reference ranges are not reported, since discordance with absolute values may lead to misinterpretation of CBC data. Current Interpretive Data was last revised on 2017. Monocyte pct 7.7 % [facility] Comment: Interpretive Data Percent cell count reference ranges are not reported, since discordance with absolute values may lead to misinterpretation of CBC data. Current Interpretive Data was last revised on 2017. Eosinophil pct 1.1 % [facility] Comment: Interpretive Data Percent cell count reference ranges are not reported, since discordance with absolute values may lead to misinterpretation of CBC data. Current Interpretive Data was last revised on 2017. Basophil pct 0.3 % [facility] Comment: Interpretive Data Percent cell count reference ranges are not reported, since discordance with absolute values may lead to misinterpretation of CBC data. Current Interpretive Data was last revised on 2017. Blood 04/02/2025 11:3 4 AM CDT 04/02/2025 12:04 PM CDT Wiliam Lopez MD LAB BLOOD ORDERABLES Final Res ult Performing Organization Address [facility] Co de Phone Number [address] [place] [address] * Thyroid Function [place] (04/02/2025 11:34 AM CDT) [facility] TSH 0.44 0.30 - 4.20 mcIUnit/mL Blood 04/02/2025 11:3 4 AM CDT 04/02/2025 12:04 PM CDT Wiliam Lopez MD LAB BLOOD ORDERABLES Final Res ult Performing Organization Address [facility] de Phone Number [address] [address] * (ABNORMAL) CBC with auto differential (04/02/2025 11:34 AM CDT) [facility] WBC 6.23 3.80 - 9.90 K/cumm Hgb 11.0(L) 11.9 - 15.5 g/dL [facility] Hct 34.7(L) 35.6 - 45.5 % [facility] Plt 268 150 - 400 K/cumm [facility] MPV 9.9 9.1 - 12.3 fL [facility] RBC 3.78(L) 3.90 - 5.20 M/cumm [facility] MCV 91.8 81.3 - 96.4 fL [facility] MCH 29.1 27.1 - 33.3 pg [facility] MCHC 31.7(L) 32.3 - 35.7 g/dL [facility] RDW CV 13.0 11.1 - 14.9 % [facility] RDW SD 43.2 35.7 - 48.1 fL [facility] NRBC abs 0.00 0.00 - 0.01 K/cumm [facility] Blood 04/02/2025 11:3 4 AM CDT 04/02/2025 12:04 PM CDT Wiliam Lopez MD LAB BLOOD ORDERABLES Final Res ult Performing Organization Address [facility] de Phone Number [address] [place] [address] * D-dimer, quantitative (04/02/2025 11:34 AM CDT) D-Dimer <270 <=499 ng/mL FEU Comment: Interpretive data FDA approved the D-dimer, in conjunction with a low or moderate pretest probability score, to exclude venous thromboembolic events (VTE) (PE and DVT) in outpatients when the D-dimer result is < 500 ng/ml FEU. Evidence supports using an age-adjusted D-dimer cut-off for outpatients older than 50 (age x 10) to improve specificity without sacrificing sensitivity. Example: age 68, VTE cut-off 680 ng/ml FEU. References; Schlaura HT et al. Brit Med J. 2013;346:f2492. Rafa et al. Annals Int Med. 2015;163:701-11. Current interpretive data was last revised on 2019. Blood 04/02/2025 11:3 4 AM CDT 04/02/2025 12:04 PM CDT Wiliam Lopez MD LAB BLOOD ORDERABLES Final Res ult Performing Organization Address [facility] Co de Phone Number [address] [place] [address] * Comprehensive metabolic panel (04/02/2025 11:34 AM CDT) Pathologist [facility] Sodium 141 135 - 145 mmol/L Potassium, pl 4.5 3.3 - 4.9 mmol/L [facility] Chloride 105 97 - 110 mmol/L [facility] CO2 28 22 - 32 mmol/L [facility] Anion gap 8 2 - 15 mmol/L [facility] BUN 9 6 - 25 mg/dL [facility] Creatinine 0.96 0.60 - 1.10 mg/dL [facility] Glucose 90 70 - 199 mg/dL [facility] Comment: Interpretive Data Fasting glucose >/= 126 mg/dl is diagnostic for diabetes. Fasting is defined as no caloric intake for at least 8 hours. Fasting glucose between 100 mg/dl to 125 mg/dl is diagnostic of prediabetes. In a patient with classic symptoms of hyperglycemia or hyperglycemic crisis, a random glucose >/= 200 mg/dl is diagnostic for diabetes. In the absence of unequivocal hyperglycemia, results should be confirmed by repeat testing. The classification and Diagnosis of Diabetes Diabetes Care 2021; 46: S19-S40. Current interpretive data was last revised 2022. Calcium 9.2 8.5 - 10.3 mg/dL [facility] Bilirubin, total 0.2 0.1 - 1.2 mg/dL [facility] Protein, pl 6.7 6.5 - 8.5 g/dL [facility] Albumin 3.9 3.5 - 5.0 g/dL [facility] Alk phos 73 40 - 130 Units/L [facility] ALT 12 7 - 45 Units/L [facility] AST 17 10 - 45 Units/L [facility] Blood 04/02/2025 11:3 4 AM CDT 04/02/2025 12:04 PM CDT Wiliam Lopez MD LAB BLOOD ORDERABLES Final Res ult [place] [address] [facility] [address] [facility] [place] [address] * ECG 12 lead (04/02/2025 10:10 AM CDT) Wiliam Lopez MD ECG ORDERABLES Final Result from Last 3 Months Insurance Advance Directives For more information, please contact: [phone] * Full Code (Latest Code Status on File) Date Activated Date Inactivated Comments 03/30/2021 6:35 PM 04/01/2021 5:12 PM Care Teams Die Set Up Worker Relationship Specialty Start Date End Date Kwan Macias MD [address] [place] [id number] PCP - General Emergency Medicine 01/23/24 Shannon Cruz MD Consulting Physician Obstetrics and Gynecology 04/01/21
--- OUTSIDE RECORDS SUMMARY | 2025-04-10 11:13 | XMS_ITS | Encounter Summary ---
Author Organization [facility] Address [address] [place] [address] Care Team Providers Care Singing Teacher Name Role Phone Kwan Macias MD Primary Care Provider [phone] Jg Hummel DO Unavailable Encounter Details Date Type Department Care Team (Late Contact Info) Description 02/21/2025 Results Follow-Up [facility] - Rheumatology [facility] [address] [place] [address] Jg Hummel DO [address] [place] [address] Social History Tobacco Use Types Packs/Day Years [...] Care Team (Late st Contact Info) Description 04/24/2025 1:40 PM CDT Office Visit [facility] - Rheumatology [facility] [employer] [address] [address] [place] [address] Jg Hummel DO [address] [facility] [address] [place] [address] 07/25/2025 10:15 AM GOODS LAYER Appointment [facility] [address] [place] [phone] Steve Van, [employer] [address] [facility] [address] [place] [address] documented as of this encounter Visit Diagnoses Not on filedocumented in this encounter Care Teams Singing Teacher Relationship Specialty Start Date End Date Kwan Macias MD [address] [facility] [facility] [address] [address] [place] [address] PCP - General Family Medicine 01/09/24 Jg Hummel DO [address] [facility] [address] [place] [address] Beer Still Runner Compounder Rheumatology 02/27/24 documented as of this encounter
--- OUTSIDE RECORDS SUMMARY | 2025-04-10 11:13 | XMS_ITS | Clinical Summary ---
Author Organization [facility] Address [address] [facility] [place] [address] Care Team Providers Care Brewery Pumper Name Role Phone Kwan Macias MD Primary Care Provider [phone] Allergies No known active allergies Medications ferrous sulfate 325 mg (65 mg iron) tablet Take 325 mg by mouth daily. 12/26/2023 Active ergocalciferol (VITAMIN D2) 50,000 unit capsule Take 1 Capsule by mouth every 7 days. 12/23/2023 Active Eliquis 5 mg tablet TAKE 1 TABLET BY MOUTH TWICE A DAY 60 Tablet 2 02/11/2025 Active Active Problems No known active problems Encounters Date Type Department Care Team Description 03/26/2025 External Device Data STL ABSTRACTION Provider, Abstract 03/15/2025 Orders Only [facility] Oncology and Hematology - [address] [place] [address] Ryan Cheney MD Iron deficiency anemia, unspecified iron deficiency anemia type (Primary Dx) 02/12/2025 External Device Data STL ABSTRACTION Provider, Abstract 02/10/2025 Refill [facility] Oncology and Hematology - [address] [place] [address] Ryan Cheney MD 01/23/2025 External Device Data [...] Description 04/16/2025 3:45 PM CDT Office Visit [facility]ology - [address] [facility] [address] [place] [address] Ryan Cheney MD [address] [facility] [address] [place] [address] Health Maintenance Due Date Last [...] to complete this topic Insurance Care Teams Brewery Pumper Relationship Specialty Start Date End Date Kwan Macias MD [address] [place] [phone] PCP - General Family Practice 05/11/24
--- OUTSIDE RECORDS SUMMARY | 2025-04-10 11:13 | XMS_ITS | Clinical Summary ---
Author Organization [facility] Address [address] [place] [address] Care Team Providers Care Research Hydrologist Name Role Phone Kwan Macias MD Primary Care Provider [phone] Jg Hummel DO Unavailable Source Comments [facility],non-owned Affiliates and Associated Physician Practices is amultiple site organization consisting of ambulatory clinics and hospital sitesin [place], [place], [place] and [place]. This disclosure is being madepursuant to the Care Everywhere program and may not contain all information available regarding this patient. Last updated 18.[facility] Allergies Active Allergy Reactions Criticality Noted Date [...] times daily Active gabapentin (Neurontin) 100 MG capsuleIndicati ons:Fibromyalgi a Syndrome,Restle ss Leg Syndrome Take 2 (two) capsules by mouth at bedtime. Note dose reduction effective 02/13/2025. Reasons: Fibromyalgia Syndrome, Restless Leg Syndrome. 5 Active cyclobenzaprine (Flexeril) 5 MG tabletIndicatio ns:Fibromyalgia Syndrome Take 1 (one) tablet by mouth 3 times daily as needed for Muscle Spasms Reasons: Fibromyalgia Syndrome 90 tablet 2 Active Active Problems Problem Noted Date Diagnosed [...] Diagnosed Date Resolved Date Unexplained weight loss 01/09/2024 05/2 02/2025 Assessment & Plan (01/09/2024 4:53 PM CDT): [...] Encounters Date Type Department Care Team Description 02/21/2025 Orders Only [facility] - Rheumatology [address] [place] [address], [address] [place] [id number] Jg Hummel DO Muscle spasm ; Positive HORACE (antinuclear antibody); Elevated CK 02/21/2025 Results Follow-Up [facility] - Rheumatology [address] [place] [address], [address] [place] [address] Jg Hummel DO 02/18/2025 Telephone [facility] - Rheumatology [address] [place] [address], [address] [place] [address] Jg Hummel DO Results 02/13/2025 8:00 AM CDT Office Visit [facility] Rheumatology [address] [place] [address], [address] [place] [address] Jg Hummel DO Muscle spasm (Primary Dx); Primary fibromyalgia syndrome; Memory impairment 02/13/2025 Refill [facility] Rheumatology [address] [place] [address], [address] [place] [address] Jg Hummel DO Medication Issue from Last 3 Months Immunizations Immunization Administration [...] 157.5 cm (5' 2) 09/07/2024 10:20 AM VENEER SAMPLE MAKER Body Mass Index 36.58 09/07/2024 10:20 AM VENEER SAMPLE MAKER Plan of Treatment Upcoming Encounters Date Type Department Care Team (Late st Contact Info) Description 04/24/2025 1:40 PM CDT Office Visit [facility] - Rheumatology [address], [address] [place] [address] Jg Hummel DO [address] [place] [address] 07/25/2025 10:15 AM VENEER SAMPLE MAKER Appointment [facility] [address] [place] [id number] Steve Van, SALT PLANT OPERATOR-DIETETIC ASSISTANT [address] [address] [place] [address] Health Maintenance Due Date Last Done Comments [...] series) 1997 PAP SMEAR 1999 COVID-19 VACCINE (2023-2 5 season) 2025 INFLUENZA VACCINE (#1) 2025 MAMMOGRAM 03/28/2026 03/28/2024 SCREENING FOR DIABETES 02/14/2028 02/13/2025 ZOSTER VACCINE (1 of 2) 2028 DTAP/TDAP/TD [...] D deficiency has been defined by the [place] of Medicine and an Endocrine Society practice guideline as a level of serum 25-OH vitamin D less than 20 ng/mL (1,2). The Endocrine Society went on to further define vitamin D insufficiency as a level between 21 and 29 ng/mL (2). 1. IOM ([place] of Medicine). 2010. Dietary reference intakes for calcium and D. [place]: The National Academies Press. 2. Dominick MF, Ye RANGEL, Geri ROD, et al. Evaluation, treatment, and prevention of vitamin D deficiency: an Endocrine Society clinical practice guideline. JCEM. 2010; 96(7):1911-30. Blood BLOOD SPECIMEN / Unknown 02/13/2025 8:36 AM CDT 02/13/2025 Narrative [facility] INSURANCE BILL - 02/14/2025 8:12 AM CDT Performed at: [address] [place], [place] [id number] [place], [place] [id number] Top Collar Maker: Siddhartha Maynard PhD, Phone: [phone] Jg Hummel DO LAB - CHEMISTRY ORDERABLES Final Result [facility] INSURANCE BILL [address] [place] [address] * COMPREHENSIVE METABOLIC PANEL (02/13/2025 8:36 AM CDT) Glucose 89 70 - 99 mg/dL [facility] [...] - 02/14/2025 7:09 AM CDT Performed at: [address] [place] [id number] Top Collar Maker: Siddhartha Maynard PhD, Phone: [phone] Jg Hummel DO LAB - CHEMISTRY ORDERABLES Final Result [facility] INSURANCE BILL [address] [place] [address] * MAGNESIUM BLOOD (02/13/2025 8:36 AM CDT) Magnesium 2.1 1.6 - 2.3 mg/dL [facility] INSURANCE BILL Blood BLOOD SPECIMEN / Unknown 02/13/2025 8:36 AM CDT 02/13/2025 Narrative [facility] INSURANCE BILL - 02/14/2025 7:09 AM CDT Performed at: [address] [place] [address] [place] [id number] Top Collar Maker: Siddhartha Maynard PhD, Phone: [phone] Jg Hummel DO LAB - CHEMISTRY ORDERABLES Final Result Performing Organization Address [facility] de Phone Number [facility] INSURANCE BILL [address] [place] [address] * (ABNORMAL) CK BLOOD (02/13/2025 8:36 AM CDT) CK 373(H) 32 - 182 U/L [facility] INSURANCE BILL Blood BLOOD SPECIMEN / Unknown 02/13/2025 8:36 AM CDT 02/13/2025 Narrative [facility] INSURANCE BILL - 02/14/2025 7:09 AM CDT Performed at: [address] [place] [id number] Top Collar Maker: Siddhartha Maynard PhD, Phone: [phone] Jg Hummel DO LAB - CHEMISTRY ORDERABLES Final Result Performing Organization Address [facility] de Phone Number [facility] INSURANCE BILL [address] [place] [address] * Mammo Bilat Diagnostic W Bautista (03/28/2024 7:23 AM CDT) Anatomical Region Laterality Modality Breast Bilateral Mammography 03/28/2024 7:18 AM CDT Addenda Addendum by Monet Connors MD on 05/25/2024 3:01 PM VENEER SAMPLE MAKER Addendum by Monet Connors M.D. This [...] This was discussed with Dr. Jeffrey via Split message. EXAMINATIONS: 1. RIGHT DIGITAL DIAGNOSTIC MAMMOGRAM AND TOMOSYNTHESIS AND 2. COMPLETE BILATERAL BREAST ULTRASOUND (COMBINED REPORT) LOCATION: [facility] EXAM DATE: 03/28/2024 HISTORY: This is a 43-year-old female patient with painful right breast mass/lump for which she went to the ER at [facility] at the beginning of March. An ultrasound [...] cancer greater than 20%, consultation in the [facility] Breast Surgery High Risk Clinic is recommended. Should she wish to schedule an appointment, the phone number [phone]. The [place] Cancer Society recommends annual screening breast MRI [...] recommended. COMPARISON: Limited right breast ultrasound 03/11/2024 [facility]. Screening mammography 08/16/2023 from [facility] MAMMOGRAM: TECHNIQUE: Diagnostic bilateral mammography was [...] in size compared to prior exam from [facility]. No suspicious finding was found in the [...] greater than 20%, consultation in the [facility] High Risk Clinic is recommended. 3. Annual screening breast MRI is recommended, given the elevated lifetime risk of developing breast cancer greater than 20%, according to the [place] Cancer [employer] guidelines. This can be alternated [...] greater than 20%, consultation in the [facility] High [facility] is recommended. 3. Annual screening breast MRI is recommended, given the elevated lifetime risk of developing breast cancer greater than 20%, according to the [place] Cancer Society guidelines. This can be alternated [...] 2: BENIGN. Report dictated by Roxie WASHBURN, [facility] (breast imaging fellow). IMonet MD have personally reviewed and interpreted this examination/study. > Interpreting Provider: Monet Connors MD on 03/28/2024 10:21 AM Narrative 03/28/2024 10:21 AM CDT EXAMINATIONS: 1. RIGHT DIGITAL DIAGNOSTIC MAMMOGRAM AND TOMOSYNTHESIS AND 2. COMPLETE BILATERAL BREAST ULTRASOUND (COMBINED REPORT) LOCATION: [facility] EXAM DATE: 03/28/2024 HISTORY: This is a 43-year-old female patient with painful right breast mass/lump for which she went to the ER at [facility] at the beginning of March. An ultrasound [...] cancer greater than 20%, consultation in the [facility] Breast Surgery High Risk Clinic is recommended. Should she wish to schedule an appointment, the phone number [phone]. The [place] Cancer Society recommends annual screening breast MRI [...] recommended. COMPARISON: Limited right breast ultrasound 03/11/2024 [facility]. Screening mammography 08/16/2023 from [facility] MAMMOGRAM: TECHNIQUE: Diagnostic bilateral mammography was [...] in size compared to prior exam from [facility]. No suspicious finding was found in the [...] COMPLETE BILATERAL BREAST ULTRASOUND (COMBINED REPORT) LOCATION: [facility] EXAM DATE: 03/28/2024 HISTORY: This is a 43-year-old female patient with painful right breast mass/lump for which she went to the ER at [facility] at the beginning of March. An ultrasound [...] cancer greater than 20%, consultation in the [facility] Breast Surgery High Risk Clinic is recommended. Should she wish to schedule an appointment, the phone [phone]. The [place] Cancer Society recommends annual screening breast MRI in addition to mammograms for women who have a 20% or greater lifetime riskof developing breast cancer. This can be managed through the high riskbreast clinic. Risk assessment based upon the Tyrer-Cuzick v8 model. By the NCCN guidelines and family history of breast cancer, consideration of genetic testing is recommended. COMPARISON: Limited right breast ultrasound 03/11/2024 [facility]. Screening mammography 08/16/2023 from [facility] MAMMOGRAM: TECHNIQUE: Diagnostic bilateral mammography was [...] in size compared to prior exam from [facility]. No suspicious finding was found inthe right [...] ofgreater than 20%, consultation in the [facility] is recommended. 3. Annual screening breast MRI is recommended, given the elevatedlifetime risk of developing breast cancer greater than 20%, according to the [place] Cancer Society guidelines. This can be alternated [...] CATEGORY 2: BENIGN. Report dictated by [facility], FR (breast imaging fellow). IMonet MD have personally reviewed and interpreted this examination/study. > Interpreting Provider: Monet Connors MD on 03/28/2024 10:21 AM Yumiko Henderson MD MAMMO ORDERABLES Edited Resu lt - Final from Last 3 Months or Most Recently Relevant to Health Maintenance Insurance [facility] SELF PAY NO INSURANCE Member Subscriber Plan / Payer (Ef fective for All Dates) Name:Amelie Man Member ID:Not on file Relation to Subscriber:Not on file Name:AMELIE MAN Subscriber ID:Not on file (Home) Address: [address] [place] [id number] Payer ID:Not on file Group ID:Not on file Type:Self Pay Address: [place], [place] Care Teams Research Hydrologist Relationship Specialty Start Date End Date Kwan Macias MD [address] [facility] [address] [place] [address] PCP - General Family Medicine 01/09/24 Jg Hummel DO [facility] [facility] [address] [place] [address] Child Support Agent Rheumatology 02/27/24
--- OUTSIDE RECORDS SUMMARY | 2025-04-10 11:13 | XMS_ITS | Encounter Summary ---
Author Organization [facility] Healthcare Address [address] [place] [address] Care Team Providers Care Online Merchandiser Name Role Phone Shannon Curz MD Unavailable [phone] Kwan Macias MD Primary Care Provider [phone] Encounter Details Date Type Department Care Team (Late st Contact Info) Description 04/08/2025 Orders Only [facility] Health Information Management [address] [place] [address] Scanning, Provider Social History Tobacco Use Types Packs/Day Years Used Date Smoking Tobacco: Never Passive Smoke Exposure: Past Smokeless Tobacco: Never [place] Depression Scale Answer Date Recorded [place] Depression Scale Total 7 03/31/2021 The thought [...] on file Legal Sex Female 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 [place] [address] [facility] [address] [place] [address] EarlyLee Ann MD [address] [place] [address] [place] Endoscopy documented as of this encounter Procedures Procedure Name Priority Date/Time Associated Diagnosis Comments SCAN - OTHER ORDERS 04/08/2025 documented in this encounter Results * SCAN - OTHER ORDERS (04/08/2025) us Provider Scanning Final Result documented in this encounter Visit Diagnoses Not on filedocumented in this encounter Care Teams Online Merchandiser Relationship Specialty Start Date End Date Kwan Macias MD [address] [place] [address] PCP - General Emergency Medicine 01/23/24 Shannon Cruz MD Consulting Physician Obstetrics and Gynecology 04/01/21 documented as of this encounter
--- OUTSIDE RECORDS SUMMARY | 2025-04-10 11:13 | XMS_ITS | Encounter Summary ---
Author Organization [facility] Address [address] [facility] [address] [place] [address] Phone Care Team Providers Care Dice Table Operator Name Role Phone Shannon Cruz MD Unavailable [phone] Kwan Macias MD Primary Care Provider [phone] Reason for Visit * Reason Onset Date Comments UPPER ENDOSCOPIC ULTRASOUND 04/04/2025 GI P re Procedure Assessment: The EUS is scheduled on 04-11-25 @ 11:[address] [facility]EUS Prep Instructions were sent through [employer] to the patient. Encounter Details Date Type Department Care Team (Late st Contact Info) Description 04/04/2025 Telephone [facility] Medicine Gastroenterology [address] [facility] 12[address] [place] [address] [place] [id number] Michelle Villaseñor RMA UPPER ENDOSCOPIC ULTRASOUND (GI Pre Procedure Assessment: The EUS is scheduled on 04-11-25 @ 11:[address] 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 Gender Identity Not on file Sexual Orientation Not on file documented as of this encounter Miscellaneous Notes * Telephone Encounter - Michelle Villaseñor RMA - 04/04/2025 11:49 AM CDT PROCEDURE Type: EUS Indication: PANCREATIC DUCT DILATION Referring Physician: LISANDRA EARLY Date Referred: 04-04-25 CLINICAL ASSESSMENT [x] Clinical assessment obtained via phone call with patient 04-04-25 [x]COVID/Flu Screening questions []BMI>45, Weight >350 lbs [] Patient had GI procedure/CPAP clinic/GI clinic <30 days (if Yes, no medical screening questions needed unless new clinical issues in last 30 days) Medical screening questions: BMI/Weight: NA CARDIOVASCULAR: None RESPIRATORY/LUNG: None RENAL/LIVER/GI: None GI: Previous COLON or EGD: Hx of Polyps, Mccullough, Barretts:no Hx of Constipation:No Have you ever required a two day prep? No BLEEDING/CLOTTING: None NEUROLOGICAL: None ENDOCRINE: None PRIOR PROCEDURE ISSUES: None SHOP TEACHER/: NA IMPLANTS.: None PSYCH/Behavioral Hx: Yes [place] has limited security Notes: ANXIETY, DEPRESSION PACEMAKER/ICD Y/N: No/NA Device info: Last documented device check: Any shocks since last cards visit (if yes must see cardiology for procedure clearance): DIALYSIS Y/N: No/NA []HD- Schedule on non-HD day, see protocol []PD- Drain PD fluid AM of procedure, if colonoscopy order AB ppx, see protocol REGULAR DIABETIC MEDS Y/N: No/NA []Yes- Discuss diabetes medication management with prescribing physician GLP MEDICATIONS Y/N: No/NA None Day of the week medication taken Significant GI Symptoms (Nausea, Vomiting, Indigestion, Bloating) while taking GLP-1? (choose one) [] No - Instructed to avoid taking the dose the day of their procedure. [] Yes, BUT - These GI symptoms are expected to have resolved by the day of procedure. Instructed to avoid taking a dose the day of their procedure. [] Yes, AND - These GI symptoms are expected to be present on the day of procedure. Instructed to discuss holding GLP-1 the week before their procedure with their ordering provider. Letter Sent to Ordering Physician. Diet Instructions (at minimum for all cases) [] Patient given 24-hour clear liquid diet instructions. BLOOD THINNERS/ANTICOAG/ANTIPLATELET (BESIDES ASA) Medication: Eliquis Physician contacted for hold order/date sent: Lisandra Early MD Hold order Method sent: 04-04-25 Faxed through [employer] Date hold received: 04-04-25, Per Lisandra Early, the patient was told to hold the eliquis for 2 days prior to the EUS. Hold instructions: CONTINUE ASPIRIN INFORMATION REQUESTED []Imaging: []Medical Progress Note/H&P []Medication list []Other: PATIENT OPTIMIZATION []Physician reviewing escalation: []CPAP: Date scheduled: Outcome : [] Location limitations: Scheduling Scheduling location limitations: Hunting Guide needed [] NA Language: POA [] NA Name: Required extended education:no SPECIAL PROCEDURE INSTRUCTIONS Scheduling Notes Procedure information Date of procedure: 04-11-25 Time of procedure: 11:00 AM Arrival time: 10:00 AM Location: [facility] Proceduralist: Lee Ann Garnica Instructions Method of instructions: Mailed Copy 04-04-25 [x]Confirmation of ride/soft top installer [x]Post anesthesia restrictions given [x]NPO Instructions: [x]Diet Instructions: [x]Take non-blood thinner prescription meds that morning [x]Bring med list, photo ID, insurance card, no valuables []Bring COVID vaccination card (if vaccinated) Bowel Prep Prep prescribed: Other (list) NPO AFTER MIDNIGHT Method of Bowel Prep (RX): E-Scribe Copy documented in this encounter Plan of Treatment Upcoming Encounters Date Type Department Care Team (Latest Contact Info) Description 04/11/2025 11:00 AM CDT Hospital Encounter [facility] [address] [place] [address] Lee Ann Garnica MD [address] [place] [address] Dilation of pancreatic duct 04/11/2025 11:00 AM CDT - 04/11/2025 12:00 PM CDT Surgery [facility] [address] [facility] [address] [place] [address] Lee Ann Garnica MD [address] [place] [address] [place] Endoscopy documented as of this encounter Visit Diagnoses Not on filedocumented in this encounter Care Teams Dice Table Operator Relationship Specialty Start Date End Date Kwan Macias MD [address] [place] [address] PCP - General Emergency Medicine 01/23/24 Shannon Cruz MD Consulting Physician Obstetrics and Gynecology 04/01/21 documented as of this encounter
[2025-04-10 11:19] LABS: Alanine Aminotransferase 17 U/L (6-35); Albumin Level 4.1 g/dL (3.5-5.1); Alkaline Phosphatase 82 U/L (38-126); Anion Gap 6 mmol/L (4-12); Aspartate Amino Transferase 23 U/L (14-36); Bilirubin,Total 0.4 mg/dL (0.2-1.3); Blood Urea Nitrogen 8 mg/dL (7-17); Calcium 9.3 mg/dL (8.4-10.2); Carbon Dioxide 30 mmol/L (22-30); Chloride 102 mmol/L (98-107); Estimated Glomerular Filt Rate > 60; Glucose 88 mg/dL (65-110); Potassium 4.0 mmol/L (3.4-5.0); Sodium 138 mmol/L (137-145); Total Protein 7.2 g/dL (6.3-8.2)
[2025-04-10 11:20] LABS: Iron 49 ug/dL (37-170)
[2025-04-10 11:39] LABS: Percent Iron Saturation 13 % (20-50)
[2025-04-10 12:05] LABS: Ferritin 11.60 ng/mL (6.24-137)
[2025-04-10 12:34] LABS: Vitamin B12 479.0 pg/mL (239-931)
== END 2025-04-10 10:27 | disposition home or self-care (01) ==
PROVIDERS: PCP Emergency Medicine; Visit Provider Internal Medicine Hematology & Oncology
DX: D50.9 Iron deficiency anemia, unspecified (principal)
CPT/HCPCS: 36415; 80053; 82607; 82728; 82746; 83540; 83550; 85025